=== PATIENT | female | born 1970 | race Caucasian/White ===

== ENCOUNTER 2017-01-19 16:02 | Emergency (ER) | payer OTHER ==
[2017-01-19] MEDS ORDERED: Sodium Chloride 0.9% 1,000 ML IV STA (16:32)
[2017-01-19] MEDS ORDERED: Sodium Chloride 0.9% 10 ML Syringe FLUSH PRN ×2 (16:32→17:46)
[2017-01-19] MEDS ORDERED: Diatrizoate Meglumine/Diatrizoate Sodium 37% 120 ML Bottle PO ONE (17:46)
[2017-01-19] MEDS ORDERED: Iopamidol 612 MG/ML 150 ML Bottle IVPUSH ONE (17:46)
--- NOTE | 2017-01-19 17:51 | EDM.PDOC ---
ED HPI GI/ABDOMINAL - General Chief Complaint: Abdominal Pain Stated Complaint: ABDOMINAL PAIN Time Seen by Provider: 01/19/17 16:24 Source of Information: Reports: Patient History Limitations: Reports: No limitations - History of Present Illness INITIAL COMMENTS - FREE TEXT/NARRATIVE: The patient presents with lower abdominal pain that started about 1 month ago. It is coming and going and she had an episode that started yesterday. She has no nausea and vomiting with it. She will have some diarrhea with it at times but not now. She has no dysuria and no fever or chills. She has no chest pain or shortness of breath. She has had a 40pound intentional weight loss over the past few months. Timing/Duration: Reports: Week(s): (4) Location: other (Lower abdomen) Quality: Reports: stabbing Severity: moderate Context: Denies: sick contact Associated Symptoms (-Female): Reports: diarrhea. Denies: chest pain, nausea/ vomiting - Related Data Allergies/ADRs: Allergies Allergy/AdvReac Type Severity Reaction Status Date / Time acetaminophen Allergy Facial Verified 01/19/17 16:07 [From Darvocet-N] Swelling guaifenesin [From Entex LA] Allergy Facial Verified 01/19/17 16:07 Swelling meclizine Allergy Facial Verified 01/19/17 16:07 Swelling meperidine HCl [From Demerol] Allergy Facial Verified 01/19/17 16:07 Swelling oxycodone HCl [From Percocet] Allergy Facial Verified 01/19/17 16:07 Swelling phenylephrine HCl Allergy Facial Verified 01/19/17 16:07 [From Entex LA] Swelling phenylpropanolamine HCl Allergy Facial Verified 01/19/17 16:07 [From Entex LA] Swelling propoxyphene napsylate Allergy Facial Verified 01/19/17 16:07 [From Darvocet-N] Swelling terfenadine [From Seldane] Allergy Facial Verified 01/19/17 16:07 Swelling Home Meds: Home Meds Calcium Carb/Vitamin D3/Vit K1 [Calcium + Vit D & K Chew] 1 tab PO DAILY [History] Pantoprazole Sodium [Protonix] 40 mg PO DAILY 05/27/14 [History] Sertraline HCl [Sertraline HCl] 200 mg PO DAILY 10/30/15 [History] Albuterol [Take Home: Albuterol 6.7 GM, 1 INH Pack] 1 puff INH Q4H PRN 01/15/16 [History] Cholecalciferol (Vitamin D3) [Vitamin D] 1 tab PO TID 01/15/16 [History] Cyclobenzaprine [Flexeril] 10 mg PO DAILY 01/15/16 [History] traZODone 50 mg PO ACDINNER 01/15/16 [History] Hydroclorathaizide 10 mg PO DAILY 01/25/16 [History] Hydrocodone/Acetaminophen [Hydrocodon-Acetaminophen 5-325] 1 - 2 each PO Q6HR PRN #20 tablet 01/19/17 [Rx] Past Medical History HEENT History: Reports: Impaired vision Cardiovascular History: Reports: Hypertension Respiratory History: Reports: Asthma, Sleep apnea Other Respiratory History: uses cpap at night Gastrointestinal History: Reports: GERD Psychiatric History: Reports: Anxiety, Depression, Other (see below) Other Psychiatric History: trouble sleeping Other Hematologic History: PKU - Past Surgical History Female Surgical History: Reports: Tubal ligation Musculoskeletal Surgical History: Reports: Knee replacement, Other (see below) Other Musculoskeletal Surgeries/Procedures:: ankle surgery, collar bone surgery Social & Family History - Family History Family Medical History: Noncontributory Cardiac: Reports: Heart failure, [place] Neurological: Reports: CVA Endocrine/Metabolic: Reports: Diabetes, type II - Tobacco Use Smoking Status *Q: Former Smoker Years of Tobacco use: 3 Packs/Tins Daily: 1 Second Hand Smoke Exposure: No - Caffeine Use Caffeine Use: Reports: Soda - Alcohol Use Days Per Week of Alcohol Use: 0 - Recreational Drug Use Recreational Drug Use: No ED ROS GENERAL - Review of Systems Review Of Systems: See Below Constitutional: Reports: no symptoms HEENT: Reports: No symptoms Respiratory: Reports: No Symptoms Cardiovascular: Reports: No symptoms Endocrine: Reports: no symptoms GI/Abdominal: Reports: Abdominal pain : Reports: no symptoms Musculoskeletal: Reports: no symptoms ED EXAM, GI/ABD - Physical Exam Exam: See Below Exam Limited By: No limitations General Appearance: alert, no apparent distress Ears: normal external exam Nose: normal inspection Head: atraumatic, normocephalic Neck: normal inspection Respiratory/Chest: no respiratory distress, lungs clear, normal breath sounds Cardiovascular: regular rate, rhythm, no edema, no murmur GI/Abdominal: soft, no organomegaly, no mass, tenderness (Mild to moderate tenderness to the lower abdomen) Course - Vital Signs Last Recorded V/S: Last Vital Signs Temp 97.1 F 01/19/17 16:13 Pulse 84 01/19/17 16:13 Resp 16 01/19/17 16:13 BP 136/92 H 01/19/17 16:13 Pulse Ox 99 01/19/17 16:13 - Orders/Labs/Meds Orders: Active Orders 24 hr Category Date Time Status Peripheral IV Care [RC] . DIRECTED Care 01/19/17 16:32 Active Abdomen Pelvis w Cont [CT] Stat Exams 01/19/17 16:37 Taken Sodium Chloride 0.9% [Saline Flush] Med 01/19/17 16:32 Active 10 ml FLUSH ASDIRECTED PRN Sodium Chloride 0.9% [Saline Flush] Med 01/19/17 17:46 Active 10 ml FLUSH ONETIME PRN Peripheral IV Insertion Adult [OM.PC] Stat Oth 01/19/17 16:32 Ordered Medication Orders Sodium Chloride (Saline Flush) 10 ml FLUSH ASDIRECTED PRN PRN Reason: Keep Vein Open Last Admin: 01/19/17 16:35 Dose: 10 ml Sodium Chloride (Saline Flush) 10 ml FLUSH ONETIME PRN PRN Reason: IV FLUSH Last Admin: 01/19/17 18:16 Dose: 10 ml Labs: Laboratory Tests 01/19/17 01/19/17 01/19/17 Range/Units 16:40 16:40 16:40 WBC 8.70 (3.98-10.04) K/mm3 RBC 4.44 (3.98-5.22) M/mm3 Hgb 14.0 (11.2-15.7) gm/L Hct 40.9 (34.1-44.9) % MCV 92.1 (79.4-94.8) fl MCH 31.5 (25.6-32.2) pg MCHC 34.2 (32.2-35.5) g/dl RDW Std Deviation 41.5 (36.4-46.3) fL Plt Count 294 (182-369) K/mm3 MPV 10.0 (9.4-12.3) fl Neut % (Auto) 58.8 (34.0-71.1) % Lymph % (Auto) 30.8 (19.3-51.7) % [place] % (Auto) 7.4 (4.7-12.5) % Eos % (Auto) 2.5 (0.7-5.8) Baso % (Auto) 0.3 (0.1-1.2) % Neut # (Auto) 5.11 (1.56-6.13) K/mm3 Lymph # (Auto) 2.68 (1.18-3.74) K/mm3 [place] # (Auto) 0.64 H (0.24-0.36) K/mm3 Eos # (Auto) 0.22 (0.04-0.36) K/mm3 Baso # (Auto) 0.03 (0.01-0.08) K/mm3 Sodium 141 (136-145) mEq/L Potassium 3.1 L (3.5-5.1) mEq/L Chloride 103 (98-107) mEq/L Carbon Dioxide 25 (21-32) mEq/L Anion Gap 16.1 H (5-15) BUN 7 (7-18) mg/dL Creatinine 0.8 (0.55-1.02) mg/dL Est Cr Clr Drug Dosing TNP Estimated GFR (MDRD) > 60 (>60) mL/min BUN/Creatinine Ratio 8.8 L (14-18) Glucose 98 (74-106) mg/dL Calcium 8.9 (8.5-10.1) mg/dL Total Bilirubin 0.2 (0.2-1.0) mg/dL AST 13 L (15-37) U/L ALT 28 (14-59) U/L Alkaline Phosphatase 64 (46-116) U/L Total Protein 6.9 (6.4-8.2) g/dl Albumin 3.7 (3.4-5.0) g/dl Globulin 3.2 gm/dL Albumin/Globulin Ratio 1.2 (1-2) Lipase 224 (73-393) U/L HCG, Qual Negative (NEGATIVE) Urine Color (Yellow) Urine Appearance (Clear) Urine pH (5.0-8.0) Ur Specific [place] (1.005-1.030) Urine Protein (Negative) Urine Glucose (UA) (Negative) Urine Ketones (Negative) Urine Occult Blood (Negative) Urine Nitrite (Negative) Urine Bilirubin (Negative) Urine Urobilinogen (0.2-1.0) Ur Leukocyte Esterase (Negative) Urine RBC (0-5) /hpf Urine WBC (0-5) /hpf Ur Squamous Epith Cells (0-5) /hpf Amorphous Sediment (NOT SEEN) /hpf Urine Bacteria (FEW) /hpf Urine Mucus (FEW) /hpf 01/19/17 Range/Units 17:20 WBC (3.98-10.04) K/mm3 RBC (3.98-5.22) M/mm3 Hgb (11.2-15.7) gm/L Hct (34.1-44.9) % MCV (79.4-94.8) fl MCH (25.6-32.2) pg MCHC (32.2-35.5) g/dl RDW Std Deviation (36.4-46.3) fL Plt Count (182-369) K/mm3 MPV (9.4-12.3) fl Neut % (Auto) (34.0-71.1) % Lymph % (Auto) (19.3-51.7) % [place] % (Auto) (4.7-12.5) % Eos % (Auto) (0.7-5.8) Baso % (Auto) (0.1-1.2) % Neut # (Auto) (1.56-6.13) K/mm3 Lymph # (Auto) (1.18-3.74) K/mm3 [place] # (Auto) (0.24-0.36) K/mm3 Eos # (Auto) (0.04-0.36) K/mm3 Baso # (Auto) (0.01-0.08) K/mm3 Sodium (136-145) mEq/L Potassium (3.5-5.1) mEq/L Chloride (98-107) mEq/L Carbon Dioxide (21-32) mEq/L Anion Gap (5-15) BUN (7-18) mg/dL Creatinine (0.55-1.02) mg/dL Est Cr Clr Drug Dosing Estimated GFR (MDRD) (>60) mL/min BUN/Creatinine Ratio (14-18) Glucose (74-106) mg/dL Calcium (8.5-10.1) mg/dL Total Bilirubin (0.2-1.0) mg/dL AST (15-37) U/L ALT (14-59) U/L Alkaline Phosphatase (46-116) U/L Total Protein (6.4-8.2) g/dl Albumin (3.4-5.0) g/dl Globulin gm/dL Albumin/Globulin Ratio (1-2) Lipase (73-393) U/L HCG, Qual (NEGATIVE) Urine Color Light yellow (Yellow) Urine Appearance Clear (Clear) Urine pH 7.0 (5.0-8.0) Ur Specific [place] 1.015 (1.005-1.030) Urine Protein Negative (Negative) Urine Glucose (UA) Negative (Negative) Urine Ketones Negative (Negative) Urine Occult Blood Negative (Negative) Urine Nitrite Negative (Negative) Urine Bilirubin Negative (Negative) Urine Urobilinogen 0.2 (0.2-1.0) Ur Leukocyte Esterase Trace H (Negative) Urine RBC 0-5 (0-5) /hpf Urine WBC 0-5 (0-5) /hpf Ur Squamous Epith Cells 0-5 (0-5) /hpf Amorphous Sediment Few H (NOT SEEN) /hpf Urine Bacteria Few (FEW) /hpf Urine Mucus Not seen (FEW) /hpf Meds: Medications Generic Name Dose Route Start Last Admin Trade Name Fresimi PRN Reason Stop Dose Admin Sodium Chloride 10 ml 01/19/17 16:32 01/19/17 16:35 Saline Flush FLUSH 10 ml ASDIRECTED PRN Administration Keep Vein Open Sodium Chloride 10 ml 01/19/17 17:46 01/19/17 18:16 Saline Flush FLUSH 10 ml ONETIME PRN Administration IV FLUSH Discontinued Medications Generic Name Dose Route Start Last Admin Trade Name Freq PRN Reason Stop Dose Admin Diatrizoate Meglum/Diatrizoate Sod 90 ml 01/19/17 17:46 01/19/17 18:16 Gastrografin 37% PO 01/19/17 17:47 90 ml ONETIME ONE Administration Sodium Chloride 1,000 mls @ 1,000 mls/hr 01/19/17 16:32 01/19/17 16:51 Normal Saline IV 01/19/17 17:31 1,000 mls/hr .BOLUS STA Administration Iopamidol 125 ml 01/19/17 17:46 01/19/17 18:13 Isovue-300 (61%) IVPUSH 01/19/17 17:47 125 ml ONETIME ONE Administration - Re-Assessments/Exams Free Text/Narrative Re-Assessment/Exam: 01/19/17 17:57 I ordered an IV NS 1L bolus, labs, UA and CT of her abdomen and pelvis. She did not want anything for the pain at this time. 01/19/17 19:17 Her CBC and CMP look good. Her HCG is negative. Her UA shows no UTI. Her CT looks good. I will discharge her home. Departure - Departure Time of Disposition: 19:30 Disposition: Home, Self-Care 01 Condition: good Clinical Impression: Abdominal pain Qualifiers: Abdominal location: lower abdomen, unspecified Qualified Code(s): R10.30 - Lower abdominal pain, unspecified Prescriptions: Hydrocodone/Acetaminophen [Hydrocodon-Acetaminophen 5-325] 1 - 2 each PO Q6HR PRN #20 tablet PRN Reason: Pain Referrals: Sanjana Garber MD [Physician] - 1 Week Forms: ED Department Discharge Additional Instructions: Take the hydrocodone for pain. Follow up with Dr Sanjana Garber. Please return if you are worse such as more pain, nausea, vomiting or diarrhea. - My Orders Last 24 Hours: My Active Orders 01/19/17 16:32 Peripheral IV Care [RC] . DIRECTED Sodium Chloride 0.9% [Saline Flush] 10 ml FLUSH ASDIRECTED PRN Peripheral IV Insertion Adult [OM.PC] Stat 01/19/17 16:37 Abdomen Pelvis w Cont [CT] Stat 01/19/17 17:46 Sodium Chloride 0.9% [Saline Flush] 10 ml FLUSH ONETIME PRN - Assessment/Plan Last 24 Hours: My Active Orders 01/19/17 16:32 Peripheral IV Care [RC] . DIRECTED Sodium Chloride 0.9% [Saline Flush] 10 ml FLUSH ASDIRECTED PRN Peripheral IV Insertion Adult [OM.PC] Stat 01/19/17 16:37 Abdomen Pelvis w Cont [CT] Stat 01/19/17 17:46 Sodium Chloride 0.9% [Saline Flush] 10 ml FLUSH ONETIME PRN
[2017-01-19 20:02] VITALS: BP 130/85
--- NOTE | 2017-01-20 05:16 | CT ---
CT abdomen and pelvis Technique: Multiple axial sections were obtained from above the dome of the diaphragm inferiorly through the pubic symphysis. Delayed images were also obtained through the abdomen and pelvis. Comparison: No previous abdominal imaging. Findings: Visualized lung bases shows nothing acute. Liver shows no focal parenchymal abnormality. Spleen appears within normal limits. Adrenal glands show no nodule. Pancreas appears within normal limits. Cyst noted within the mid to lower right kidney measuring 2.5 cm. Aorta shows no aneurysmal dilatation. No retroperitoneal adenopathy or mesenteric abnormalities are seen. No pelvic mass or adenopathy is seen. Appendix is seen which appears normal. Delayed images shows contrast within the ureters and show show no dilatation. Contrast is noted within the bladder. Bone window settings were reviewed which shows scattered disc space narrowing most severe at L5-S1 and with vacuum phenomena. 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 L5-S1 disc also shows vacuum phenomena. Impression: 1. Incidental findings. Nothing acute is seen on CT study of the abdomen and pelvis. Diagnostic code #2
== END 2017-01-19 20:00 | disposition home or self-care (01) ==
LOC: JD.ED 16:02
DX: R10.30 Lower abdominal pain, unspecified (principal); Z88.8 Allergy status to other drugs, medicaments and biological substances; Z88.6 Allergy status to analgesic agent; Z79.899 Other long term (current) drug therapy; I10 Essential (primary) hypertension; J45.909 Unspecified asthma, uncomplicated; G47.30 Sleep apnea, unspecified; K21.9 Gastro-esophageal reflux disease without esophagitis; F32.9 Major depressive disorder, single episode, unspecified; F41.9 Anxiety disorder, unspecified; Z96.659 Presence of unspecified artificial knee joint; Z87.891 Personal history of nicotine dependence
CPT/HCPCS: 36415; 74177; 80053; 81001; 83690; 84703; 85025; 96360; 99284; J7040; J7050; Q9963; Q9967; 99283

== ENCOUNTER 2017-04-15 21:38 | Emergency (ER) | payer OTHER ==
[2017-04-15 21:46] VITALS: BP 155/96
--- NOTE | 2017-04-15 22:10 | EDM.PDOC ---
ED HPI GENERAL MEDICAL PROBLEM - General Chief Complaint: Respiratory Problem Stated Complaint: ASTHMA ISSUES/CHEST PAIN Time Seen by Provider: 04/15/17 21:46 Source of Information: Reports: Patient, RN Notes Reviewed History Limitations: Reports: No Limitations - History of Present Illness INITIAL COMMENTS - FREE TEXT/NARRATIVE: The patient states that she has asthma, and has been feeling short of breath, has had a dry cough, and chest tightness for or than one month. She states that she has not had any wheezing. She has been taking her Ventolin twice a day and another inhaler (whose name she cannot recall) on an as-needed basis, but states that they don't seem to be helping. She had a single dose of albuterol by her nebulizer tonight at 19:30, but states that barely helped, as well. The patient has not had a recent fever. It is noted that the patient is saturating 100% on room air. The patient's PCP is Dr. Ruvalcaba. The patient states that she has never been seen by a cooling room attendant, but has had pulmonary function tests. Chest Pain Score (Numeric/FACES): 7 - Related Data Allergies Allergy/AdvReac Type Severity Reaction Status Date / Time acetaminophen Allergy Facial Verified 01/19/17 16:07 [From Darvocet-N] Swelling guaifenesin [From Entex LA] Allergy Facial Verified 01/19/17 16:07 Swelling meclizine Allergy Facial Verified 01/19/17 16:07 Swelling meperidine HCl [From Demerol] Allergy Facial Verified 01/19/17 16:07 Swelling oxycodone HCl [From Percocet] Allergy Facial Verified 01/19/17 16:07 Swelling phenylephrine HCl Allergy Facial Verified 01/19/17 16:07 [From Entex LA] Swelling phenylpropanolamine HCl Allergy Facial Verified 01/19/17 16:07 [From Entex LA] Swelling propoxyphene napsylate Allergy Facial Verified 01/19/17 16:07 [From Darvocet-N] Swelling terfenadine [From Seldane] Allergy Facial Verified 01/19/17 16:07 Swelling Home Meds: Home Meds Calcium Carb/Vitamin D3/Vit K1 [Calcium + Vit D & K Chew] 1 tab PO DAILY [History] Pantoprazole Sodium [Protonix] 40 mg PO DAILY 05/27/14 [History] Sertraline HCl [Sertraline HCl] 200 mg PO DAILY 08/23/15 [History] Albuterol [Take Home: Albuterol 6.7 GM, 1 INH Pack] 1 puff INH Q4H PRN 01/15/16 [History] Cholecalciferol (Vitamin D3) [Vitamin D] 1 tab PO TID 01/15/16 [History] Cyclobenzaprine [Flexeril] 10 mg PO DAILY 01/15/16 [History] traZODone 50 mg PO ACDINNER 01/15/16 [History] Hydroclorathaizide 10 mg PO DAILY 01/25/16 [History] Hydrocodone/Acetaminophen [Hydrocodon-Acetaminophen 5-325] 1 - 2 each PO Q6HR PRN #20 tablet 01/19/17 [Rx] Albuterol [IJD: Ventolin HFA] 04/15/17 [History] Past Medical History HEENT History: Reports: Impaired Vision Cardiovascular History: Reports: High Cholesterol (untreated), Hypertension Respiratory History: Reports: Asthma, Sleep Apnea (nightly CPAP) Gastrointestinal History: Reports: GERD Musculoskeletal History: Reports: Arthritis Psychiatric History: Reports: Anxiety, Depression Endocrine/Metabolic History: Reports: Obesity/BMI 30+ - Past Surgical History HEENT Surgical History: Reports: Oral Surgery ([place] teeth extraction) Female Surgical History: Reports: Tubal Ligation Musculoskeletal Surgical History: Reports: Arthroscopic Procedure (bilateral knees), ORIF (Left ankle), Shoulder Surgery (right, AC separation), Other (See Below) Social & Family History - Family History Family Medical History: Noncontributory Cardiac: Reports: Heart Failure, [place] Neurological: Reports: CVA Endocrine/Metabolic: Reports: Diabetes, type II - Tobacco Use Smoking Status *Q: Former Smoker Years of Tobacco use: 3 Packs/Tins Daily: 1 Month Tobacco Last Used: Quit 2012 Second Hand Smoke Exposure: No - Caffeine Use Caffeine Use: Reports: Soda - Alcohol Use Alcohol Use History: No Days Per Week of Alcohol Use: 0 - Recreational Drug Use Recreational Drug Use: No - Living Situation & Occupation Living situation: Reports: , with Spouse Occupation: Unemployed ED ROS GENERAL - Review of Systems Review Of Systems: See Below Constitutional: Reports: No Symptoms. Denies: Fever HEENT: Reports: No Symptoms Respiratory: Reports: Shortness of Breath, Cough (dry). Denies: Wheezing, Sputum Cardiovascular: Reports: No Symptoms Endocrine: Reports: No Symptoms GI/Abdominal: Reports: No Symptoms : Reports: No Symptoms Musculoskeletal: Reports: No Symptoms Skin: Reports: No Symptoms Neurological: Reports: No Symptoms Psychiatric: Reports: No Symptoms Hematologic/Lymphatic: Reports: No Symptoms Immunologic: Reports: No Symptoms ED EXAM, GENERAL - Physical Exam Exam: See Below Exam Limited By: No Limitations General Appearance: Alert, WD/WN, No Apparent Distress Eye Exam: Bilateral Eye: Normal Inspection Ears: Normal External Exam, Hearing Grossly Normal Nose: Normal Inspection, No Blood Throat/Mouth: Normal Inspection, Normal Lips, Normal Voice, No Airway Compromise Head: Atraumatic, Normocephalic Neck: Normal Inspection, Full Range of Motion Respiratory/Chest: No Respiratory Distress, Lungs Clear, Normal Breath Sounds, No Accessory Muscle Use. No: Decreased Breath Sounds, Crackles, Rhonchi, Wheezing, Prolonged Expiration Cardiovascular: Normal Peripheral Pulses, Regular Rate, Rhythm, No Gallop, No JVD, No Murmur, No Rub Peripheral Pulses: 4+: Radial (L), Radial (R) GI/Abdominal: Normal Bowel Sounds, Soft, Non-Tender, No Organomegaly, No Distention, No Abnormal Bruit, No Mass, Other (Obese) (Female) Exam: Deferred Rectal (Female) Exam: Deferred Back Exam: Normal Inspection, Full Range of Motion, NT Extremities: Normal Inspection, Normal Range of Motion, No Pedal Edema, Normal Capillary Refill Neurological: Alert, Oriented, Normal Cognition, Normal Reflexes, No Motor/ Sensory Deficits Psychiatric: Normal Affect Skin Exam: Warm, Dry, Intact, Normal Color, No Rash Lymphatic: No Adenopathy EKG INTERPRETATION EKG Date: 04/15/17 Time: 22:55 Rhythm: NSR Rate (Beats/Min): 75 [place]: Normal P-Wave: Present QRS: Normal ST-T: Normal QT: Normal Comparison: No Change (09/07/2016) Course - Vital Signs Last Recorded V/S: Last Vital Signs Temp 36.1 C 04/15/17 21:43 Pulse 93 04/15/17 21:43 Resp 18 04/15/17 21:43 BP 155/96 H 04/15/17 21:43 Pulse Ox 100 06/22/17 21:43 - Orders/Labs/Meds Orders: Active Orders 24 hr Category Date Time Status EKG Documentation Completion [RC] STAT Care 04/15/17 22:02 Active Chest 2V [CR] Stat Exams 04/15/17 22:02 Taken Labs: Laboratory Tests 04/15/17 04/15/17 04/15/17 Range/Units 22:15 22:15 22:15 WBC 7.34 (3.98-10.04) K/mm3 RBC 4.38 (3.98-5.22) M/mm3 Hgb 13.8 (11.2-15.7) gm/L Hct 40.3 (34.1-44.9) % MCV 92.0 (79.4-94.8) fl MCH 31.5 (25.6-32.2) pg MCHC 34.2 (32.2-35.5) g/dl RDW Std Deviation 39.8 (36.4-46.3) fL Plt Count 284 (182-369) K/mm3 MPV 10.0 (9.4-12.3) fl Neutrophils % (Manual) 54 (40-60) % Band Neutrophils % 0 (0-10) % Lymphocytes % (Manual) 36 (20-40) % Atypical Lymphs % 3 % Monocytes % (Manual) 2 (2-10) % Eosinophils % (Manual) 5 (0.7-5.8) % Basophils % (Manual) 0 L (0.1-1.2) Platelet Estimate Adequate Plt Morphology Comment Normal Poikilocytosis 1+ slight Anisocytosis 1+ slight Microcytosis 1+ slight Macrocytosis 1+ slight Tear Drop Cells 1+ slight Stomatocytes 1+ slight [place] Rings RBC Morph Comment Abnormal PT 10.5 (8.0-13.0) SECONDS INR 0.97 APTT 28 (22-36) SECONDS D-Dimer, Quantitative 0.22 (0.19-0.59) mg/L Puncture Site ABG pH (7.35-7.45) ABG pCO2 (35.0-45.0) mmHg ABG pO2 (80.0-100.0) mmHg ABG HCO3 (22.0-26.0) meq/L ABG O2 Saturation (96.0-97.0) % ABG Base Excess (-2-2.0) A-a Gradient mmHg FiO2 (21.00-100.00) % Sodium 138 (136-145) mEq/L Potassium 3.2 L (3.5-5.1) mEq/L Chloride 104 (98-107) mEq/L Carbon Dioxide 27 (21-32) mEq/L Anion Gap 10.2 (5-15) BUN 10 (7-18) mg/dL Creatinine 1.0 (0.55-1.02) mg/dL Est Cr Clr Drug Dosing TNP Estimated GFR (MDRD) 60 (>60) mL/min BUN/Creatinine Ratio 10.0 L (14-18) Glucose 116 H (74-106) mg/dL Calcium 8.9 (8.5-10.1) mg/dL Total Bilirubin 0.2 (0.2-1.0) mg/dL AST 20 (15-37) U/L ALT 34 (14-59) U/L Alkaline Phosphatase 77 (46-116) U/L Troponin I < 0.017 (0.00-0.056) ng/mL B-Natriuretic Peptide (0-100) pg/mL Total Protein 7.0 (6.4-8.2) g/dl Albumin 3.6 (3.4-5.0) g/dl Globulin 3.4 gm/dL Albumin/Globulin Ratio 1.1 (1-2) 04/15/17 04/15/17 Range/Units 22:15 22:28 WBC (3.98-10.04) K/mm3 RBC (3.98-5.22) M/mm3 Hgb (11.2-15.7) gm/L Hct (34.1-44.9) % MCV (79.4-94.8) fl MCH (25.6-32.2) pg MCHC (32.2-35.5) g/dl RDW Std Deviation (36.4-46.3) fL Plt Count (182-369) K/mm3 MPV (9.4-12.3) fl Neutrophils % (Manual) (40-60) % Band Neutrophils % (0-10) % Lymphocytes % (Manual) (20-40) % Atypical Lymphs % % Monocytes % (Manual) (2-10) % Eosinophils % (Manual) (0.7-5.8) % Basophils % (Manual) (0.1-1.2) Platelet Estimate Plt Morphology Comment Poikilocytosis Anisocytosis Microcytosis Macrocytosis Tear Drop Cells Stomatocytes [place] Rings RBC Morph Comment PT (8.0-13.0) SECONDS INR APTT (22-36) SECONDS D-Dimer, Quantitative (0.19-0.59) mg/L Puncture Site Rt brachial ABG pH 7.48 H (7.35-7.45) ABG pCO2 29.4 L (35.0-45.0) mmHg ABG pO2 88.0 (80.0-100.0) mmHg ABG HCO3 21.8 L (22.0-26.0) meq/L ABG O2 Saturation 98.0 H (96.0-97.0) % ABG Base Excess -0.3 (-2-2.0) A-a Gradient 9 mmHg FiO2 21.00 (21.00-100.00) % Sodium (136-145) mEq/L Potassium (3.5-5.1) mEq/L Chloride (98-107) mEq/L Carbon Dioxide (21-32) mEq/L Anion Gap (5-15) BUN (7-18) mg/dL Creatinine (0.55-1.02) mg/dL Est Cr Clr Drug Dosing Estimated GFR (MDRD) (>60) mL/min BUN/Creatinine Ratio (14-18) Glucose (74-106) mg/dL Calcium (8.5-10.1) mg/dL Total Bilirubin (0.2-1.0) mg/dL AST (15-37) U/L ALT (14-59) U/L Alkaline Phosphatase (46-116) U/L Troponin I (0.00-0.056) ng/mL B-Natriuretic Peptide 24 (0-100) pg/mL Total Protein (6.4-8.2) g/dl Albumin (3.4-5.0) g/dl Globulin gm/dL Albumin/Globulin Ratio (1-2) Meds: Medications Discontinued Medications Generic Name Dose Route Start Last Admin Trade Name Freq PRN Reason Stop Dose Admin Ondansetron HCl 4 mg 04/15/17 22:34 04/15/17 22:40 Zofran Odt PO 04/15/17 22:35 4 mg ONETIME ONE Administration - Radiology Interpretation Free Text/Narrative:: Two-view chest radiograph appears to be grossly normal. Cardiac silhouette is within normal limits. No pulmonary vascular congestion. No pleural effusions. No focal infiltrate. No pneumothorax. Formal read per the Radiologist pending. - Re-Assessments/Exams Free Text/Narrative Re-Assessment/Exam: 04/15/17 22:35 Notified by the nurse that the patient vomited while the ABG was being drawn. The patient had no prior complaints of nausea - this is likely due to anxiety. I have ordered Zofran 4 mg ODT. 04/15/17 22:51 The ABG demonstrates an acute on chronic respiratory alkalosis. 04/15/17 23:49 Test results discussed with the patient. The ABG confirms that the patient was hyperventilating, which is usually caused by anxiety, although can be caused by a variety of medical conditions including metabolic acidosis, hypocalcemia, hypoglycemia, liver failure, severe anemia, sepsis, acute coronary event, pneumothorax, pneumonia, dysrhythmia, PE, and CHF. These have been ruled out. I'm recommending the patient discuss her anxiety with Dr. Ruvalcaba, who may want to modify the patient's anxiety treatment. Departure - Departure Time of Disposition: 23:50 Disposition: Home, Self-Care 01 Condition: Good Clinical Impression: Hyperventilation syndrome, Anxiety - Discharge Information Instructions: Hyperventilation Referrals: Angela Person MD [Primary Care Provider] - Forms: ED Department Discharge Additional Instructions: You were seen in the emergency room for shortness of breath, a dry cough, and chest tightness for more than a month. Workup in the ER included blood work, an ABG, an ECG, and a chest x-ray. Your workup showed that you or hyperventilating. Hyperventilation is usually caused by anxiety, although can be caused by a variety of medical conditions including metabolic acidosis, hypocalcemia, hypoglycemia, liver failure, severe anemia, sepsis, acute coronary event, pneumothorax, pneumonia, dysrhythmia, PE, and CHF. These have all been ruled out, indicating that your hyperventilation is due to inadequately treated anxiety. We recommend that you follow-up with Dr. Ruvalcaba to discuss your anxiety treatment. If any other problems, please do not hesitate to return to the ER. - My Orders Last 24 Hours: My Active Orders 04/15/17 22:02 EKG Documentation Completion [RC] STAT Chest 2V [CR] Stat - Assessment/Plan Last 24 Hours: My Active Orders 04/15/17 22:02 EKG Documentation Completion [RC] STAT Chest 2V [CR] Stat
[2017-04-15] MEDS ORDERED: Ondansetron 4 MG Tab.DIS PO ONE (22:34)
--- NOTE | 2017-04-16 09:37 | CR ---
Chest: Two views of the chest were obtained. Comparison: Previous chest x-ray of 09/07/16. Heart size at the upper limits of normal. Lungs are clear. Bony structures are within normal limits for the patient's age. Impression: 1. Heart size at the upper limits of normal. Nothing acute is appreciated on two-view chest x-ray. Diagnostic code #2
== END 2017-04-15 23:55 | disposition home or self-care (01) ==
LOC: JD.ED 21:38
DX: F45.8 Other somatoform disorders (principal); F41.9 Anxiety disorder, unspecified; I10 Essential (primary) hypertension; E78.00 Pure hypercholesterolemia, unspecified; J45.909 Unspecified asthma, uncomplicated; G47.30 Sleep apnea, unspecified; K21.9 Gastro-esophageal reflux disease without esophagitis; F32.9 Major depressive disorder, single episode, unspecified; E66.9 Obesity, unspecified; Z98.51 Tubal ligation status; Z98.890 Other specified postprocedural states; Z87.891 Personal history of nicotine dependence; Z79.899 Other long term (current) drug therapy; Z88.6 Allergy status to analgesic agent; Z88.8 Allergy status to other drugs, medicaments and biological substances
CPT/HCPCS: 36415; 36600; 71020; 80053; 82803; 83880; 84484; 85025; 85379; 85610; 85730; 93005; 99285; A9270; 99283

== ENCOUNTER 2017-06-15 16:44 | Emergency (ER) | payer OTHER ==
[2017-06-15 17:01] VITALS: BP 136/81
--- NOTE | 2017-06-15 17:38 | EDM.PDOC ---
ED HPI GENERAL MEDICAL PROBLEM - General Chief Complaint: Lower Extremity Injury/Pain Stated Complaint: RT HIP PAIN Time Seen by Provider: 06/15/17 17:00 Source of Information: Reports: Patient History Limitations: Reports: No Limitations - History of Present Illness INITIAL COMMENTS - FREE TEXT/NARRATIVE: The patient presents with right hip pain. About 1 month ago she turned and had severe pain in her hip. She went to the walk in clinic and then her provider. They referred her to PT. She was doing okay until today. 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 When she did that, she could not get up because of sever pain in her right hip. The nursing staff used the daja lift to put her in a wheel chair. She presents now with right hip pain. She feels good when she is just laying down. Onset: Sudden Duration: Minutes: Location: Reports: Lower Extremity, Right (Hip) Quality: Reports: Sharp Severity: Severe Improves with: Reports: Immobilization Worsens with: Reports: Movement Context: Reports: Activity (Kneeling down) Associated Symptoms: Reports: No Other Symptoms Right Hip Pain Score (Numeric/FACES): 6 - Related Data Allergies Allergy/AdvReac Type Severity Reaction Status Date / Time acetaminophen Allergy Facial Verified 06/15/17 17:01 [From Darvocet-N] Swelling guaifenesin [From Entex LA] Allergy Facial Verified 06/15/17 17:01 Swelling meclizine Allergy Facial Verified 06/15/17 17:01 Swelling meperidine HCl [From Demerol] Allergy Facial Verified 06/15/17 17:01 Swelling oxycodone HCl [From Percocet] Allergy Facial Verified 06/15/17 17:01 Swelling phenylephrine HCl Allergy Facial Verified 06/15/17 17:01 [From Entex LA] Swelling phenylpropanolamine HCl Allergy Facial Verified 06/15/17 17:01 [From Entex LA] Swelling propoxyphene napsylate Allergy Facial Verified 06/15/17 17:01 [From Darvocet-N] Swelling terfenadine [From Seldane] Allergy Facial Verified 06/15/17 17:01 Swelling Home Meds: Home Meds Calcium Carb/Vitamin D3/Vit K1 [Calcium + Vit D & K Chew] 1 tab PO DAILY [History] Pantoprazole Sodium [Protonix] 40 mg PO DAILY 05/27/14 [History] Sertraline HCl [Sertraline HCl] 200 mg PO DAILY 08/23/15 [History] Albuterol [Take Home: Albuterol 6.7 GM, 1 INH Pack] 1 puff INH Q4H PRN 01/15/16 [History] Cholecalciferol (Vitamin D3) [Vitamin D] 1 tab PO TID 01/15/16 [History] Cyclobenzaprine [Flexeril] 10 mg PO DAILY 01/15/16 [History] traZODone 50 mg PO ACDINNER 01/15/16 [History] Hydroclorathaizide 10 mg PO DAILY 01/25/16 [History] Hydrocodone/Acetaminophen [Hydrocodon-Acetaminophen 5-325] 1 - 2 each PO Q6HR PRN #20 tablet 01/19/17 [Rx] Albuterol [IJD: Ventolin HFA] 04/15/17 [History] Acetaminophen with Codeine [Tylenol with Codeine #3 Tablet] 1 - 2 tab PO Q6HR PRN #30 tablet 06/15/17 [Rx] Past Medical History HEENT History: Reports: Impaired Vision Cardiovascular History: Reports: High Cholesterol (untreated), Hypertension Respiratory History: Reports: Asthma, Sleep Apnea (nightly CPAP) Gastrointestinal History: Reports: GERD Musculoskeletal History: Reports: Arthritis Psychiatric History: Reports: Anxiety, Depression Endocrine/Metabolic History: Reports: Obesity/BMI 30+ Other Hematologic History: PKU - Past Surgical History HEENT Surgical History: Reports: Oral Surgery ([place] teeth extraction) Female Surgical History: Reports: Tubal Ligation Musculoskeletal Surgical History: Reports: Arthroscopic Procedure (bilateral knees), ORIF (Left ankle), Shoulder Surgery (right, AC separation), Other (See Below) Social & Family History - Family History Family Medical History: Noncontributory Cardiac: Reports: Heart Failure, [place] Neurological: Reports: CVA Endocrine/Metabolic: Reports: Diabetes, type II - Tobacco Use Smoking Status *Q: Never Smoker Years of Tobacco use: 3 Packs/Tins Daily: 1 Month Tobacco Last Used: Quit 2012 Second Hand Smoke Exposure: No - Caffeine Use Caffeine Use: Reports: Soda - Alcohol Use Days Per Week of Alcohol Use: 0 - Recreational Drug Use Recreational Drug Use: No - Living Situation & Occupation Living situation: Reports: , with Spouse Occupation: Unemployed Review of Systems - Review of Systems Review Of Systems: Unable To Obtain Constitutional: Reports: No Symptoms Eyes: Reports: No Symptoms Ears: Reports: No Symptoms Nose: Reports: No Symptoms Mouth/Throat: Reports: No Symptoms Respiratory: Reports: No Symptoms Cardiovascular: Reports: No Symptoms GI/Abdominal: Reports: No Symptoms Musculoskeletal: Reports: Other (Right hip pain) ED EXAM, GENERAL - Physical Exam Exam: See Below Exam Limited By: No Limitations General Appearance: Alert, No Apparent Distress Ears: Normal External Exam Nose: Normal Inspection Head: Atraumatic, Normocephalic Neck: Normal Inspection Respiratory/Chest: No Respiratory Distress Extremities: Other (Mild pain upon palpation to the right hip) Course - Vital Signs Last Recorded V/S: Last Vital Signs Temp 97.1 F 06/15/17 16:58 Pulse 95 06/15/17 16:58 Resp 20 06/15/17 16:58 BP 136/81 06/15/17 16:58 Pulse Ox 96 06/15/17 16:58 - Orders/Labs/Meds Orders: Active Orders 24 hr Category Date Time Status Hip Min 2V or 3V w Pelvis Rt [CR] Stat Exams 06/15/17 17:08 Taken - Re-Assessments/Exams Free Text/Narrative Re-Assessment/Exam: 06/15/17 18:12 I ordered an x-ray and they just showed some mild arthritis. Departure - Departure Time of Disposition: 18:15 Disposition: Home, Self-Care 01 Condition: Good Clinical Impression: Right hip pain - Discharge Information Prescriptions: Acetaminophen with Codeine [Tylenol with Codeine #3 Tablet] 1 - 2 tab PO Q6HR PRN #30 tablet PRN Reason: Pain Referrals: Angela Person MD [Primary Care Provider] - 1 Week Forms: ED Department Discharge, ED Return to Work/School Form Additional Instructions: Take the tylenol # 3 as needed for pain. Try ice or heat for the pain. Follow up with Dr Ruvalcaba. Please return if you are worse. - My Orders Last 24 Hours: My Active Orders 06/15/17 17:08 Hip Min 2V or 3V w Pelvis Rt [CR] Stat - Assessment/Plan Last 24 Hours: My Active Orders 06/15/17 17:08 Hip Min 2V or 3V w Pelvis Rt [CR] Stat
--- NOTE | 2017-06-16 16:18 | CR ---
Pelvis and right hip: AP view of the pelvis was obtained as well as AP and frog-leg lateral views of the right hip. Comparison: No previous study. Joint spaces within both hips are maintained. Slight degenerative change is noted within the inferior left sacroiliac joint. No fracture or other abnormality is appreciated. Impression: 1. Mild degenerative change within the left inferior sacroiliac joint. 2. No additional abnormality is seen on AP pelvis or on two-view right hip exam. Diagnostic code #2
== END 2017-06-15 18:45 | disposition home or self-care (01) ==
LOC: JD.ED 16:44
DX: M25.551 Pain in right hip (principal); K21.9 Gastro-esophageal reflux disease without esophagitis; M19.90 Unspecified osteoarthritis, unspecified site; F41.9 Anxiety disorder, unspecified; F32.9 Major depressive disorder, single episode, unspecified; E66.9 Obesity, unspecified; Z98.51 Tubal ligation status; Z88.8 Allergy status to other drugs, medicaments and biological substances; Z79.899 Other long term (current) drug therapy
CPT/HCPCS: 73502-26-RT; 73502-RT; 99283; 99284

== ENCOUNTER 2017-09-15 19:37 | Emergency (ER) | payer OTHER ==
[2017-09-15 19:51] VITALS: BP 132/78
[2017-09-15] MEDS ORDERED: Albuterol/Ipratropium 3.0-0.5 MG/3 ML Neb Soln NEB ONE (20:56)
--- NOTE | 2017-09-15 20:56 | EDM.PDOC ---
ED HPI GENERAL MEDICAL PROBLEM - General Chief Complaint: Chest Pain Stated Complaint: CHEST PAIN Time Seen by Provider: 09/15/17 20:46 - History of Present Illness INITIAL COMMENTS - FREE TEXT/NARRATIVE: 47-year-old female presents to the emergency room with some chest pressure. This started yesterday and is been going on all day today this seems to be worse with exertion and is aggravated by deep breathing. The patient has a long history of asthma. She is using her inhalers as directed however has not increased her albuterol. It sounds like she uses her albuterol 1 times daily. The patient had a preop physical with some abnormalities on her EKG is scheduled to see cardiology this next week. With this chest pressure she has not had any radiating pain into either arm or into her jaw this is not been associated with diaphoresis no nausea or vomiting. Middle Chest Pain Score (Numeric/FACES): 8 - Related Data Allergies Allergy/AdvReac Type Severity Reaction Status Date / Time acetaminophen Allergy Facial Verified 09/15/17 19:51 [From Darvocet-N] Swelling guaifenesin [From Entex LA] Allergy Facial Verified 09/15/17 19:51 Swelling meclizine Allergy Facial Verified 09/15/17 19:51 Swelling meperidine HCl [From Demerol] Allergy Facial Verified 09/15/17 19:51 Swelling oxycodone HCl [From Percocet] Allergy Facial Verified 09/15/17 19:51 Swelling phenylephrine HCl Allergy Facial Verified 09/15/17 19:51 [From Entex LA] Swelling phenylpropanolamine HCl Allergy Facial Verified 09/15/17 19:51 [From Entex LA] Swelling propoxyphene napsylate Allergy Facial Verified 09/15/17 19:51 [From Darvocet-N] Swelling terfenadine [From Seldane] Allergy Facial Verified 09/15/17 19:51 Swelling Home Meds: Home Meds Calcium Carb/Vitamin D3/Vit K1 [Calcium + Vit D & K Chew] 1 tab PO DAILY [History] Pantoprazole Sodium [Protonix] 40 mg PO DAILY 05/27/14 [History] Sertraline HCl [Sertraline HCl] 200 mg PO DAILY 08/23/15 [History] Albuterol [Take Home: Albuterol 6.7 GM, 1 INH Pack] 1 puff INH Q4H PRN 01/15/16 [History] Cholecalciferol (Vitamin D3) [Vitamin D] 1 tab PO TID 01/15/16 [History] Cyclobenzaprine [Flexeril] 10 mg PO DAILY 01/15/16 [History] traZODone 50 mg PO ACDINNER 01/15/16 [History] Hydroclorathaizide 10 mg PO DAILY 01/25/16 [History] Hydrocodone/Acetaminophen [Hydrocodon-Acetaminophen 5-325] 1 - 2 each PO Q6HR PRN #20 tablet 01/19/17 [Rx] Albuterol [IJD: Ventolin HFA] 04/15/17 [History] Acetaminophen with Codeine [Tylenol with Codeine #3 Tablet] 1 - 2 tab PO Q6HR PRN #30 tablet 06/15/17 [Rx] Past Medical History HEENT History: Reports: Impaired Vision Cardiovascular History: Reports: High Cholesterol, Hypertension Respiratory History: Reports: Asthma, Sleep Apnea Gastrointestinal History: Reports: GERD Musculoskeletal History: Reports: Arthritis Psychiatric History: Reports: Anxiety, Depression Endocrine/Metabolic History: Reports: Obesity/BMI 30+ Other Hematologic History: PKU - Past Surgical History HEENT Surgical History: Reports: Oral Surgery Female Surgical History: Reports: Tubal Ligation Musculoskeletal Surgical History: Reports: Arthroscopic Procedure, ORIF, Shoulder Surgery, Other (See Below) Social & Family History - Family History Family Medical History: Noncontributory Cardiac: Reports: Heart Failure, [place] Neurological: Reports: CVA Endocrine/Metabolic: Reports: Diabetes, type II - Tobacco Use Smoking Status *Q: Never Smoker Years of Tobacco use: 3 Packs/Tins Daily: 1 Month Tobacco Last Used: Quit 2012 Second Hand Smoke Exposure: No - Caffeine Use Caffeine Use: Reports: Soda - Alcohol Use Days Per Week of Alcohol Use: 0 - Recreational Drug Use Recreational Drug Use: No - Living Situation & Occupation Living situation: Reports: , with Spouse Occupation: Unemployed ED ROS GENERAL - Review of Systems Review Of Systems: See Below Constitutional: Reports: No Symptoms HEENT: Reports: No Symptoms Respiratory: Reports: Shortness of Breath, Wheezing Cardiovascular: Reports: Chest Pain (Mild chest pressure) Endocrine: Reports: No Symptoms GI/Abdominal: Reports: No Symptoms : Reports: No Symptoms Neurological: Reports: No Symptoms Psychiatric: Reports: No Symptoms ED EXAM, GENERAL - Physical Exam Exam: See Below Exam Limited By: No Limitations General Appearance: Alert, No Apparent Distress Head: Atraumatic, Normocephalic Neck: Normal Inspection, Supple, Non-Tender, Full Range of Motion. No: Lymphadenopathy (L), Lymphadenopathy (R) Respiratory/Chest: No Respiratory Distress, Decreased Breath Sounds, Other ( With deep breathing the patient has some expiratory wheezes no crackles or rhonchi she seems to have diminished respiratory effort) Cardiovascular: Regular Rate, Rhythm, No Edema, No Murmur GI/Abdominal: Normal Bowel Sounds, Soft, Non-Tender Back Exam: Normal Inspection. No: CVA Tenderness (L), CVA Tenderness (R) Extremities: Normal Inspection, No Pedal Edema Neurological: Alert, Oriented, Normal Cognition Course - Vital Signs Last Recorded V/S: Last Vital Signs Temp 36.6 C 09/15/17 19:48 Pulse 90 09/15/17 19:48 Resp 16 09/15/17 19:48 BP 132/78 09/15/17 19:48 Pulse Ox 98 09/15/17 21:28 - Orders/Labs/Meds Orders: Active Orders 24 hr Category Date Time Status EKG Documentation Completion [RC] ASDIRECTED Care 09/15/17 19:55 Active RT Aerosol Therapy [RC] ASDIRECTED Care 09/15/17 20:56 Active Chest 1V Frontal [CR] Stat Exams 09/15/17 20:57 Taken EKG 12 Lead [EK] Stat Ther 09/15/17 19:54 Ordered Labs: Laboratory Tests 09/15/17 09/15/17 09/15/17 Range/Units 20:00 20:00 20:00 WBC 11.80 H (3.98-10.04) K/mm3 RBC 4.41 (3.98-5.22) M/mm3 Hgb 14.2 (11.2-15.7) gm/L Hct 40.4 (34.1-44.9) % MCV 91.6 (79.4-94.8) fl MCH 32.2 (25.6-32.2) pg MCHC 35.1 (32.2-35.5) g/dl RDW Std Deviation 40.5 (36.4-46.3) fL Plt Count 303 (182-369) K/mm3 MPV 10.2 (9.4-12.3) fl Neut % (Auto) Cancelled Lymph % (Auto) Cancelled [place] % (Auto) Cancelled Eos % (Auto) Cancelled Baso % (Auto) Cancelled Neut # (Auto) Cancelled Lymph # (Auto) Cancelled [place] # (Auto) Cancelled Eos # (Auto) Cancelled Baso # (Auto) Cancelled Neutrophils % (Manual) 61 H (40-60) % Band Neutrophils % 0 (0-10) % Lymphocytes % (Manual) 35 (20-40) % Atypical Lymphs % 0 % Monocytes % (Manual) 3 (2-10) % Eosinophils % (Manual) 1 (0.7-5.8) % Basophils % (Manual) 0 L (0.1-1.2) Manual Slide Review Cancelled Platelet Estimate Adequate Plt Morphology Comment Normal RBC Morph Comment Normal PT (8.0-13.0) SECONDS INR D-Dimer, Quantitative < 0.19 L (0.19-0.59) mg/L Sodium 138 (136-145) mEq/L Potassium 3.1 L (3.5-5.1) mEq/L Chloride 101 (98-107) mEq/L Carbon Dioxide 26 (21-32) mEq/L Anion Gap 14.1 (5-15) BUN 11 (7-18) mg/dL Creatinine 1.0 (0.55-1.02) mg/dL Est Cr Clr Drug Dosing 67.63 mL/min Estimated GFR (MDRD) 59 (>60) mL/min BUN/Creatinine Ratio 11.0 L (14-18) Glucose 120 H (74-106) mg/dL Calcium 9.3 (8.5-10.1) mg/dL Total Bilirubin 0.3 (0.2-1.0) mg/dL AST 21 (15-37) U/L ALT 40 (14-59) U/L Alkaline Phosphatase 79 (46-116) U/L Troponin I < 0.017 (0.00-0.056) ng/mL Total Protein 7.2 (6.4-8.2) g/dl Albumin 3.8 (3.4-5.0) g/dl Globulin 3.4 gm/dL Albumin/Globulin Ratio 1.1 (1-2) 09/15/ Range/Units 20:00 WBC (3.98-10.04) K/mm3 RBC (3.98-5.22) M/mm3 Hgb (11.2-15.7) gm/L Hct (34.1-44.9) % MCV (79.4-94.8) fl MCH (25.6-32.2) pg MCHC (32.2-35.5) g/dl RDW Std Deviation (36.4-46.3) fL Plt Count (182-369) K/mm3 MPV (9.4-12.3) fl Neut % (Auto) Lymph % (Auto) [place] % (Auto) Eos % (Auto) Baso % (Auto) Neut # (Auto) Lymph # (Auto) [place] # (Auto) Eos # (Auto) Baso # (Auto) Neutrophils % (Manual) (40-60) % Band Neutrophils % (0-10) % Lymphocytes % (Manual) (20-40) % Atypical Lymphs % % Monocytes % (Manual) (2-10) % Eosinophils % (Manual) (0.7-5.8) % Basophils % (Manual) (0.1-1.2) Manual Slide Review Platelet Estimate Plt Morphology Comment RBC Morph Comment PT 10.4 (8.0-13.0) SECONDS INR 0.96 D-Dimer, Quantitative (0.19-0.59) mg/L Sodium (136-145) mEq/L Potassium (3.5-5.1) mEq/L Chloride (98-107) mEq/L Carbon Dioxide (21-32) mEq/L Anion Gap (5-15) BUN (7-18) mg/dL Creatinine (0.55-1.02) mg/dL Est Cr Clr Drug Dosing mL/min Estimated GFR (MDRD) (>60) mL/min BUN/Creatinine Ratio (14-18) Glucose (74-106) mg/dL Calcium (8.5-10.1) mg/dL Total Bilirubin (0.2-1.0) mg/dL AST (15-37) U/L ALT (14-59) U/L Alkaline Phosphatase (46-116) U/L Troponin I (0.00-0.056) ng/mL Total Protein (6.4-8.2) g/dl Albumin (3.4-5.0) g/dl Globulin gm/dL Albumin/Globulin Ratio (1-2) Meds: Medications Discontinued Medications Generic Name Dose Route Start Last Admin Trade Name Rogelio PRN Reason Stop Dose Admin Albuterol/Ipratropium 3 ml 09/15/17 20:56 09/15/17 21:27 Duoneb 3.0-0.5 Mg/3 Ml NEB 09/15/17 20:57 3 ml ONETIME ONE Administration Aspirin 324 mg 09/15/17 22:17 09/15/17 22:23 Aspirin PO 09/15/17 22:18 324 mg ONETIME ONE Administration Potassium Chloride 40 meq 09/15/17 22:13 09/15/17 22:19 Klor-Con M20 PO 09/15/17 22:14 40 meq ONETIME ONE Administration - Re-Assessments/Exams Free Text/Narrative Re-Assessment/Exam: 09/15/17 22:15 Patient is doing much better after single nebulizer treatment her chest pressure has resolved she is breathing much better labs are nondiagnostic her potassium is a little low chest x-ray cannot exclude cardiomegaly suspect some of this is positional and slightly suboptimal inspiration no acute changes noted 09/15/17 22:44 Patient would like to be discharged at this point we did offer a second troponin but she would still like to go home I did recommend that she start daily aspirin 81 mg daily Departure - Departure Time of Disposition: 22:45 Disposition: Home, Self-Care 01 Clinical Impression: Chest pain, Asthma exacerbation - Discharge Information Referrals: Anastasia Lehman, [employer] CE[employer] DESIGNER [Primary Care Provider] - Forms: ED Department Discharge Additional Instructions: Return to emergency room with any questions problems worsening symptoms. Follow-up with your regular physician early this next week for recheck. Follow up with cardiology as scheduled. Increase your albuterol inhaler 2 puffs every 4 hours while awake. - My Orders Last 24 Hours: My Active Orders 09/15/17 19:54 EKG 12 Lead [EK] Stat 09/15/17 19:55 EKG Documentation Completion [RC] ASDIRECTED 09/15/17 20:56 RT Aerosol Therapy [RC] ASDIRECTED 09/15/17 20:57 Chest 1V Frontal [CR] Stat - Assessment/Plan Last 24 Hours: My Active Orders 09/15/17 19:54 EKG 12 Lead [EK] Stat 09/15/17 19:55 EKG Documentation Completion [RC] ASDIRECTED 09/15/17 20:56 RT Aerosol Therapy [RC] ASDIRECTED 09/15/17 20:57 Chest 1V Frontal [CR] Stat
[2017-09-15] MEDS ORDERED: Potassium Chloride 20 MEQ Tab.ER PO ONE (22:13)
[2017-09-15] MEDS ORDERED: Aspirin 81 MG Tab.Chew PO ONE (22:17)
--- NOTE | 2017-09-17 14:35 | CR ---
Chest: Portable view of the chest was obtained. Comparison: Prior chest x-ray of 04/15/17. Heart size and mediastinum are within normal limits for portable technique. Lungs are clear. Bony structures are grossly intact. Impression: 1. Nothing acute is identified on portable chest x-ray. Diagnostic code #1
== END 2017-09-15 22:59 | disposition home or self-care (01) ==
LOC: JD.ED 19:37
DX: J45.901 Unspecified asthma with (acute) exacerbation (principal); I10 Essential (primary) hypertension; Z88.6 Allergy status to analgesic agent; Z88.5 Allergy status to narcotic agent; Z88.8 Allergy status to other drugs, medicaments and biological substances; Z79.899 Other long term (current) drug therapy
CPT/HCPCS: 36415; 71010; 80053; 84484; 85025; 85379; 85610; 93005; 94640; 99285; A9270; 93010

== ENCOUNTER 2017-11-07 10:38 | Emergency (ER) | payer BC, OTHER ==
[2017-11-07 10:53] VITALS: BP 139/98
--- NOTE | 2017-11-07 11:12 | EDM.PDOC ---
ED HPI GENERAL MEDICAL PROBLEM - General Chief Complaint: Skin Complaint Stated Complaint: CHECK INCISION FROM BACK SURGERY Time Seen by Provider: 11/07/17 10:49 Source of Information: Reports: Patient History Limitations: Reports: No Limitations - History of Present Illness INITIAL COMMENTS - FREE TEXT/NARRATIVE: The patient had back surgery by Dr Dixon October 05. She had the dinora removed 2 weeks later and about a week ago she noticed the lower part of her incision opened up. There is a 1cm area to the lower part of the incision that opened up. There is no drainage. He doctor did do a swab of that area and she does not have the results back. She see Dr Dixon this Wednesday. There is no redness, swelling, pain or drainage. She has no fever or chills. Onset: Gradual Duration: Day(s): Location: Reports: Back Severity: Mild Improves with: Reports: None Worsens with: Reports: None Associated Symptoms: Reports: No Other Symptoms Left Lower Back Pain Score (Numeric/FACES): 6 - Related Data Allergies Allergy/AdvReac Type Severity Reaction Status Date / Time acetaminophen Allergy Facial Verified 11/07/17 10:54 [From Darvocet-N] Swelling guaifenesin [From Entex LA] Allergy Facial Verified 11/07/17 10:54 Swelling meclizine Allergy Facial Verified 11/07/17 10:54 Swelling meperidine HCl [From Demerol] Allergy Facial Verified 11/07/17 10:54 Swelling oxycodone HCl [From Percocet] Allergy Facial Verified 11/07/17 10:54 Swelling phenylephrine HCl Allergy Facial Verified 11/07/17 10:54 [From Entex LA] Swelling phenylpropanolamine HCl Allergy Facial Verified 11/07/17 10:54 [From Entex LA] Swelling propoxyphene napsylate Allergy Facial Verified 11/07/17 10:54 [From Darvocet-N] Swelling terfenadine [From Seldane] Allergy Facial Verified 11/07/17 10:54 Swelling Home Meds: Home Meds Calcium Carb/Vitamin D3/Vit K1 [Calcium + Vit D & K Chew] 1 tab PO DAILY [History] Pantoprazole Sodium [Protonix] 40 mg PO DAILY 05/27/14 [History] Sertraline HCl [Sertraline HCl] 200 mg PO DAILY 08/23/15 [History] Albuterol [Take Home: Albuterol 6.7 GM, 1 INH Pack] 1 puff INH Q4H PRN 01/15/16 [History] Cholecalciferol (Vitamin D3) [Vitamin D] 1 tab PO TID 01/15/16 [History] Cyclobenzaprine [Flexeril] 10 mg PO DAILY 01/15/16 [History] traZODone 50 mg PO ACDINNER 01/15/16 [History] Hydroclorathaizide 10 mg PO DAILY 01/25/16 [History] Albuterol [IJD: Ventolin HFA] 04/15/17 [History] Acetaminophen with Codeine [Tylenol with Codeine #3 Tablet] 1 - 2 tab PO Q6HR PRN #30 tablet 06/15/17 [Rx] Past Medical History HEENT History: Reports: Impaired Vision Cardiovascular History: Reports: High Cholesterol, Hypertension Respiratory History: Reports: Asthma, Sleep Apnea Gastrointestinal History: Reports: GERD Musculoskeletal History: Reports: Arthritis Psychiatric History: Reports: Anxiety, Depression Endocrine/Metabolic History: Reports: Obesity/BMI 30+ Other Hematologic History: PKU - Past Surgical History HEENT Surgical History: Reports: Oral Surgery Female Surgical History: Reports: Tubal Ligation Musculoskeletal Surgical History: Reports: Arthroscopic Procedure, ORIF, Shoulder Surgery, Other (See Below) Social & Family History - Family History Family Medical History: Noncontributory Cardiac: Reports: Heart Failure, [place] Neurological: Reports: CVA Endocrine/Metabolic: Reports: Diabetes, type II - Tobacco Use Smoking Status *Q: Never Smoker Years of Tobacco use: 3 Packs/Tins Daily: 1 Month Tobacco Last Used: Quit 2012 Second Hand Smoke Exposure: No - Caffeine Use Caffeine Use: Reports: Soda - Alcohol Use Days Per Week of Alcohol Use: 0 - Recreational Drug Use Recreational Drug Use: No - Living Situation & Occupation Living situation: Reports: , with Spouse Occupation: Unemployed ED ROS GENERAL - Review of Systems Review Of Systems: See Below Constitutional: Reports: No Symptoms HEENT: Reports: No Symptoms Respiratory: Reports: No Symptoms Cardiovascular: Reports: No Symptoms Endocrine: Reports: No Symptoms GI/Abdominal: Reports: No Symptoms : Reports: No Symptoms Musculoskeletal: Reports: No Symptoms Skin: Reports: Other (Incision opened up) ED EXAM, SKIN/RASH Exam: See Below Exam Limited By: No Limitations General Appearance: Alert, No Apparent Distress Ears: Normal External Exam Nose: Normal Inspection Head: Atraumatic, Normocephalic Neck: Normal Inspection Respiratory/Chest: No Respiratory Distress Back Exam: Other (Low back vertical incision with a small 1cm area to the lower incision that has some dehiscense fo the incision. There is no redness, warmth or drainage from the incision.) Course - Vital Signs Last Recorded V/S: Last Vital Signs Temp 98.4 F 11/07/17 10:46 Pulse 100 11/07/17 10:46 Resp 13 11/07/17 10:46 BP 139/98 H 11/07/17 10:46 Pulse Ox 100 11/07/17 10:46 - Re-Assessments/Exams Free Text/Narrative Re-Assessment/Exam: 11/07/17 11:11 I do not think this is an infection. I did put some steristrips on and I will have her follow up with her doctor. Departure - Departure Time of Disposition: 11:15 Disposition: Home, Self-Care 01 Condition: Good Clinical Impression: Dehiscence of closure of skin Qualifiers: Encounter type: initial encounter Qualified Code(s): T81.31XA - Disruption of external operation (surgical) wound, not elsewhere classified, initial encounter - Discharge Information Referrals: Anastasia Lehman, FANCY STITCHER [Primary Care Provider] - Additional Instructions: Keep the steristrips on the wound until you see your doctor. Please return if you are worse.
== END 2017-11-07 11:38 | disposition home or self-care (01) ==
LOC: JD.ED 10:38
DX: T81.31XA Disruption of external operation (surgical) wound, not elsewhere classified, initial encounter (principal); I10 Essential (primary) hypertension; E78.00 Pure hypercholesterolemia, unspecified; J45.909 Unspecified asthma, uncomplicated; F32.9 Major depressive disorder, single episode, unspecified; Z87.891 Personal history of nicotine dependence; Z79.899 Other long term (current) drug therapy; Z88.6 Allergy status to analgesic agent; Z88.8 Allergy status to other drugs, medicaments and biological substances; Z98.890 Other specified postprocedural states
CPT/HCPCS: 99283

== ENCOUNTER 2017-11-09 14:38 | Emergency (ER) | payer BC ==
[2017-11-09 14:51] VITALS: BP 157/102
--- NOTE | 2017-11-09 14:55 | EDM.PDOCBH ---
ED HPI GENERAL MEDICAL PROBLEM - General Chief Complaint: Behavioral/Psych Stated Complaint: SUICIDAL IDEATIONS Time Seen by Provider: 11/09/17 14:55 Source of Information: Reports: Patient History Limitations: Reports: No Limitations - History of Present Illness INITIAL COMMENTS - FREE TEXT/NARRATIVE: Patient is a 47-year-old female presents ED with suicidal ideations and homicidal thoughts. Patient did attempt to kill herself last night with taking trazodone 50 mg tabs 5 and also 2xTylenol threes. She is feeling depressed. She states her is not supportive and continues to emotionally degrade her. She wants to get patient cannot afford it. Patient recently had back surgery lumbosacral spine it is utilizing crutches to ambulate. This occurred September 2017. She has taken Tylenol number threes for pain. She has plans of going to [facility] crisis bed and has spoken with a case preparer and liner over there. Plan is for the patient to be medically cleared here in the ED and be transferred over to [facility]. Patient is tearful and sad about her situation. She states she did not really want to kill herself but is wanting to get out of her current situation. She has not taken any other medications. Denies any alcohol use or recreational drug use. She has not been treated inpatient for psych issues. - Related Data Allergies Allergy/AdvReac Type Severity Reaction Status Date / Time acetaminophen Allergy Facial Verified 11/09/17 14:51 [From Darvocet-N] Swelling guaifenesin [From Entex LA] Allergy Facial Verified 11/09/17 14:51 Swelling meclizine Allergy Facial Verified 11/09/17 14:51 Swelling meperidine HCl [From Demerol] Allergy Facial Verified 11/09/17 14:51 Swelling oxycodone HCl [From Percocet] Allergy Facial Verified 11/09/17 14:51 Swelling phenylephrine HCl Allergy Facial Verified 11/09/17 14:51 [From Entex LA] Swelling phenylpropanolamine HCl Allergy Facial Verified 11/09/17 14:51 [From Entex LA] Swelling propoxyphene napsylate Allergy Facial Verified 11/09/17 14:51 [From Darvocet-N] Swelling terfenadine [From Seldane] Allergy Facial Verified 11/09/17 14:51 Swelling Home Meds: Home Meds Calcium Carb/Vitamin D3/Vit K1 [Calcium + Vit D & K Chew] 1 tab PO DAILY [History] Pantoprazole Sodium [Protonix] 40 mg PO DAILY 05/27/14 [History] Sertraline HCl [Sertraline HCl] 200 mg PO DAILY 08/23/15 [History] Albuterol [Take Home: Albuterol 6.7 GM, 1 INH Pack] 1 puff INH Q4H PRN 01/15/16 [History] Cholecalciferol (Vitamin D3) [Vitamin D] 1 tab PO TID 01/15/16 [History] Cyclobenzaprine [Flexeril] 10 mg PO DAILY 01/15/16 [History] traZODone 50 mg PO ACDINNER 01/15/16 [History] Acetaminophen with Codeine [Tylenol with Codeine #3 Tablet] 1 - 2 tab PO Q6HR PRN #30 tablet 06/15/17 [Rx] Hydrochlorothiazide 25 mg PO DAILY 11/09/17 [History] Past Medical History HEENT History: Reports: Impaired Vision Cardiovascular History: Reports: High Cholesterol, Hypertension Respiratory History: Reports: Asthma, Sleep Apnea Gastrointestinal History: Reports: GERD Musculoskeletal History: Reports: Arthritis Psychiatric History: Reports: Anxiety, Depression Endocrine/Metabolic History: Reports: Obesity/BMI 30+ Hematologic History: Reports: Other (See Below) Other Hematologic History: PKU - Past Surgical History HEENT Surgical History: Reports: Oral Surgery Female Surgical History: Reports: Tubal Ligation Musculoskeletal Surgical History: Reports: Arthroscopic Procedure, ORIF, Shoulder Surgery, Other (See Below) Social & Family History - Family History Family Medical History: Noncontributory Cardiac: Reports: Heart Failure, [place] Neurological: Reports: CVA Endocrine/Metabolic: Reports: Diabetes, type II - Tobacco Use Smoking Status *Q: Former Smoker Years of Tobacco use: 3 Packs/Tins Daily: 1 Used Tobacco, but Quit: Yes Month Tobacco Last Used: 2006 Second Hand Smoke Exposure: No - Caffeine Use Caffeine Use: Reports: Soda - Alcohol Use Days Per Week of Alcohol Use: 0 - Recreational Drug Use Recreational Drug Use: No - Living Situation & Occupation Living situation: Reports: , with Spouse Occupation: Unemployed ED ROS GENERAL - Review of Systems Review Of Systems: See Below Constitutional: Reports: No Symptoms Respiratory: Reports: No Symptoms Cardiovascular: Reports: No Symptoms GI/Abdominal: Reports: No Symptoms Musculoskeletal: Reports: Back Pain (Low back pain secondary to recent surgery September 2017.) Skin: Reports: Other (Large surgical incision to the low back appears to be in week late stages of healing with no signs of infection.) Psychiatric: Reports: Anxiety, Depression. Denies: Homicidal Ideation, Suicidal Ideation ED EXAM, BEHAVIORAL HEALTH - Physical Exam Exam: See Below Exam Limited By: No Limitations General Appearance: Alert, WD/WN, Anxious Eye Exam: Bilateral Eye: PERRL Ears: Hearing Grossly Normal Nose: Normal Inspection Throat/Mouth: Normal Voice, No Airway Compromise Neck: Normal Inspection, Supple Respiratory/Chest: No Respiratory Distress, Lungs Clear, Normal Breath Sounds, No Accessory Muscle Use, Chest Non-Tender Cardiovascular: Normal Peripheral Pulses, Regular Rate, Rhythm, No Murmur GI/Abdominal: Normal Bowel Sounds, Soft, Non-Tender, No Organomegaly Back Exam: Other (Large surgical incision to the low back from previous back surgery September 2017. Appears being intact in the late stages of healing with no signs of infection present.) Extremities: Normal Inspection, Normal Range of Motion, Non-Tender, No Pedal Edema, Normal Capillary Refill Neurological: Alert, Normal Mood/Affect, CN II-XII Intact, Normal Cognition, No Motor/Sensory Deficits, Oriented x 3 Psychiatric: Alert, Normal Affect, Normal Cognition, Oriented, Depressed Mood, Tearful, Homicidal Thoughts (At times she's had dreams that she stabbed her .). No: Suicidal Plan, Suicidal Thoughts, Auditory Hallucinations, Visual Hallucinations COURSE, BEHAVIORAL HEALTH COMP - Course Vital Signs: Last Vital Signs Temp 97.3 F 11/09/17 14:47 Pulse 96 11/09/17 14:47 Resp 18 11/09/17 14:47 BP 157/102 H 11/09/17 14:47 Pulse Ox 100 11/09/17 14:47 Orders, Labs, Meds: Laboratory Tests 11/09/17 11/09/17 11/09/17 Range/Units 15:05 15:05 15:05 WBC 9.33 (3.98-10.04) K/mm3 RBC 4.31 (3.98-5.22) M/mm3 Hgb 13.5 (11.2-15.7) gm/L Hct 40.2 (34.1-44.9) % MCV 93.3 (79.4-94.8) fl MCH 31.3 (25.6-32.2) pg MCHC 33.6 (32.2-35.5) g/dl RDW Std Deviation 41.8 (36.4-46.3) fL Plt Count 341 (182-369) K/mm3 MPV 9.9 (9.4-12.3) fl Neut % (Auto) 69.3 (34.0-71.1) % Lymph % (Auto) 22.1 (19.3-51.7) % Clay % (Auto) 6.1 (4.7-12.5) % Eos % (Auto) 1.6 (0.7-5.8) Baso % (Auto) 0.5 (0.1-1.2) % Neut # (Auto) 6.46 H (1.56-6.13) K/mm3 Lymph # (Auto) 2.06 (1.18-3.74) K/mm3 Clay # (Auto) 0.57 H (0.24-0.36) K/mm3 Eos # (Auto) 0.15 (0.04-0.36) K/mm3 Baso # (Auto) 0.05 (0.01-0.08) K/mm3 PT 11.0 (8.0-13.0) SECONDS INR 1.01 Sodium 140 (136-145) mEq/L Potassium 3.4 L (3.5-5.1) mEq/L Chloride 105 (98-107) mEq/L Carbon Dioxide 23 (21-32) mEq/L Anion Gap 15.4 H (5-15) BUN 10 (7-18) mg/dL Creatinine 0.9 (0.55-1.02) mg/dL Est Cr Clr Drug Dosing 75.15 mL/min Estimated GFR (MDRD) > 60 (>60) mL/min BUN/Creatinine Ratio 11.1 L (14-18) Glucose 106 (74-106) mg/dL Calcium 9.2 (8.5-10.1) mg/dL Total Bilirubin 0.4 (0.2-1.0) mg/dL AST 16 (15-37) U/L ALT 28 (14-59) U/L Alkaline Phosphatase 80 (46-116) U/L Total Protein 7.5 (6.4-8.2) g/dl Albumin 3.9 (3.4-5.0) g/dl Globulin 3.6 gm/dL Albumin/Globulin Ratio 1.1 (1-2) TSH 3rd Generation 1.130 (0.358-3.74) uIU/mL HCG, Qual (NEGATIVE) Urine Color (Yellow) Urine Appearance (Clear) Urine pH (5.0-8.0) Ur Specific Sigel (1.005-1.030) Urine Protein (Negative) Urine Glucose (UA) (Negative) Urine Ketones (Negative) Urine Occult Blood (Negative) Urine Nitrite (Negative) Urine Bilirubin (Negative) Urine Urobilinogen (0.2-1.0) Ur Leukocyte Esterase (Negative) Urine RBC (0-5) /hpf Urine WBC (0-5) /hpf Ur Epithelial Cells (0-5) /hpf Urine Bacteria (FEW) /hpf Urine Mucus (FEW) /hpf Salicylates (2.8-20) mg/dL Urine Opiates Screen (NEGATIVE) Ur Buprenorphine Scrn (NEGATIVE) Ur Oxycodone Screen (NEGATIVE) Urine Methadone Screen (NEGATIVE) Ur Propoxyphene Screen (NEGATIVE) Acetaminophen 0 L (10-30) ug/mL Ur Barbiturates Screen (NEGATIVE) Ur Tricyclics Screen (NEGATIVE) Ur Phencyclidine Scrn (NEGATIVE) Ur Amphetamine Screen (NEGATIVE) U Methamphetamines Scrn (NEGATIVE) U Benzodiazepines Scrn (NEGATIVE) U Cocaine Metab Screen (NEGATIVE) U Marijuana (THC) Screen (NEGATIVE) Ethyl Alcohol 0.00 (0.00) gm% 11/09/17 11/09/17 11/09/17 Range/Units 15:05 15:05 16:12 WBC (3.98-10.04) K/mm3 RBC (3.98-5.22) M/mm3 Hgb (11.2-15.7) gm/L Hct (34.1-44.9) % MCV (79.4-94.8) fl MCH (25.6-32.2) pg MCHC (32.2-35.5) g/dl RDW Std Deviation (36.4-46.3) fL Plt Count (182-369) K/mm3 MPV (9.4-12.3) fl Neut % (Auto) (34.0-71.1) % Lymph % (Auto) (19.3-51.7) % Clay % (Auto) (4.7-12.5) % Eos % (Auto) (0.7-5.8) Baso % (Auto) (0.1-1.2) % Neut # (Auto) (1.56-6.13) K/mm3 Lymph # (Auto) (1.18-3.74) K/mm3 Clay # (Auto) (0.24-0.36) K/mm3 Eos # (Auto) (0.04-0.36) K/mm3 Baso # (Auto) (0.01-0.08) K/mm3 PT (8.0-13.0) SECONDS INR Sodium (136-145) mEq/L Potassium (3.5-5.1) mEq/L Chloride (98-107) mEq/L Carbon Dioxide (21-32) mEq/L Anion Gap (5-15) BUN (7-18) mg/dL Creatinine (0.55-1.02) mg/dL Est Cr Clr Drug Dosing mL/min Estimated GFR (MDRD) (>60) mL/min BUN/Creatinine Ratio (14-18) Glucose (74-106) mg/dL Calcium (8.5-10.1) mg/dL Total Bilirubin (0.2-1.0) mg/dL AST (15-37) U/L ALT (14-59) U/L Alkaline Phosphatase (46-116) U/L Total Protein (6.4-8.2) g/dl Albumin (3.4-5.0) g/dl Globulin gm/dL Albumin/Globulin Ratio (1-2) TSH 3rd Generation (0.358-3.74) uIU/mL HCG, Qual Negative (NEGATIVE) Urine Color (Yellow) Urine Appearance (Clear) Urine pH (5.0-8.0) Ur Specific Sigel (1.005-1.030) Urine Protein (Negative) Urine Glucose (UA) (Negative) Urine Ketones (Negative) Urine Occult Blood (Negative) Urine Nitrite (Negative) Urine Bilirubin (Negative) Urine Urobilinogen (0.2-1.0) Ur Leukocyte Esterase (Negative) Urine RBC (0-5) /hpf Urine WBC (0-5) /hpf Ur Epithelial Cells (0-5) /hpf Urine Bacteria (FEW) /hpf Urine Mucus (FEW) /hpf Salicylates 3.5 (2.8-20) mg/dL Urine Opiates Screen Presumptive positive H (NEGATIVE) Ur Buprenorphine Scrn Negative (NEGATIVE) Ur Oxycodone Screen Negative (NEGATIVE) Urine Methadone Screen Negative (NEGATIVE) Ur Propoxyphene Screen Negative (NEGATIVE) Acetaminophen (10-30) ug/mL Ur Barbiturates Screen Negative (NEGATIVE) Ur Tricyclics Screen Negative (NEGATIVE) Ur Phencyclidine Scrn Negative (NEGATIVE) Ur Amphetamine Screen Negative (NEGATIVE) U Methamphetamines Scrn Negative (NEGATIVE) U Benzodiazepines Scrn Negative (NEGATIVE) U Cocaine Metab Screen Negative (NEGATIVE) U Marijuana (THC) Screen Negative (NEGATIVE) Ethyl Alcohol (0.00) gm% 11/09/17 Range/Units 16:12 WBC (3.98-10.04) K/mm3 RBC (3.98-5.22) M/mm3 Hgb (11.2-15.7) gm/L Hct (34.1-44.9) % MCV (79.4-94.8) fl MCH (25.6-32.2) pg MCHC (32.2-35.5) g/dl RDW Std Deviation (36.4-46.3) fL Plt Count (182-369) K/mm3 MPV (9.4-12.3) fl Neut % (Auto) (34.0-71.1) % Lymph % (Auto) (19.3-51.7) % Clay % (Auto) (4.7-12.5) % Eos % (Auto) (0.7-5.8) Baso % (Auto) (0.1-1.2) % Neut # (Auto) (1.56-6.13) K/mm3 Lymph # (Auto) (1.18-3.74) K/mm3 Clay # (Auto) (0.24-0.36) K/mm3 Eos # (Auto) (0.04-0.36) K/mm3 Baso # (Auto) (0.01-0.08) K/mm3 PT (8.0-13.0) SECONDS INR Sodium (136-145) mEq/L Potassium (3.5-5.1) mEq/L Chloride (98-107) mEq/L Carbon Dioxide (21-32) mEq/L Anion Gap (5-15) BUN (7-18) mg/dL Creatinine (0.55-1.02) mg/dL Est Cr Clr Drug Dosing mL/min Estimated GFR (MDRD) (>60) mL/min BUN/Creatinine Ratio (14-18) Glucose (74-106) mg/dL Calcium (8.5-10.1) mg/dL Total Bilirubin (0.2-1.0) mg/dL AST (15-37) U/L ALT (14-59) U/L Alkaline Phosphatase (46-116) U/L Total Protein (6.4-8.2) g/dl Albumin (3.4-5.0) g/dl Globulin gm/dL Albumin/Globulin Ratio (1-2) TSH 3rd Generation (0.358-3.74) uIU/mL HCG, Qual (NEGATIVE) Urine Color Yellow (Yellow) Urine Appearance Clear (Clear) Urine pH 7.0 (5.0-8.0) Ur Specific Sigel 1.015 (1.005-1.030) Urine Protein Negative (Negative) Urine Glucose (UA) Negative (Negative) Urine Ketones Negative (Negative) Urine Occult Blood Negative (Negative) Urine Nitrite Negative (Negative) Urine Bilirubin Negative (Negative) Urine Urobilinogen 0.2 (0.2-1.0) Ur Leukocyte Esterase Negative (Negative) Urine RBC Not seen (0-5) /hpf Urine WBC 0-5 (0-5) /hpf Ur Epithelial Cells 0-5 (0-5) /hpf Urine Bacteria Not seen (FEW) /hpf Urine Mucus Not seen (FEW) /hpf Salicylates (2.8-20) mg/dL Urine Opiates Screen (NEGATIVE) Ur Buprenorphine Scrn (NEGATIVE) Ur Oxycodone Screen (NEGATIVE) Urine Methadone Screen (NEGATIVE) Ur Propoxyphene Screen (NEGATIVE) Acetaminophen (10-30) ug/mL Ur Barbiturates Screen (NEGATIVE) Ur Tricyclics Screen (NEGATIVE) Ur Phencyclidine Scrn (NEGATIVE) Ur Amphetamine Screen (NEGATIVE) U Methamphetamines Scrn (NEGATIVE) U Benzodiazepines Scrn (NEGATIVE) U Cocaine Metab Screen (NEGATIVE) U Marijuana (THC) Screen (NEGATIVE) Ethyl Alcohol (0.00) gm% Medications Discontinued Medications Generic Name Dose Route Start Last Admin Trade Name Freq PRN Reason Stop Dose Admin Ibuprofen 600 mg 11/09/17 16:16 11/09/17 16:22 Motrin PO 11/09/17 16:17 600 mg ONETIME ONE Administration Re-Assessment/Re-Exam: Ordered CBC, chem 14, urine drug tox, serum EtOH, hCG, salicylate, acetaminophen , TSH, UA, and EKG. EKG revealed normal sinus rhythm with no acute ST changes. Patient has a headache ordered ibuprofen 600 mg by mouth. Labs reviewed: CBC, coag studies, chemistry panel were all essentially normal. Potassium is only mildly low at 3.4. HCG negative. TSH 1.130. Salicylate 3.5. Acetaminophen 0. Serum EtOH 0.00. Waiting for results of UA and drug screen. Urine drug tox positive for opiates. UA negative for any concerning findings. I have contacted [facility] for admission to the [facility] Crisis. They are unsure that the patient will be able to be admitted to [facility]. They will call me back. [facility] Staff has presented to the E.D. They have spoken with the patient and agree she would benefit from [facility] bed placement. They will go and get patients medications from her home. Return to the E.D. to transport her to the Crisis Bed. Discharge paperwork completed. Departure - Departure Time of Disposition: 18:35 Disposition: DC/Tfer to Other Condition: Good Clinical Impression: Depressive disorder - Discharge Information Referrals: Anastasia Lehman SHAG TRUCK DRIVER [Primary Care Provider] - Forms: ED Department Discharge Additional Instructions: Continue taking all your home medications as prescribed. Return to the ED if you develop any new or worsening symptoms. Medically cleared for admission to the [facility] Crisis Bed.
[2017-11-09 15:55] LABS: ACETAMINOPHEN 0 ug/mL (10-30)
[2017-11-09] MEDS ORDERED: Ibuprofen 600 MG Tab PO ONE (16:16)
== END 2017-11-09 18:55 | disposition other institution (70) ==
LOC: JD.ED 14:38
DX: F32.9 Major depressive disorder, single episode, unspecified (principal); E78.00 Pure hypercholesterolemia, unspecified; I10 Essential (primary) hypertension; Z88.1 Allergy status to other antibiotic agents; Z88.8 Allergy status to other drugs, medicaments and biological substances; Z88.5 Allergy status to narcotic agent; Z79.899 Other long term (current) drug therapy; Z87.891 Personal history of nicotine dependence; Z98.890 Other specified postprocedural states
CPT/HCPCS: 36415; 80053; 80306; 81001; 84443; 84703; 85025; 85610; 93005; 99285; A9270; G0480; 93010; 99284-25

== ENCOUNTER 2018-02-10 14:12 | Emergency (ER) | payer BC ==
[2018-02-10 14:27] VITALS: BP 140/96
--- NOTE | 2018-02-10 14:46 | EDM.PDOC ---
ED HPI GENERAL MEDICAL PROBLEM - General Chief Complaint: Lower Extremity Injury/Pain Stated Complaint: LEFT FOOT INJURY Time Seen by Provider: 02/10/18 14:25 Source of Information: Reports: Patient History Limitations: Reports: No Limitations - History of Present Illness INITIAL COMMENTS - FREE TEXT/NARRATIVE: Patient is a 47-year-old female presents ED complaining of left ankle pain. Patient states while walking in the grass today she slipped and fell further injuring to the left ankle. She does have a history of ankle sprain and has been evaluated by Dr. Reeves approximately 2 weeks ago. She states no fractures were noted on x-ray. She does wear walking boot and is having close follow-up with the orthopedic surgeon. She denies any loss of conscious, neck pain, numbness/tingling to extremities, knee pain, foot pain, or any additional combines. Left Ankle Pain Score (Numeric/FACES): 7 - Related Data Allergies Allergy/AdvReac Type Severity Reaction Status Date / Time acetaminophen Allergy Facial Verified 02/10/18 14:23 [From Darvocet-N] Swelling guaifenesin [From Entex LA] Allergy Facial Verified 02/10/18 14:23 Swelling meclizine Allergy Facial Verified 02/10/18 14:23 Swelling meperidine HCl [From Demerol] Allergy Facial Verified 02/10/18 14:23 Swelling oxycodone HCl [From Percocet] Allergy Facial Verified 02/10/18 14:23 Swelling phenylephrine HCl Allergy Facial Verified 02/10/18 14:23 [From Entex LA] Swelling phenylpropanolamine HCl Allergy Facial Verified 02/10/18 14:23 [From Entex LA] Swelling propoxyphene napsylate Allergy Facial Verified 02/10/18 14:23 [From Darvocet-N] Swelling terfenadine [From Seldane] Allergy Facial Verified 02/10/18 14:23 Swelling Home Meds: Home Meds Calcium Carb/Vitamin D3/Vit K1 [Calcium + Vit D & K Chew] 1 tab PO DAILY [History] Pantoprazole Sodium [Protonix] 40 mg PO DAILY 05/27/14 [History] Sertraline HCl 200 mg PO DAILY 08/23/15 [History] Albuterol [Take Home: Albuterol 6.7 GM, 1 INH Pack] 1 puff INH Q4H PRN 01/15/16 [History] Cholecalciferol (Vitamin D3) [Vitamin D] 1 tab PO TID 01/15/16 [History] Cyclobenzaprine [Flexeril] 10 mg PO DAILY 01/15/16 [History] traZODone 50 mg PO ACDINNER 01/15/16 [History] Acetaminophen with Codeine [Tylenol with Codeine #3 Tablet] 1 - 2 tab PO Q6HR PRN #30 tablet 06/15/17 [Rx] Hydrochlorothiazide 25 mg PO DAILY 11/09/17 [History] Past Medical History HEENT History: Reports: Impaired Vision Cardiovascular History: Reports: High Cholesterol, Hypertension Respiratory History: Reports: Asthma, Sleep Apnea Gastrointestinal History: Reports: GERD Musculoskeletal History: Reports: Arthritis Psychiatric History: Reports: Anxiety, Depression Endocrine/Metabolic History: Reports: Obesity/BMI 30+ Hematologic History: Reports: Other (See Below) Other Hematologic History: PKU - Past Surgical History HEENT Surgical History: Reports: Oral Surgery Female Surgical History: Reports: Tubal Ligation Musculoskeletal Surgical History: Reports: Arthroscopic Procedure, ORIF, Shoulder Surgery, Other (See Below) Social & Family History - Family History Family Medical History: Noncontributory Cardiac: Reports: Heart Failure, CT Neurological: Reports: CVA Endocrine/Metabolic: Reports: Diabetes, type II - Tobacco Use Smoking Status *Q: Never Smoker Years of Tobacco use: 3 Packs/Tins Daily: 1 Used Tobacco, but Quit: Yes Month/Year Tobacco Last Used: 2006 Second Hand Smoke Exposure: No - Caffeine Use Caffeine Use: Reports: Soda - Alcohol Use Days Per Week of Alcohol Use: 0 - Recreational Drug Use Recreational Drug Use: No - Living Situation & Occupation Living situation: Reports: , with Spouse Occupation: Unemployed Review of Systems - Review of Systems Review Of Systems: ROS reveals no pertinent complaints other than HPI. ED EXAM, GENERAL - Physical Exam Exam: See Below Exam Limited By: No Limitations General Appearance: Alert, WD/WN, No Apparent Distress Ears: Hearing Grossly Normal Nose: Normal Inspection Throat/Mouth: Normal Voice, No Airway Compromise Head: Atraumatic, Normocephalic Neck: Normal Inspection, Supple Respiratory/Chest: No Respiratory Distress, No Accessory Muscle Use Cardiovascular: Normal Peripheral Pulses, Regular Rate, Rhythm Peripheral Pulses: 4+: Posterior Tibial (L) Extremities: Other (Left ankle: swelling noted to the medial/lateral malleolus. Decreased range of motion secondary discomfort. Pain with palpation. No pain along the fifth metatarsal and proximal fibula. No discomfort noted to the left knee. Superficial abrasions noted to the right knee.) Neurological: Alert, Oriented, CN II-XII Intact, Normal Cognition, No Motor/ Sensory Deficits Psychiatric: Normal Affect, Normal Mood Skin Exam: Warm, Dry, Intact, Normal Color Course - Vital Signs Last Recorded V/S: Last Vital Signs Temp 98.0 F 02/10/18 14:23 Pulse 91 02/10/18 14:23 Resp 16 02/10/18 14:23 BP 140/96 H 02/10/18 14:23 Pulse Ox 96 02/10/18 14:23 - Orders/Labs/Meds Orders: Active Orders 24 hr Category Date Time Status DME for Discharge [COMM] Stat Oth 02/10/18 14:39 Ordered - Re-Assessments/Exams Free Text/Narrative Re-Assessment/Exam: Ordered x-ray of the left ankle. Patient already has a walking boot. I also ordered crutches. 02/10/18 15:11 X-ray of the left ankle reviewed with Dr. Crow. Agrees no acute bony abnormalities noted. Final interpretation is pending. Discharged instructions as documented. Departure - Departure Time of Disposition: 15:11 Disposition: Home, Self-Care 01 Condition: Good Clinical Impression: Left ankle sprain Qualifiers: Encounter type: initial encounter Involved ligament of ankle: unspecified ligament Qualified Code(s): S93.402A - Sprain of unspecified ligament of left ankle, initial encounter - Discharge Information Instructions: Crutch Use, Adult, [id number], Ankle Sprain Referrals: Anastasia Lehman HORSE WRANGLER [Primary Care Provider] - Forms: ED Department Discharge Additional Instructions: You are to be non weight bearing toe only for balance. Utilize the crutches to ambulate. Continue to utilize the walking boot. Elevate when able to reduce any swelling and pain. Take aleve for pain. Apply ice to the affected 4 times daily, 20 minutes in duration, do not apply ice directly on the skin. Followup with as scheduled. Notify his office today and or tomorrow of recent changes. Return to the E.D. if you develop any new or worsening symptoms. - My Orders Last 24 Hours: My Active Orders 02/10/18 14:39 DME for Discharge [COMM] Stat - Assessment/Plan Last 24 Hours: My Active Orders 02/10/18 14:39 DME for Discharge [COMM] Stat
--- NOTE | 2018-02-10 16:58 | CR ---
Left ankle: Three views of the left ankle were obtained. Plantar spur is seen. Small spur is noted at the attachment of the Achilles tendon to the calcaneus. Slight deformity of the tibiotalar joint is seen which is felt compatible with degenerative change. Slightly asymmetric width of the ankle mortise is seen compatible with cartilage loss. Calcifications are seen along the medial ankle which are dystrophic and due to old injury. No acute fracture or other bony abnormality is seen. Impression: 1. Degenerative change and deformity within the tibiotalar joint. 2. Calcaneal spurs and other incidental finding. 3. Nothing acute is appreciated. Diagnostic code #2
== END 2018-02-10 15:30 | disposition home or self-care (01) ==
LOC: JD.ED 14:12
DX: S93.402A Sprain of unspecified ligament of left ankle, initial encounter (principal); E78.00 Pure hypercholesterolemia, unspecified; I10 Essential (primary) hypertension; Z88.6 Allergy status to analgesic agent; Z88.8 Allergy status to other drugs, medicaments and biological substances; Z88.5 Allergy status to narcotic agent; Z79.899 Other long term (current) drug therapy; Z87.891 Personal history of nicotine dependence; W01.0XXA Fall on same level from slipping, tripping and stumbling without subsequent striking against object, initial encounter
CPT/HCPCS: 73610-26-LT; 73610-LT; 99283

== ENCOUNTER 2018-02-18 15:39 | Emergency (ER) | payer BC ==
[2018-02-18 15:55] VITALS: BP 142/82
--- NOTE | 2018-02-18 16:27 | EDM.PDOC ---
ED HPI GENERAL MEDICAL PROBLEM - General Chief Complaint: General Stated Complaint: HIGH BLOOD PRESSURE Time Seen by Provider: 02/18/18 16:26 Source of Information: Reports: Patient - History of Present Illness INITIAL COMMENTS - FREE TEXT/NARRATIVE: Patient is here for evaluation of blood pressure which has been a bit higher than her goal recently. She states that the past few days she has had systolic blood pressures into the 150s when she checks it at home. Patient states that she has been in a significant amount of pain the past few day She has several teeth that need to be extracted, she is scheduled to have this done with Dr. Feliciano next week. Patient is on Hydrochlorothiazide daily for her blood pressure. Her PCP is Anastasia Lehman. Patient states that when her blood pressure is high she occasionally has a headache but she really has not had this today. She denies any chest pain or dyspnea.Her primary complaint at the moment is her dental pain. Treatments LACQUER COATER: Reports: Other (see below) Other Treatments LACQUER COATER: motrin prn Tooth/Teeth Pain Score (Numeric/FACES): 7 - Related Data Allergies Allergy/AdvReac Type Severity Reaction Status Date / Time acetaminophen Allergy Facial Verified 02/10/18 14:23 [From Darvocet-N] Swelling guaifenesin [From Entex LA] Allergy Facial Verified 02/10/18 14:23 Swelling meclizine Allergy Facial Verified 02/10/18 14:23 Swelling meperidine HCl [From Demerol] Allergy Facial Verified 02/10/18 14:23 Swelling oxycodone HCl [From Percocet] Allergy Facial Verified 02/10/18 14:23 Swelling phenylephrine HCl Allergy Facial Verified 02/10/18 14:23 [From Entex LA] Swelling phenylpropanolamine HCl Allergy Facial Verified 02/10/18 14:23 [From Entex LA] Swelling propoxyphene napsylate Allergy Facial Verified 02/10/18 14:23 [From Darvocet-N] Swelling terfenadine [From Seldane] Allergy Facial Verified 02/10/18 14:23 Swelling Home Meds: Home Meds Calcium Carb/Vitamin D3/Vit K1 [Calcium + Vit D & K Chew] 1 tab PO DAILY [History] Pantoprazole Sodium [Protonix] 40 mg PO DAILY 05/27/14 [History] Sertraline HCl 200 mg PO DAILY 08/23/15 [History] Albuterol [Take Home: Albuterol 6.7 GM, 1 INH Pack] 1 puff INH Q4H PRN 01/15/16 [History] Cholecalciferol (Vitamin D3) [Vitamin D] 1 tab PO TID 01/15/16 [History] Cyclobenzaprine [Flexeril] 10 mg PO DAILY 01/15/16 [History] traZODone 50 mg PO BEDTIME 01/15/16 [History] Hydrochlorothiazide 25 mg PO DAILY 11/09/17 [History] Nabumetone 500 gm PO BID PRN #20 powder 02/18/18 [Rx] Past Medical History HEENT History: Reports: Impaired Vision Cardiovascular History: Reports: High Cholesterol, Hypertension Respiratory History: Reports: Asthma, Sleep Apnea Gastrointestinal History: Reports: GERD Musculoskeletal History: Reports: Arthritis Psychiatric History: Reports: Anxiety, Depression Endocrine/Metabolic History: Reports: Obesity/BMI 30+ Hematologic History: Reports: Other (See Below) Other Hematologic History: PKU - Past Surgical History HEENT Surgical History: Reports: Oral Surgery Female Surgical History: Reports: Tubal Ligation Musculoskeletal Surgical History: Reports: Arthroscopic Procedure, ORIF, Shoulder Surgery, Other (See Below) Social & Family History - Family History Family Medical History: Noncontributory Cardiac: Reports: Heart Failure, [place] Neurological: Reports: CVA Endocrine/Metabolic: Reports: Diabetes, type II - Tobacco Use Smoking Status *Q: Former Smoker Years of Tobacco use: 3 Packs/Tins Daily: 1 Used Tobacco, but Quit: Yes Month/Year Tobacco Last Used: 2005 Second Hand Smoke Exposure: No - Caffeine Use Caffeine Use: Reports: Soda - Alcohol Use Days Per Week of Alcohol Use: 0 - Recreational Drug Use Recreational Drug Use: No - Living Situation & Occupation Living situation: Reports: , with Spouse Occupation: Unemployed ED ROS GENERAL - Review of Systems Review Of Systems: See Below Constitutional: Reports: No Symptoms HEENT: Reports: Dental Pain Respiratory: Reports: No Symptoms Cardiovascular: Reports: No Symptoms GI/Abdominal: Reports: No Symptoms Musculoskeletal: Reports: No Symptoms Skin: Reports: No Symptoms Neurological: Reports: No Symptoms ED EXAM, GENERAL - Physical Exam Exam: See Below Exam Limited By: No Limitations General Appearance: Alert, WD/WN Throat/Mouth: Normal Inspection, Normal Oropharynx, Other (Very poor dentition with several broken teeth. No surrounding gingival erythema or swelling or drainage.) Neck: Normal Inspection, Supple, Non-Tender. No: Lymphadenopathy (L), Lymphadenopathy (R) Respiratory/Chest: No Respiratory Distress, Lungs Clear, Normal Breath Sounds Cardiovascular: Normal Peripheral Pulses, Regular Rate, Rhythm, No Murmur Psychiatric: Normal Affect, Normal Mood Skin Exam: Warm, Dry, Intact Course - Vital Signs Last Recorded V/S: Last Vital Signs Temp 97.0 F 02/18/18 15:54 Pulse 92 02/18/18 15:54 Resp 20 02/18/18 15:54 BP 142/82 H 02/18/18 15:54 Pulse Ox 98 02/18/18 15:54 - Re-Assessments/Exams Free Text/Narrative Re-Assessment/Exam: Patient's blood pressure initially was 142/82. After sitting for just a few moments this did come down to 127/74. Patient is completely assymptomatic. I did discuss with patient that her blood pressure is likely elevated due to her dental pain and that elevated blood pressure is a normal response to pain. At this point would not consider medication adjustment. Patient has a follow- up appointment scheduled next week with her PCP. She does have some dental pain, ibuprofen has been upsetting her stomach. I discussed with patient that we do not prescribe narcotic pain medication for dental pain and patient is completely fine with this. Will give her prescription for nabumetone to be taken twice a day. Also recommend she use topical Orajel. Patient will follow up with her PCP next week as scheduled or return to emergency room if needed. 02/18/18 16:50 Departure - Departure Time of Disposition: 16:52 Disposition: Home, Self-Care 01 Condition: Good Clinical Impression: Pain, dental Hypertension Qualifiers: Hypertension type: essential hypertension Qualified Code(s): I10 - Essential ( primary) hypertension - Discharge Information Prescriptions: Nabumetone 500 gm PO BID PRN #20 powder PRN Reason: Pain Referrals: Anastasia Lehman HEALTH PROGRAM SPECIALIST [Primary Care Provider] - Forms: ED Department Discharge Additional Instructions: You were evaluated in the emergency room for elevated blood pressure. Your blood pressure did come down to completely normal range while you're here today. I believe that your blood pressure was elevated initially due to your pain. Prescription nabumetone was sent to [facility] for your dental pain. You may take this 2x daily for pain. Do not take ibuprofen or aleve with this. You may still take Tylenol. Consider topical Orajel as well. Follow-up with your primary provider next week as scheduled or return to ER if needed.
== END 2018-02-18 17:05 | disposition home or self-care (01) ==
LOC: JD.ED 15:39
DX: K08.89 Other specified disorders of teeth and supporting structures (principal); I10 Essential (primary) hypertension; E78.00 Pure hypercholesterolemia, unspecified; J45.909 Unspecified asthma, uncomplicated; Z88.6 Allergy status to analgesic agent; Z88.5 Allergy status to narcotic agent; Z88.8 Allergy status to other drugs, medicaments and biological substances; Z79.899 Other long term (current) drug therapy; Z87.891 Personal history of nicotine dependence
CPT/HCPCS: 99283

== ENCOUNTER 2018-03-11 22:02 | Emergency (ER) | payer BC ==
[2018-03-11 22:16] VITALS: BP 153/89
[2018-03-11] MEDS ORDERED: Ibuprofen 600 MG Tab PO ONE (22:17)
--- NOTE | 2018-03-11 22:24 | EDM.PDOC ---
ED HPI GENERAL MEDICAL PROBLEM - General Chief Complaint: Headache Stated Complaint: FELL AND HIT HER HEAD AND KNEE Time Seen by Provider: 03/11/18 22:08 Source of Information: Reports: Patient, Other (A friend is with her) History Limitations: Reports: No Limitations - History of Present Illness INITIAL COMMENTS - FREE TEXT/NARRATIVE: This is a 47-year-old female. Apparently she missed a step and slipped and fell landing on her right knee and hitting the right side of her head on a wall. There was no loss of consciousness. There was no nausea and vomiting. She does complain of a headache now and this occurred around 8 PM this evening. She is laughing and smiling and does not appear to be in any acute distress. The friend that is with her states she's been acting normal since this occurred and has been no change in her demeanor. She also caused an abrasion on her right knee but she has been walking without difficulty and just having stinging from the abrasion. Right Temporal Head Pain Score (Numeric/FACES): 8 - Related Data Allergies Allergy/AdvReac Type Severity Reaction Status Date / Time acetaminophen Allergy Facial Verified 03/11/18 22:16 [From Darvocet-N] Swelling guaifenesin [From Entex LA] Allergy Facial Verified 03/11/18 22:16 Swelling meclizine Allergy Facial Verified 03/11/18 22:16 Swelling meperidine HCl [From Demerol] Allergy Facial Verified 03/11/18 22:16 Swelling oxycodone HCl [From Percocet] Allergy Facial Verified 03/11/18 22:16 Swelling phenylephrine HCl Allergy Facial Verified 03/11/18 22:16 [From Entex LA] Swelling phenylpropanolamine HCl Allergy Facial Verified 03/11/18 22:16 [From Entex LA] Swelling propoxyphene napsylate Allergy Facial Verified 03/11/18 22:16 [From Darvocet-N] Swelling terfenadine [From Seldane] Allergy Facial Verified 03/11/18 22:16 Swelling Home Meds: Home Meds Calcium Carb/Vitamin D3/Vit K1 [Calcium + Vit D & K Chew] 1 tab PO DAILY [History] Pantoprazole Sodium [Protonix] 40 mg PO DAILY 05/27/14 [History] Sertraline HCl 200 mg PO DAILY 08/23/15 [History] Albuterol [Take Home: Albuterol 6.7 GM, 1 INH Pack] 1 puff INH Q4H PRN 01/15/16 [History] Cholecalciferol (Vitamin D3) [Vitamin D] 1 tab PO TID 01/15/16 [History] Cyclobenzaprine [Flexeril] 10 mg PO DAILY 01/15/16 [History] traZODone 50 mg PO BEDTIME 01/15/16 [History] Hydrochlorothiazide 25 mg PO DAILY 11/09/17 [History] Nabumetone 500 gm PO BID PRN #20 powder 02/18/18 [Rx] Past Medical History HEENT History: Reports: Impaired Vision Cardiovascular History: Reports: High Cholesterol, Hypertension Respiratory History: Reports: Asthma, Sleep Apnea Gastrointestinal History: Reports: GERD Musculoskeletal History: Reports: Arthritis Psychiatric History: Reports: Anxiety, Depression Endocrine/Metabolic History: Reports: Obesity/BMI 30+ Hematologic History: Reports: Other (See Below) Other Hematologic History: PKU - Past Surgical History HEENT Surgical History: Reports: Oral Surgery Female Surgical History: Reports: Tubal Ligation Musculoskeletal Surgical History: Reports: Arthroscopic Procedure, ORIF, Shoulder Surgery, Other (See Below) Social & Family History - Family History Family Medical History: Noncontributory Cardiac: Reports: Heart Failure, [place] Neurological: Reports: CVA Endocrine/Metabolic: Reports: Diabetes, type II - Caffeine Use Caffeine Use: Reports: Soda - Living Situation & Occupation Living situation: Reports: , with Spouse Occupation: Unemployed ED ROS GENERAL - Review of Systems Review Of Systems: See Below Constitutional: Denies: Fever, Chills HEENT: Denies: Eye Pain Respiratory: Reports: No Symptoms Cardiovascular: Reports: No Symptoms Endocrine: Reports: No Symptoms GI/Abdominal: Reports: No Symptoms : Reports: No Symptoms Musculoskeletal: Reports: Other (As per history of present illness) Skin: Reports: Other (as per history of present illness) Neurological: Reports: Headache. Denies: Confusion, Dizziness, Syncope Psychiatric: Reports: No Symptoms Hematologic/Lymphatic: Reports: No Symptoms ED EXAM, HEAD INJURY - Physical Exam Exam: See Below Exam Limited By: No Limitations General Appearance: Alert, WD/WN, No Apparent Distress Head: Atraumatic, Normocephalic, Other (The right parietal areas where she hit the wall but there is no swelling there is no tenderness is noted hematoma.) Nexus Criteria: No: Posterior, Midline Cervical Tenderness Eyes: Bilateral Eye: Normal Inspection Ears: Normal External Exam, Normal Canal, Normal TMs Nose: Normal Inspection Throat/Mouth: Normal Inspection, Normal Lips, Normal Voice, No Airway Compromise Neck: Non-Tender, Full Range of Motion Respiratory: No Respiratory Distress, Lungs Clear Cardiovascular: Regular Rate, Rhythm, No Murmur Back Exam: Full Range of Motion Extremities: Normal Range of Motion, Other (She has about a 4 x 4 cm abrasion just below her patella on the right knee. Bleeding is controlled. No evidence of infection.) Neurologic: Alert, Normal Mood/Affect, Oriented x 3 Skin: Normal Color, Warm/Dry - Mykel Coma Score Best Eye Response ([place]): (4) Open Spontaneously Best Verbal Response ([place]): (5) Oriented Best Motor Response (Mykel): (6) Obeys Commands Commerce Total: 15 Course - Vital Signs Last Recorded V/S: Last Vital Signs Temp 97.0 F 03/11/18 22:08 Pulse 100 03/11/18 22:08 Resp 16 03/11/18 22:08 BP 153/89 H 03/11/18 22:08 Pulse Ox 98 03/11/18 22:08 - Orders/Labs/Meds Orders: Active Orders 24 hr Category Date Time Status Communication Order [RC] STAT Care 03/11/18 22:18 Ordered Meds: Medications Discontinued Medications Generic Name Dose Route Start Last Admin Trade Name Rogelio PRN Reason Stop Dose Admin Ibuprofen 600 mg 03/11/18 22:17 Motrin PO 03/11/18 22:18 ONETIME ONE Departure - Departure Time of Disposition: 22:23 Disposition: Home, Self-Care 01 Condition: Good Clinical Impression: Abrasion, right knee, initial encounter Contusion of scalp Qualifiers: Encounter type: initial encounter Qualified Code(s): S00.03XA - Contusion of scalp, initial encounter Headache Qualifiers: Headache type: unspecified Headache chronicity pattern: acute headache Intractability: not intractable Qualified Code(s): R51 - Headache - Discharge Information Referrals: Anastasia Lehman GAS STATION OPERATOR [Primary Care Provider] - Additional Instructions: Continue with Motrin as needed for the headache, use ice to the scalp to help with the soreness, watch the abrasion for possible infection, use antibiotic ointment and keep it covered until it develops a scab, follow up with your family doctor next week for recheck - My Orders Last 24 Hours: My Active Orders 03/11/18 22:18 Communication Order [RC] STAT - Assessment/Plan Last 24 Hours: My Active Orders 03/11/18 22:18 Communication Order [RC] STAT
== END 2018-03-11 22:45 | disposition home or self-care (01) ==
LOC: JD.ED 22:02
DX: S00.03XA Contusion of scalp, initial encounter (principal); S80.211A Abrasion, right knee, initial encounter; E78.00 Pure hypercholesterolemia, unspecified; I10 Essential (primary) hypertension; K21.9 Gastro-esophageal reflux disease without esophagitis; Z88.6 Allergy status to analgesic agent; Z88.5 Allergy status to narcotic agent; Z88.8 Allergy status to other drugs, medicaments and biological substances; Z79.899 Other long term (current) drug therapy; W01.118A Fall on same level from slipping, tripping and stumbling with subsequent striking against other sharp object, initial encounter
CPT/HCPCS: 99283; A9270

== ENCOUNTER 2018-04-01 15:04 | Emergency (ER) | payer BC ==
[2018-04-01] MEDS ORDERED: LORazepam 1 MG Tab PO ONE (15:48)
--- NOTE | 2018-04-01 15:56 | EDM.PDOC ---
<Joann Carcamo - Last Filed: 04/01/18 16:15> ED HPI GENERAL MEDICAL PROBLEM - General Chief Complaint: Cardiovascular Problem Stated Complaint: HIGH BLOOD PRESSURE Time Seen by Provider: 04/01/18 15:18 Source of Information: Reports: Patient, Old Records History Limitations: Reports: No Limitations - History of Present Illness INITIAL COMMENTS - FREE TEXT/NARRATIVE: This is a 47 year old woman who comes in today for elevated blood pressure. She was at [facility] for a blood pressure check and they found her BP to be elevated and she was told to come to the ED. BP here is 150/105. She states she did take her HCTZ 25mg this morning. She complains of headache, 6/10 chest pain and left thumb pain x 2 hours. She did also fracture her ankle and is currently in a cast and boot x 3 weeks, but states she is not having any pain in the ankle. She denies any shortness of breath, blurry vision, nausea, or left arm pain. She is extremely anxious in the room yelling "I'm dying!" and does have a history of depression and anxiety. She has no prior cardiac history except for HTN and her grandmother had CAD with bypass per pt. She was a smoker but quit 12 years ago. Left Ankle Pain Score (Numeric/FACES): 5 - Related Data Allergies Allergy/AdvReac Type Severity Reaction Status Date / Time acetaminophen Allergy Facial Verified 03/11/18 22:16 [From Darvocet-N] Swelling guaifenesin [From Entex LA] Allergy Facial Verified 03/11/18 22:16 Swelling meclizine Allergy Facial Verified 03/11/18 22:16 Swelling meperidine HCl [From Demerol] Allergy Facial Verified 03/11/18 22:16 Swelling oxycodone HCl [From Percocet] Allergy Facial Verified 03/11/18 22:16 Swelling phenylephrine HCl Allergy Facial Verified 03/11/18 22:16 [From Entex LA] Swelling phenylpropanolamine HCl Allergy Facial Verified 03/11/18 22:16 [From Entex LA] Swelling propoxyphene napsylate Allergy Facial Verified 03/11/18 22:16 [From Darvocet-N] Swelling terfenadine [From Seldane] Allergy Facial Verified 03/11/18 22:16 Swelling Home Meds: Home Meds Calcium Carb/Vitamin D3/Vit K1 [Calcium + Vit D & K Chew] 1 tab PO DAILY [History] Pantoprazole Sodium [Protonix] 40 mg PO DAILY 05/27/14 [History] Sertraline HCl 200 mg PO DAILY 08/23/15 [History] Albuterol [Take Home: Albuterol 6.7 GM, 1 INH Pack] 1 puff INH Q4H PRN 01/15/16 [History] Cyclobenzaprine [Flexeril] 10 mg PO DAILY 01/15/16 [History] traZODone 50 mg PO BEDTIME 01/15/16 [History] Hydrochlorothiazide 25 mg PO DAILY 11/09/17 [History] Nabumetone 500 gm PO BID PRN #20 powder 02/18/18 [Rx] Past Medical History HEENT History: Reports: Impaired Vision Cardiovascular History: Reports: High Cholesterol, Hypertension Respiratory History: Reports: Asthma, Sleep Apnea Gastrointestinal History: Reports: GERD Musculoskeletal History: Reports: Arthritis Psychiatric History: Reports: Anxiety, Depression Endocrine/Metabolic History: Reports: Obesity/BMI 30+ Hematologic History: Reports: Other (See Below) Other Hematologic History: PKU - Past Surgical History HEENT Surgical History: Reports: Oral Surgery Female Surgical History: Reports: Tubal Ligation Musculoskeletal Surgical History: Reports: Arthroscopic Procedure, ORIF, Shoulder Surgery, Other (See Below) Social & Family History - Family History Family Medical History: Noncontributory Cardiac: Reports: Heart Failure, [place] Neurological: Reports: CVA Endocrine/Metabolic: Reports: Diabetes, type II - Tobacco Use Smoking Status *Q: Former Smoker Used Tobacco, but Quit: Yes Month/Year Tobacco Last Used: 12 yrs ago - Caffeine Use Caffeine Use: Reports: Soda - Recreational Drug Use Recreational Drug Use: No - Living Situation & Occupation Living situation: Reports: , with Spouse Occupation: Unemployed ED ROS GENERAL - Review of Systems Review Of Systems: See Below Constitutional: Reports: No Symptoms. Denies: Fever, Chills, Diaphoresis HEENT: Reports: No Symptoms Respiratory: Reports: No Symptoms. Denies: Shortness of Breath, Pleuritic Chest Pain Cardiovascular: Reports: Chest Pain (04/03), Blood Pressure Problem. Denies: Dyspnea on Exertion Endocrine: Reports: No Symptoms GI/Abdominal: Reports: No Symptoms, Vomiting. Denies: Abdominal Pain, Diarrhea , Nausea : Reports: No Symptoms Musculoskeletal: Reports: Joint Pain (left thumb pain), Other (left ankle fracture 3 weeks old, currently in cast and boot but no pain). Denies: Arm Pain Skin: Reports: No Symptoms Neurological: Reports: No Symptoms Psychiatric: Reports: Anxiety (Yelling "I'm dying"), Depression. Denies: Suicidal Ideation Hematologic/Lymphatic: Reports: No Symptoms Immunologic: Reports: No Symptoms ED EXAM, GENERAL - Physical Exam Exam: See Below Exam Limited By: No Limitations General Appearance: Alert, WD/WN, Anxious, Obese Eye Exam: Bilateral Eye: Normal Inspection, PERRL Ears: Normal External Exam, Hearing Grossly Normal Nose: Normal Inspection, Normal Mucosa, No Blood Throat/Mouth: Normal Inspection, Normal Lips (slightly dry), Normal Oropharynx, Normal Voice, No Airway Compromise. No: Normal Teeth (missing some front teeth) Head: Atraumatic, Normocephalic Neck: Normal Inspection, Supple, Non-Tender, Full Range of Motion Respiratory/Chest: No Respiratory Distress, Lungs Clear, Normal Breath Sounds, No Accessory Muscle Use, Chest Non-Tender Cardiovascular: Normal Peripheral Pulses, No Edema, No Gallop, No JVD, No Murmur , No Rub, Tachycardia (regular rhythm) Peripheral Pulses: 3+: Posterior Tibial (L), Posterior Tibial (R), Dorsalis Pedis (L), Dorsalis Pedis (R) GI/Abdominal: Normal Bowel Sounds, Soft, Non-Tender, No Organomegaly, No Distention, No Abnormal Bruit, No Mass (Female) Exam: Deferred Rectal (Female) Exam: Deferred Back Exam: Normal Inspection, Full Range of Motion, NT Extremities: Normal Inspection, Normal Range of Motion, Non-Tender, Normal Capillary Refill, No Pedal Edema Neurological: Alert, Oriented, CN II-XII Intact (grossly), Normal Cognition, Normal Gait, Normal Reflexes, No Motor/Sensory Deficits Psychiatric: Normal Affect, Normal Mood, Anxious Skin Exam: Warm, Dry, Intact, Normal Color, No Rash Lymphatic: No Adenopathy Course - Vital Signs Last Recorded V/S: Last Vital Signs Temp 97.5 F 04/01/18 15:12 Pulse 76 04/01/18 16:24 Resp 20 04/01/18 15:12 BP 123/74 04/01/18 16:24 Pulse Ox 96 04/01/18 15:12 - Orders/Labs/Meds Orders: Active Orders 24 hr Category Date Time Status EKG Documentation Completion [RC] ASDIRECTED Care 04/01/18 15:56 Active EKG 12 Lead [EK] Stat Ther 04/01/18 15:56 Ordered Meds: Medications Discontinued Medications Generic Name Dose Route Start Last Admin Trade Name Freq PRN Reason Stop Dose Admin Lorazepam 1 mg 04/01/18 15:48 04/01/18 16:11 Ativan PO 04/01/18 15:49 1 mg ONETIME ONE Administration Departure - Departure Disposition: Home, Self-Care 01 Clinical Impression: Anxiety Hypertension Qualifiers: Hypertension type: essential hypertension Qualified Code(s): I10 - Essential ( primary) hypertension Referrals: Anastasia Lehman CASHIER PAYMENTS RECEIVED [Primary Care Provider] - Forms: ED Department Discharge Additional Instructions: Continue current medications as prescribed. Follow-up clinic as planned. <Dionicio Metz - Last Filed: 04/01/18 16:29> Course - Re-Assessments/Exams Free Text/Narrative Re-Assessment/Exam: 04/01/18 16:27 Initial history and he now was done by Joann Juares I agree with H&P as documented. Blood pressure has come down nicely. It would not be appropriate to add medication at this time. Discharge instructions as documented Departure - Departure Time of Disposition: 16:28 Condition: Fair
[2018-04-01 16:53] VITALS: BP 119/78
== END 2018-04-01 16:41 | disposition home or self-care (01) ==
LOC: JD.ED 15:04
DX: I10 Essential (primary) hypertension (principal); F41.9 Anxiety disorder, unspecified; E66.9 Obesity, unspecified; Z88.8 Allergy status to other drugs, medicaments and biological substances; Z79.899 Other long term (current) drug therapy; Z87.891 Personal history of nicotine dependence
CPT/HCPCS: 93005; 99283; A9270

== ENCOUNTER 2018-04-16 18:18 | Emergency (ER) | payer BC ==
[2018-04-16 18:29] VITALS: BP 153/78
--- NOTE | 2018-04-16 18:49 | EDM.PDOC ---
ED HPI GENERAL MEDICAL PROBLEM - General Chief Complaint: Upper Extremity Injury/Pain Stated Complaint: LT THUMB AND WRIST INJURY Time Seen by Provider: 04/16/18 18:32 Source of Information: Reports: Patient History Limitations: Reports: No Limitations - History of Present Illness INITIAL COMMENTS - FREE TEXT/NARRATIVE: The patient presents with left wrist and thumb pain. This has been going on for a few days. She has a history of arthritis. She has a history of fractures with little trauma. She does not remember hurting her wrist. Onset: Gradual Duration: Day(s): Location: Reports: Upper Extremity, Left (Wrist and thumb) Quality: Reports: Sharp Severity: Moderate Improves with: Reports: Immobilization Worsens with: Reports: Movement Context: Reports: Other (No trauma that she knows of) Associated Symptoms: Reports: No Other Symptoms Left Wrist Pain Score (Numeric/FACES): 7 - Related Data Allergies Allergy/AdvReac Type Severity Reaction Status Date / Time acetaminophen Allergy Facial Verified 04/16/18 18:29 [From Darvocet-N] Swelling guaifenesin [From Entex LA] Allergy Facial Verified 04/16/18 18:29 Swelling meclizine Allergy Facial Verified 04/16/18 18:29 Swelling meperidine HCl [From Demerol] Allergy Facial Verified 04/16/18 18:29 Swelling oxycodone HCl [From Percocet] Allergy Facial Verified 04/16/18 18:29 Swelling phenylephrine HCl Allergy Facial Verified 04/16/18 18:29 [From Entex LA] Swelling phenylpropanolamine HCl Allergy Facial Verified 04/16/18 18:29 [From Entex LA] Swelling propoxyphene napsylate Allergy Facial Verified 04/16/18 18:29 [From Darvocet-N] Swelling terfenadine [From Seldane] Allergy Facial Verified 04/16/18 18:29 Swelling Home Meds: Home Meds Calcium Carb/Vitamin D3/Vit K1 [Calcium + Vit D & K Chew] 1 tab PO DAILY [History] Pantoprazole Sodium [Protonix] 40 mg PO DAILY 05/27/14 [History] Sertraline HCl 200 mg PO DAILY 08/23/15 [History] Albuterol [Take Home: Albuterol 6.7 GM, 1 INH Pack] 1 puff INH Q4H PRN 01/15/16 [History] Cyclobenzaprine [Flexeril] 10 mg PO DAILY 01/15/16 [History] traZODone 50 mg PO BEDTIME 01/15/16 [History] Hydrochlorothiazide 25 mg PO DAILY 11/09/17 [History] Nabumetone 500 gm PO BID PRN #20 powder 02/18/18 [Rx] Past Medical History HEENT History: Reports: Impaired Vision Cardiovascular History: Reports: High Cholesterol, Hypertension Respiratory History: Reports: Asthma, Sleep Apnea Gastrointestinal History: Reports: GERD Musculoskeletal History: Reports: Arthritis Psychiatric History: Reports: Anxiety, Depression Endocrine/Metabolic History: Reports: Obesity/BMI 30+ Hematologic History: Reports: Other (See Below) Other Hematologic History: PKU - Past Surgical History HEENT Surgical History: Reports: Oral Surgery Female Surgical History: Reports: Tubal Ligation Musculoskeletal Surgical History: Reports: Arthroscopic Procedure, ORIF, Shoulder Surgery, Other (See Below) Social & Family History - Family History Family Medical History: Noncontributory Cardiac: Reports: Heart Failure, [place] Neurological: Reports: CVA Endocrine/Metabolic: Reports: Diabetes, type II - Caffeine Use Caffeine Use: Reports: Soda - Living Situation & Occupation Living situation: Reports: , with Spouse Occupation: Unemployed Review of Systems - Review of Systems Review Of Systems: See Below Constitutional: Reports: No Symptoms Eyes: Reports: No Symptoms Ears: Reports: No Symptoms Nose: Reports: No Symptoms Mouth/Throat: Reports: No Symptoms Respiratory: Reports: No Symptoms Cardiovascular: Reports: No Symptoms GI/Abdominal: Reports: No Symptoms Genitourinary: Reports: No Symptoms Musculoskeletal: Reports: Other (Left wrist and thumb pain) ED EXAM, GENERAL - Physical Exam Exam: See Below Exam Limited By: No Limitations General Appearance: Alert, No Apparent Distress Ears: Normal External Exam Nose: Normal Inspection Head: Atraumatic, Normocephalic Neck: Normal Inspection Respiratory/Chest: No Respiratory Distress Extremities: Other (Mild pain upon palpation to the left wrist. Good sensation and pulses distally.) Course - Vital Signs Last Recorded V/S: Last Vital Signs Temp 97.2 F 04/16/18 18:26 Pulse 104 H 04/16/18 18:26 Resp 16 04/16/18 18:26 BP 153/78 H 04/16/18 18:26 Pulse Ox 93 L 04/16/18 18:26 - Orders/Labs/Meds Orders: Active Orders 24 hr Category Date Time Status Wrist Comp Min 3V Lt [CR] Stat Exams 04/16/18 18:35 Taken - Re-Assessments/Exams Free Text/Narrative Re-Assessment/Exam: 04/16/18 18:48 X-ray of her wrist looks good except for some arthritis. I will discharge her home with a splint. 04/16/18 19:04 Departure - Departure Time of Disposition: 18:55 Disposition: Home, Self-Care 01 Condition: Good Clinical Impression: Wrist pain, left, Arthritis, Pain of left thumb - Discharge Information Referrals: Anastasia Lehman BLEACH ANALYST [Primary Care Provider] - Shaq Reeves MD [Physician] - 3 Days Forms: ED Department Discharge Additional Instructions: Take your medication as prescribed. Wear the splint for comfort. Follow up with Dr Reeves on Wednesday. - My Orders Last 24 Hours: My Active Orders 04/16/18 18:35 Wrist Comp Min 3V Lt [CR] Stat - Assessment/Plan Last 24 Hours: My Active Orders 04/16/18 18:35 Wrist Comp Min 3V Lt [CR] Stat
--- NOTE | 2018-04-18 07:48 | CR ---
Left wrist: Four views of the left wrist were obtained. Comparison: Previous left wrist study of 01/06/18. Severe degenerative change is noted within the CMC joint of the thumb. Other joint spaces within the left wrist are preserved. No acute fracture, dislocation or other bony abnormality is seen. Impression: 1. 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 2. Left wrist study is otherwise unremarkable. Note: No significant change is seen from previous study. Diagnostic code #2
== END 2018-04-16 19:15 | disposition home or self-care (01) ==
LOC: JD.ED 18:18
DX: M25.532 Pain in left wrist (principal); M79.645 Pain in left finger(s); M19.90 Unspecified osteoarthritis, unspecified site; J45.909 Unspecified asthma, uncomplicated; E78.00 Pure hypercholesterolemia, unspecified; I10 Essential (primary) hypertension; F41.9 Anxiety disorder, unspecified; F32.9 Major depressive disorder, single episode, unspecified; Z88.8 Allergy status to other drugs, medicaments and biological substances; Z79.899 Other long term (current) drug therapy
CPT/HCPCS: 73110-26-LT; 73110-LT; 99283

== ENCOUNTER 2018-04-24 14:17 | Emergency (ER) | payer BC ==
[2018-04-24 14:26] VITALS: BP 146/91
--- NOTE | 2018-04-24 14:46 | EDM.PDOC ---
ED HPI GENERAL MEDICAL PROBLEM - General Chief Complaint: ENT Problem Stated Complaint: EAR PAIN Time Seen by Provider: 04/24/18 14:41 Source of Information: Reports: Patient History Limitations: Reports: No Limitations - History of Present Illness INITIAL COMMENTS - FREE TEXT/NARRATIVE: 47-year-old female presents the ED with right ear discomfort. She feels her hearing is muffled. She states it doesn't really hurt but it gives her a bit of a pressure headache. No known injuries to the ear canal Is not wear hearing aids. She has not been in a swimming pool or [place] as of recently. No nasal congestion to suggest allergies. 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 (see below) (History usual meds.) - Related Data Allergies Allergy/AdvReac Type Severity Reaction Status Date / Time acetaminophen Allergy Facial Verified 04/16/18 18:29 [From Darvocet-N] Swelling guaifenesin [From Entex LA] Allergy Facial Verified 04/16/18 18:29 Swelling meclizine Allergy Facial Verified 04/16/18 18:29 Swelling meperidine HCl [From Demerol] Allergy Facial Verified 04/16/18 18:29 Swelling oxycodone HCl [From Percocet] Allergy Facial Verified 04/16/18 18:29 Swelling phenylephrine HCl Allergy Facial Verified 04/16/18 18:29 [From Entex LA] Swelling phenylpropanolamine HCl Allergy Facial Verified 04/16/18 18:29 [From Entex LA] Swelling propoxyphene napsylate Allergy Facial Verified 04/16/18 18:29 [From Darvocet-N] Swelling terfenadine [From Seldane] Allergy Facial Verified 04/16/18 18:29 Swelling Home Meds: Home Meds Calcium Carb/Vitamin D3/Vit K1 [Calcium + Vit D & K Chew] 1 tab PO DAILY [History] Pantoprazole Sodium [Protonix] 40 mg PO DAILY 05/27/14 [History] Sertraline HCl 200 mg PO DAILY 08/23/15 [History] Albuterol [Take Home: Albuterol 6.7 GM, 1 INH Pack] 1 puff INH Q4H PRN 01/15/16 [History] Cyclobenzaprine [Flexeril] 10 mg PO DAILY 01/15/16 [History] traZODone 50 mg PO BEDTIME 01/15/16 [History] Hydrochlorothiazide 25 mg PO DAILY 11/09/17 [History] Nabumetone 500 gm PO BID PRN #20 powder 02/18/18 [Rx] Acetaminophen with Codeine [Tylenol with Codeine #3 Tablet] 1 tab PO Q6H PRN 11/11 [History] Past Medical History HEENT History: Reports: Impaired Vision Cardiovascular History: Reports: High Cholesterol, Hypertension Respiratory History: Reports: Asthma, Sleep Apnea Gastrointestinal History: Reports: GERD Musculoskeletal History: Reports: Arthritis Psychiatric History: Reports: Anxiety, Depression Endocrine/Metabolic History: Reports: Obesity/BMI 30+ Hematologic History: Reports: Other (See Below) Other Hematologic History: PKU - Past Surgical History HEENT Surgical History: Reports: Oral Surgery Female Surgical History: Reports: Tubal Ligation Musculoskeletal Surgical History: Reports: Arthroscopic Procedure, ORIF, Shoulder Surgery, Other (See Below) Social & Family History - Family History Family Medical History: Noncontributory Cardiac: Reports: Heart Failure, [place] Neurological: Reports: CVA Endocrine/Metabolic: Reports: Diabetes, type II - Tobacco Use Smoking Status *Q: Never Smoker - Caffeine Use Caffeine Use: Reports: Soda - Recreational Drug Use Recreational Drug Use: No - Living Situation & Occupation Living situation: Reports: , with Spouse Occupation: Unemployed ED ROS ENT - Review of Systems Review Of Systems: See Below Constitutional: Reports: Malaise, Fatigue, Other (Patient has chronic pain syndrome due to her arthritis problems.). Denies: Fever, Chills, Weakness HEENT: Reports: Ear Pain, Hearing Loss (Right ear discomfort with muffled hearing hearing loss right ear.). Denies: Rhinitis, Sinus Problem, Throat Pain , Throat Swelling Respiratory: Reports: No Symptoms Cardiovascular: Reports: No Symptoms Endocrine: Reports: Fatigue GI/Abdominal: Reports: No Symptoms (Chronic) Musculoskeletal: Reports: Other (Currently has her left hand and a volar cock- up splint due to arthritis in the wrist. She also is wearing a cast boot brace left leg. She has got a cast off that leg.) Skin: Reports: No Symptoms Neurological: Reports: No Symptoms Psychiatric: Reports: No Symptoms Hematologic/Lymphatic: Reports: No Symptoms ED EXAM, ENT - Physical Exam Exam: See Below Exam Limited By: No Limitations General Appearance: Alert, WD/WN, No Apparent Distress Ears: TM Obscured by Cerumen (The right ear drum is completely covered by thick dark green cerumen. Left TM is normal.) Nose: Normal Inspection, Normal Mucousa Mouth/Throat: Normal Inspection, Normal Gums, Normal Lips Head: Atraumatic, Normocephalic Neck: Normal Inspection, Supple, Non-Tender, Full Range of Motion. No: Lymphadenopathy (L), Lymphadenopathy (R) Course - Vital Signs Last Recorded V/S: Last Vital Signs Temp 35.8 C 04/24/18 14:25 Pulse 95 04/24/18 14:25 Resp 20 04/24/18 14:25 BP 146/91 H 04/24/18 14:25 Pulse Ox 97 04/24/18 14:25 - Orders/Labs/Meds Orders: Active Orders 24 hr Category Date Time Status Ear Irrigation [RC] ASDIRECTED Care 04/24/18 14:41 Active - Radiology Interpretation Free Text/Narrative:: 47-year-old female presents the ED with right ear discomfort and a headache. She states her hearing is very muffled in the right ear for the last for 5 days. Has a bit of ringing in her ears as well. Concerned she might have an infection although she states it doesn't hurt that bad. This more of a pressure discomfort. On inspection her right tympanic membrane is occluded by cerumen. Left is normal. No other findings in the oropharyngeal cavity. Plan will be gentle irrigation of the right tympanic membrane with warm water. - Re-Assessments/Exams Free Text/Narrative Re-Assessment/Exam: 04/24/18 15:17 nurses were able to successfully remove 75-80% of the cerumen from her ear canal. She can hear better now. She will therefore be discharged to home. Advised olive oil or cooking oil one or 2 drops to the ear once weekly to keep it from becoming re-impacted with cerumen. Departure - Departure Time of Disposition: 15:16 Disposition: Home, Self-Care 01 Condition: Fair Clinical Impression: Impacted cerumen of right ear - Discharge Information Instructions: Earwax Buildup, Adult Referrals: Angela Person MD [Primary Care Provider] - Forms: ED Department Discharge Additional Instructions: Evaluation in the emergency him today in regards to multiple tearing with pressure in the right ear. Examination reveals that there is the canal is occluded with cerumen up against the eardrum. Therefore the cerumen was irrigated from the right ear. May use a couple drops of olive oil in the ear once a week to keep it from reoccluding with cerumen impaction. Also avoidance of Q-tips other than to the very opening of the year is advised. If the earwax is pushed past the outer one third it is retained within the ear canal as there is no natural cleaning mechanism. Holding her up under the shower water will also help irrigated and help cerumen come out. - My Orders Last 24 Hours: My Active Orders 04/24/18 14:41 Ear Irrigation [RC] ASDIRECTED - Assessment/Plan Last 24 Hours: My Active Orders 04/24/18 14:41 Ear Irrigation [RC] ASDIRECTED
== END 2018-04-24 15:42 | disposition home or self-care (01) ==
LOC: JD.ED 14:17
DX: H61.21 Impacted cerumen, right ear (principal); E78.00 Pure hypercholesterolemia, unspecified; I10 Essential (primary) hypertension; K21.9 Gastro-esophageal reflux disease without esophagitis; F32.9 Major depressive disorder, single episode, unspecified; Z88.6 Allergy status to analgesic agent; Z88.5 Allergy status to narcotic agent; Z88.8 Allergy status to other drugs, medicaments and biological substances; Z79.899 Other long term (current) drug therapy
CPT/HCPCS: 69210; 99283-25

== ENCOUNTER 2018-05-05 18:14 | Emergency (ER) | payer BC ==
[2018-05-05 18:25] VITALS: BP 136/86
--- NOTE | 2018-05-05 19:51 | EDM.PDOCBH ---
ED HPI GENERAL MEDICAL PROBLEM - General Chief Complaint: Behavioral/Psych Stated Complaint: [facility] Time Seen by Provider: 05/05/18 18:24 Source of Information: Reports: Patient History Limitations: Reports: No Limitations - History of Present Illness INITIAL COMMENTS - FREE TEXT/NARRATIVE: The patient states that she opened her closet today, seeing some pills that she has in there, and briefly considered overdosing on them, although did not actually take any. She states that it was just a fleeting thought, not a real plan, but she is concerned, because she actually did attempt to take her life by overdosing on sleeping pills this past October. She states that she was seen in this emergency department, then went to [facility] for a month. She states that she is feeling depressed because she and her do not get along. She clarified that these are emotional and verbal problems, not physical. The patient saw her PCP, Katt Schneider, at 15:45 this afternoon, and plans were made for the patient to come here, then go to [facility]. The patient's Psychiatrist is Dr. Barth at [facility]. - Related Data Allergies Allergy/AdvReac Type Severity Reaction Status Date / Time acetaminophen Allergy Facial Verified 04/16/18 18:29 [From Darvocet-N] Swelling guaifenesin [From Entex LA] Allergy Facial Verified 04/16/18 18:29 Swelling meclizine Allergy Facial Verified 04/16/18 18:29 Swelling meperidine HCl [From Demerol] Allergy Facial Verified 04/16/18 18:29 Swelling oxycodone HCl [From Percocet] Allergy Facial Verified 04/16/18 18:29 Swelling phenylephrine HCl Allergy Facial Verified 04/16/18 18:29 [From Entex LA] Swelling phenylpropanolamine HCl Allergy Facial Verified 04/16/18 18:29 [From Entex LA] Swelling propoxyphene napsylate Allergy Facial Verified 04/16/18 18:29 [From Darvocet-N] Swelling terfenadine [From Seldane] Allergy Facial Verified 04/16/18 18:29 Swelling Home Meds: Home Meds Calcium Carb/Vitamin D3/Vit K1 [Calcium + Vit D & K Chew] 1 tab PO DAILY [History] Pantoprazole Sodium [Protonix] 40 mg PO DAILY 05/27/14 [History] Sertraline HCl 200 mg PO DAILY 10/30/15 [History] Albuterol [Take Home: Albuterol 6.7 GM, 1 INH Pack] 1 puff INH Q4H PRN 01/15/16 [History] Cyclobenzaprine [Flexeril] 10 mg PO DAILY 01/15/16 [History] traZODone 50 mg PO BEDTIME 01/15/16 [History] Hydrochlorothiazide 25 mg PO DAILY 11/09/17 [History] Nabumetone 500 gm PO BID PRN #20 powder 02/18/18 [Rx] Acetaminophen with Codeine [Tylenol with Codeine #3 Tablet] 1 tab PO Q6H PRN 11/11 [History] Past Medical History HEENT History: Reports: Impaired Vision Cardiovascular History: Reports: High Cholesterol, Hypertension Respiratory History: Reports: Asthma, Sleep Apnea (nightly CPAP 10) Gastrointestinal History: Reports: GERD Musculoskeletal History: Reports: Arthritis, Fracture (left ankle), Other (See Below) (Phenylketonuria?) Psychiatric History: Reports: Anxiety, Depression Endocrine/Metabolic History: Reports: Obesity/BMI 30+ - Past Surgical History HEENT Surgical History: Reports: Oral Surgery (Bangs teeth extraction) Female Surgical History: Reports: Tubal Ligation Musculoskeletal Surgical History: Reports: Arthroscopic Procedure (bilateral knees), ORIF (left ankle), Shoulder Surgery (right AC separation) Social & Family History - Family History Family Medical History: Noncontributory Cardiac: Reports: Heart Failure, [place] Neurological: Reports: CVA Endocrine/Metabolic: Reports: Diabetes, type II - Tobacco Use Smoking Status *Q: Former Smoker Years of Tobacco use: 2 Packs/Tins Daily: 1 Month/Year Tobacco Last Used: Quit 2005 - Caffeine Use Caffeine Use: Reports: None - Alcohol Use Alcohol Use History: No - Recreational Drug Use Recreational Drug Use: No - Living Situation & Occupation Living situation: Reports: , with Spouse Occupation: Unemployed ED ROS GENERAL - Review of Systems Review Of Systems: ROS reveals no pertinent complaints other than HPI. ED EXAM, BEHAVIORAL HEALTH - Physical Exam Exam: See Below Exam Limited By: No Limitations General Appearance: Alert, WD/WN, No Apparent Distress Eye Exam: Bilateral Eye: EOMI, Normal Inspection Ears: Normal External Exam, Hearing Grossly Normal Nose: Normal Inspection, No Blood Throat/Mouth: Normal Inspection, Normal Lips, Normal Voice, No Airway Compromise Head: Atraumatic, Normocephalic Neck: Normal Inspection, Full Range of Motion Respiratory/Chest: No Respiratory Distress, Lungs Clear, Normal Breath Sounds, No Accessory Muscle Use Cardiovascular: Normal Peripheral Pulses, Regular Rate, Rhythm, No Gallop, No JVD, No Murmur, No Rub GI/Abdominal: Normal Bowel Sounds, Soft, Non-Tender, No Organomegaly, No Distention, No Abnormal Bruit, No Mass, Other (Obese) (Female) Exam: Deferred Rectal (Female) Exam: Deferred Back Exam: Normal Inspection, Full Range of Motion, NT Extremities: Normal Inspection, Normal Range of Motion, No Pedal Edema, Normal Capillary Refill Neurological: Alert, Normal Cognition, No Motor/Sensory Deficits, Oriented x 3 Psychiatric: Normal Affect Skin Exam: Warm, Dry, Intact, Normal color, No rash COURSE, BEHAVIORAL HEALTH COMP - Course Vital Signs: Last Vital Signs Temp 35.7 C 05/05/18 18:22 Pulse 96 05/05/18 18:22 Resp 18 05/05/18 18:22 BP 136/86 05/05/18 18:22 Pulse Ox 97 05/05/18 18:22 Medical Clearance: 05/05/18 19:50 The patient states that she had briefly considered overdosing on some pain medication pills that she has at home, but that it was a fleeting thought, and she did not consider it further, and did not actually attempt to harm herself today. She states that her PCP, Katt Schneider, made an arrangement for the patient to go to an [facility] bed, and that an [facility] bed is available. We are going to contact [facility] and see if all of that is true, and if so, if they need any medical workup here. She is hemodynamically stable with a benign physical exam; from my standpoint, she is fit for discharge to [facility] if they are willing to take her. 05/05/18 20:17 Notified that [facility] is here, and they are ready to take the patient as she is. Departure - Departure Time of Disposition: 20:16 Disposition: Home, Self-Care 01 Condition: Good Clinical Impression: Suicidal ideation - Discharge Information *PRESCRIPTION DRUG MONITORING PROGRAM REVIEWED*: Not Applicable *COPY OF PRESCRIPTION DRUG MONITORING REPORT IN PATIENT TRISHA: Not Applicable Instructions: Suicidal Feelings: How to Help Yourself Referrals: Schneider,Katt, TRANSACTION PROCESSOR [Primary Care Provider] - Forms: ED Department Discharge Additional Instructions: You were seen in the emergency room after briefly considering taking an overdose of pain pills this morning. You have been evaluated by [facility], who agree to take you to their facility. If any other problems, please do not hesitate to return to the ER.
== END 2018-05-05 20:22 | disposition home or self-care (01) ==
LOC: JD.ED 18:14
DX: R45.851 Suicidal ideations (principal); E78.00 Pure hypercholesterolemia, unspecified; I10 Essential (primary) hypertension; K21.9 Gastro-esophageal reflux disease without esophagitis; F32.9 Major depressive disorder, single episode, unspecified; F41.9 Anxiety disorder, unspecified; E66.9 Obesity, unspecified; Z88.8 Allergy status to other drugs, medicaments and biological substances; Z79.899 Other long term (current) drug therapy
CPT/HCPCS: 99284; 99285

== ENCOUNTER 2018-05-31 18:37 | Emergency (ER) | payer BC ==
[2018-05-31 18:51] VITALS: BP 148/91
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
[2018-05-31] MEDS ORDERED: traZODone 50 MG Tab PO ONE (21:14)
[2018-05-31] MEDS ORDERED: Cyclobenzaprine 10 MG Tab PO ONE (21:14)
[2018-05-31] MEDS ORDERED: Sertraline 50 MG Tab PO ONE (21:14)
== END 2018-05-31 21:30 | disposition home or self-care (01) ==
LOC: JD.ED 18:37
DX: F19.10 Other psychoactive substance abuse, uncomplicated (principal); I10 Essential (primary) hypertension; E66.9 Obesity, unspecified; Z88.8 Allergy status to other drugs, medicaments and biological substances; Z79.899 Other long term (current) drug therapy
CPT/HCPCS: 36415; 80053; 80306; 81001; 84443; 85025; 99285; A9270-GY; G0480

== ENCOUNTER 2018-06-27 19:56 | Emergency (ER) | payer BC ==
[2018-06-27 20:15] VITALS: BP 148/90
[2018-06-27] MEDS ORDERED: Aspirin 81 MG Tab.Chew PO ONE (20:29)
--- NOTE | 2018-06-27 20:48 | EDM.PDOC ---
ED HPI GENERAL MEDICAL PROBLEM - General Chief Complaint: Chest Pain Stated Complaint: CHEST PAIN Time Seen by Provider: 06/27/18 20:06 Source of Information: Reports: Patient, EMS History Limitations: Reports: No Limitations - History of Present Illness INITIAL COMMENTS - FREE TEXT/NARRATIVE: Patient presents with substernal retrosternal chest pain. Started in the morning around 10:00. Started while at rest. [place] like pressure, some burning. Not associated with any lightheadedness syncope or near-syncope. No diaphoresis. No radiation of the pain. Nothing seemed to make the pain better or worse. It did seem to slow down or at least almost resolved later in the afternoon however tonight just before going to bed it seemed like it was getting worse again. No nausea vomiting or diarrhea. Ate supper without problems. Denies smoking cigarettes. She does have a splint on her left lower extremity although she uses that intermittently. No coughing or cold symptoms no sore throat or runny nose. Patient has a history of elevated cholesterol on medication as well as a history of pressure medication. No family history of heart disease. Patient's a nonsmoker. No PND exertional dyspnea or orthopnea. No lower extremity swelling. Chest Pain Score (Numeric/FACES): 8 - Related Data Allergies Allergy/AdvReac Type Severity Reaction Status Date / Time acetaminophen Allergy Facial Verified 06/27/18 20:06 [From Darvocet-N] Swelling guaifenesin [From Entex LA] Allergy Facial Verified 06/27/18 20:06 Swelling meclizine Allergy Facial Verified 06/27/18 20:06 Swelling meperidine HCl [From Demerol] Allergy Facial Verified 06/27/18 20:06 Swelling oxycodone HCl [From Percocet] Allergy Facial Verified 06/27/18 20:06 Swelling phenylephrine HCl Allergy Facial Verified 06/27/18 20:06 [From Entex LA] Swelling phenylpropanolamine HCl Allergy Facial Verified 06/27/18 20:06 [From Entex LA] Swelling propoxyphene napsylate Allergy Facial Verified 06/27/18 20:06 [From Darvocet-N] Swelling terfenadine [From Seldane] Allergy Facial Verified 06/27/18 20:06 Swelling Home Meds: Home Meds Calcium Carb/Vitamin D3/Vit K1 [Calcium + Vit D & K Chew] 1 tab PO DAILY [History] Pantoprazole Sodium [Protonix] 40 mg PO DAILY 05/27/14 [History] Sertraline HCl 200 mg PO BEDTIME 08/23/15 [History] Albuterol [Take Home: Albuterol 6.7 GM, 1 INH Pack] 1 puff INH Q4H PRN 01/15/16 [History] Cyclobenzaprine [Flexeril] 10 mg PO BEDTIME 01/15/16 [History] traZODone 50 mg PO BEDTIME 01/15/16 [History] hydroCHLOROthiazide [Hydrochlorothiazide] 25 mg PO DAILY 11/09/17 [History] Nabumetone 500 gm PO BID PRN #20 powder 02/18/18 [Rx] Acetaminophen with Codeine [Tylenol with Codeine #3 Tablet] 1 - 2 each PO Q4H PRN #15 tablet 05/28/18 [Rx] Rosuvastatin [Crestor] 1 tab PO DAILY 06/27/18 [History] buPROPion [Wellbutrin] 1 tab PO DAILY 06/27/18 [History] Past Medical History HEENT History: Reports: Impaired Vision Cardiovascular History: Reports: High Cholesterol, Hypertension Respiratory History: Reports: Asthma, Sleep Apnea Gastrointestinal History: Reports: GERD Musculoskeletal History: Reports: Arthritis, Fracture, Other (See Below) Psychiatric History: Reports: Anxiety, Depression Endocrine/Metabolic History: Reports: Obesity/BMI 30+ Hematologic History: Reports: Other (See Below) Other Hematologic History: PKU - Past Surgical History HEENT Surgical History: Reports: Oral Surgery Female Surgical History: Reports: Tubal Ligation Musculoskeletal Surgical History: Reports: Arthroscopic Procedure, ORIF, Shoulder Surgery, Other (See Below) Other Musculoskeletal Surgeries/Procedures:: back fusion Social & Family History - Family History Family Medical History: Noncontributory Cardiac: Reports: Heart Failure, [place] Neurological: Reports: CVA Endocrine/Metabolic: Reports: Diabetes, type II - Tobacco Use Smoking Status *Q: Never Smoker - Caffeine Use Caffeine Use: Reports: None - Recreational Drug Use Recreational Drug Use: No - Living Situation & Occupation Living situation: Reports: , with Spouse Occupation: Unemployed ED ROS GENERAL - Review of Systems Review Of Systems: See Below Constitutional: Denies: Fever, Weakness, Night Sweats, Diaphoresis HEENT: Denies: Vision Change Respiratory: Denies: Shortness of Breath, Cough Cardiovascular: Reports: Chest Pain. Denies: Dyspnea on Exertion, Lightheadedness, Orthopnea, Palpitations, PND, Syncope GI/Abdominal: Denies: Abdominal Pain, Diarrhea, Nausea, Vomiting : Denies: Dysuria, Irregular Menses Musculoskeletal: Denies: Neck Pain, Shoulder Pain Neurological: Denies: Confusion, Dizziness, Headache, Numbness, Paresthesia, Syncope, Tingling, Gait Disturbance Psychiatric: Denies: Anxiety ED EXAM, GENERAL - Physical Exam Exam: See Below Exam Limited By: No Limitations General Appearance: Alert, WD/WN, No Apparent Distress, Other (Smiling and laughing during the history taking) Eye Exam: Bilateral Eye: PERRL Head: Atraumatic Neck: Supple, Non-Tender. No: Carotid Bruit Respiratory/Chest: Lungs Clear, Normal Breath Sounds, Chest Non-Tender Cardiovascular: Normal Peripheral Pulses, Regular Rate, Rhythm, No Edema, No Gallop, No JVD. No: JVD GI/Abdominal: Normal Bowel Sounds, Soft, Non-Tender, No Organomegaly, No Distention, No Mass Extremities: Normal Inspection. No: Pedal Edema, Joann's Sign, Leg Pain Neurological: Alert, Oriented, CN II-XII Intact Psychiatric: Normal Affect, Normal Mood Skin Exam: Warm, Dry EKG INTERPRETATION EKG Date: 06/27/18 Time: 20:46 EKG Interpretation Comments: EKG shows sinus rhythm rate of 87. Volar 151 ms care study 6 ms corrected QT interval is 479 ms. Flattening of the T waves, unspecific, no acute ischemic changes noted. Course - Vital Signs Text/Narrative:: The patient with atypical chest pain, onset at rest, does not seem to be any worse with activity, no associated shortness of breath diaphoresis nausea vomiting radiation of the symptoms or shortness of breath. Heart score is low, no acute EKG findings. She has continuous chest pain greater than 4 hours and therefore we'll screen a troponin to rule out acute coronary syndrome or ME, sent a d-dimer with no risk factors doubt pulmonary embolism or aortic dissection. May be gastrointestinal such as biliary colic asked her enteritis, gastritis or pancreatitis. Patient given aspirin for now. Last Recorded V/S: Last Vital Signs Temp 97.1 F 06/27/18 20:11 Pulse 93 06/27/18 20:11 Resp 16 06/27/18 20:11 BP 148/90 H 06/27/18 20:11 Pulse Ox 98 06/27/18 20:11 - Orders/Labs/Meds Orders: Active Orders 24 hr Category Date Time Status Cardiac Monitoring [RC] . DIRECTED Care 06/27/18 20:08 Active EKG Documentation Completion [RC] STAT Care 06/27/18 20:08 Active Chest 1V Frontal [CR] Stat Exams 06/27/18 20:28 Taken HCG QUALITATIVE,URINE [URCHEM] Stat Lab 06/27/18 21:04 Ordered UA W/MICROSCOPIC [URIN] Stat Lab 06/27/18 21:04 Ordered Labs: Laboratory Tests 06/27/18 06/27/18 06/27/18 Range/Units 20:40 20:40 20:40 WBC 8.78 (3.98-10.04) K/mm3 RBC 4.57 (3.98-5.22) M/mm3 Hgb 14.1 (11.2-15.7) gm/L Hct 41.1 (34.1-44.9) % MCV 89.9 (79.4-94.8) fl MCH 30.9 (25.6-32.2) pg MCHC 34.3 (32.2-35.5) g/dl RDW Std Deviation 39.8 (36.4-46.3) fL Plt Count 298 (182-369) K/mm3 MPV 9.8 (9.4-12.3) fl Neut % (Auto) 58.5 (34.0-71.1) % Lymph % (Auto) 30.0 (19.3-51.7) % [place] % (Auto) 7.7 (4.7-12.5) % Eos % (Auto) 3.1 (0.7-5.8) Baso % (Auto) 0.5 (0.1-1.2) % Neut # (Auto) 5.14 (1.56-6.13) K/mm3 Lymph # (Auto) 2.63 (1.18-3.74) K/mm3 [place] # (Auto) 0.68 H (0.24-0.36) K/mm3 Eos # (Auto) 0.27 (0.04-0.36) K/mm3 Baso # (Auto) 0.04 (0.01-0.08) K/mm3 D-Dimer, Quantitative (0.19-0.50) mg/L Sodium 139 (136-145) mEq/L Potassium 3.6 (3.5-5.1) mEq/L Chloride 102 (98-107) mEq/L Carbon Dioxide 27 (21-32) mEq/L Anion Gap 13.6 (5-15) BUN 10 (7-18) mg/dL Creatinine 1.0 (0.55-1.02) mg/dL Est Cr Clr Drug Dosing 66.90 mL/min Estimated GFR (MDRD) 59 (>60) mL/min BUN/Creatinine Ratio 10.0 L (14-18) Glucose 90 (74-106) mg/dL Calcium 9.0 (8.5-10.1) mg/dL Total Bilirubin 0.3 (0.2-1.0) mg/dL AST 24 (15-37) U/L ALT 31 (14-59) U/L Alkaline Phosphatase 77 (46-116) U/L Troponin I < 0.017 (0.00-0.056) ng/mL NT-Pro-B Natriuret Pep 34 (0-125) pg/mL Total Protein 7.0 (6.4-8.2) g/dl Albumin 3.6 (3.4-5.0) g/dl Globulin 3.4 gm/dL Albumin/Globulin Ratio 1.1 (1-2) Lipase 213 (73-393) U/L Urine Color (Yellow) Urine Appearance (Clear) Urine pH (5.0-8.0) Ur Specific [place] (1.005-1.030) Urine Protein (Negative) Urine Glucose (UA) (Negative) Urine Ketones (Negative) Urine Occult Blood (Negative) Urine Nitrite (Negative) Urine Bilirubin (Negative) Urine Urobilinogen (0.2-1.0) Ur Leukocyte Esterase (Negative) Urine RBC (0-5) /hpf Urine WBC (0-5) /hpf Ur Epithelial Cells (0-5) /hpf Urine Bacteria (FEW) /hpf Urine Mucus (FEW) /hpf Urine HCG, Qual (NEGATIVE) 06/27/18 06/27/18 06/27/18 Range/Units 20:40 21:04 21:04 WBC (3.98-10.04) K/mm3 RBC (3.98-5.22) M/mm3 Hgb (11.2-15.7) gm/L Hct (34.1-44.9) % MCV (79.4-94.8) fl MCH (25.6-32.2) pg MCHC (32.2-35.5) g/dl RDW Std Deviation (36.4-46.3) fL Plt Count (182-369) K/mm3 MPV (9.4-12.3) fl Neut % (Auto) (34.0-71.1) % Lymph % (Auto) (19.3-51.7) % [place] % (Auto) (4.7-12.5) % Eos % (Auto) (0.7-5.8) Baso % (Auto) (0.1-1.2) % Neut # (Auto) (1.56-6.13) K/mm3 Lymph # (Auto) (1.18-3.74) K/mm3 [place] # (Auto) (0.24-0.36) K/mm3 Eos # (Auto) (0.04-0.36) K/mm3 Baso # (Auto) (0.01-0.08) K/mm3 D-Dimer, Quantitative 0.38 (0.19-0.50) mg/L Sodium (136-145) mEq/L Potassium (3.5-5.1) mEq/L Chloride (98-107) mEq/L Carbon Dioxide (21-32) mEq/L Anion Gap (5-15) BUN (7-18) mg/dL Creatinine (0.55-1.02) mg/dL Est Cr Clr Drug Dosing mL/min Estimated GFR (MDRD) (>60) mL/min BUN/Creatinine Ratio (14-18) Glucose (74-106) mg/dL Calcium (8.5-10.1) mg/dL Total Bilirubin (0.2-1.0) mg/dL AST (15-37) U/L ALT (14-59) U/L Alkaline Phosphatase (46-116) U/L Troponin I (0.00-0.056) ng/mL NT-Pro-B Natriuret Pep (0-125) pg/mL Total Protein (6.4-8.2) g/dl Albumin (3.4-5.0) g/dl Globulin gm/dL Albumin/Globulin Ratio (1-2) Lipase (73-393) U/L Urine Color Yellow (Yellow) Urine Appearance Clear (Clear) Urine pH 7.0 (5.0-8.0) Ur Specific [place] 1.010 (1.005-1.030) Urine Protein Negative (Negative) Urine Glucose (UA) Negative (Negative) Urine Ketones Negative (Negative) Urine Occult Blood Negative (Negative) Urine Nitrite Negative (Negative) Urine Bilirubin Negative (Negative) Urine Urobilinogen 0.2 (0.2-1.0) Ur Leukocyte Esterase 1+ H (Negative) Urine RBC 0-5 (0-5) /hpf Urine WBC 0-5 (0-5) /hpf Ur Epithelial Cells 0-5 (0-5) /hpf Urine Bacteria Few (FEW) /hpf Urine Mucus Not seen (FEW) /hpf Urine HCG, Qual Negative (NEGATIVE) Meds: Medications Discontinued Medications Generic Name Dose Route Start Last Admin Trade Name Rogelio PRN Reason Stop Dose Admin Acetaminophen/Codeine Phosphate 1 tab 06/27/18 21:25 06/27/18 21:45 Tylenol With Codeine No.3 300mg/30mg PO 06/27/18 21:26 1 tab ONETIME ONE Administration Aspirin 324 mg 06/27/18 20:29 06/27/18 20:35 Aspirin PO 06/27/18 20:30 324 mg ONETIME ONE Administration - Radiology Interpretation Free Text/Narrative:: Portable chest x-ray shows upper limits of normal cardiac shadow, no acute pleural effusion or infiltrate. No acute findings and compared with her last chest x-ray from June 24 which is unchanged. - Re-Assessments/Exams Free Text/Narrative Re-Assessment/Exam: 06/27/18 21:02 Patient is resting comfortably, her CBC is essentially within normal limits chest x-ray is unremarkable for any acute findings. Patient is taking her aspirin and is very comfortable. Free Text/Narrative Re-Assessment/Exam: 06/27/18 21:20 Workup and evaluation including troponin is negative, heart scores 2, d-dimer is negative doubt pulmonary monos tomorrow or aortic dissection, chest x-rays unremarkable for any acute pneumonia or findings. Negative lipase doubt pancreatitis, normal LFTs and no right upper quadrant pain doubt Sacha colic or acute cholecystitis. She does have some reproducibility to the chest discomfort along her rib costal sternal margin. Given the patient one of her doses of Tylenol with Codeine and plan discharge home follow up and return caution given Departure - Departure Time of Disposition: 21:51 Disposition: Home, Self-Care 01 Condition: Good Clinical Impression: Atypical chest pain Instructions: Nonspecific Chest Pain, [id number] Referrals: Katt Gray MAIL LIST LIBRARIAN [Primary Care Provider] - Forms: ED Department Discharge Additional Instructions: Follow-up with your regular physician this week, return sooner for any recurrent chest pain, shortness of breath, near fainting spell dizziness short of breath or worse. - My Orders Last 24 Hours: My Active Orders 06/27/18 20:08 Cardiac Monitoring [RC] . DIRECTED EKG Documentation Completion [RC] STAT 06/27/18 20:28 Chest 1V Frontal [CR] Stat 06/27/18 21:04 HCG QUALITATIVE,URINE [URCHEM] Stat UA W/MICROSCOPIC [URIN] Stat - Assessment/Plan Last 24 Hours: My Active Orders 06/27/18 20:08 Cardiac Monitoring [RC] . DIRECTED EKG Documentation Completion [RC] STAT 06/27/18 20:28 Chest 1V Frontal [CR] Stat 06/27/18 21:04 HCG QUALITATIVE,URINE [URCHEM] Stat UA W/MICROSCOPIC [URIN] Stat
[2018-06-27] MEDS ORDERED: Acetaminophen/Codeine 300-30 MG Tab PO ONE (21:25)
--- NOTE | 2018-06-28 12:32 | CR ---
Chest: Portable view of the chest was obtained. Comparison: Prior chest x-ray of 05/28/18. Heart is slightly enlarged but accentuated from portable technique. Upper mediastinum is normal. Lungs are clear with no acute parenchymal change. Bony structures are grossly intact. Impression: 1. Nothing acute is seen on portable chest x-ray. Diagnostic code #1
== END 2018-06-27 21:58 | disposition home or self-care (01) ==
LOC: JD.ED 19:56
DX: R07.89 Other chest pain (principal); I10 Essential (primary) hypertension; F41.9 Anxiety disorder, unspecified; F32.9 Major depressive disorder, single episode, unspecified; Z79.899 Other long term (current) drug therapy; Z88.8 Allergy status to other drugs, medicaments and biological substances; Z88.6 Allergy status to analgesic agent
CPT/HCPCS: 36415; 71045; 80053; 81001; 81025; 83690; 83880; 84484; 85025; 85379; 93005; 99285; A9270; 93010; 99284-25

== ENCOUNTER 2018-07-22 14:48 | Emergency (ER) | payer BC ==
[2018-07-22 15:05] VITALS: BP 163/91
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
== END 2018-07-22 17:09 | disposition home or self-care (01) ==
LOC: JD.ED 14:48
DX: F32.9 Major depressive disorder, single episode, unspecified (principal); F41.9 Anxiety disorder, unspecified; I10 Essential (primary) hypertension; E78.00 Pure hypercholesterolemia, unspecified; Z87.891 Personal history of nicotine dependence; Z79.899 Other long term (current) drug therapy; Z88.8 Allergy status to other drugs, medicaments and biological substances; Z88.6 Allergy status to analgesic agent
CPT/HCPCS: 99284

== ENCOUNTER 2018-11-06 13:37 | Emergency (ER) | payer BC ==
[2018-11-06 13:52] VITALS: BP 180/110
[2018-11-06] MEDS ORDERED: Ketorolac 60 MG/2 ML SDV IM ONE (14:28)
--- NOTE | 2018-11-06 15:45 | EDM.PDOC ---
ED HPI GENERAL MEDICAL PROBLEM - General Chief Complaint: Lower Extremity Injury/Pain Stated Complaint: [facility] Time Seen by Provider: 11/06/18 14:00 Source of Information: Reports: Patient History Limitations: Reports: No Limitations - History of Present Illness INITIAL COMMENTS - FREE TEXT/NARRATIVE: 48-year-old female presents for evaluation and treatment of right hip and leg pain post fall. Reportedly the patient slipped on the ice. She is unable to tell me exactly how she fell but it sounds as if she landed on her right side. She is primarily complaining of pain to the right posterior thigh and right hip. Does not sound as if she's had any head trauma. No loss of consciousness. She reports she has been up and ambulating since the fall but is very painful. No obvious deformities noted on exam. Denies any low back pain. No numbness or tingling to the lower limb. right posterior upper thigh Pain Score (Numeric/FACES): 8 - Related Data Allergies Allergy/AdvReac Type Severity Reaction Status Date / Time guaifenesin [From Entex LA] Allergy Facial Verified 11/06/18 13:52 Swelling meclizine Allergy Facial Verified 11/06/18 13:52 Swelling meperidine HCl [From Demerol] Allergy Facial Verified 11/06/18 13:52 Swelling oxycodone HCl [From Percocet] Allergy Facial Verified 11/06/18 13:52 Swelling phenylephrine HCl Allergy Facial Verified 11/06/18 13:52 [From Entex LA] Swelling phenylpropanolamine HCl Allergy Facial Verified 11/06/18 13:52 [From Entex LA] Swelling propoxyphene napsylate Allergy Facial Verified 11/06/18 13:52 [From Darvocet-N] Swelling terfenadine [From Seldane] Allergy Facial Verified 11/06/18 13:52 Swelling Home Meds: Home Meds Calcium Carb/Vitamin D3/Vit K1 [Calcium + Vit D & K Chew] 1 tab PO DAILY [History] Pantoprazole Sodium [Protonix] 40 mg PO DAILY 05/27/14 [History] Cyclobenzaprine [Flexeril] 10 mg PO BEDTIME 01/15/16 [History] traZODone 50 mg PO BEDTIME 01/15/16 [History] hydroCHLOROthiazide [Hydrochlorothiazide] 25 mg PO DAILY 11/09/17 [History] Rosuvastatin [Crestor] 1 tab PO DAILY 06/27/18 [History] buPROPion [Wellbutrin] 1 tab PO DAILY 06/27/18 [History] Benzonatate [Tessalon Perle] 100 mg PO TID PRN #20 capsule 09/25/18 [Rx] Past Medical History HEENT History: Reports: Impaired Vision Cardiovascular History: Reports: High Cholesterol, Hypertension Respiratory History: Reports: Asthma, Sleep Apnea Gastrointestinal History: Reports: GERD Musculoskeletal History: Reports: Arthritis, Fracture, Other (See Below) Psychiatric History: Reports: Anxiety, Depression Endocrine/Metabolic History: Reports: Obesity/BMI 30+ Hematologic History: Reports: Other (See Below) Other Hematologic History: PKU - Past Surgical History HEENT Surgical History: Reports: Oral Surgery Female Surgical History: Reports: Tubal Ligation Musculoskeletal Surgical History: Reports: Arthroscopic Procedure, ORIF, Shoulder Surgery, Other (See Below) Other Musculoskeletal Surgeries/Procedures:: back fusion, foot surgery 07/2018 Social & Family History - Family History Family Medical History: Noncontributory Cardiac: Reports: Heart Failure, [place] Neurological: Reports: CVA Endocrine/Metabolic: Reports: Diabetes, type II - Tobacco Use Smoking Status *Q: Former Smoker Used Tobacco, but Quit: No - Caffeine Use Caffeine Use: Reports: Soda - Recreational Drug Use Recreational Drug Use: No - Living Situation & Occupation Living situation: Reports: , with Spouse Occupation: Unemployed Review of Systems - Review of Systems Review Of Systems: See Below Musculoskeletal: Reports: Leg Pain (right posterior thigh), Joint Pain (right hip). Denies: Back Pain Neurological: Denies: Headache, Numbness, Syncope, Tingling ED EXAM, GENERAL - Physical Exam Exam: See Below Exam Limited By: No Limitations General Appearance: Alert, WD/WN, No Apparent Distress, Obese Throat/Mouth: Normal Inspection, Normal Voice, No Airway Compromise Respiratory/Chest: No Respiratory Distress Cardiovascular: Normal Peripheral Pulses, Regular Rate, Rhythm Peripheral Pulses: 2+: Posterior Tibial (L), Posterior Tibial (R), Dorsalis Pedis (L), Dorsalis Pedis (R) Back Exam: Normal Inspection, Other (scar to the lumbar spine from previous back surgery). No: Vertebral Tenderness Extremities: Normal Inspection (no obvious deformities to the right leg, no external rotation to the right leg, no limb length shortening), Normal Range of Motion (no pain with flexion of the right hip or internal or external rotation of the right hip; able to fully flex and extend lumbar spine), Non-Tender, Normal Capillary Refill Neurological: Alert, Oriented, Normal Cognition, Normal Gait Psychiatric: Normal Affect, Normal Mood Skin Exam: Warm, Dry, Normal Color Course - Vital Signs Last Recorded V/S: Last Vital Signs Temp 97.4 F 11/06/18 13:37 Pulse 95 11/06/18 13:37 Resp 18 11/06/18 13:37 BP 180/110 H 11/06/18 13:37 Pulse Ox 95 11/06/18 13:37 - Orders/Labs/Meds Meds: Medications Discontinued Medications Generic Name Dose Route Start Last Admin Trade Name Rogelio PRN Reason Stop Dose Admin Ketorolac Tromethamine 60 mg 11/06/18 14:28 11/06/18 14:37 Toradol IM 11/06/18 14:29 60 mg ONETIME ONE Administration - Radiology Interpretation Free Text/Narrative:: Lumbar spine: AP and lateral views of the lumbar spine were obtained. Comparison: Previous MRI lumbar spine study of 07/22/17. Trans-pedicle screws are noted as well as intervertebral disc fixation device at L3-L4, L4-L5 and L5-S1. Stable spondylolisthesis is noted at L5-S1. Very minimal scattered endplate osteophytes are seen. Pedicles are intact. No fracture or acute subluxation is seen. Slight degenerative change is noted within the left sacroiliac joint with sclerosis. Impression: 1. Interval surgery from prior MRI. 2. Minimal degenerative change. Nothing acute is appreciated. Pelvis and right hip: AP view of the pelvis was obtained as well as AP and frog- leg lateral views of the right hip. Comparison: Prior right hip and pelvis exam of 06/15/17. Joint spaces within both hips are maintained. Previous lumbar spine surgery is noted which is an interval change from previous exam. Mild degenerative change is noted within the left sacroiliac joint with slight sclerosis which is stable. Nothing acute is appreciated. Impression: 1. Incidental findings. Nothing acute is appreciated. - Re-Assessments/Exams Free Text/Narrative Re-Assessment/Exam: 11/06/18 15:31 Reviewed the xray results with the patient. She feels she would benefit from crutches despite walking in the ER without any significant problem. Pitcher to be soft tissue injury, she may have pulled a hamstring. Recommend symptomatic care. Discharge instructions as documented. Departure - Departure Time of Disposition: 15:39 Disposition: Home, Self-Care 01 Condition: Good Clinical Impression: Leg pain, Fall, Hamstring strain - Discharge Information *PRESCRIPTION DRUG MONITORING PROGRAM REVIEWED*: No *COPY OF PRESCRIPTION DRUG MONITORING REPORT IN PATIENT TRISHA: No Instructions: Pain Without a Known Cause Referrals: Katt Gray NP [Primary Care Provider] - Forms: ED Department Discharge Additional Instructions: [id number] Tylenol or Motrin as needed for pain. Recommend ice or heat to the sore areas for additional pain relief. Crutches as needed for discomfort. Elevate the leg as much as you are able to. Follow-up with your primary care provider if you continue to have symptoms within 2 weeks. Please return to ER if symptoms change or worsen.
--- NOTE | 2018-11-06 16:59 | CR ---
Lumbar spine: AP and lateral views of the lumbar spine were obtained. Comparison: Previous MRI lumbar spine study of 07/22/17. Transpedicle screws are noted as well as intervertebral disc fixation device at L3-L4, L4-L5 and L5-S1. Stable spondylolisthesis is noted at L5-S1. Very minimal scattered endplate osteophytes are seen. Pedicles are intact. No fracture or acute subluxation is seen. Slight degenerative change is noted within the left sacroiliac joint with sclerosis. Impression: 1. Interval surgery from prior MRI. 2. Minimal degenerative change. Nothing acute is appreciated. Diagnostic code #2
--- NOTE | 2018-11-06 16:59 | CR ---
Pelvis and right hip: AP view of the pelvis was obtained as well as AP and frog-leg lateral views of the right hip. Comparison: Prior right hip and pelvis exam of 06/15/17. Joint spaces within both hips are maintained. Previous lumbar spine surgery is noted which is an interval change from previous exam. Mild degenerative change is noted within the left sacroiliac joint with slight sclerosis which is stable. Nothing acute is appreciated. Impression: 1. Incidental findings. Nothing acute is appreciated. Diagnostic code #2
== END 2018-11-06 16:02 | disposition home or self-care (01) ==
LOC: JD.ED 13:37
DX: S76.812A Strain of other specified muscles, fascia and tendons at thigh level, left thigh, initial encounter (principal); E78.00 Pure hypercholesterolemia, unspecified; I10 Essential (primary) hypertension; K21.9 Gastro-esophageal reflux disease without esophagitis; J45.909 Unspecified asthma, uncomplicated; F41.9 Anxiety disorder, unspecified; F32.9 Major depressive disorder, single episode, unspecified; W00.0XXA Fall on same level due to ice and snow, initial encounter; Z88.8 Allergy status to other drugs, medicaments and biological substances; Z87.891 Personal history of nicotine dependence; Z88.5 Allergy status to narcotic agent
CPT/HCPCS: 72100; 73502; 96372; 99284; J1885; 99282

== ENCOUNTER 2018-12-24 15:15 | Emergency (ER) | payer BC, MEDICAID ==
[2018-12-24 15:30] VITALS: BP 117/79
--- NOTE | 2018-12-24 15:32 | EDM.PDOC ---
ED HPI GENERAL MEDICAL PROBLEM - General Chief Complaint: Upper Extremity Injury/Pain Stated Complaint: LT SHOULDER Time Seen by Provider: 12/24/18 15:27 Source of Information: Reports: Patient, RN Notes Reviewed History Limitations: Reports: No Limitations - History of Present Illness INITIAL COMMENTS - FREE TEXT/NARRATIVE: Patient is a 48-year-old female who presents to the ED for left shoulder pain. States that she has a torn rotator cuff and biceps tendon that she is going to have this repaired on December. She states that she is having increased pain in her left shoulder and she tried to call her surgeon's office and they directed her to come to the ER to get a sling. She is to have the surgery done with Dr. Park on of in [place]. She denies any numbness tingling or pain that shoots up and are in her left arm. Most of her pain is limited to the left shoulder, she states lifting her arms above her head aggravates this pain. She would rate her pain today at a 9 out of 10. She states that she has been using Tylenol for the pain but this does not provide much relief. Left Shoulder Pain Score (Numeric/FACES): 9 - Related Data Allergies Allergy/AdvReac Type Severity Reaction Status Date / Time guaifenesin [From Entex LA] Allergy Facial Verified 12/24/18 15:30 Swelling meclizine Allergy Facial Verified 12/24/18 15:30 Swelling meperidine HCl [From Demerol] Allergy Facial Verified 12/24/18 15:30 Swelling oxycodone HCl [From Percocet] Allergy Facial Verified 12/24/18 15:30 Swelling phenylephrine HCl Allergy Facial Verified 12/24/18 15:30 [From Entex LA] Swelling phenylpropanolamine HCl Allergy Facial Verified 12/24/18 15:30 [From Entex LA] Swelling propoxyphene napsylate Allergy Facial Verified 12/24/18 15:30 [From Darvocet-N] Swelling terfenadine [From Seldane] Allergy Facial Verified 12/24/18 15:30 Swelling Home Meds: Home Meds Calcium Carb/Vitamin D3/Vit K1 [Calcium + Vit D & K Chew] 1 tab PO DAILY [History] Pantoprazole Sodium [Protonix] 40 mg PO DAILY 05/27/14 [History] Cyclobenzaprine [Flexeril] 10 mg PO BEDTIME 01/15/16 [History] traZODone 50 mg PO BEDTIME 01/15/16 [History] hydroCHLOROthiazide [Hydrochlorothiazide] 25 mg PO DAILY 11/09/17 [History] Rosuvastatin [Crestor] 1 tab PO DAILY 06/27/18 [History] Past Medical History HEENT History: Reports: Impaired Vision Cardiovascular History: Reports: High Cholesterol, Hypertension Respiratory History: Reports: Asthma, Sleep Apnea Gastrointestinal History: Reports: GERD Musculoskeletal History: Reports: Arthritis, Fracture, Other (See Below) Psychiatric History: Reports: Anxiety, Depression Endocrine/Metabolic History: Reports: Obesity/BMI 30+ Hematologic History: Reports: Other (See Below) Other Hematologic History: PKU - Past Surgical History HEENT Surgical History: Reports: Oral Surgery Female Surgical History: Reports: Tubal Ligation Musculoskeletal Surgical History: Reports: Arthroscopic Procedure, ORIF, Shoulder Surgery, Other (See Below) Other Musculoskeletal Surgeries/Procedures:: back fusion, foot surgery 07/2018 Social & Family History - Family History Family Medical History: Noncontributory Cardiac: Reports: Heart Failure, [place] Neurological: Reports: CVA Endocrine/Metabolic: Reports: Diabetes, type II - Caffeine Use Caffeine Use: Reports: Soda - Living Situation & Occupation Living situation: Reports: , with Spouse Occupation: Unemployed Review of Systems - Review of Systems Review Of Systems: ROS reveals no pertinent complaints other than HPI. Constitutional: Reports: No Symptoms Eyes: Reports: No Symptoms Ears: Reports: No Symptoms Nose: Reports: No Symptoms Mouth/Throat: Reports: No Symptoms Respiratory: Reports: No Symptoms Cardiovascular: Reports: No Symptoms GI/Abdominal: Reports: No Symptoms Genitourinary: Reports: No Symptoms Musculoskeletal: Reports: Shoulder Pain (left). Denies: Arm Pain, Muscle Pain Skin: Reports: No Symptoms Neurological: Denies: Numbness, Tingling Psychiatric: Reports: No Symptoms ED EXAM, GENERAL - Physical Exam Exam: See Below Exam Limited By: No Limitations General Appearance: Alert, WD/WN, No Apparent Distress Eye Exam: Bilateral Eye: Normal Inspection Ears: Normal External Exam Nose: Normal Inspection Throat/Mouth: Normal Inspection, Normal Oropharynx Head: Atraumatic, Normocephalic Neck: Normal Inspection, Supple, Non-Tender, Full Range of Motion Respiratory/Chest: No Respiratory Distress, Lungs Clear, Normal Breath Sounds, No Accessory Muscle Use, Chest Non-Tender Cardiovascular: Normal Peripheral Pulses, Regular Rate, Rhythm, No Murmur GI/Abdominal: Normal Bowel Sounds, Soft, Non-Tender, No Distention Extremities: Normal Inspection, Normal Capillary Refill, Limited Range of Motion (d/t pain of left shoulder). No: Joint Swelling Neurological: Alert, Oriented, Normal Cognition, Normal Reflexes, No Motor/ Sensory Deficits Psychiatric: Normal Affect, Normal Mood Skin Exam: Warm, Dry, Intact, Normal Color, No Rash Course - Vital Signs Last Recorded V/S: Last Vital Signs Temp 96.8 F 12/24/18 15:20 Pulse 72 12/24/18 15:20 Resp 16 12/24/18 15:20 BP 117/79 12/24/18 15:20 Pulse Ox 100 12/24/18 15:20 - Re-Assessments/Exams Free Text/Narrative Re-Assessment/Exam: 12/24/18 15:52 Patient presents to the ED for the evaluation of left shoulder pain. She will be provided with a sling for further pain relief, and was given general recommendations for NSAID therapy for pain relief. She was directed to follow up with her surgeon if she is having increased pain or difficulty using her left arm at all. Departure - Departure Time of Disposition: 15:46 Disposition: Home, Self-Care 01 Condition: Fair Clinical Impression: Shoulder pain, left Qualifiers: Chronicity: chronic Qualified Code(s): M25.512 - Pain in left shoulder - Discharge Information *PRESCRIPTION DRUG MONITORING PROGRAM REVIEWED*: No *COPY OF PRESCRIPTION DRUG MONITORING REPORT IN PATIENT TRISHA: No Instructions: How to Use a Sling, [id number], Shoulder Pain, [id number] Referrals: Katt Gray NP [Primary Care Provider] - Forms: ED Department Discharge Additional Instructions: You have been evaluated in the ED today for your left shoulder pain. You have been provided a sling to further relieve the pain in her shoulder. You may take 600 mg ibuprofen or 500 mg Tylenol every 6 hours as needed, in an alternating fashion for pain relief. You may use ice packs to the area as tolerated. Please return to the ED if her symptoms change or worsen.
== END 2018-12-24 15:54 | disposition home or self-care (01) ==
LOC: JD.ED 15:15
DX: M25.512 Pain in left shoulder (principal); I10 Essential (primary) hypertension; E66.9 Obesity, unspecified; Z98.51 Tubal ligation status; Z88.8 Allergy status to other drugs, medicaments and biological substances; Z79.899 Other long term (current) drug therapy; Z98.1 Arthrodesis status
CPT/HCPCS: 99282; 99283-25

== ENCOUNTER 2019-02-22 15:58 | Emergency (ER) | payer BC, MEDICAID ==
[2019-02-22 16:19] VITALS: BP 121/92
[2019-02-22] MEDS ORDERED: Albuterol 0.083% 2.5 MG/3 ML Neb Soln NEB ONE (16:41)
--- NOTE | 2019-02-22 16:48 | EDM.PDOC ---
ED HPI GENERAL MEDICAL PROBLEM - General Chief Complaint: Asthma Stated Complaint: ASTHMA/ CHEST PAIN Time Seen by Provider: 02/22/19 16:22 Source of Information: Reports: Patient, RN Notes Reviewed History Limitations: Reports: No Limitations - History of Present Illness INITIAL COMMENTS - FREE TEXT/NARRATIVE: Patient is a 48-year-old female who presents to the ED for the evaluation of increasing shortness of breath. Patient states that she does have a history of asthma, and feels as if she is having a flare of her asthma. She states she has some mild chest tightness with a nonproductive cough. The patient states that she uses her albuterol inhaler at night, and her Breo inhaler in the mornings. She states that she did take her albuterol nebulizer around 11:00 AM this morning. She denies any fever/chills, nausea/vomiting/diarrhea, chest pain. She admits to having the increasing shortness of breath, nonproductive cough, and chest tightness at this time. Left Shoulder Pain Score (Numeric/FACES): 6 - Related Data Allergies Allergy/AdvReac Type Severity Reaction Status Date / Time guaifenesin [From Entex LA] Allergy Facial Verified 12/24/18 15:30 Swelling meclizine Allergy Facial Verified 12/24/18 15:30 Swelling meperidine HCl [From Demerol] Allergy Facial Verified 12/24/18 15:30 Swelling oxycodone HCl [From Percocet] Allergy Facial Verified 12/24/18 15:30 Swelling phenylephrine HCl Allergy Facial Verified 12/24/18 15:30 [From Entex LA] Swelling phenylpropanolamine HCl Allergy Facial Verified 12/24/18 15:30 [From Entex LA] Swelling propoxyphene napsylate Allergy Facial Verified 12/24/18 15:30 [From Darvocet-N] Swelling terfenadine [From Seldane] Allergy Facial Verified 12/24/18 15:30 Swelling Home Meds: Home Meds Calcium Carb/Vitamin D3/Vit K1 [Calcium + Vit D & K Chew] 1 tab PO DAILY [History] Pantoprazole Sodium [Protonix] 40 mg PO DAILY 05/27/14 [History] Cyclobenzaprine [Flexeril] 10 mg PO BEDTIME 01/15/16 [History] traZODone 50 mg PO BEDTIME 01/15/16 [History] Rosuvastatin [Crestor] 10 mg PO DAILY 06/27/18 [History] Albuterol Sulfate 1 applic INH ASDIRECTED 02/22/19 [History] Albuterol Sulfate [Proair Hfa] 2 puff INH BEDTIME 02/22/19 [History] Fluticasone/Vilanterol [Breo Ellipta 200-25 Mcg INH] 1 puff INH DAILY 02/22/19 [ History] PARoxetine [Paxil] 20 mg PO DAILY 02/22/19 [History] Past Medical History HEENT History: Reports: Impaired Vision Other HEENT History: wears eyeglasses. Cardiovascular History: Reports: High Cholesterol, Hypertension Respiratory History: Reports: Asthma, Sleep Apnea Gastrointestinal History: Reports: GERD Musculoskeletal History: Reports: Arthritis, Fracture, Other (See Below) Psychiatric History: Reports: Anxiety, Depression Endocrine/Metabolic History: Reports: Obesity/BMI 30+ Hematologic History: Reports: Other (See Below) Other Hematologic History: PKU - Infectious Disease History Infectious Disease History: Reports: Chicken Pox, Measles, Mumps - Past Surgical History HEENT Surgical History: Reports: Oral Surgery Female Surgical History: Reports: Tubal Ligation Musculoskeletal Surgical History: Reports: Arthroscopic Procedure, ORIF, Shoulder Surgery, Other (See Below) Other Musculoskeletal Surgeries/Procedures:: back fusion, foot surgery 07/2018 Social & Family History - Family History Family Medical History: Noncontributory Cardiac: Reports: Heart Failure, [place] Neurological: Reports: CVA Endocrine/Metabolic: Reports: Diabetes, type II - Tobacco Use Smoking Status *Q: Former Smoker Used Tobacco, but Quit: Yes Month/Year Tobacco Last Used: 10 yr - Caffeine Use Caffeine Use: Reports: Soda - Recreational Drug Use Recreational Drug Use: No - Living Situation & Occupation Living situation: Reports: , with Spouse Occupation: Unemployed ED ROS GENERAL - Review of Systems Review Of Systems: See Below Constitutional: Reports: No Symptoms HEENT: Reports: No Symptoms Respiratory: Reports: Shortness of Breath, Cough. Denies: Wheezing, Sputum Cardiovascular: Reports: Chest Pain (chest tightness) Endocrine: Reports: No Symptoms GI/Abdominal: Reports: No Symptoms : Reports: No Symptoms Musculoskeletal: Reports: No Symptoms Skin: Reports: No Symptoms Neurological: Reports: No Symptoms Psychiatric: Reports: No Symptoms Hematologic/Lymphatic: Reports: No Symptoms Immunologic: Denies: Environmental Allergy, Seasonal Allergy, Pollen Allergy ED EXAM, GENERAL - Physical Exam Exam: See Below Exam Limited By: No Limitations General Appearance: Alert, WD/WN, No Apparent Distress Eye Exam: Bilateral Eye: EOMI, Normal Inspection, PERRL Ears: Normal External Exam, Normal Canal, Normal TMs Nose: Normal Inspection Throat/Mouth: Normal Inspection, Normal Lips, Normal Oropharynx, Normal Voice, No Airway Compromise Head: Atraumatic, Normocephalic Neck: Normal Inspection Respiratory/Chest: No Respiratory Distress, Lungs Clear, No Accessory Muscle Use , Chest Non-Tender, Decreased Breath Sounds (diffuse throughout both lung gibbs ). No: Wheezing Cardiovascular: Normal Peripheral Pulses, Regular Rate, Rhythm, No Murmur GI/Abdominal: Normal Bowel Sounds, Soft, Non-Tender, No Distention Extremities: Normal Inspection, Normal Capillary Refill Neurological: Alert, Oriented, Normal Cognition, No Motor/Sensory Deficits Psychiatric: Normal Affect, Normal Mood Skin Exam: Warm, Dry, Intact, Normal Color, No Rash Course - Vital Signs Last Recorded V/S: Last Vital Signs Temp 97.6 F 02/22/19 16:16 Pulse 69 02/22/19 16:16 Resp 20 02/22/19 16:16 BP 121/92 H 02/22/19 16:16 Pulse Ox 95 02/22/19 16:55 - Orders/Labs/Meds Orders: Active Orders 24 hr Category Date Time Status RT Aerosol Therapy [RC] ASDIRECTED Care 02/22/19 16:42 Ordered Chest 2V [CR] Stat Exams 02/22/19 16:40 Ordered Meds: Medications Discontinued Medications Generic Name Dose Route Start Last Admin Trade Name Freq PRN Reason Stop Dose Admin Albuterol 2.5 mg 02/22/19 16:41 02/22/19 16:51 Proventil Neb Soln NEB 02/22/19 16:42 2.5 mg ONETIME ONE Administration - Re-Assessments/Exams Free Text/Narrative Re-Assessment/Exam: 02/22/19 16:47 Patient presents to the ED for the evaluation of increasing shortness of breath. I have ordered an albuterol nebulizer, and a chest x-ray to be obtained for further evaluation and treatment. I did however make it known to the patient that she may take her albuterol nebulizer up to 3 or 4 times daily went she is having trouble breathing like this. She was understanding of this plan. 02/22/19 17:36 Patient's chest x-ray is done, and does not demonstrate any acute sign of any consolidation or otherwise. This appears to be within normal limits, and was reviewed with a previous chest x-ray of the patient done in August. Official radiology read is pending however. Departure - Departure Time of Disposition: 17:42 Disposition: Home, Self-Care 01 Condition: Fair Clinical Impression: Asthma exacerbation Qualifiers: Asthma severity: mild Asthma persistence: unspecified Qualified Code(s): J45.901 - Unspecified asthma with (acute) exacerbation - Discharge Information *PRESCRIPTION DRUG MONITORING PROGRAM REVIEWED*: No *COPY OF PRESCRIPTION DRUG MONITORING REPORT IN PATIENT TRISHA: No Instructions: Asthma, Adult, [id number] Referrals: Katt Gray NP [Primary Care Provider] - Forms: ED Department Discharge Additional Instructions: You have been evaluated in the ED today for your increasing shortness of breath. This is likely due to a mild exacerbation of your asthma. You have been given an albuterol nebulizer in the ED today, your chest x-ray did not demonstrate any other focal abnormalities that would be causing you increase shortness of breath. Such as pneumonia as an example. You may use your albuterol nebulizer every 4 hours as needed for increasing shortness of breath. Recommend that you do so 3-4 times daily until your symptoms subside. Please take your Breo inhaler as previously directed. If your breathing is not better after taking the nebulizers more often, recommend that you follow up with your primary care provider for further evaluation of your asthma symptoms for possible breathing tests such as PFTs for further evaluation of your asthma progression. You may take [id number] ibuprofen, 400-600 mg every 6 hours as needed for general aches and pains due to increased coughing. Please return to the ED if your symptoms should change or worsen. - My Orders Last 24 Hours: My Active Orders 02/22/19 16:40 Chest 2V [CR] Stat 02/22/19 16:42 RT Aerosol Therapy [RC] ASDIRECTED - Assessment/Plan Last 24 Hours: My Active Orders 02/22/19 16:40 Chest 2V [CR] Stat 02/22/19 16:42 RT Aerosol Therapy [RC] ASDIRECTED
--- NOTE | 2019-02-23 06:45 | CR ---
Chest: Two views of the chest were obtained. Comparison: Prior chest x-ray of 09/25/18. Heart size at the upper limits of normal. Upper mediastinum is normal. Lungs are clear. Bony structures are within normal limits for the patient's age. Impression: 1. Nothing acute is seen on two-view chest x-ray. Diagnostic code #2
== END 2019-02-22 18:00 | disposition home or self-care (01) ==
LOC: JD.ED 15:58
DX: J45.901 Unspecified asthma with (acute) exacerbation (principal); E78.00 Pure hypercholesterolemia, unspecified; I10 Essential (primary) hypertension; F41.9 Anxiety disorder, unspecified; F32.9 Major depressive disorder, single episode, unspecified; Z87.891 Personal history of nicotine dependence; Z88.8 Allergy status to other drugs, medicaments and biological substances; Z88.5 Allergy status to narcotic agent; Z79.899 Other long term (current) drug therapy
CPT/HCPCS: 71046; 71046-26; 94640; 99283; 99283-25

== ENCOUNTER 2019-03-23 11:45 | Emergency (ER) | payer BC, MEDICAID ==
[2019-03-23 11:53] VITALS: BP 140/115
--- NOTE | 2019-03-23 13:06 | EDM.PDOC ---
ED HPI GENERAL MEDICAL PROBLEM - General Chief Complaint: Cardiovascular Problem Stated Complaint: CHEST PAIN Time Seen by Provider: 03/23/19 12:00 Source of Information: Reports: Patient History Limitations: Reports: No Limitations - History of Present Illness INITIAL COMMENTS - FREE TEXT/NARRATIVE: 48-year-old female presents for evaluation and treatment of chest palpitations. Patient reports he began yesterday morning. States she was not doing anything in particular states that she sits around a lot and this is what she was doing the chest palpitations started. She states that she has "a little bit" now. She denies any chest pain, shortness of breath, abdominal pain, nausea, vomiting, lightheadedness or dizziness. She reports feeling hot and flushed in the face. States her blood pressure at home was 150/105. She contacted her primary care' s providers office and spoke with their nurse, she is instructed to come to the ER. Reports a family history on her mother side of heart problems, sounds as if they were older when then 55 when they experienced their heart problems. States that she saw director of litigation about a year ago and was told that her heart was great. Patient reports her last menstrual cycle was a little over a month ago. Reports she was supposed to start her menstrual cycle on March 03 but she has not, questions if she is going through menopause. - Related Data Allergies Allergy/AdvReac Type Severity Reaction Status Date / Time guaifenesin [From Entex LA] Allergy Facial Verified 03/23/19 11:54 Swelling latex Allergy Hives Verified 03/23/19 11:54 meclizine Allergy Facial Verified 03/23/19 11:54 Swelling meperidine HCl [From Demerol] Allergy Facial Verified 03/23/19 11:54 Swelling oxycodone HCl [From Percocet] Allergy Facial Verified 03/23/19 11:54 Swelling phenylephrine HCl Allergy Facial Verified 03/23/19 11:54 [From Entex LA] Swelling phenylpropanolamine HCl Allergy Facial Verified 03/23/19 11:54 [From Entex LA] Swelling propoxyphene napsylate Allergy Facial Verified 03/23/19 11:54 [From Darvocet-N] Swelling terfenadine [From Seldane] Allergy Facial Verified 03/23/19 11:54 Swelling Home Meds: Home Meds Calcium Carb/Vitamin D3/Vit K1 [Calcium + Vit D & K Chew] 1 tab PO DAILY [History] Pantoprazole Sodium [Protonix] 40 mg PO DAILY 05/27/14 [History] Cyclobenzaprine [Flexeril] 10 mg PO BEDTIME 01/15/16 [History] traZODone 50 mg PO BEDTIME 01/15/16 [History] Rosuvastatin [Crestor] 10 mg PO DAILY 06/27/18 [History] Albuterol Sulfate 1 applic INH ASDIRECTED 02/22/19 [History] Albuterol Sulfate [Proair Hfa] 2 puff INH BEDTIME 02/22/19 [History] PARoxetine [Paxil] 20 mg PO DAILY 02/22/19 [History] Budesonide/Formoterol Fumarate [Symbicort 80-4.5 Mcg Inhaler] 1 inh INH DAILY [History] Past Medical History HEENT History: Reports: Impaired Vision Other HEENT History: wears eyeglasses. Cardiovascular History: Reports: High Cholesterol, Hypertension Respiratory History: Reports: Asthma, Sleep Apnea Gastrointestinal History: Reports: GERD Musculoskeletal History: Reports: Arthritis, Fracture, Other (See Below) Psychiatric History: Reports: Anxiety, Depression Endocrine/Metabolic History: Reports: Obesity/BMI 30+ Hematologic History: Reports: Other (See Below) Other Hematologic History: PKU - Infectious Disease History Infectious Disease History: Reports: Chicken Pox, Measles, Mumps - Past Surgical History HEENT Surgical History: Reports: Oral Surgery Female Surgical History: Reports: Tubal Ligation Musculoskeletal Surgical History: Reports: Arthroscopic Procedure, ORIF, Shoulder Surgery, Other (See Below) Other Musculoskeletal Surgeries/Procedures:: back fusion, foot surgery 07/2018 Social & Family History - Family History Family Medical History: Noncontributory Cardiac: Reports: Heart Failure, [place] Neurological: Reports: CVA Endocrine/Metabolic: Reports: Diabetes, type II - Tobacco Use Smoking Status *Q: Former Smoker Used Tobacco, but Quit: Yes Month/Year Tobacco Last Used: 10 years ago - Caffeine Use Caffeine Use: Reports: Soda - Recreational Drug Use Recreational Drug Use: No - Living Situation & Occupation Living situation: Reports: , with Spouse Occupation: Unemployed ED ROS GENERAL - Review of Systems Review Of Systems: See Below Constitutional: Reports: Other (reports feeling hot and flushed ). Denies: Fever, Chills Respiratory: Denies: Shortness of Breath, Cough Cardiovascular: Reports: Blood Pressure Problem, Palpitations. Denies: Chest Pain, Lightheadedness GI/Abdominal: Denies: Abdominal Pain, Nausea, Vomiting : Reports: Other (menstrual cycle is 20 days late) Psychiatric: Reports: Anxiety ED EXAM, GENERAL - Physical Exam Exam: See Below Exam Limited By: No Limitations General Appearance: Alert, WD/WN, No Apparent Distress, Obese Respiratory/Chest: No Respiratory Distress, Lungs Clear, Normal Breath Sounds, Chest Non-Tender Cardiovascular: Normal Peripheral Pulses, Regular Rate, Rhythm, No Murmur Neurological: Alert, Oriented, Normal Cognition Psychiatric: Normal Affect, Normal Mood Skin Exam: Warm, Dry, Normal Color EKG INTERPRETATION EKG Date: 03/23/19 Time: 12:06 Rhythm: NSR Rate (Beats/Min): 71 [place]on: Normal P-Wave: Present QRS: Normal ST-T: Normal Comparison: No Change EKG Interpretation Comments: NSR at 71 bpm. T wave inversion inferior and lateral leads. No acute changes appreciated. No major change from 12-18 ekg. Reviewed by myself and Dr. Metz. Course - Vital Signs Last Recorded V/S: Last Vital Signs Temp 97.5 F 03/23/19 11:51 Pulse 75 03/23/19 11:51 Resp 16 03/23/19 11:51 BP 140/115 H 03/23/19 11:51 Pulse Ox 97 03/23/19 11:51 - Orders/Labs/Meds Orders: Active Orders 24 hr Category Date Time Status EKG 12 Lead [EKG Documentation Completion] [RC] STAT Care 03/23/19 12:03 Active Holter Monitor 48 Hours [RC] .PRN Care 03/23/19 14:07 Active Labs: Laboratory Tests 03/23/19 03/23/19 03/23/19 Range/Units 12:45 12:45 12:45 WBC 6.42 (3.98-10.04) K/mm3 RBC 4.56 (3.98-5.22) M/mm3 Hgb 13.9 (11.2-15.7) gm/L Hct 41.3 (34.1-44.9) % MCV 90.6 (79.4-94.8) fl MCH 30.5 (25.6-32.2) pg MCHC 33.7 (32.2-35.5) g/dl RDW Std Deviation 43.8 (36.4-46.3) fL Plt Count 251 (182-369) K/mm3 MPV 10.6 (9.4-12.3) fl Neut % (Auto) 57.4 (34.0-71.1) % Lymph % (Auto) 27.3 (19.3-51.7) % [facility] % (Auto) 8.4 (4.7-12.5) % Eos % (Auto) 6.2 H (0.7-5.8) Baso % (Auto) 0.5 (0.1-1.2) % Neut # (Auto) 3.69 (1.56-6.13) K/mm3 Lymph # (Auto) 1.75 (1.18-3.74) K/mm3 [facility] # (Auto) 0.54 H (0.24-0.36) K/mm3 Eos # (Auto) 0.40 H (0.04-0.36) K/mm3 Baso # (Auto) 0.03 (0.01-0.08) K/mm3 Sodium 141 (136-145) mEq/L Potassium 4.0 (3.5-5.1) mEq/L Chloride 107 (98-107) mEq/L Carbon Dioxide 24 (21-32) mEq/L Anion Gap 14.0 (5-15) BUN 9 (7-18) mg/dL Creatinine 0.9 (0.55-1.02) mg/dL Est Cr Clr Drug Dosing 74.34 mL/min Estimated GFR (MDRD) > 60 (>60) mL/min BUN/Creatinine Ratio 10.0 L (14-18) Glucose 108 H (74-106) mg/dL Calcium 9.2 (8.5-10.1) mg/dL Magnesium 2.1 (1.8-2.4) mg/dl Total Bilirubin 0.5 (0.2-1.0) mg/dL AST 18 (15-37) U/L ALT 26 (14-59) U/L Alkaline Phosphatase 70 (46-116) U/L Troponin I < 0.017 (0.00-0.056) ng/mL Total Protein 6.6 (6.4-8.2) g/dl Albumin 3.6 (3.4-5.0) g/dl Globulin 3.0 gm/dL Albumin/Globulin Ratio 1.2 (1-2) TSH 3rd Generation 1.141 (0.358-3.74) uIU/mL HCG, Qual Negative (NEGATIVE) - Re-Assessments/Exams Free Text/Narrative Re-Assessment/Exam: 03/23/19 14:01 Results reviewed with the patient. Will place on 48 hour holter monitor. Likely anxiety causing symptoms. Patient reports she has several changes coming up. Will discharge home with instructions to follow-up with PCP. Discharge instructions as documented. Departure - Departure Time of Disposition: 14:07 Disposition: Home, Self-Care 01 Condition: Good Clinical Impression: Heart palpitations Instructions: Palpitations, [id number] Referrals: Katt Gray CORSETIER [Primary Care Provider] - Forms: ED Department Discharge Additional Instructions: wear the holter monitor x 48 hours as directed by RT. Follow-up with PCP next week as planned. Rest. Drink plenty of fluids. Please return to the ER should your symptoms change or worsen. - My Orders Last 24 Hours: My Active Orders 03/23/19 12:03 EKG 12 Lead [EKG Documentation Completion] [RC] STAT 03/23/19 14:07 Holter Monitor 48 Hours [RC] .PRN - Assessment/Plan Last 24 Hours: My Active Orders 03/23/19 12:03 EKG 12 Lead [EKG Documentation Completion] [RC] STAT 03/23/19 14:07 Holter Monitor 48 Hours [RC] .PRN
== END 2019-03-23 15:00 | disposition home or self-care (01) ==
LOC: JD.ED 11:45
DX: R00.2 Palpitations (principal); I10 Essential (primary) hypertension; E78.00 Pure hypercholesterolemia, unspecified; K21.9 Gastro-esophageal reflux disease without esophagitis; Z87.891 Personal history of nicotine dependence; Z79.899 Other long term (current) drug therapy; Z91.040 Latex allergy status; Z88.8 Allergy status to other drugs, medicaments and biological substances
CPT/HCPCS: 36415; 80053; 83735; 84443; 84484; 84703; 85025; 93005; 93010; 93225; 93226; 99284; 99285-25

== ENCOUNTER 2019-03-26 20:31 | Emergency (ER) | payer BC, MEDICAID ==
[2019-03-26 21:57] VITALS: BP 116/75
--- NOTE | 2019-03-26 22:50 | EDM.PDOCBH ---
<Dionicio Metz - Last Filed: 03/27/19 01:04> ED HPI GENERAL MEDICAL PROBLEM - General Chief Complaint: Behavioral/Psych Stated Complaint: SUICIDAL THOUGHTS Time Seen by Provider: 03/26/19 22:05 - Related Data Allergies Allergy/AdvReac Type Severity Reaction Status Date / Time guaifenesin [From Entex LA] Allergy Facial Verified 03/23/19 11:54 Swelling latex Allergy Hives Verified 03/23/19 11:54 meclizine Allergy Facial Verified 03/23/19 11:54 Swelling meperidine HCl [From Demerol] Allergy Facial Verified 03/23/19 11:54 Swelling oxycodone HCl [From Percocet] Allergy Facial Verified 03/23/19 11:54 Swelling phenylephrine HCl Allergy Facial Verified 03/23/19 11:54 [From Entex LA] Swelling phenylpropanolamine HCl Allergy Facial Verified 03/23/19 11:54 [From Entex LA] Swelling propoxyphene napsylate Allergy Facial Verified 03/23/19 11:54 [From Darvocet-N] Swelling terfenadine [From Seldane] Allergy Facial Verified 03/23/19 11:54 Swelling Home Meds: Home Meds Calcium Carb/Vitamin D3/Vit K1 [Calcium + Vit D & K Chew] 1 tab PO DAILY [History] Pantoprazole Sodium [Protonix] 40 mg PO DAILY 05/27/14 [History] Cyclobenzaprine [Flexeril] 10 mg PO BEDTIME 01/15/16 [History] traZODone 50 mg PO BEDTIME 01/15/16 [History] Rosuvastatin [Crestor] 10 mg PO DAILY 06/27/18 [History] Albuterol Sulfate 1 applic INH ASDIRECTED 02/22/19 [History] Albuterol Sulfate [Proair Hfa] 2 puff INH BEDTIME 02/22/19 [History] PARoxetine [Paxil] 20 mg PO DAILY 02/22/19 [History] Budesonide/Formoterol Fumarate [Symbicort 80-4.5 Mcg Inhaler] 1 inh INH DAILY [History] COURSE, BEHAVIORAL HEALTH COMP - Course Vital Signs: Last Vital Signs Temp 97.6 F 03/26/19 21:53 Pulse 74 03/26/19 21:53 Resp 20 03/26/19 21:53 BP 116/75 03/26/19 21:53 Pulse Ox 94 L 03/26/19 21:53 Orders, Labs, Meds: Active Orders 24 hr Category Date Time Status EKG 12 Lead [EKG Documentation Completion] [RC] STAT Care 03/26/19 22:57 Active CULTURE URINE [RM] Stat Lab 03/26/19 23:01 Received Laboratory Tests 03/26/19 03/26/19 03/26/19 Range/Units 22:39 22:39 22:55 WBC 9.50 (3.98-10.04) K/mm3 RBC 4.49 (3.98-5.22) M/mm3 Hgb 13.8 (11.2-15.7) gm/L Hct 40.7 (34.1-44.9) % MCV 90.6 (79.4-94.8) fl MCH 30.7 (25.6-32.2) pg MCHC 33.9 (32.2-35.5) g/dl RDW Std Deviation 43.1 (36.4-46.3) fL Plt Count 265 (182-369) K/mm3 MPV 10.7 (9.4-12.3) fl Neutrophils % (Manual) 55 (40-60) % Band Neutrophils % 0 (0-10) % Lymphocytes % (Manual) 37 (20-40) % Atypical Lymphs % 0 % Monocytes % (Manual) 5 (2-10) % Eosinophils % (Manual) 2 (0.7-5.8) % Basophils % (Manual) 0 L (0.1-1.2) Myelocytes % 1 Platelet Estimate Adequate Plt Morphology Comment Normal RBC Morph Comment Normal Sodium (136-145) mEq/L Potassium (3.5-5.1) mEq/L Chloride (98-107) mEq/L Carbon Dioxide (21-32) mEq/L Anion Gap (5-15) BUN (7-18) mg/dL Creatinine (0.55-1.02) mg/dL Est Cr Clr Drug Dosing mL/min Estimated GFR (MDRD) (>60) mL/min BUN/Creatinine Ratio (14-18) Glucose (74-106) mg/dL Calcium (8.5-10.1) mg/dL Total Bilirubin (0.2-1.0) mg/dL AST (15-37) U/L ALT (14-59) U/L Alkaline Phosphatase (46-116) U/L Total Protein (6.4-8.2) g/dl Albumin (3.4-5.0) g/dl Globulin gm/dL Albumin/Globulin Ratio (1-2) TSH 3rd Generation (0.358-3.74) uIU/mL Urine Color (Yellow) Urine Appearance (Clear) Urine pH (5.0-8.0) Ur Specific Siler (1.005-1.030) Urine Protein (Negative) Urine Glucose (UA) (Negative) Urine Ketones (Negative) Urine Occult Blood (Negative) Urine Nitrite (Negative) Urine Bilirubin (Negative) Urine Urobilinogen (0.2-1.0) Ur Leukocyte Esterase (Negative) Urine RBC (0-5) /hpf Urine WBC (0-5) /hpf Ur Epithelial Cells (0-5) /hpf Urine Bacteria (FEW) /hpf Urine Mucus (FEW) /hpf Urine HCG, Qual Negative (NEGATIVE) Salicylates (2.8-20) mg/dL Urine Opiates Screen Negative (FSAIAG=528) Ur Buprenorphine Scrn Negative (CUTOFF=10) Ur Oxycodone Screen Negative (RIV6VM=041) Urine Methadone Screen Negative (SIAWKE=339) Ur Propoxyphene Screen Negative (ZBCSRC=460) Acetaminophen (10-30) ug/mL Ur Barbiturates Screen Negative (OLOYSM=192) Ur Tricyclics Screen Negative (YCOCPL=874) Ur Phencyclidine Scrn Negative (CUTOFF=25) Ur Amphetamine Screen Negative (ZMKVFW=144) U Methamphetamines Scrn Negative (DCAJEO=116) U Benzodiazepines Scrn Negative (HVQZTJ=371) U Cocaine Metab Screen Negative (HLZPJS=009) U Marijuana (THC) Screen Negative (CUTOFF=50) Ethyl Alcohol (0.00) gm% 03/26/19 03/26/19 03/26/19 Range/Units 22:55 22:55 23:01 WBC (3.98-10.04) K/mm3 RBC (3.98-5.22) M/mm3 Hgb (11.2-15.7) gm/L Hct (34.1-44.9) % MCV (79.4-94.8) fl MCH (25.6-32.2) pg MCHC (32.2-35.5) g/dl RDW Std Deviation (36.4-46.3) fL Plt Count (182-369) K/mm3 MPV (9.4-12.3) fl Neutrophils % (Manual) (40-60) % Band Neutrophils % (0-10) % Lymphocytes % (Manual) (20-40) % Atypical Lymphs % % Monocytes % (Manual) (2-10) % Eosinophils % (Manual) (0.7-5.8) % Basophils % (Manual) (0.1-1.2) Myelocytes % Platelet Estimate Plt Morphology Comment RBC Morph Comment Sodium 141 (136-145) mEq/L Potassium 3.9 (3.5-5.1) mEq/L Chloride 104 (98-107) mEq/L Carbon Dioxide 26 (21-32) mEq/L Anion Gap 14.9 (5-15) BUN 10 (7-18) mg/dL Creatinine 0.9 (0.55-1.02) mg/dL Est Cr Clr Drug Dosing 74.34 mL/min Estimated GFR (MDRD) > 60 (>60) mL/min BUN/Creatinine Ratio 11.1 L (14-18) Glucose 98 (74-106) mg/dL Calcium 9.4 (8.5-10.1) mg/dL Total Bilirubin 0.3 (0.2-1.0) mg/dL AST 20 (15-37) U/L ALT 27 (14-59) U/L Alkaline Phosphatase 78 (46-116) U/L Total Protein 6.4 (6.4-8.2) g/dl Albumin 3.7 (3.4-5.0) g/dl Globulin 2.7 gm/dL Albumin/Globulin Ratio 1.4 (1-2) TSH 3rd Generation 2.315 (0.358-3.74) uIU/mL Urine Color Yellow (Yellow) Urine Appearance Clear (Clear) Urine pH 6.0 (5.0-8.0) Ur Specific Siler 1.010 (1.005-1.030) Urine Protein Negative (Negative) Urine Glucose (UA) Negative (Negative) Urine Ketones Negative (Negative) Urine Occult Blood 2+ H (Negative) Urine Nitrite Negative (Negative) Urine Bilirubin Negative (Negative) Urine Urobilinogen 0.2 (0.2-1.0) Ur Leukocyte Esterase 1+ H (Negative) Urine RBC 0-5 (0-5) /hpf Urine WBC 5-10 H (0-5) /hpf Ur Epithelial Cells 0-5 (0-5) /hpf Urine Bacteria Few (FEW) /hpf Urine Mucus Not seen (FEW) /hpf Urine HCG, Qual (NEGATIVE) Salicylates 3.6 (2.8-20) mg/dL Urine Opiates Screen (CKBWEZ=167) Ur Buprenorphine Scrn (CUTOFF=10) Ur Oxycodone Screen (ZSI8OT=117) Urine Methadone Screen (FWZQJM=481) Ur Propoxyphene Screen (QBTEAS=794) Acetaminophen 0 L (10-30) ug/mL Ur Barbiturates Screen (MIRKUE=780) Ur Tricyclics Screen (ZTZDBB=598) Ur Phencyclidine Scrn (CUTOFF=25) Ur Amphetamine Screen (TWYXXU=042) U Methamphetamines Scrn (TCLKYV=170) U Benzodiazepines Scrn (XHFMQP=882) U Cocaine Metab Screen (NKJYCX=608) U Marijuana (THC) Screen (CUTOFF=50) Ethyl Alcohol 0.00 (0.00) gm% Re-Assessment/Re-Exam Time: 01:05 Medical Clearance: 03/27/19 01:06 I have assumed care from GABRIELA Torres after his end of shift. Jael Holley from [facility] has come over to further evaluate patient. She states with further discussion the patient has no real plan to kill herself. This was "attention seeking". She has a safety plan and she does have coping skills which she really did not use this evening. Patient is very agreeable to going home at this time. Departure - Departure Disposition: DC/Tfer to Psych Hosp/Unit [facility] Clinical Impression: Suicidal ideation - Discharge Information Instructions: Suicidal Feelings: How to Help Yourself Referrals: Katt Gray NP [Primary Care Provider] - Forms: ED Department Discharge Additional Instructions: Continue current medications. Use the coping skills and safety plan that you have previously established with [facility]. You are welcome to return to ED at any time if there is further help or treatment necessary. - My Orders Last 24 Hours: My Active Orders 03/26/19 22:57 EKG 12 Lead [EKG Documentation Completion] [RC] STAT 03/26/19 23:01 CULTURE URINE [RM] Stat - Assessment/Plan Last 24 Hours: My Active Orders 03/26/19 22:57 EKG 12 Lead [EKG Documentation Completion] [RC] STAT 03/26/19 23:01 CULTURE URINE [RM] Stat <Gee Domínguez O - Last Filed: 03/27/19 11:32> ED HPI GENERAL MEDICAL PROBLEM - General Source of Information: Reports: Patient History Limitations: Reports: No Limitations - History of Present Illness INITIAL COMMENTS - FREE TEXT/NARRATIVE: Patient is a 48-year-old female presents ED complaining of suicidal ideations. Patient states in January she was refused for social security. This was the third time she was denied. Patient has no job thus has no money. She has approximate $ 1. 95 to her name. She's been feeling depressed about her current situation. She had plans moving out of her current residence and getting her place her on 2 , straight on her psychological health. She feels like there is nothing else to live for. She's been having a difficulty in finding a job to support herself. She had plans of moving to [place] to get a job. Since having these random thoughts of committing suicide she is very scared she will follow-through. Patient states October 2017 she attempted to commit suicide by swallowing pills. She underwent inpatient therapy has been doing quite well up until recently. She denies having any changes to her current medications. Patient states with these random thoughts of suicide she has thought about cutting her wrist. She is unsure if she would follow through with it or not. She denies any drug use, alcohol use, and/or smoking as of recent. She is on Paxil for depression. She sees a counselor at [facility] and is scheduled to see the counselor this coming Wednesday. Patient does not feel she can wait that long. She requests inpatient evaluation. Patient denies any hallucinations and/or homicidal ideations. She has not taken any medications inappropriately. Past Medical History HEENT History: Reports: Impaired Vision Other HEENT History: wears eyeglasses. Cardiovascular History: Reports: High Cholesterol, Hypertension Respiratory History: Reports: Asthma, Sleep Apnea Gastrointestinal History: Reports: GERD Musculoskeletal History: Reports: Arthritis, Fracture, Other (See Below) Psychiatric History: Reports: Anxiety, Depression Endocrine/Metabolic History: Reports: Obesity/BMI 30+ Hematologic History: Reports: Other (See Below) Other Hematologic History: PKU - Infectious Disease History Infectious Disease History: Reports: Chicken Pox, Measles, Mumps - Past Surgical History HEENT Surgical History: Reports: Oral Surgery Female Surgical History: Reports: Tubal Ligation Musculoskeletal Surgical History: Reports: Arthroscopic Procedure, ORIF, Shoulder Surgery, Other (See Below) Other Musculoskeletal Surgeries/Procedures:: back fusion, foot surgery 07/2018 Social & Family History - Family History Family Medical History: Noncontributory Cardiac: Reports: Heart Failure, [place] Neurological: Reports: CVA Endocrine/Metabolic: Reports: Diabetes, type II - Tobacco Use Smoking Status *Q: Former Smoker Used Tobacco, but Quit: Yes Month/Year Tobacco Last Used: 10 yr - Caffeine Use Caffeine Use: Reports: Soda - Recreational Drug Use Recreational Drug Use: No - Living Situation & Occupation Living situation: Reports: , with Spouse Occupation: Unemployed ED ROS GENERAL - Review of Systems Review Of Systems: ROS reveals no pertinent complaints other than HPI. ED EXAM, BEHAVIORAL HEALTH - Physical Exam Exam: See Below Exam Limited By: No Limitations General Appearance: Alert, WD/WN, No Apparent Distress Eye Exam: Bilateral Eye: Normal Inspection, PERRL Ears: Hearing Grossly Normal Nose: Normal Inspection Throat/Mouth: Normal Voice, No Airway Compromise Neck: Normal Inspection, Supple Respiratory/Chest: No Respiratory Distress, Lungs Clear, Normal Breath Sounds, No Accessory Muscle Use Cardiovascular: Normal Peripheral Pulses, Regular Rate, Rhythm, No Murmur Extremities: Normal Inspection Neurological: Alert, Normal Mood/Affect, CN II-XII Intact, Normal Cognition, Normal Gait, No Motor/Sensory Deficits, Oriented x 3 Psychiatric: Alert, Normal Cognition, Oriented, Suicidal Plan, Suicidal Thoughts. No: Auditory Hallucinations COURSE, BEHAVIORAL HEALTH COMP - Course Re-Assessment/Re-Exam: Patient has been having random thoughts of suicide with thoughts of killing herself by cutting her wrist. She has a history of overdosing on pills October 2017 required inpatient treatment. With her current situation she is more depressed and feels like she has nothing to live for. Patient request admission for inpatient therapy since she is in fear that she will follow through with killing herself although she does not have a active plan in place. Will order a CBC, chem 14, urine drug screen, TSH, UA, acetaminophen level, serum EtOH, salicylate level, and hCG. EKG will be obtained as well. [address] Metz. He recommended [facility] with Dental Assistant Teacher speak with the patient in the a.m. to arrange placement. EKG sinus rhythm at a rate of [address] changes noted. NV interval and QTC within normal limits. Nursing staff will be in contact with [facility] Dean Of Student Services to evaluate the patient here in the ED. Dr. Metz will assume care since it is the end of my shift. Departure - Departure Time of Disposition: 23:05 Condition: Good
[2019-03-26 23:42] LABS: ACETAMINOPHEN 0 ug/mL (10-30)
== END 2019-03-27 02:12 ==
LOC: JD.ED 20:31
DX: F32.9 Major depressive disorder, single episode, unspecified (principal); I10 Essential (primary) hypertension; K21.9 Gastro-esophageal reflux disease without esophagitis; M19.90 Unspecified osteoarthritis, unspecified site; F41.9 Anxiety disorder, unspecified; E66.9 Obesity, unspecified; Z91.040 Latex allergy status; Z88.8 Allergy status to other drugs, medicaments and biological substances; Z79.899 Other long term (current) drug therapy; Z98.51 Tubal ligation status; Z98.890 Other specified postprocedural states; Z98.1 Arthrodesis status; Z87.891 Personal history of nicotine dependence
CPT/HCPCS: 36415; 80053; 80306; 81001; 81025; 84443; 85007; 85027; 87086; 87088; 93005; 99285; G0480; 93010; 99283

== ENCOUNTER 2019-04-23 15:10 | Emergency (ER) | payer MEDICAID ==
[2019-04-23 17:08] VITALS: BP 151/89
--- NOTE | 2019-04-23 20:08 | EDM.PDOCBH ---
ED HPI GENERAL MEDICAL PROBLEM - General Chief Complaint: Behavioral/Psych Stated Complaint: MENTAL EVAL, SUICIDAL THOUGHTS Time Seen by Provider: 04/23/19 17:14 Source of Information: Reports: Patient, Police History Limitations: Reports: No Limitations - History of Present Illness INITIAL COMMENTS - FREE TEXT/NARRATIVE: The patient was brought in by [employer] for suicidal ideation. The patient texted one of her friends that she will kill herself tonight. She realized that is wrong after she did it. She is not suicidal now but she is lonely. Her does not get home until 8pm. She has no other complaints. She has no fever, chills, cough, congestion, runny nose, chest pain, shortness of breath, abdominal pain, nausea or vomiting. She has not taken any drugs or used any alcohol. Onset: Gradual Duration: Hour(s): Severity: Moderate Improves with: Reports: None Worsens with: Reports: None Associated Symptoms: Reports: No Other Symptoms - Related Data Allergies Allergy/AdvReac Type Severity Reaction Status Date / Time guaifenesin [From Entex LA] Allergy Facial Verified 04/23/19 17:08 Swelling latex Allergy Hives Verified 04/23/19 17:08 meclizine Allergy Facial Verified 04/23/19 17:08 Swelling meperidine HCl [From Demerol] Allergy Facial Verified 04/23/19 17:08 Swelling oxycodone HCl [From Percocet] Allergy Facial Verified 04/23/19 17:08 Swelling phenylephrine HCl Allergy Facial Verified 04/23/19 17:08 [From Entex LA] Swelling phenylpropanolamine HCl Allergy Facial Verified 04/23/19 17:08 [From Entex LA] Swelling propoxyphene napsylate Allergy Facial Verified 04/23/19 17:08 [From Darvocet-N] Swelling terfenadine [From Seldane] Allergy Facial Verified 04/23/19 17:08 Swelling Home Meds: Home Meds Calcium Carb/Vitamin D3/Vit K1 [Calcium + Vit D & K Chew] 1 tab PO DAILY [History] Pantoprazole Sodium [Protonix] 40 mg PO DAILY 05/27/14 [History] Cyclobenzaprine [Flexeril] 10 mg PO BEDTIME 01/15/16 [History] traZODone 50 mg PO BEDTIME 01/15/16 [History] Rosuvastatin [Crestor] 10 mg PO DAILY 06/27/18 [History] Albuterol Sulfate 1 applic INH ASDIRECTED 02/22/19 [History] Albuterol Sulfate [Proair Hfa] 2 puff INH BEDTIME 02/22/19 [History] PARoxetine [Paxil] 20 mg PO DAILY 02/22/19 [History] Budesonide/Formoterol Fumarate [Symbicort 80-4.5 Mcg Inhaler] 1 inh INH DAILY [History] Past Medical History HEENT History: Reports: Impaired Vision Other HEENT History: wears eyeglasses. Cardiovascular History: Reports: High Cholesterol, Hypertension Respiratory History: Reports: Asthma, Sleep Apnea Gastrointestinal History: Reports: GERD Musculoskeletal History: Reports: Arthritis, Fracture, Other (See Below) Psychiatric History: Reports: Anxiety, Depression Endocrine/Metabolic History: Reports: Obesity/BMI 30+ Hematologic History: Reports: Other (See Below) Other Hematologic History: PKU - Infectious Disease History Infectious Disease History: Reports: Chicken Pox, Measles, Mumps - Past Surgical History HEENT Surgical History: Reports: Oral Surgery Female Surgical History: Reports: Tubal Ligation Musculoskeletal Surgical History: Reports: Arthroscopic Procedure, ORIF, Shoulder Surgery, Other (See Below) Other Musculoskeletal Surgeries/Procedures:: back fusion, foot surgery 07/2018 Social & Family History - Family History Family Medical History: Noncontributory Cardiac: Reports: Heart Failure, [place] Neurological: Reports: CVA Endocrine/Metabolic: Reports: Diabetes, type II - Tobacco Use Smoking Status *Q: Former Smoker Used Tobacco, but Quit: Yes Month/Year Tobacco Last Used: 2007 - Caffeine Use Caffeine Use: Reports: Soda - Recreational Drug Use Recreational Drug Use: No - Living Situation & Occupation Living situation: Reports: , with Spouse Occupation: Unemployed ED ROS GENERAL - Review of Systems Review Of Systems: See Below Constitutional: Reports: No Symptoms HEENT: Reports: No Symptoms Respiratory: Reports: No Symptoms Cardiovascular: Reports: No Symptoms Endocrine: Reports: No Symptoms GI/Abdominal: Reports: No Symptoms : Reports: No Symptoms Musculoskeletal: Reports: No Symptoms ED EXAM, BEHAVIORAL HEALTH - Physical Exam Exam: See Below Exam Limited By: No Limitations General Appearance: Alert, No Apparent Distress Ears: Normal External Exam Nose: Normal Inspection Head: Atraumatic, Normocephalic Neck: Normal Inspection Respiratory/Chest: No Respiratory Distress, Lungs Clear, Normal Breath Sounds Cardiovascular: Regular Rate, Rhythm, No Edema, No Murmur GI/Abdominal: Soft, Non-Tender, No Organomegaly, No Mass Back Exam: Normal Inspection Extremities: Normal Inspection COURSE, BEHAVIORAL HEALTH COMP - Course Vital Signs: Last Vital Signs Temp 97.1 F 04/23/19 17:03 Pulse 65 04/23/19 17:03 Resp 18 04/23/19 17:03 BP 151/89 H 04/23/19 17:03 Pulse Ox 94 L 04/23/19 17:03 Orders, Labs, Meds: Active Orders 24 hr Category Date Time Status Cardiac Monitoring [RC] . DIRECTED Care 04/23/19 17:20 Active Laboratory Tests 04/23/19 04/23/19 04/23/19 Range/Units 17:30 17:30 18:00 WBC 7.74 (3.98-10.04) K/mm3 RBC 4.47 (3.98-5.22) M/mm3 Hgb 14.0 (11.2-15.7) gm/L Hct 40.6 (34.1-44.9) % MCV 90.8 (79.4-94.8) fl MCH 31.3 (25.6-32.2) pg MCHC 34.5 (32.2-35.5) g/dl RDW Std Deviation 42.6 (36.4-46.3) fL Plt Count 321 (182-369) K/mm3 MPV 10.8 (9.4-12.3) fl Neut % (Auto) 60.8 (34.0-71.1) % Lymph % (Auto) 26.7 (19.3-51.7) % [place] % (Auto) 7.4 (4.7-12.5) % Eos % (Auto) 4.4 (0.7-5.8) Baso % (Auto) 0.4 (0.1-1.2) % Neut # (Auto) 4.71 (1.56-6.13) K/mm3 Lymph # (Auto) 2.07 (1.18-3.74) K/mm3 [place] # (Auto) 0.57 H (0.24-0.36) K/mm3 Eos # (Auto) 0.34 (0.04-0.36) K/mm3 Baso # (Auto) 0.03 (0.01-0.08) K/mm3 Sodium 138 (136-145) mEq/L Potassium 4.1 (3.5-5.1) mEq/L Chloride 106 (98-107) mEq/L Carbon Dioxide 23 (21-32) mEq/L Anion Gap 13.1 (5-15) BUN 7 (7-18) mg/dL Creatinine 0.8 (0.55-1.02) mg/dL Est Cr Clr Drug Dosing 83.63 mL/min Estimated GFR (MDRD) > 60 (>60) mL/min BUN/Creatinine Ratio 8.8 L (14-18) Glucose 97 (74-106) mg/dL Calcium 9.1 (8.5-10.1) mg/dL Total Bilirubin 0.4 (0.2-1.0) mg/dL AST 15 (15-37) U/L ALT 22 (14-59) U/L Alkaline Phosphatase 76 (46-116) U/L Total Protein 6.8 (6.4-8.2) g/dl Albumin 3.8 (3.4-5.0) g/dl Globulin 3.0 gm/dL Albumin/Globulin Ratio 1.3 (1-2) TSH 3rd Generation 1.202 (0.358-3.74) uIU/mL Urine Opiates Screen Negative (QPMUEI=454) Ur Buprenorphine Scrn Negative (CUTOFF=10) Ur Oxycodone Screen Negative (SEM5QL=915) Urine Methadone Screen Negative (WOBDQR=357) Ur Propoxyphene Screen Negative (AORPFH=306) Ur Barbiturates Screen Negative (IXKQJT=081) Ur Tricyclics Screen Negative (NKDUCJ=975) Ur Phencyclidine Scrn Negative (CUTOFF=25) Ur Amphetamine Screen Negative (BHBIXH=196) U Methamphetamines Scrn Negative (RPTHPV=548) U Benzodiazepines Scrn Negative (YMDQOI=150) U Cocaine Metab Screen Negative (AMMJQI=198) U Marijuana (THC) Screen Negative (CUTOFF=50) Ethyl Alcohol 0.00 (0.00) gm% Re-Assessment/Re-Exam: I ordered labs and all her labs look good. Her UDS is negative and he alcohol is 0. [facility]. I do not think she is suicidal and I will discharge her home. Departure - Departure Time of Disposition: 20:05 Disposition: Home, Self-Care 01 Condition: Good Clinical Impression: Suicidal ideation Depression Qualifiers: Depression Type: other depression Qualified Code(s): F32.89 - Other specified depressive episodes - Discharge Information *PRESCRIPTION DRUG MONITORING PROGRAM REVIEWED*: Not Applicable *COPY OF PRESCRIPTION DRUG MONITORING REPORT IN PATIENT TRISHA: Not Applicable Referrals: Katt Gray NP [Primary Care Provider] - Additional Instructions: Take your medication as prescribed. Call your counselor in the morning. Please return if you are worse. - My Orders Last 24 Hours: My Active Orders 04/23/19 17:20 Cardiac Monitoring [RC] . DIRECTED - Assessment/Plan Last 24 Hours: My Active Orders 04/23/19 17:20 Cardiac Monitoring [RC] . DIRECTED
== END 2019-04-23 20:25 | disposition home or self-care (01) ==
LOC: JD.ED 15:10
DX: F32.89 Other specified depressive episodes (principal); E78.00 Pure hypercholesterolemia, unspecified; I10 Essential (primary) hypertension; J45.909 Unspecified asthma, uncomplicated; K21.9 Gastro-esophageal reflux disease without esophagitis; F41.9 Anxiety disorder, unspecified; E66.9 Obesity, unspecified; Z68.34 Body mass index [BMI] 34.0-34.9, adult; Z91.040 Latex allergy status; Z88.5 Allergy status to narcotic agent; Z88.8 Allergy status to other drugs, medicaments and biological substances; Z79.899 Other long term (current) drug therapy; Z87.891 Personal history of nicotine dependence
CPT/HCPCS: 36415; 80053; 80306; 84443; 85025; 99284; G0480; 99283

== ENCOUNTER 2019-04-24 13:50 | Emergency (ER) | payer MEDICAID ==
[2019-04-24 15:48] VITALS: BP 174/94
--- NOTE | 2019-04-24 16:50 | EDM.PDOCBH ---
ED HPI GENERAL MEDICAL PROBLEM - General Chief Complaint: Behavioral/Psych Stated Complaint: MEDICAL CLEARANCE FOR VOLUNTARY COMMITTAL Time Seen by Provider: 04/24/19 16:49 Source of Information: Reports: Patient History Limitations: Reports: No Limitations - History of Present Illness INITIAL COMMENTS - FREE TEXT/NARRATIVE: Patient is a 48-year-old female with a long psych history who presents to the ED with suicidal thoughts. Patient has been having intense thoughts of using knives within her metal neutralizer block to cut or stab herself. In addition she's been thinking about the electric burner on her stove that could cause emily and start her on fire. She states the suicidal thoughts are quite intense. She does have a history of previous suicidal attempts and has been seen multiple times in the ED for suicidal ideations. She's had inpatient treatment multiple times. She is receiving care for her psych needs at [facility]. She's also had care at [facility]. Per patient she has been admitted to both [facility] and also [facility]. She denies any visual or auditory hallucinations. She does not want to hurt anybody else. She has not inappropriately taking any of her medications or any other medications. She denies any alcohol or drug use. - Related Data Allergies Allergy/AdvReac Type Severity Reaction Status Date / Time guaifenesin [From Entex LA] Allergy Facial Verified 04/24/19 15:48 Swelling latex Allergy Hives Verified 04/24/19 15:48 meclizine Allergy Facial Verified 04/24/19 15:48 Swelling meperidine HCl [From Demerol] Allergy Facial Verified 04/24/19 15:48 Swelling oxycodone HCl [From Percocet] Allergy Facial Verified 04/24/19 15:48 Swelling phenylephrine HCl Allergy Facial Verified 04/24/19 15:48 [From Entex LA] Swelling phenylpropanolamine HCl Allergy Facial Verified 04/24/19 15:48 [From Entex LA] Swelling propoxyphene napsylate Allergy Facial Verified 04/24/19 15:48 [From Darvocet-N] Swelling terfenadine [From Seldane] Allergy Facial Verified 04/24/19 15:48 Swelling Home Meds: Home Meds Calcium Carb/Vitamin D3/Vit K1 [Calcium + Vit D & K Chew] 1 tab PO DAILY 08/03/ 14 [History] Pantoprazole Sodium [Protonix] 40 mg PO DAILY 05/27/14 [History] Cyclobenzaprine [Flexeril] 10 mg PO BEDTIME 01/15/16 [History] traZODone 50 mg PO BEDTIME 01/15/16 [History] Rosuvastatin [Crestor] 10 mg PO DAILY 06/27/18 [History] Albuterol Sulfate 1 applic INH ASDIRECTED 02/22/19 [History] Albuterol Sulfate [Proair Hfa] 2 puff INH BEDTIME 02/22/19 [History] PARoxetine [Paxil] 20 mg PO DAILY 02/22/19 [History] Budesonide/Formoterol Fumarate [Symbicort 80-4.5 Mcg Inhaler] 1 inh INH DAILY [History] Past Medical History HEENT History: Reports: Impaired Vision Other HEENT History: wears eyeglasses. Cardiovascular History: Reports: High Cholesterol, Hypertension Respiratory History: Reports: Asthma, Sleep Apnea Gastrointestinal History: Reports: GERD Musculoskeletal History: Reports: Arthritis, Fracture, Other (See Below) Psychiatric History: Reports: Anxiety, Depression Endocrine/Metabolic History: Reports: Obesity/BMI 30+ Hematologic History: Reports: Other (See Below) Other Hematologic History: PKU - Infectious Disease History Infectious Disease History: Reports: Chicken Pox, Measles, Mumps - Past Surgical History HEENT Surgical History: Reports: Oral Surgery Female Surgical History: Reports: Tubal Ligation Musculoskeletal Surgical History: Reports: Arthroscopic Procedure, ORIF, Shoulder Surgery, Other (See Below) Other Musculoskeletal Surgeries/Procedures:: back fusion, foot surgery 07/2018 Social & Family History - Family History Family Medical History: Noncontributory Cardiac: Reports: Heart Failure, [place] Neurological: Reports: CVA Endocrine/Metabolic: Reports: Diabetes, type II - Tobacco Use Smoking Status *Q: Former Smoker Used Tobacco, but Quit: Yes Month/Year Tobacco Last Used: 2007 - Caffeine Use Caffeine Use: Reports: Soda - Recreational Drug Use Recreational Drug Use: No - Living Situation & Occupation Living situation: Reports: , with Spouse Occupation: Unemployed ED ROS GENERAL - Review of Systems Review Of Systems: ROS reveals no pertinent complaints other than HPI. ED EXAM, BEHAVIORAL HEALTH - Physical Exam Exam: See Below Exam Limited By: No Limitations General Appearance: Alert, WD/WN, No Apparent Distress Ears: Hearing Grossly Normal Nose: Normal Inspection Throat/Mouth: Normal Voice, No Airway Compromise Head: Atraumatic, Normocephalic Neck: Normal Inspection, Supple, Full Range of Motion Respiratory/Chest: No Respiratory Distress, Lungs Clear, Normal Breath Sounds, No Accessory Muscle Use Cardiovascular: Normal Peripheral Pulses, Regular Rate, Rhythm, No Murmur Extremities: Normal Inspection Neurological: Alert, Normal Mood/Affect, CN II-XII Intact, Normal Cognition, No Motor/Sensory Deficits, Oriented x 3 Psychiatric: Alert, Normal Affect, Normal Cognition, Normal Mood, Oriented Skin Exam: Warm, Dry, Intact, Normal color, No rash COURSE, BEHAVIORAL HEALTH COMP - Course Vital Signs: Last Vital Signs Temp 97.6 F 04/24/19 15:41 Pulse 74 04/24/19 15:41 Resp 16 04/24/19 15:41 BP 174/94 H 04/24/19 15:41 Pulse Ox 97 04/24/19 15:41 Orders, Labs, Meds: Laboratory Tests 04/24/19 04/24/19 04/24/19 Range/Units 17:00 17:00 17:00 WBC 8.51 (3.98-10.04) K/mm3 RBC 4.53 (3.98-5.22) M/mm3 Hgb 14.0 (11.2-15.7) gm/L Hct 41.3 (34.1-44.9) % MCV 91.2 (79.4-94.8) fl MCH 30.9 (25.6-32.2) pg MCHC 33.9 (32.2-35.5) g/dl RDW Std Deviation 41.9 (36.4-46.3) fL Plt Count 299 (182-369) K/mm3 MPV 10.7 (9.4-12.3) fl Neutrophils % (Manual) 56 (40-60) % Band Neutrophils % 0 (0-10) % Lymphocytes % (Manual) 36 (20-40) % Atypical Lymphs % 0 % Monocytes % (Manual) 4 (2-10) % Eosinophils % (Manual) 3 (0.7-5.8) % Basophils % (Manual) 1 (0.1-1.2) Platelet Estimate Adequate Plt Morphology Comment Normal RBC Morph Comment Normal Sodium 140 (136-145) mEq/L Potassium 3.7 (3.5-5.1) mEq/L Chloride 105 (98-107) mEq/L Carbon Dioxide 25 (21-32) mEq/L Anion Gap 13.7 (5-15) BUN 5 L (7-18) mg/dL Creatinine 0.9 (0.55-1.02) mg/dL Est Cr Clr Drug Dosing 74.34 mL/min Estimated GFR (MDRD) > 60 (>60) mL/min BUN/Creatinine Ratio 5.6 L (14-18) Glucose 89 (74-106) mg/dL Calcium 9.3 (8.5-10.1) mg/dL Total Bilirubin 0.4 (0.2-1.0) mg/dL AST 17 (15-37) U/L ALT 24 (14-59) U/L Alkaline Phosphatase 74 (46-116) U/L Total Protein 6.8 (6.4-8.2) g/dl Albumin 3.8 (3.4-5.0) g/dl Globulin 3.0 gm/dL Albumin/Globulin Ratio 1.3 (1-2) TSH 3rd Generation 1.148 (0.358-3.74) uIU/mL Urine Color (Yellow) Urine Appearance (Clear) Urine pH (5.0-8.0) Ur Specific [place] (1.005-1.030) Urine Protein (Negative) Urine Glucose (UA) (Negative) Urine Ketones (Negative) Urine Occult Blood (Negative) Urine Nitrite (Negative) Urine Bilirubin (Negative) Urine Urobilinogen (0.2-1.0) Ur Leukocyte Esterase (Negative) Urine RBC (0-5) /hpf Urine WBC (0-5) /hpf Ur Squamous Epith Cells (0-5) /hpf Urine Bacteria (FEW) /hpf Urine Mucus (FEW) /hpf Urine HCG, Qual (NEGATIVE) Salicylates 3.0 (2.8-20) mg/dL Urine Opiates Screen (SQVVAM=046) Ur Buprenorphine Scrn (CUTOFF=10) Ur Oxycodone Screen (EXR6YE=838) Urine Methadone Screen (MPEECX=493) Ur Propoxyphene Screen (KSVLJK=080) Acetaminophen 0 L (10-30) ug/mL Ur Barbiturates Screen (EAUKIT=217) Ur Tricyclics Screen (XETNGA=251) Ur Phencyclidine Scrn (CUTOFF=25) Ur Amphetamine Screen (XCCWGV=977) U Methamphetamines Scrn (MSLFMI=109) U Benzodiazepines Scrn (QPZETX=871) U Cocaine Metab Screen (YRGZKC=883) U Marijuana (THC) Screen (CUTOFF=50) Ethyl Alcohol 0.00 (0.00) gm% 04/24/19 04/24/19 04/24/19 Range/Units 17:28 17:28 17:28 WBC (3.98-10.04) K/mm3 RBC (3.98-5.22) M/mm3 Hgb (11.2-15.7) gm/L Hct (34.1-44.9) % MCV (79.4-94.8) fl MCH (25.6-32.2) pg MCHC (32.2-35.5) g/dl RDW Std Deviation (36.4-46.3) fL Plt Count (182-369) K/mm3 MPV (9.4-12.3) fl Neutrophils % (Manual) (40-60) % Band Neutrophils % (0-10) % Lymphocytes % (Manual) (20-40) % Atypical Lymphs % % Monocytes % (Manual) (2-10) % Eosinophils % (Manual) (0.7-5.8) % Basophils % (Manual) (0.1-1.2) Platelet Estimate Plt Morphology Comment RBC Morph Comment Sodium (136-145) mEq/L Potassium (3.5-5.1) mEq/L Chloride (98-107) mEq/L Carbon Dioxide (21-32) mEq/L Anion Gap (5-15) BUN (7-18) mg/dL Creatinine (0.55-1.02) mg/dL Est Cr Clr Drug Dosing mL/min Estimated GFR (MDRD) (>60) mL/min BUN/Creatinine Ratio (14-18) Glucose (74-106) mg/dL Calcium (8.5-10.1) mg/dL Total Bilirubin (0.2-1.0) mg/dL AST (15-37) U/L ALT (14-59) U/L Alkaline Phosphatase (46-116) U/L Total Protein (6.4-8.2) g/dl Albumin (3.4-5.0) g/dl Globulin gm/dL Albumin/Globulin Ratio (1-2) TSH 3rd Generation (0.358-3.74) uIU/mL Urine Color Light yellow (Yellow) Urine Appearance Clear (Clear) Urine pH 7.0 (5.0-8.0) Ur Specific [place] 1.010 (1.005-1.030) Urine Protein Negative (Negative) Urine Glucose (UA) Negative (Negative) Urine Ketones Negative (Negative) Urine Occult Blood Negative (Negative) Urine Nitrite Negative (Negative) Urine Bilirubin Negative (Negative) Urine Urobilinogen 0.2 (0.2-1.0) Ur Leukocyte Esterase 1+ H (Negative) Urine RBC 0-5 (0-5) /hpf Urine WBC 5-10 H (0-5) /hpf Ur Squamous Epith Cells 5-10 H (0-5) /hpf Urine Bacteria Not seen (FEW) /hpf Urine Mucus Not seen (FEW) /hpf Urine HCG, Qual Negative (NEGATIVE) Salicylates (2.8-20) mg/dL Urine Opiates Screen Negative (CLBQAL=130) Ur Buprenorphine Scrn Negative (CUTOFF=10) Ur Oxycodone Screen Negative (ZNR0IX=943) Urine Methadone Screen Negative (XNTQTG=045) Ur Propoxyphene Screen Negative (NRXAIN=013) Acetaminophen (10-30) ug/mL Ur Barbiturates Screen Negative (FBISNH=777) Ur Tricyclics Screen Negative (KAMNMH=518) Ur Phencyclidine Scrn Negative (CUTOFF=25) Ur Amphetamine Screen Negative (FNLZOW=477) U Methamphetamines Scrn Negative (EXWCNL=281) U Benzodiazepines Scrn Negative (JEVRPN=189) U Cocaine Metab Screen Negative (GLPCAQ=780) U Marijuana (THC) Screen Negative (CUTOFF=50) Ethyl Alcohol (0.00) gm% Re-Assessment/Re-Exam: Patient is having suicidal thoughts with no definitive plan. She thinks about the knives in her residence and the electric burners on her stove. She believes the thoughts are stronger and needs help. She requests being admitted to [facility]. Labs have been ordered. I spoke with [facility] staff they do not have any vacancies for [facility]. I have asked for Celeste with [employer] speak with the patient. [id number] Celeste with [employer] has spoken with patient. Patient requires placement to inpatient Psych Facility. I will arrange placement. [address] Baum parachute cushion installer Psych Provider at [facility]. He has agreed to admit the patient. I will arrange transportation. [facility]. [facility] has agreed to transport patient. 1957 [facility] has arrived to transfer patient. Departure - Departure Time of Disposition: 17:00 Disposition: DC/Tfer to Psych Hosp/Unit 65 Condition: Good Clinical Impression: Suicidal ideation - Discharge Information Referrals: Katt Gray NP [Primary Care Provider] - Forms: ED Department Discharge
[2019-04-24 17:37] LABS: ACETAMINOPHEN 0 ug/mL (10-30)
== END 2019-04-24 20:15 ==
LOC: JD.ED 13:50
DX: R45.851 Suicidal ideations (principal); I10 Essential (primary) hypertension; E78.00 Pure hypercholesterolemia, unspecified; J45.909 Unspecified asthma, uncomplicated; K21.9 Gastro-esophageal reflux disease without esophagitis; F41.9 Anxiety disorder, unspecified; F32.9 Major depressive disorder, single episode, unspecified; Z87.891 Personal history of nicotine dependence; Z79.899 Other long term (current) drug therapy; Z88.8 Allergy status to other drugs, medicaments and biological substances; Z91.040 Latex allergy status; Z88.6 Allergy status to analgesic agent
CPT/HCPCS: 36415; 80053; 80306; 81001; 81025; 84443; 85007; 85027; 99285; G0480; 99283

== ENCOUNTER 2019-06-03 17:27 | Emergency (ER) | payer MEDICAID ==
[2019-06-03 18:27] VITALS: BP 108/61
[2019-06-03] MEDS ORDERED: Acetaminophen 325 MG Tab PO ONE (19:07)
[2019-06-03] MEDS ORDERED: Ondansetron 4 MG Tab.DIS PO ONE (19:07)
--- NOTE | 2019-06-03 20:59 | EDM.PDOCBH ---
ED HPI GENERAL MEDICAL PROBLEM - General Chief Complaint: Behavioral/Psych Stated Complaint: [facility] Time Seen by Provider: 06/03/19 18:30 Source of Information: Reports: Patient, Old Records History Limitations: Reports: No Limitations - History of Present Illness INITIAL COMMENTS - FREE TEXT/NARRATIVE: 49-year-old female is brought in by ambulance service for suicidal ideation. Patient is well known to the ER and has been seen on numerous times. This is the patient's seventh visit ER in the last few months for psychiatric issues. She has been made to inpatient psych in [place] recently. She states feels that she was discharged to [facility], just released this past Wednesday. Patient reports that she had suicidal thoughts. She describes these as " pictures ". She states she saw a trench and got about going down into it. She reports today she also had a suicidal thoughts. Upon arrival the ER she is denying suicidal thoughts and has no suicidal plan. No homicidal thoughts or plans. Reports trouble sleeping. She also reports a decreased appetite she is supposed to see Dr. Barth on Wednesday. She also sees a counselor. Patient also complains that she feels dehydrated. Patient has had previous suicide attempts in the past, she has attempted to overdose. Patient reports she is currently trying to get into a home in [place] for people with psychiatric issues. Back Pain Score (Numeric/FACES): 7 - Related Data Allergies Allergy/AdvReac Type Severity Reaction Status Date / Time guaifenesin [From Entex LA] Allergy Facial Verified 06/11/19 10:48 Swelling latex Allergy Hives Verified 06/11/19 10:48 meclizine Allergy Facial Verified 06/11/19 10:48 Swelling meperidine HCl [From Demerol] Allergy Facial Verified 06/11/19 10:48 Swelling oxycodone HCl [From Percocet] Allergy Facial Verified 06/11/19 10:48 Swelling phenylephrine HCl Allergy Facial Verified 06/11/19 10:48 [From Entex LA] Swelling phenylpropanolamine HCl Allergy Facial Verified 06/11/19 10:48 [From Entex LA] Swelling propoxyphene napsylate Allergy Facial Verified 06/11/19 10:48 [From Darvocet-N] Swelling terfenadine [From Seldane] Allergy Facial Verified 06/11/19 10:48 Swelling Home Meds: Home Meds traZODone 50 mg PO BEDTIME 01/15/16 [History] Ascorbic Acid [Vitamin C] 500 mg PO DAILY 05/18/19 [History] Metoprolol Succinate [Toprol Xl] 50 mg PO DAILY 05/18/19 [History] Potassium Chloride 10 meq PO DAILY 05/18/19 [History] Rosuvastatin [Crestor] 10 mg PO DAILY 05/18/19 [History] Sucralfate [Carafate] 1 gm PO TID 05/18/19 [History] Venlafaxine [Effexor XR] 300 mg PO DAILY 05/18/19 [History] cloNIDine [Catapres] 0.1 mg PO BID 05/18/19 [History] Albuterol [Proventil Neb Soln] 06/03/19 [History] Aspirin [Halfprin] 81 mg PO DAILY 06/03/19 [History] Cholecalciferol (Vitamin D3) [Vitamin D3] 1,000 intnl unit PO DAILY 06/03/19 [ History] Famotidine 20 mg PO DAILY 06/03/19 [History] Fluticasone/Vilanterol [Breo Ellipta 200-25 MCG Inhalation Kit] 06/03/19 [ History] Montelukast [Singulair] 10 mg PO BEDTIME 06/03/19 [History] traZODone HCl [Trazodone HCl] 25 mg PO DAILY #30 tablet 06/03/19 [Rx] Past Medical History HEENT History: Reports: Impaired Vision Other HEENT History: wears eyeglasses. Cardiovascular History: Reports: High Cholesterol, Hypertension Respiratory History: Reports: Asthma, Sleep Apnea Gastrointestinal History: Reports: GERD Musculoskeletal History: Reports: Arthritis, Fracture, Other (See Below) Neurological History: Reports: Head Trauma, Other (See Below) Other Neuro History: 1992 Psychiatric History: Reports: Anxiety, Depression Endocrine/Metabolic History: Reports: Obesity/BMI 30+ Hematologic History: Reports: Other (See Below) Other Hematologic History: PKU - Infectious Disease History Infectious Disease History: Reports: Chicken Pox, Measles, Mumps - Past Surgical History HEENT Surgical History: Reports: Oral Surgery Female Surgical History: Reports: Tubal Ligation Musculoskeletal Surgical History: Reports: Arthroscopic Procedure, ORIF, Shoulder Surgery, Other (See Below) Other Musculoskeletal Surgeries/Procedures:: back fusion, foot surgery 07/2018 Social & Family History - Family History Family Medical History: Noncontributory Cardiac: Reports: Heart Failure, [place] Neurological: Reports: CVA Endocrine/Metabolic: Reports: Diabetes, type II - Tobacco Use Smoking Status *Q: Never Smoker Second Hand Smoke Exposure: No - Caffeine Use Caffeine Use: Reports: Soda - Recreational Drug Use Recreational Drug Use: No - Living Situation & Occupation Living situation: Reports: , with Spouse Occupation: Unemployed ED ROS GENERAL - Review of Systems Review Of Systems: See Below Psychiatric: Reports: Suicidal Ideation (No Plan; not actively suicidal at this time). Denies: Homicidal Ideation ED EXAM, BEHAVIORAL HEALTH - Physical Exam Exam: See Below Exam Limited By: No Limitations General Appearance: Alert, WD/WN, No Apparent Distress, Obese Respiratory/Chest: No Respiratory Distress Neurological: Alert, Normal Mood/Affect, Normal Cognition Psychiatric: Alert, Normal Affect, Normal Cognition, Normal Mood, Suicidal Thoughts. No: Depressed Mood, Non-Communicative, Poor Eye Contact, Uncooperative, Homicidal Thoughts, Suicidal Plan, Threatening Behavior Skin Exam: Warm, Dry, Normal color COURSE, BEHAVIORAL HEALTH COMP - Course Vital Signs: Last Vital Signs Temp 97.7 F 06/03/19 17:31 Pulse 70 06/03/19 18:26 Resp 18 06/03/19 18:26 BP 108/61 06/03/19 18:26 Pulse Ox 97 06/03/19 18:26 Orders, Labs, Meds: Medications Discontinued Medications Generic Name Dose Route Start Last Admin Trade Name Sathishq PRN Reason Stop Dose Admin Acetaminophen 975 mg 06/03/19 19:07 06/03/19 19:13 Tylenol PO 06/03/19 19:08 975 mg NOW ONE Administration Ondansetron HCl 4 mg 06/03/19 19:07 06/03/19 19:12 Zofran Odt PO 06/03/19 19:08 4 mg ONETIME ONE Administration Re-Assessment/Re-Exam: 20:56 Patient is not actively suicidal at this time. No homicidal ideation. Does not need to go to inpatient psych. Talked with [facility]. She is well known to them as well. The crisis bed is open. However, they have decided she is not a good candidate for the crisis bed. Reportedly they had a discussion with her before the weekend about using coping skills and not coming to the [facility] bed. They will not accept her. Patient's is in the ER. He is very supportive. Akila primarily struggles when he is at work. Will discharge her home today. Discharge instructions as documented. Departure - Departure Time of Disposition: 20:56 Disposition: Home, Self-Care 01 Condition: Fair Clinical Impression: Suicidal ideation Depression Qualifiers: Depression Type: other depression Qualified Code(s): F32.89 - Other specified depressive episodes - Discharge Information *PRESCRIPTION DRUG MONITORING PROGRAM REVIEWED*: No *COPY OF PRESCRIPTION DRUG MONITORING REPORT IN PATIENT TRISHA: No Prescriptions: traZODone HCl [Trazodone HCl] 25 mg PO DAILY #30 tablet Referrals: Katt Gray NP [Primary Care Provider] - Forms: ED Department Discharge Additional Instructions: increase your trazodone to 75mg PO at hour of sleep. follow-up with therapist and Dr. Barth Wednesday as planned. Please return to the ER should your symptoms change or worsen.
== END 2019-06-03 21:11 | disposition home or self-care (01) ==
LOC: SUPCPDRO 17:27 → JD.ED 17:27
DX: F32.89 Other specified depressive episodes (principal); E78.00 Pure hypercholesterolemia, unspecified; I10 Essential (primary) hypertension; J45.909 Unspecified asthma, uncomplicated; K21.9 Gastro-esophageal reflux disease without esophagitis; F41.9 Anxiety disorder, unspecified; F32.9 Major depressive disorder, single episode, unspecified; Z91.040 Latex allergy status; Z88.5 Allergy status to narcotic agent; Z88.8 Allergy status to other drugs, medicaments and biological substances; Z79.899 Other long term (current) drug therapy; Z79.82 Long term (current) use of aspirin
CPT/HCPCS: 99284; A9270

== ENCOUNTER 2019-06-21 16:35 | Emergency (ER) | payer MEDICAID ==
[2019-06-21 17:02] VITALS: BP 134/83
--- NOTE | 2019-06-21 19:41 | EDM.PDOCBH ---
ED HPI GENERAL MEDICAL PROBLEM - General Chief Complaint: Behavioral/Psych Stated Complaint: MENTAL EVAL Time Seen by Provider: 06/21/19 19:40 - History of Present Illness INITIAL COMMENTS - FREE TEXT/NARRATIVE: 49-year-old female presents to the emergency room with suicidal thoughts. She does not have a plan that she envisions having her head cut off that she can't imagine how she would do this. She has been under little bit of stress but really can't identify any particular stressors that are causing this age she just feels down and out and doesn't see much worse to her life she's denying drugs or alcohol. She has no real significant positive influences in her life. - Related Data Allergies Allergy/AdvReac Type Severity Reaction Status Date / Time guaifenesin [From Entex LA] Allergy Facial Verified 06/21/19 17:03 Swelling latex Allergy Hives Verified 06/21/19 17:03 meclizine Allergy Facial Verified 06/21/19 17:03 Swelling meperidine HCl [From Demerol] Allergy Facial Verified 06/21/19 17:03 Swelling oxycodone HCl [From Percocet] Allergy Facial Verified 06/21/19 17:03 Swelling phenylephrine HCl Allergy Facial Verified 06/21/19 17:03 [From Entex LA] Swelling phenylpropanolamine HCl Allergy Facial Verified 06/21/19 17:03 [From Entex LA] Swelling propoxyphene napsylate Allergy Facial Verified 06/21/19 17:03 [From Darvocet-N] Swelling terfenadine [From Seldane] Allergy Facial Verified 06/21/19 17:03 Swelling Home Meds: Home Meds traZODone 50 mg PO BEDTIME 01/15/16 [History] Ascorbic Acid [Vitamin C] 500 mg PO DAILY 05/18/19 [History] Metoprolol Succinate [Toprol Xl] 50 mg PO DAILY 05/18/19 [History] Potassium Chloride 10 meq PO DAILY 05/18/19 [History] Rosuvastatin [Crestor] 10 mg PO DAILY 05/18/19 [History] Sucralfate [Carafate] 1 gm PO TID 05/18/19 [History] Venlafaxine [Effexor XR] 300 mg PO DAILY 05/18/19 [History] cloNIDine [Catapres] 0.1 mg PO BID 05/18/19 [History] Albuterol [Proventil Neb Soln] 06/03/19 [History] Aspirin [Halfprin] 81 mg PO DAILY 06/03/19 [History] Cholecalciferol (Vitamin D3) [Vitamin D3] 1,000 intnl unit PO DAILY 06/03/19 [ History] Famotidine 20 mg PO DAILY 06/03/19 [History] Fluticasone/Vilanterol [Breo Ellipta 200-25 MCG Inhalation Kit] 06/03/19 [ History] Montelukast [Singulair] 10 mg PO BEDTIME 06/03/19 [History] traZODone HCl [Trazodone HCl] 25 mg PO DAILY #30 tablet 06/03/19 [Rx] Past Medical History HEENT History: Reports: Impaired Vision Other HEENT History: wears eyeglasses. Cardiovascular History: Reports: High Cholesterol, Hypertension Respiratory History: Reports: Asthma, Sleep Apnea Gastrointestinal History: Reports: GERD Musculoskeletal History: Reports: Arthritis, Fracture, Other (See Below) Neurological History: Reports: Head Trauma, Other (See Below) Other Neuro History: 1992 Psychiatric History: Reports: Anxiety, Depression Endocrine/Metabolic History: Reports: Obesity/BMI 30+ Hematologic History: Reports: Other (See Below) Other Hematologic History: PKU - Infectious Disease History Infectious Disease History: Reports: Chicken Pox, Measles, Mumps - Past Surgical History HEENT Surgical History: Reports: Oral Surgery Female Surgical History: Reports: Tubal Ligation Musculoskeletal Surgical History: Reports: Arthroscopic Procedure, ORIF, Shoulder Surgery, Other (See Below) Other Musculoskeletal Surgeries/Procedures:: back fusion, foot surgery 07/2018 Social & Family History - Family History Family Medical History: Noncontributory Cardiac: Reports: Heart Failure, [place] Neurological: Reports: CVA Endocrine/Metabolic: Reports: Diabetes, type II - Caffeine Use Caffeine Use: Reports: None - Living Situation & Occupation Living situation: Reports: , with Spouse Occupation: Unemployed ED ROS GENERAL - Review of Systems Review Of Systems: See Below Constitutional: Reports: No Symptoms HEENT: Reports: No Symptoms Respiratory: Reports: No Symptoms, Cough Cardiovascular: Reports: Dyspnea on Exertion Endocrine: Reports: No Symptoms GI/Abdominal: Reports: No Symptoms : Reports: No Symptoms Musculoskeletal: Reports: No Symptoms Skin: Reports: No Symptoms Neurological: Reports: No Symptoms Psychiatric: Reports: Agitation, Anxiety, Depression, Mood Lability, Suicidal Ideation Hematologic/Lymphatic: Reports: No Symptoms Immunologic: Reports: No Symptoms ED EXAM, BEHAVIORAL HEALTH - Physical Exam Exam: See Below Exam Limited By: No Limitations General Appearance: Alert, No Apparent Distress Eye Exam: Bilateral Eye: Normal Fundi, Normal Inspection Ears: Normal External Exam, Normal Canal, Hearing Grossly Normal, Normal TMs Nose: Normal Inspection, Normal Mucosa, No Blood Throat/Mouth: Normal Inspection, Normal Lips, Normal Teeth, Normal Gums, Normal Oropharynx, Normal Voice, No Airway Compromise Head: Atraumatic, Normocephalic Neck: Normal Inspection Respiratory/Chest: No Respiratory Distress, Lungs Clear, Normal Breath Sounds Cardiovascular: Normal Peripheral Pulses, Regular Rate, Rhythm, No Edema, No Murmur GI/Abdominal: Normal Bowel Sounds, Soft, Non-Tender, Other (Obese) Neurological: Alert, Normal Mood/Affect, CN II-XII Intact, Normal Reflexes Psychiatric: Flat Affect, Restless, Inattentive, Withdrawn, Suicidal Thoughts. No: Uncooperative Skin Exam: Warm, Dry, Intact COURSE, BEHAVIORAL HEALTH COMP - Course Vital Signs: Last Vital Signs Temp 36.4 C 06/21/19 16:56 Pulse 64 06/21/19 16:56 Resp 16 06/21/19 16:56 BP 134/83 06/21/19 16:56 Pulse Ox 98 06/21/19 16:56 Orders, Labs, Meds: Active Orders 24 hr Category Date Time Status EKG Documentation Completion [RC] STAT Care 06/21/19 19:50 Active Laboratory Tests 06/21/19 06/21/19 06/21/19 Range/Units 20:10 20:10 20:35 WBC 8.13 (3.98-10.04) K/mm3 RBC 4.47 (3.98-5.22) M/mm3 Hgb 13.9 (11.2-15.7) gm/L Hct 41.1 (34.1-44.9) % MCV 91.9 (79.4-94.8) fl MCH 31.1 (25.6-32.2) pg MCHC 33.8 (32.2-35.5) g/dl RDW Std Deviation 41.2 (36.4-46.3) fL Plt Count 260 (182-369) K/mm3 MPV 10.6 (9.4-12.3) fl Neutrophils % (Manual) 57 (40-60) % Band Neutrophils % 0 (0-10) % Lymphocytes % (Manual) 33 (20-40) % Atypical Lymphs % 0 % Monocytes % (Manual) 7 (2-10) % Eosinophils % (Manual) 3 (0.7-5.8) % Basophils % (Manual) 0 L (0.1-1.2) Platelet Estimate Adequate Plt Morphology Comment Normal RBC Morph Comment Normal Sodium 142 (136-145) mEq/L Potassium 3.8 (3.5-5.1) mEq/L Chloride 109 H (98-107) mEq/L Carbon Dioxide 23 (21-32) mEq/L Anion Gap 13.8 (5-15) BUN 9 (7-18) mg/dL Creatinine 0.9 (0.55-1.02) mg/dL Est Cr Clr Drug Dosing 73.53 mL/min Estimated GFR (MDRD) > 60 (>60) mL/min BUN/Creatinine Ratio 10.0 L (14-18) Glucose 82 (74-106) mg/dL Calcium 8.9 (8.5-10.1) mg/dL Total Bilirubin 0.4 (0.2-1.0) mg/dL AST 24 (15-37) U/L ALT 54 (14-59) U/L Alkaline Phosphatase 79 (46-116) U/L Total Protein 7.2 (6.4-8.2) g/dl Albumin 3.9 (3.4-5.0) g/dl Globulin 3.3 gm/dL Albumin/Globulin Ratio 1.2 (1-2) TSH 3rd Generation 2.022 (0.358-3.74) uIU/mL Urine Color Yellow (Yellow) Urine Appearance Clear (Clear) Urine pH 7.0 (5.0-8.0) Ur Specific [place] 1.020 (1.005-1.030) Urine Protein Negative (Negative) Urine Glucose (UA) Negative (Negative) Urine Ketones Negative (Negative) Urine Occult Blood Negative (Negative) Urine Nitrite Negative (Negative) Urine Bilirubin Negative (Negative) Urine Urobilinogen 0.2 (0.2-1.0) Ur Leukocyte Esterase 1+ H (Negative) Urine RBC 0-5 (0-5) /hpf Urine WBC 0-5 (0-5) /hpf Ur Epithelial Cells 0-5 (0-5) /hpf Urine Bacteria Rare (FEW) /hpf Urine Mucus Few (FEW) /hpf Urine HCG, Qual (NEGATIVE) Urine Opiates Screen (TRMTSJ=319) Ur Buprenorphine Scrn (CUTOFF=10) Ur Oxycodone Screen (FUW4XY=535) Urine Methadone Screen (KOQNSS=553) Ur Propoxyphene Screen (XBVTYV=817) Ur Barbiturates Screen (FSQWXW=758) Ur Tricyclics Screen (LNFOQJ=404) Ur Phencyclidine Scrn (CUTOFF=25) Ur Amphetamine Screen (WLXVVO=929) U Methamphetamines Scrn (PVMKLK=014) U Benzodiazepines Scrn (XGYFSD=678) U Cocaine Metab Screen (OZOSMP=007) U Marijuana (THC) Screen (CUTOFF=50) Ethyl Alcohol 0.00 (0.00) gm% 06/21/19 06/21/19 Range/Units 20:35 20:35 WBC (3.98-10.04) K/mm3 RBC (3.98-5.22) M/mm3 Hgb (11.2-15.7) gm/L Hct (34.1-44.9) % MCV (79.4-94.8) fl MCH (25.6-32.2) pg MCHC (32.2-35.5) g/dl RDW Std Deviation (36.4-46.3) fL Plt Count (182-369) K/mm3 MPV (9.4-12.3) fl Neutrophils % (Manual) (40-60) % Band Neutrophils % (0-10) % Lymphocytes % (Manual) (20-40) % Atypical Lymphs % % Monocytes % (Manual) (2-10) % Eosinophils % (Manual) (0.7-5.8) % Basophils % (Manual) (0.1-1.2) Platelet Estimate Plt Morphology Comment RBC Morph Comment Sodium (136-145) mEq/L Potassium (3.5-5.1) mEq/L Chloride (98-107) mEq/L Carbon Dioxide (21-32) mEq/L Anion Gap (5-15) BUN (7-18) mg/dL Creatinine (0.55-1.02) mg/dL Est Cr Clr Drug Dosing mL/min Estimated GFR (MDRD) (>60) mL/min BUN/Creatinine Ratio (14-18) Glucose (74-106) mg/dL Calcium (8.5-10.1) mg/dL Total Bilirubin (0.2-1.0) mg/dL AST (15-37) U/L ALT (14-59) U/L Alkaline Phosphatase (46-116) U/L Total Protein (6.4-8.2) g/dl Albumin (3.4-5.0) g/dl Globulin gm/dL Albumin/Globulin Ratio (1-2) TSH 3rd Generation (0.358-3.74) uIU/mL Urine Color (Yellow) Urine Appearance (Clear) Urine pH (5.0-8.0) Ur Specific [place] (1.005-1.030) Urine Protein (Negative) Urine Glucose (UA) (Negative) Urine Ketones (Negative) Urine Occult Blood (Negative) Urine Nitrite (Negative) Urine Bilirubin (Negative) Urine Urobilinogen (0.2-1.0) Ur Leukocyte Esterase (Negative) Urine RBC (0-5) /hpf Urine WBC (0-5) /hpf Ur Epithelial Cells (0-5) /hpf Urine Bacteria (FEW) /hpf Urine Mucus (FEW) /hpf Urine HCG, Qual Negative (NEGATIVE) Urine Opiates Screen Negative (RTVTKL=624) Ur Buprenorphine Scrn Negative (CUTOFF=10) Ur Oxycodone Screen Negative (WOX4IX=670) Urine Methadone Screen Negative (DHTFBT=874) Ur Propoxyphene Screen Negative (ZNCFXB=376) Ur Barbiturates Screen Negative (RDLMDT=064) Ur Tricyclics Screen Negative (JMOWPD=269) Ur Phencyclidine Scrn Negative (CUTOFF=25) Ur Amphetamine Screen Negative (JFNDVS=312) U Methamphetamines Scrn Negative (DTSFJV=969) U Benzodiazepines Scrn Negative (FZPJYE=712) U Cocaine Metab Screen Negative (HSOORB=423) U Marijuana (THC) Screen Negative (CUTOFF=50) Ethyl Alcohol (0.00) gm% Medical Clearance: 06/21/19 22:[address] Baum at [facility] in [place] who is kind enough to accept the patient the patient is willing to go on her own and [facility] is willing to transfer her. Departure - Departure Time of Disposition: 22:28 Disposition: DC/Tfer to Psych Hosp/Unit 65 Condition: Good Clinical Impression: Suicidal thoughts Depression Qualifiers: Depression Type: other depression Qualified Code(s): F32.89 - Other specified depressive episodes - Discharge Information Referrals: Katt Gray NP [Primary Care Provider] - Forms: ED Department Discharge - My Orders Last 24 Hours: My Active Orders 06/21/19 19:50 EKG Documentation Completion [[facility]] STAT - Assessment/Plan Last 24 Hours: My Active Orders 06/21/19 19:50 EKG Documentation Completion [[facility]] STAT
== END 2019-06-21 23:10 ==
LOC: JD.ED 16:35
DX: F32.89 Other specified depressive episodes (principal); I10 Essential (primary) hypertension; E78.00 Pure hypercholesterolemia, unspecified; K21.9 Gastro-esophageal reflux disease without esophagitis; F41.9 Anxiety disorder, unspecified; F32.9 Major depressive disorder, single episode, unspecified; Z79.82 Long term (current) use of aspirin; Z79.899 Other long term (current) drug therapy; Z91.040 Latex allergy status; Z88.8 Allergy status to other drugs, medicaments and biological substances; Z88.5 Allergy status to narcotic agent; Z88.6 Allergy status to analgesic agent
CPT/HCPCS: 36415; 80053; 80306; 81001; 81025; 84443; 85007; 85027; 93005; 99285; G0480

== ENCOUNTER 2019-07-15 16:57 | Emergency (ER) | payer MEDICAID ==
[2019-07-15 17:09] VITALS: BP 138/83; PULSE 72
--- NOTE | 2019-07-15 18:50 | EDM.PDOCBH ---
ED HPI GENERAL MEDICAL PROBLEM - General Chief Complaint: Behavioral/Psych Stated Complaint: [facility] Time Seen by Provider: 07/15/19 18:31 Source of Information: Reports: Patient History Limitations: Reports: No Limitations - History of Present Illness INITIAL COMMENTS - FREE TEXT/NARRATIVE: The patient states that she made 6 cuts to each of her forearms, along with scratches across her upper abdomen, all with a serrated knife, while at home, around 15:00. She states that this was a suicide attempt. 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 She stated that she figures she is going to from brain damage anyway, so why not kill herself. The patient states that she has attempted suicide once in the past, by overdose , this past October. She states that she has been psychiatrically hospitalized 3 times, most recently in late May, for depression. The patient then went on , to indicate that that is just this year, and that she has likely attempted suicide and been psychiatrically hospitalized numerous times in the past. The patient's PCP is Katt Gray NP. Her Psychiatrist is Dr. Kim Barth. Her counselor is Romina Pro. Incisional Pain Score (Numeric/FACES): 4 - Related Data Allergies Allergy/AdvReac Type Severity Reaction Status Date / Time guaifenesin [From Entex LA] Allergy Facial Verified 07/15/19 17:02 Swelling latex Allergy Hives Verified 07/15/19 17:02 meclizine Allergy Facial Verified 07/15/19 17:02 Swelling meperidine HCl [From Demerol] Allergy Facial Verified 07/15/19 17:02 Swelling oxycodone HCl [From Percocet] Allergy Facial Verified 07/15/19 17:02 Swelling phenylephrine HCl Allergy Facial Verified 07/15/19 17:02 [From Entex LA] Swelling phenylpropanolamine HCl Allergy Facial Verified 07/15/19 17:02 [From Entex LA] Swelling propoxyphene napsylate Allergy Facial Verified 07/15/19 17:02 [From Darvocet-N] Swelling terfenadine [From Seldane] Allergy Facial Verified 07/15/19 17:02 Swelling Home Meds: Home Meds traZODone 50 mg PO BEDTIME 01/15/16 [History] Ascorbic Acid [Vitamin C] 500 mg PO DAILY 05/18/19 [History] Metoprolol Succinate [Toprol Xl] 50 mg PO DAILY 05/18/19 [History] Potassium Chloride 10 meq PO DAILY 05/18/19 [History] Rosuvastatin [Crestor] 10 mg PO DAILY 05/18/19 [History] Sucralfate [Carafate] 1 gm PO TID 05/18/19 [History] Venlafaxine [Effexor XR] 300 mg PO DAILY 05/18/19 [History] cloNIDine [Catapres] 0.1 mg PO BID 05/18/19 [History] Albuterol [Proventil Neb Soln] 06/03/19 [History] Aspirin [Halfprin] 81 mg PO DAILY 06/03/19 [History] Cholecalciferol (Vitamin D3) [Vitamin D3] 1,000 intnl unit PO DAILY 06/03/19 [ History] Famotidine 20 mg PO DAILY 06/03/19 [History] Fluticasone/Vilanterol [Breo Ellipta 200-25 MCG Inhalation Kit] 06/03/19 [ History] Montelukast [Singulair] 10 mg PO BEDTIME 06/03/19 [History] traZODone HCl [Trazodone HCl] 25 mg PO DAILY #30 tablet 06/03/19 [Rx] Past Medical History HEENT History: Reports: Impaired Vision Other HEENT History: wears eyeglasses. Cardiovascular History: Reports: High Cholesterol, Hypertension Respiratory History: Reports: Asthma, Sleep Apnea (nightly CPAP 10) Gastrointestinal History: Reports: GERD Musculoskeletal History: Reports: Arthritis, Fracture (left ankle) Psychiatric History: Reports: Anxiety, Depression, Other (See Below) ( Borderline personality disorder) Endocrine/Metabolic History: Reports: Obesity/BMI 30+ - Infectious Disease History Infectious Disease History: Reports: Chicken Pox, Measles, Mumps - Past Surgical History HEENT Surgical History: Reports: Oral Surgery (wisdom teeth extraction) Female Surgical History: Reports: Tubal Ligation (bilateral) Neurological Surgical History: Reports: Lumbar Spine (fusion) Musculoskeletal Surgical History: Reports: Arthroscopic Knee (bilateral), ORIF ( left ankle), Shoulder Surgery (right A-C separation repair, arthroscopic) Social & Family History - Family History Family Medical History: Noncontributory Cardiac: Reports: Heart Failure, [place] Neurological: Reports: CVA Endocrine/Metabolic: Reports: Diabetes, type II - Tobacco Use Smoking Status *Q: Former Smoker Years of Tobacco use: 2 Packs/Tins Daily: 1 Month/Year Tobacco Last Used: Quit 2005 - Caffeine Use Caffeine Use: Reports: None - Alcohol Use Alcohol Use History: No - Recreational Drug Use Recreational Drug Use: No - Living Situation & Occupation Living situation: Reports: , with Spouse Occupation: Unemployed ED ROS GENERAL - Review of Systems Review Of Systems: ROS reveals no pertinent complaints other than HPI. ED EXAM, BEHAVIORAL HEALTH - Physical Exam Exam: See Below Exam Limited By: No Limitations General Appearance: Alert, WD/WN, No Apparent Distress Eye Exam: Bilateral Eye: EOMI, Normal Inspection Ears: Normal External Exam, Hearing Grossly Normal Nose: Normal Inspection Throat/Mouth: Normal Inspection, Normal Lips, Normal Voice, No Airway Compromise Head: Atraumatic, Normocephalic Neck: Normal Inspection, Full Range of Motion Respiratory/Chest: No Respiratory Distress, Lungs Clear, Normal Breath Sounds, No Accessory Muscle Use Cardiovascular: Normal Peripheral Pulses, Regular Rate, Rhythm, No Gallop, No JVD, No Murmur, No Rub GI/Abdominal: Normal Bowel Sounds, Soft, Non-Tender, No Organomegaly, No Distention, No Abnormal Bruit, No Mass, Other (There is an approximately 1.5 to 2 cm wide band, 38 cm in length, of erythema running across the patient's upper abdomen, that appears to be inflicted by scratching herself. The skin is not broken.) (Female) Exam: Deferred Rectal (Female) Exam: Deferred Back Exam: Normal Inspection, Full Range of Motion, NT Extremities: Normal Range of Motion, Normal Capillary Refill, Other (There are 6 superficial lacerations to each of the arms, all running tangential to the axis of the arm. All have some associated dried blood, but none are actively bleeding, and none require suturing. The length of the superficial lacerations on her left forearm, proximal to distal is 4 cm, 8.5 cm, 5.5 cm, 7.5 cm, 4 cm, and 5 cm. The length of the superficial lacerations on her right forearm, proximal to distal is 4 cm, 4 cm, 4 cm, 4 cm, 3 cm, and 3 cm.) Neurological: Alert, Normal Cognition, No Motor/Sensory Deficits, Oriented x 3 Psychiatric: Normal Affect Skin Exam: Warm, Dry, Normal color, No rash EKG INTERPRETATION EKG Date: 07/15/19 Time: 18:50 Rhythm: NSR Rate (Beats/Min): 62 [place]: Normal P-Wave: Present QRS: Normal (Late transition) ST-T: Normal QT: Normal Comparison: No Change (06/21/2019) COURSE, BEHAVIORAL HEALTH COMP - Course Vital Signs: Last Vital Signs Temp 36.3 C 07/15/19 17:02 Pulse 72 07/15/19 17:02 Resp 17 07/15/19 17:02 BP 138/83 07/15/19 17:02 Pulse Ox 98 07/15/19 17:02 Orders, Labs, Meds: Active Orders 24 hr Category Date Time Status EKG Documentation Completion [RC] STAT Care 07/15/19 18:37 Active Laboratory Tests 07/15/19 07/15/19 07/15/19 Range/Units 18:26 18:26 18:40 WBC 10.34 H (3.98-10.04) K/mm3 RBC 4.39 (3.98-5.22) M/mm3 Hgb 13.8 (11.2-15.7) gm/dl Hct 40.8 (34.1-44.9) % MCV 92.9 (79.4-94.8) fl MCH 31.4 (25.6-32.2) pg MCHC 33.8 (32.2-35.5) g/dl RDW Std Deviation 41.9 (36.4-46.3) fL Plt Count 247 (182-369) K/mm3 MPV 10.9 (9.4-12.3) fl Neut % (Auto) 65.7 (34.0-71.1) % Lymph % (Auto) 25.0 (19.3-51.7) % [place] % (Auto) 6.6 (4.7-12.5) % Eos % (Auto) 1.9 (0.7-5.8) Baso % (Auto) 0.4 (0.1-1.2) % Neut # (Auto) 6.80 H (1.56-6.13) K/mm3 Lymph # (Auto) 2.58 (1.18-3.74) K/mm3 [place] # (Auto) 0.68 H (0.24-0.36) K/mm3 Eos # (Auto) 0.20 (0.04-0.36) K/mm3 Baso # (Auto) 0.04 (0.01-0.08) K/mm3 Sodium (136-145) mEq/L Potassium (3.5-5.1) mEq/L Chloride (98-107) mEq/L Carbon Dioxide (21-32) mEq/L Anion Gap (5-15) BUN (7-18) mg/dL Creatinine (0.55-1.02) mg/dL Est Cr Clr Drug Dosing mL/min Estimated GFR (MDRD) (>60) mL/min BUN/Creatinine Ratio (14-18) Glucose (74-106) mg/dL Calcium (8.5-10.1) mg/dL Total Bilirubin (0.2-1.0) mg/dL AST (15-37) U/L ALT (14-59) U/L Alkaline Phosphatase (46-116) U/L Total Protein (6.4-8.2) g/dl Albumin (3.4-5.0) g/dl Globulin gm/dL Albumin/Globulin Ratio (1-2) TSH 3rd Generation (0.358-3.74) uIU/mL Urine HCG, Qual Negative (NEGATIVE) Salicylates (2.8-20) mg/dL Urine Opiates Screen Negative (MUCFJI=038) Ur Buprenorphine Scrn Negative (CUTOFF=10) Ur Oxycodone Screen Negative (IWQ3MR=820) Urine Methadone Screen Negative (MTSZAE=951) Ur Propoxyphene Screen Negative (CYZHEC=203) Acetaminophen (10-30) ug/mL Ur Barbiturates Screen Negative (UAPXRE=116) Ur Tricyclics Screen Negative (PPPUYG=922) Ur Phencyclidine Scrn Negative (CUTOFF=25) Ur Amphetamine Screen Negative (JRKUCU=687) U Methamphetamines Scrn Negative (IWUDUH=854) U Benzodiazepines Scrn Negative (MBPFNT=333) U Cocaine Metab Screen Negative (ERZUWL=437) U Marijuana (THC) Screen Negative (CUTOFF=50) Ethyl Alcohol (0.00) gm% 07/15/19 07/15/19 Range/Units 18:40 18:40 WBC (3.98-10.04) K/mm3 RBC (3.98-5.22) M/mm3 Hgb (11.2-15.7) gm/dl Hct (34.1-44.9) % MCV (79.4-94.8) fl MCH (25.6-32.2) pg MCHC (32.2-35.5) g/dl RDW Std Deviation (36.4-46.3) fL Plt Count (182-369) K/mm3 MPV (9.4-12.3) fl Neut % (Auto) (34.0-71.1) % Lymph % (Auto) (19.3-51.7) % [place] % (Auto) (4.7-12.5) % Eos % (Auto) (0.7-5.8) Baso % (Auto) (0.1-1.2) % Neut # (Auto) (1.56-6.13) K/mm3 Lymph # (Auto) (1.18-3.74) K/mm3 [place] # (Auto) (0.24-0.36) K/mm3 Eos # (Auto) (0.04-0.36) K/mm3 Baso # (Auto) (0.01-0.08) K/mm3 Sodium 142 (136-145) mEq/L Potassium 3.7 (3.5-5.1) mEq/L Chloride 110 H (98-107) mEq/L Carbon Dioxide 20 L (21-32) mEq/L Anion Gap 15.7 H (5-15) BUN 8 (7-18) mg/dL Creatinine 0.9 (0.55-1.02) mg/dL Est Cr Clr Drug Dosing 73.53 mL/min Estimated GFR (MDRD) > 60 (>60) mL/min BUN/Creatinine Ratio 8.9 L (14-18) Glucose 86 (74-106) mg/dL Calcium 9.0 (8.5-10.1) mg/dL Total Bilirubin 0.3 (0.2-1.0) mg/dL AST 17 (15-37) U/L ALT 27 (14-59) U/L Alkaline Phosphatase 75 (46-116) U/L Total Protein 7.0 (6.4-8.2) g/dl Albumin 3.8 (3.4-5.0) g/dl Globulin 3.2 gm/dL Albumin/Globulin Ratio 1.2 (1-2) TSH 3rd Generation 1.080 (0.358-3.74) uIU/mL Urine HCG, Qual (NEGATIVE) Salicylates 3.1 (2.8-20) mg/dL Urine Opiates Screen (PJALEO=826) Ur Buprenorphine Scrn (CUTOFF=10) Ur Oxycodone Screen (EZM1EW=944) Urine Methadone Screen (HAHPGQ=720) Ur Propoxyphene Screen (ZITDEU=477) Acetaminophen 0 L (10-30) ug/mL Ur Barbiturates Screen (CNQMRZ=577) Ur Tricyclics Screen (LENRNS=005) Ur Phencyclidine Scrn (CUTOFF=25) Ur Amphetamine Screen (VSVXXN=885) U Methamphetamines Scrn (ILTAZE=980) U Benzodiazepines Scrn (AAUXFX=920) U Cocaine Metab Screen (TIIUXB=364) U Marijuana (THC) Screen (CUTOFF=50) Ethyl Alcohol 0.00 (0.00) gm% Medical Clearance: 07/15/19 18:49 The patient states that her actions this afternoon were due to a suicide attempt. None of her wounds are limb or life threatening, however, the patient has attempted suicide in the past, therefore I think she needs to be psychiatrically hospitalized. I have ordered a standard psychiatric medical clearance panel, and when that has resulted, we will start looking for a psychiatric bed. 07/15/19 20:05 The patient's CBC is remarkable for WBC count slightly elevated at 10.34, but is otherwise unremarkable. Her CMP is remarkable for a chloride slightly elevated 110, and a bicarbonate slightly depressed at 20, but is otherwise unremarkable. Her TSH is within normal limits at 1.080. Her acetaminophen level is 0. Her salicylate level is within normal limits at 3.1. Her EtOH level is 0. Her urine drug screen is completely negative. Her urine test is negative. We will endeavor to find a psychiatric bed. 07/15/19 21:[address] Hawkins, Psychiatrist at [facility], at 21:08. He states that he is very familiar with the patient, and that she was just discharged from their facility about one week ago. He states that she has borderline personality disorder, but she does not have phenylketonuria (I have updated her PMHx). He accepted the patient for admission to their psychiatric unit, provided the patient does not come by private vehicle. 07/15/19 23:05 Notified by Kathia ROD that the patient has attempted to leave, therefore the police were notified. The patient will spend the night in senior living prior to being transported to [place] in the morning. Departure - Departure Time of Disposition: 21:15 Disposition: DC/Tfer to Psych Hosp/Unit 65 Condition: Good Clinical Impression: Suicide attempt - Discharge Information *PRESCRIPTION DRUG MONITORING PROGRAM REVIEWED*: Not Applicable *COPY OF PRESCRIPTION DRUG MONITORING REPORT IN PATIENT TRISHA: Not Applicable Referrals: Katt Gray NP [Primary Care Provider] - Free,Kim Figueredo MD [Ordering Only Provider] - Forms: ED Department Discharge - My Orders Last 24 Hours: My Active Orders 07/15/19 18:37 EKG Documentation Completion [RC] STAT - Assessment/Plan Last 24 Hours: My Active Orders 07/15/19 18:37 EKG Documentation Completion [RC] STAT
[2019-07-15 19:16] LABS: ACETAMINOPHEN 0 ug/mL (10-30)
== END 2019-07-15 23:21 ==
LOC: JD.ED 16:57
DX: T14.91XA Suicide attempt, initial encounter (principal); S51.812A Laceration without foreign body of left forearm, initial encounter; S51.811A Laceration without foreign body of right forearm, initial encounter; E66.9 Obesity, unspecified; F41.9 Anxiety disorder, unspecified; F32.9 Major depressive disorder, single episode, unspecified; K21.9 Gastro-esophageal reflux disease without esophagitis; I10 Essential (primary) hypertension; E78.00 Pure hypercholesterolemia, unspecified; J45.909 Unspecified asthma, uncomplicated; Z79.899 Other long term (current) drug therapy; Z79.82 Long term (current) use of aspirin; Z79.51 Long term (current) use of inhaled steroids; Z98.51 Tubal ligation status; Z87.891 Personal history of nicotine dependence; Z88.8 Allergy status to other drugs, medicaments and biological substances; Z68.30 Body mass index [BMI] 30.0-30.9, adult; Z91.040 Latex allergy status; X78.1XXA Intentional self-harm by knife, initial encounter; Y92.009 Unspecified place in unspecified non-institutional (private) residence as the place of occurrence of the external cause
CPT/HCPCS: 36415; 80053; 80306; 81025; 84443; 85025; 93005; 99285-25; G0480

== ENCOUNTER 2019-08-14 16:12 | Emergency (ER) | payer MEDICAID ==
[2019-08-14 16:30] VITALS: BP 132/89; PULSE 82
--- NOTE | 2019-08-14 18:00 | EDM.PDOC ---
ED HPI GENERAL MEDICAL PROBLEM - General Chief Complaint: Chest Pain Stated Complaint: CHEST PAIN,DIZZY Time Seen by Provider: 08/14/19 16:28 Source of Information: Reports: Patient History Limitations: Reports: No Limitations - History of Present Illness INITIAL COMMENTS - FREE TEXT/NARRATIVE: The patient presents for chest pain and dizziness. She tells me that she is being worked up from a neurologist for possibly PKU. She gets dizziness from it and it was worse today. She fell into her table. She also had chest pain today. She will get chest pain at times. She has no shortness of breath, abdominal pain, nausea or vomiting. Onset: Gradual Duration: Hour(s): Location: Reports: Chest Quality: Reports: Sharp Severity: Mild Improves with: Reports: None Worsens with: Reports: None Associated Symptoms: Reports: Chest Pain. Denies: Cough, Fever/Chills, Headaches, Nausea/Vomiting, Shortness of Breath Chest Pain Score (Numeric/FACES): 7 - Related Data Allergies Allergy/AdvReac Type Severity Reaction Status Date / Time guaifenesin [From Entex LA] Allergy Facial Verified 08/14/19 16:30 Swelling latex Allergy Hives Verified 08/14/19 16:30 meclizine Allergy Facial Verified 08/14/19 16:30 Swelling meperidine HCl [From Demerol] Allergy Facial Verified 08/14/19 16:30 Swelling oxycodone HCl [From Percocet] Allergy Facial Verified 08/14/19 16:30 Swelling phenylephrine HCl Allergy Facial Verified 08/14/19 16:30 [From Entex LA] Swelling phenylpropanolamine HCl Allergy Facial Verified 08/14/19 16:30 [From Entex LA] Swelling propoxyphene napsylate Allergy Facial Verified 08/14/19 16:30 [From Darvocet-N] Swelling terfenadine [From Seldane] Allergy Facial Verified 08/14/19 16:30 Swelling Home Meds: Home Meds traZODone 50 mg PO BEDTIME 01/15/16 [History] Ascorbic Acid [Vitamin C] 500 mg PO DAILY 05/18/19 [History] Metoprolol Succinate [Toprol Xl] 50 mg PO DAILY 05/18/19 [History] Potassium Chloride 10 meq PO DAILY 05/18/19 [History] Rosuvastatin [Crestor] 10 mg PO DAILY 05/18/19 [History] Sucralfate [Carafate] 1 gm PO TID 05/18/19 [History] Venlafaxine [Effexor XR] 300 mg PO DAILY 05/18/19 [History] cloNIDine [Catapres] 0.1 mg PO BID 05/18/19 [History] Albuterol [Proventil Neb Soln] 06/03/19 [History] Aspirin [Halfprin] 81 mg PO DAILY 06/03/19 [History] Cholecalciferol (Vitamin D3) [Vitamin D3] 1,000 intnl unit PO DAILY 06/03/19 [ History] Famotidine 20 mg PO DAILY 06/03/19 [History] Fluticasone/Vilanterol [Breo Ellipta 200-25 MCG Inhalation Kit] 06/03/19 [ History] Montelukast [Singulair] 10 mg PO BEDTIME 06/03/19 [History] traZODone HCl [Trazodone HCl] 25 mg PO DAILY #30 tablet 06/03/19 [Rx] Past Medical History HEENT History: Reports: Impaired Vision Other HEENT History: wears eyeglasses. Cardiovascular History: Reports: High Cholesterol, Hypertension Respiratory History: Reports: Asthma, Sleep Apnea Gastrointestinal History: Reports: GERD Musculoskeletal History: Reports: Arthritis, Fracture Neurological History: Reports: Head Trauma, Other (See Below) Other Neuro History: 1992 Psychiatric History: Reports: Anxiety, Depression, Other (See Below) Endocrine/Metabolic History: Reports: Obesity/BMI 30+ Hematologic History: Reports: Other (See Below) Other Hematologic History: PKU - Infectious Disease History Infectious Disease History: Reports: Chicken Pox, Measles, Mumps - Past Surgical History HEENT Surgical History: Reports: Oral Surgery Female Surgical History: Reports: Tubal Ligation Neurological Surgical History: Reports: Lumbar Spine Musculoskeletal Surgical History: Reports: Arthroscopic Knee, ORIF, Shoulder Surgery Social & Family History - Family History Family Medical History: Noncontributory Cardiac: Reports: Heart Failure, [place] Neurological: Reports: CVA Endocrine/Metabolic: Reports: Diabetes, type II - Tobacco Use Smoking Status *Q: Never Smoker - Caffeine Use Caffeine Use: Reports: None - Living Situation & Occupation Living situation: Reports: , with Spouse Occupation: Unemployed ED ROS GENERAL - Review of Systems Review Of Systems: See Below Constitutional: Reports: No Symptoms HEENT: Reports: No Symptoms Respiratory: Reports: No Symptoms Cardiovascular: Reports: Chest Pain Endocrine: Reports: No Symptoms GI/Abdominal: Reports: No Symptoms : Reports: No Symptoms Musculoskeletal: Reports: No Symptoms Skin: Reports: No Symptoms Neurological: Reports: Dizziness ED EXAM, GENERAL - Physical Exam Exam: See Below Exam Limited By: No Limitations General Appearance: Alert, No Apparent Distress Ears: Normal External Exam Nose: Normal Inspection Head: Atraumatic, Normocephalic Neck: Normal Inspection, Supple, Non-Tender Respiratory/Chest: No Respiratory Distress, Lungs Clear, Normal Breath Sounds Cardiovascular: Regular Rate, Rhythm, No Edema, No Murmur GI/Abdominal: Soft, Non-Tender, No Organomegaly, No Mass Back Exam: Normal Inspection Extremities: Normal Inspection EKG INTERPRETATION EKG Date: 08/14/19 Time: 16:20 Rhythm: NSR Rate (Beats/Min): 69 [place]: Normal P-Wave: Present QRS: Normal ST-T: Normal QT: Normal Course - Vital Signs Last Recorded V/S: Last Vital Signs Temp 97.8 F 08/14/19 16:27 Pulse 82 08/14/19 16:27 Resp 16 08/14/19 16:27 BP 132/89 08/14/19 16:27 Pulse Ox 96 08/14/19 16:27 - Orders/Labs/Meds Orders: Active Orders 24 hr Category Date Time Status Cardiac Monitoring [RC] . DIRECTED Care 08/14/19 17:05 Active COMPREHENSIVE METABOLIC PN,CMP [CHEM] Stat Lab 08/14/19 17:15 Received TROPONIN I [CHEM] Stat Lab 08/14/19 17:15 Received Labs: Laboratory Tests 08/14/19 Range/Units 17:15 WBC 7.64 (3.98-10.04) K/mm3 RBC 4.35 (3.98-5.22) M/mm3 Hgb 13.6 (11.2-15.7) gm/dl Hct 40.7 (34.1-44.9) % MCV 93.6 (79.4-94.8) fl MCH 31.3 (25.6-32.2) pg MCHC 33.4 (32.2-35.5) g/dl RDW Std Deviation 41.5 (36.4-46.3) fL Plt Count 235 (182-369) K/mm3 MPV 11.0 (9.4-12.3) fl Neut % (Auto) 61.6 (34.0-71.1) % Lymph % (Auto) 29.3 (19.3-51.7) % [place] % (Auto) 6.0 (4.7-12.5) % Eos % (Auto) 2.4 (0.7-5.8) Baso % (Auto) 0.4 (0.1-1.2) % Neut # (Auto) 4.71 (1.56-6.13) K/mm3 Lymph # (Auto) 2.24 (1.18-3.74) K/mm3 [place] # (Auto) 0.46 H (0.24-0.36) K/mm3 Eos # (Auto) 0.18 (0.04-0.36) K/mm3 Baso # (Auto) 0.03 (0.01-0.08) K/mm3 Meds: Medications Discontinued Medications Generic Name Dose Route Start Last Admin Trade Name Rogelio PRN Reason Stop Dose Admin Meclizine HCl 25 mg 08/14/19 17:05 08/14/19 17:09 Antivert PO 08/14/19 17:06 25 mg ONETIME ONE Administration Meclizine HCl Confirm 08/14/19 17:08 08/14/19 17:18 Antivert Administered 08/14/19 17:09 Not Given Dose 25 mg .ROUTE .STK-MED ONE - Re-Assessments/Exams Free Text/Narrative Re-Assessment/Exam: 08/14/19 17:58 I ordered an EKG, labs and antivert. Her EKG shows a NSR with no acute changes. She is allergic to antivert. She had no allergic symptoms. Her labs look good. I will discharge her home. Departure - Departure Time of Disposition: 18:00 Disposition: Home, Self-Care 01 Condition: Good Clinical Impression: Atypical chest pain, Dizziness Referrals: Alissa Thomas MD [Primary Care Provider] - 1 Week Additional Instructions: Take your medication as prescribed. Slowly get up from a sitting to standing position. - My Orders Last 24 Hours: My Active Orders 08/14/19 17:05 Cardiac Monitoring [RC] . DIRECTED 08/14/19 17:15 COMPREHENSIVE METABOLIC PN,CMP [CHEM] Stat TROPONIN I [CHEM] Stat - Assessment/Plan Last 24 Hours: My Active Orders 08/14/19 17:05 Cardiac Monitoring [RC] . DIRECTED 08/14/19 17:15 COMPREHENSIVE METABOLIC PN,CMP [CHEM] Stat TROPONIN I [CHEM] Stat
== END 2019-08-14 18:00 | disposition home or self-care (01) ==
LOC: JD.ED 16:12
DX: R07.89 Other chest pain (principal); R42 Dizziness and giddiness; E78.00 Pure hypercholesterolemia, unspecified; I10 Essential (primary) hypertension; J45.909 Unspecified asthma, uncomplicated; F41.9 Anxiety disorder, unspecified; F32.9 Major depressive disorder, single episode, unspecified; K21.9 Gastro-esophageal reflux disease without esophagitis; E66.9 Obesity, unspecified; Z68.36 Body mass index [BMI] 36.0-36.9, adult; Z88.8 Allergy status to other drugs, medicaments and biological substances; Z91.040 Latex allergy status; Z88.5 Allergy status to narcotic agent; Z79.899 Other long term (current) drug therapy; Z79.82 Long term (current) use of aspirin; Z79.51 Long term (current) use of inhaled steroids
CPT/HCPCS: 36415; 80053; 84484; 85025; 99284; A9270; 93010

== ENCOUNTER 2019-08-15 19:16 | Emergency (ER) | payer MEDICAID ==
[2019-08-15 19:22] VITALS: BP 122/69; PULSE 64
--- NOTE | 2019-08-15 20:41 | EDM.PDOC ---
ED HPI GENERAL MEDICAL PROBLEM - General Chief Complaint: Abdominal Pain Stated Complaint: [facility] Time Seen by Provider: 08/15/19 20:14 Source of Information: Reports: Patient, Family () History Limitations: Reports: No Limitations - History of Present Illness INITIAL COMMENTS - FREE TEXT/NARRATIVE: Mrs. Koenig is a 49 year old woman with a past medical history significant for asthma, obstructive sleep apnea, GERD, anxiety, depression, and borderline personality disorder, who presents to the ED stating that she developed left- sided abdominal pain around 12:30 this afternoon. The pain is sharp and achy in character. It is made worse with breathing, but not with other movements. She states she has had a slight cough, but no recent fever, chills, sore throat, nausea, vomiting, constipation, diarrhea, or urinary symptoms. The patient did not take any [id number] home remedies prior to coming to the ED. Review of prior medical records finds that the patient was seen in this ED yesterday, 08/14/2019 with a complaint of chest pain and dizziness. Her vital signs were stable, and her exam was unremarkable. An ECG and a CBC were normal. She was discharged home. The patient now states that her current images are different than those from yesterday. The patient's PCP is Katt Gray NP. The patient states that she last saw Ms. Gray more than 3 months ago. Her Psychiatrist is Dr. Kim Barth. Her counselor is Leanne?Doug Pro. Her Neurologist is Dr. Raffy Phillip. Left Abdomen Pain Score (Numeric/FACES): 8 - Related Data Allergies Allergy/AdvReac Type Severity Reaction Status Date / Time guaifenesin [From Entex LA] Allergy Facial Verified 08/15/19 19:22 Swelling latex Allergy Hives Verified 08/15/19 19:22 meclizine Allergy Facial Verified 08/15/19 19:22 Swelling meperidine HCl [From Demerol] Allergy Facial Verified 08/15/19 19:22 Swelling oxycodone HCl [From Percocet] Allergy Facial Verified 08/15/19 19:22 Swelling phenylephrine HCl Allergy Facial Verified 08/15/19 19:22 [From Entex LA] Swelling phenylpropanolamine HCl Allergy Facial Verified 08/15/19 19:22 [From Entex LA] Swelling propoxyphene napsylate Allergy Facial Verified 08/15/19 19:22 [From Darvocet-N] Swelling terfenadine [From Seldane] Allergy Facial Verified 08/15/19 19:22 Swelling Home Meds: Home Meds traZODone 50 mg PO BEDTIME 01/15/16 [History] Ascorbic Acid [Vitamin C] 500 mg PO DAILY 05/18/19 [History] Metoprolol Succinate [Toprol Xl] 50 mg PO DAILY 05/18/19 [History] Potassium Chloride 10 meq PO DAILY 05/18/19 [History] Rosuvastatin [Crestor] 10 mg PO DAILY 05/18/19 [History] Sucralfate [Carafate] 1 gm PO TID 05/18/19 [History] Venlafaxine [Effexor XR] 300 mg PO DAILY 05/18/19 [History] cloNIDine [Catapres] 0.1 mg PO BID 05/18/19 [History] Albuterol [Proventil Neb Soln] 1 inh INH ASDIRECTED 06/03/19 [History] Aspirin [Halfprin] 81 mg PO DAILY 06/03/19 [History] Cholecalciferol (Vitamin D3) [Vitamin D3] 1,000 intnl unit PO DAILY 06/03/19 [ History] Famotidine 20 mg PO DAILY 06/03/19 [History] Fluticasone/Vilanterol [Breo Ellipta 200-25 MCG Inhalation Kit] 1 inh INH ASDIRECTED 06/03/19 [History] Montelukast [Singulair] 10 mg PO BEDTIME 06/03/19 [History] traZODone HCl [Trazodone HCl] 25 mg PO DAILY #30 tablet 06/03/19 [Rx] Past Medical History HEENT History: Reports: Impaired Vision Other HEENT History: wears eyeglasses. Cardiovascular History: Reports: High Cholesterol, Hypertension Respiratory History: Reports: Asthma, Sleep Apnea (nightly CPAP 10) Gastrointestinal History: Reports: GERD Musculoskeletal History: Reports: Arthritis, Fracture (left ankle) Psychiatric History: Reports: Anxiety, Depression, Other (See Below) ( Borderline personality disorder) Endocrine/Metabolic History: Reports: Obesity/BMI 30+ - Infectious Disease History Infectious Disease History: Reports: Chicken Pox, Measles, Mumps - Past Surgical History HEENT Surgical History: Reports: Oral Surgery (wisdom teeth extraction) Female Surgical History: Reports: Tubal Ligation Neurological Surgical History: Reports: Lumbar Spine (fusion) Musculoskeletal Surgical History: Reports: Arthroscopic Knee (bilateral), ORIF ( left ankle), Shoulder Surgery (right A-C separation repair, arthroscopic) Social & Family History - Family History Family Medical History: Noncontributory Cardiac: Reports: Heart Failure, [place] Neurological: Reports: CVA Endocrine/Metabolic: Reports: Diabetes, type II - Tobacco Use Smoking Status *Q: Former Smoker Years of Tobacco use: 2 Packs/Tins Daily: 1 Month/Year Tobacco Last Used: Quit 2005 - Caffeine Use Caffeine Use: Reports: Soda - Alcohol Use Alcohol Use History: No - Recreational Drug Use Recreational Drug Use: No - Living Situation & Occupation Living situation: Reports: , with Spouse Occupation: Unemployed ED ROS GENERAL - Review of Systems Review Of Systems: ROS reveals no pertinent complaints other than HPI. ED EXAM, GI/ABD - Physical Exam Exam: See Below Exam Limited By: No Limitations General Appearance: Alert, WD/WN, No Apparent Distress (moved about the exam room easily and then climbed up on the gurney with no difficulty or suggestion of pain) Eyes: Bilateral: Normal Appearance, EOMI Ears: Normal External Exam, Hearing Grossly Normal Nose: Normal Inspection Throat/Mouth: Normal Inspection, Normal Lips, Normal Voice, No Airway Compromise Head: Atraumatic, Normocephalic Neck: Normal Inspection, Full Range of Motion Respiratory/Chest: No Respiratory Distress, Lungs Clear, Normal Breath Sounds, No Accessory Muscle Use Cardiovascular: Normal Peripheral Pulses, Regular Rate, Rhythm, No Gallop, No JVD, No Murmur, No Rub GI/Abdominal Exam: Normal Bowel Sounds, Soft, Non-Tender (including to the left side, where the patient reported that she had pain), No Organomegaly, No Distention, No Abnormal Bruit, No Mass (Female) Exam: Deferred Rectal (Female) Exam: Deferred Back Exam: Normal Inspection, Full Range of Motion. No: CVA Tenderness (L), CVA Tenderness (R) Extremities: Normal Inspection, Normal Range of Motion, No Pedal Edema, Normal Capillary Refill Neurological: Alert, Oriented, Normal Cognition, No Motor/Sensory Deficits Psychiatric: Normal Affect Skin Exam: Warm, Dry, Intact, Normal Color, No Rash Course - Vital Signs Last Recorded V/S: Last Vital Signs Temp 36.1 C 08/15/19 19:19 Pulse 64 08/15/19 19:19 Resp 16 08/15/19 19:19 BP 122/69 08/15/19 19:19 Pulse Ox 99 08/15/19 19:19 - Re-Assessments/Exams Free Text/Narrative Re-Assessment/Exam: 08/15/19 20:42 I am not sure that the patient is actually experiencing any left-sided abdominal pain - she had virtually no reaction to my examination. She appears to be very comfortable, and crawled onto the gurney without any difficulty. Her abdomen is completely soft, nontender, with normoactive bowel sounds. Nevertheless, because of her complaint that her pain is made worse with breathing, I suggested that it may be musculoskeletal in etiology, and suggested that we start her on Norflex. The patient told me that she is already on Flexeril, and I explained that Norflex would likely work better than Flexeril as a muscle relaxant. The patient agreed to be started on Norflex, but when I told her that I would prescribe about a week's worth, she asked why I wouldn't prescribe it for 30 days or longer. She explained that when she starts on a medication, she intends to take it indefinitely. I asked her why she thought she would need a muscle relaxant indefinitely, and she was unable to answer that question. She did not want to start on Norflex, however, unless I was willing to prescribe at least 30 days, which I was not. I therefore suggested that she follow-up with her PCP to discuss the issue, and the patient agreed with that. 08/15/19 21:01 Notified by Yogesh ROD that the patient left the ED without waiting for her discharge instructions. Departure - Departure Time of Disposition: 20:45 Disposition: Home, Self-Care 01 Condition: Good Clinical Impression: Abdominal muscle pain - Discharge Information *PRESCRIPTION DRUG MONITORING PROGRAM REVIEWED*: Not Applicable *COPY OF PRESCRIPTION DRUG MONITORING REPORT IN PATIENT TRISHA: Not Applicable Instructions: Muscle Pain, Adult Referrals: Katt Gray NP [Ordering Only Provider] - Tab,Kim Figueredo MD [Ordering Only Provider] - Raffy Phillip MD [Ordering Only Provider] - Forms: ED Department Discharge Additional Instructions: You were seen in the emergency room for left-sided abdominal pain, made worse with breathing. Based on your history and physical examination, your pain is most likely due to a muscle strain. An offer to switch her to the muscle relaxant Norflex was made, but declined. We recommend that you follow-up with your PCP, Katt Gray NP, to discuss the issue further. If any other problems, please do not hesitate to return to the ER.
== END 2019-08-15 21:04 | disposition home or self-care (01) ==
LOC: JD.ED 19:16
DX: R10.9 Unspecified abdominal pain (principal); E78.00 Pure hypercholesterolemia, unspecified; I10 Essential (primary) hypertension; J45.909 Unspecified asthma, uncomplicated; G47.30 Sleep apnea, unspecified; F41.9 Anxiety disorder, unspecified; F32.9 Major depressive disorder, single episode, unspecified; K21.9 Gastro-esophageal reflux disease without esophagitis; E66.9 Obesity, unspecified; Z68.41 Body mass index [BMI] 40.0-44.9, adult; Z88.5 Allergy status to narcotic agent; Z88.8 Allergy status to other drugs, medicaments and biological substances; Z91.040 Latex allergy status; Z79.899 Other long term (current) drug therapy; Z79.82 Long term (current) use of aspirin; Z79.51 Long term (current) use of inhaled steroids; Z87.891 Personal history of nicotine dependence
CPT/HCPCS: 99282; 99284

== ENCOUNTER 2019-12-05 14:12 | Emergency (ER) | payer BC ==
[2019-12-05 15:36] VITALS: BP 125/91; PULSE 63
== END 2019-12-05 16:10 | disposition left against medical advice (07) ==
LOC: JD.ED 14:12
DX: Z53.21 Procedure and treatment not carried out due to patient leaving prior to being seen by health care provider (principal)

== ENCOUNTER 2019-12-05 20:07 | Emergency (ER) | payer BC ==
[2019-12-05 20:38] VITALS: BP 136/91; PULSE 69
--- NOTE | 2019-12-05 20:54 | EDM.PDOCBH ---
ED HPI GENERAL MEDICAL PROBLEM - General Chief Complaint: Behavioral/Psych Stated Complaint: SELF HARM Time Seen by Provider: 12/05/19 20:54 Source of Information: Reports: Patient History Limitations: Reports: No Limitations - History of Present Illness INITIAL COMMENTS - FREE TEXT/NARRATIVE: 49-year-old female presents to the ED with complaints of compulsions to bang her head against the wall. This just started today. She indicates she is under great deal of stress and is feeling somewhat anxious. She has never had this type of behavior before. Today she is behind her head against the wall 6 times in 6 different events usually in a bathroom cubicle where she cannot be seen. This comes from pent-up anger and rage. She has not exhibited any obsessive- compulsive behaviors in the past. There's been no recent changes in her medications. She is currently on trazodone 100 mg at bedtime to help sleep which is working well for her. She states her dose of Effexor was increased from 150-200 mg daily about 3-4 months ago. She just spoke with Dr. Barth --her psychiatrist earlier this afternoon by telemedicine. He did not mention the head-banging episodes with her. She indicates that her is not providing her any support whatsoever. Patient denies feeling suicidal or having any suicidal ideation. He states he just feels volatile and angry inside. She is exhibiting compulsive sort of behavior. She does have some bruising and slight swelling to her right forehead but no headache. Onset: Today Onset Date: 12/05/19 Duration: Hour(s):, Intermittent Location: Reports: Head (Intermittent forehead banging against the wall 6 today ) Quality: Reports: Ache Severity: Mild Improves with: Reports: None Worsens with: Reports: None Context: Reports: Other (Feels that this is anger and rage just coming out in her body.). 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: Other (see below) (None.) - Related Data Allergies Allergy/AdvReac Type Severity Reaction Status Date / Time guaifenesin [From Entex LA] Allergy Facial Verified 12/05/19 15:36 Swelling latex Allergy Hives Verified 12/05/19 15:36 meclizine Allergy Facial Verified 12/05/19 15:36 Swelling meperidine HCl [From Demerol] Allergy Facial Verified 12/05/19 15:36 Swelling oxycodone HCl [From Percocet] Allergy Facial Verified 12/05/19 15:36 Swelling phenylephrine HCl Allergy Facial Verified 12/05/19 15:36 [From Entex LA] Swelling phenylpropanolamine HCl Allergy Facial Verified 12/05/19 15:36 [From Entex LA] Swelling propoxyphene napsylate Allergy Facial Verified 12/05/19 15:36 [From Darvocet-N] Swelling terfenadine [From Seldane] Allergy Facial Verified 12/05/19 15:36 Swelling Home Meds: Home Meds traZODone 50 mg PO BEDTIME 01/15/16 [History] Ascorbic Acid [Vitamin C] 500 mg PO DAILY 05/18/19 [History] Metoprolol Succinate [Toprol Xl] 50 mg PO DAILY 05/18/19 [History] Potassium Chloride 10 meq PO DAILY 05/18/19 [History] Rosuvastatin [Crestor] 10 mg PO DAILY 05/18/19 [History] Sucralfate [Carafate] 1 gm PO TID 05/18/19 [History] Venlafaxine [Effexor XR] 300 mg PO DAILY 05/18/19 [History] cloNIDine [Catapres] 0.1 mg PO BID 05/18/19 [History] Albuterol [Proventil Neb Soln] 1 inh INH ASDIRECTED 06/03/19 [History] Aspirin [Halfprin] 81 mg PO DAILY 06/03/19 [History] Cholecalciferol (Vitamin D3) [Vitamin D3] 1,000 intnl unit PO DAILY 06/03/19 [ History] Famotidine 20 mg PO DAILY 06/03/19 [History] Fluticasone/Vilanterol [Breo Ellipta 200-25 MCG Inhalation Kit] 1 inh INH ASDIRECTED 06/03/19 [History] Montelukast [Singulair] 10 mg PO BEDTIME 06/03/19 [History] traZODone HCl [Trazodone HCl] 25 mg PO DAILY #30 tablet 06/03/19 [Rx] LORazepam [Ativan] 1 mg PO Q8H PRN #12 tablet 12/05/19 [Rx] Past Medical History HEENT History: Reports: Impaired Vision Other HEENT History: wears eyeglasses. Cardiovascular History: Reports: High Cholesterol, Hypertension Respiratory History: Reports: Asthma, Sleep Apnea Gastrointestinal History: Reports: GERD Musculoskeletal History: Reports: Arthritis, Fracture Neurological History: Reports: Head Trauma, Other (See Below) Other Neuro History: 1992 Psychiatric History: Reports: Anxiety, Depression, Other (See Below) Endocrine/Metabolic History: Reports: Obesity/BMI 30+ Hematologic History: Reports: Other (See Below) Other Hematologic History: PKU - Infectious Disease History Infectious Disease History: Reports: Chicken Pox, Measles, Mumps - Past Surgical History HEENT Surgical History: Reports: Oral Surgery Female Surgical History: Reports: Tubal Ligation Neurological Surgical History: Reports: Lumbar Spine Musculoskeletal Surgical History: Reports: Arthroscopic Knee, ORIF, Shoulder Surgery Social & Family History - Family History Family Medical History: Noncontributory Cardiac: Reports: Heart Failure, [place] Neurological: Reports: CVA Endocrine/Metabolic: Reports: Diabetes, type II - Tobacco Use Smoking Status *Q: Current Some Day Smoker Years of Tobacco use: 5 Packs/Tins Daily: 0.5 - Caffeine Use Caffeine Use: Reports: Soda - Recreational Drug Use Recreational Drug Use: No - Living Situation & Occupation Living situation: Reports: , with Spouse Occupation: Unemployed ED ROS GENERAL - Review of Systems Review Of Systems: See Below Constitutional: Reports: No Symptoms HEENT: Reports: Other (Patient has slight swelling of the superior aspect of her mid forehead and little bit to the right side adjacent to the hairline with mild early bruising appearing. There is no significant hematoma. There are no open wounds or abrasions .) Respiratory: Reports: No Symptoms Cardiovascular: Reports: No Symptoms Endocrine: Reports: No Symptoms GI/Abdominal: Reports: No Symptoms : Reports: No Symptoms Musculoskeletal: Reports: No Symptoms Skin: Reports: No Symptoms Neurological: Reports: No Symptoms Psychiatric: Reports: No Symptoms Hematologic/Lymphatic: Reports: No Symptoms Immunologic: Reports: No Symptoms ED EXAM, BEHAVIORAL HEALTH - Physical Exam Exam: See Below Exam Limited By: No Limitations General Appearance: Alert, WD/WN, Mild Distress, Other (Vital signs are all normal other than a mildly elevated blood pressure 136/91.) Eye Exam: Bilateral Eye: Normal Inspection, Periorbital Changes Head: Other (She does have evidence of mild contusion to the midline into the right of the midline of her upper forehead adjacent to the hairline. There is slight bruising be becoming evident as well.) Neck: Normal Inspection ( No significant hematoma), Supple, Non-Tender, Full Range of Motion Respiratory/Chest: No Respiratory Distress, Lungs Clear, Normal Breath Sounds Cardiovascular: Normal Peripheral Pulses, Regular Rate, Rhythm, No Edema, No Gallop, No Murmur, No Rub COURSE, BEHAVIORAL HEALTH COMP - Course Vital Signs: Last Vital Signs Temp 36.1 C 12/05/19 20:32 Pulse 69 12/05/19 20:32 Resp 16 12/05/19 20:32 BP 136/91 H 12/05/19 20:32 Pulse Ox 98 12/05/19 20:32 Orders, Labs, Meds: Medications Discontinued Medications Generic Name Dose Route Start Last Admin Trade Name Rogelio PRN Reason Stop Dose Admin Lorazepam 1 mg 12/05/19 21:09 12/05/19 21:16 Ativan PO 12/05/19 21:10 1 mg ONETIME ONE Administration Re-Assessment/Re-Exam: Caio presents to the ED with compulsive thoughts of banging her head against the wall. This just started yesterday. She states she's done at about 6 times in the last 24 hours. She's done mostly out of sight from other people. Feels anger inside and frustration. Not admonish where this is coming from. She is frustrated with her . He is on trazodone 100 mg at bedtime to help sleep and is on Effexor for she believes 200 mg daily for depression. She has never had any obsessive-compulsive behaviors before. She doesn't have any other thoughts of hurting herself or suicidal ideation. I did speak with her at length and I really don't have much to offer. I'm going to give her Ativan 1 mg to be taken on a when necessary basis every 8 hours when she has these feelings. If the feelings persist then I advised her to follow-up with Dr. barth her psychiatrist. She in fact did speak with her earlier today by telemedicine but did not bring up the subject. She was advised if symptoms persist more than 7-10 days to give her psychiatrist to call. Departure - Departure Time of Disposition: 21:10 Disposition: Home, Self-Care 01 Condition: Fair Clinical Impression: Obsessive-compulsive behavior - Discharge Information *PRESCRIPTION DRUG MONITORING PROGRAM REVIEWED*: Not Applicable *COPY OF PRESCRIPTION DRUG MONITORING REPORT IN PATIENT TRISHA: Not Applicable Prescriptions: LORazepam [Ativan] 1 mg PO Q8H PRN #12 tablet PRN Reason: relief of anger Referrals: Alissa Thomas MD [Primary Care Provider] - Forms: ED Department Discharge Additional Instructions: Evaluation in the emergency room in regards to development of compulsion disorders in regards to feeling a strong need to bang her head against the wall. Out of a deep sense of frustration and inner anger. You're currently on trazodone 100 mg at bedtime to help sleep and also as an antidepressant. You are also on Effexor you believe 200 mg daily for depression. At this current time I would suggest trying Ativan 1 mg on an as-needed basis when you feel that intense urge to bang her head against the wall to try and get some relief. May take 1 every 8 hours as needed . However if compulsive symptoms continue longer than 10 days then you would need to return to the ED or consult your psychiatrist in regards to possible medication changes to bring this compulsive disorder under control. Of note he take one of these tablets she should not be driving a motor vehicle as it can cause you to be quite tired. You are given 1 tablet to the emergency room tonight to take when you get home. Sepsis Event Note - Evaluation Sepsis Screening Result: No Definite Risk - Focused Exam Vital Signs: Vital Signs Temp Pulse Resp BP Pulse Ox 12/05/19 20:32 36.1 C 69 16 136/91 H 98 Date Exam was Performed: 12/05/19 Time Exam was Performed: 22:24
[2019-12-05] MEDS ORDERED: LORazepam 1 MG Tab PO ONE (21:09)
== END 2019-12-05 21:21 | disposition home or self-care (01) ==
LOC: JD.ED 20:07
DX: R46.81 Obsessive-compulsive behavior (principal); S00.83XA Contusion of other part of head, initial encounter; I10 Essential (primary) hypertension; E78.00 Pure hypercholesterolemia, unspecified; J45.909 Unspecified asthma, uncomplicated; K21.9 Gastro-esophageal reflux disease without esophagitis; E66.9 Obesity, unspecified; Z68.41 Body mass index [BMI] 40.0-44.9, adult; Z79.899 Other long term (current) drug therapy; Z88.8 Allergy status to other drugs, medicaments and biological substances; Z91.040 Latex allergy status; Z88.6 Allergy status to analgesic agent; W22.8XXA Striking against or struck by other objects, initial encounter
CPT/HCPCS: 99284; A9270

== ENCOUNTER 2019-12-07 14:50 | Emergency (ER) | payer BC ==
[2019-12-07 15:07] VITALS: BP 139/87; PULSE 76
--- NOTE | 2019-12-07 16:20 | EDM.PDOCBH ---
ED HPI GENERAL MEDICAL PROBLEM - General Chief Complaint: Behavioral/Psych Stated Complaint: SUICIDAL Time Seen by Provider: 12/07/19 15:50 Source of Information: Reports: Patient History Limitations: Reports: No Limitations - History of Present Illness INITIAL COMMENTS - FREE TEXT/NARRATIVE: Patient is a 49-year-old female who presents with complaints of hitting her head against the wall. This is been going on since Wednesday. She reports that she hit her head against a wall 6 times on Wednesday and that she has done it once today. She is under increased stress and that she has a lot of rage and this helps her relieve the stress. Her dropped her off at the ER and she states she wants to be transferred to [facility] in [place]. Patient states prior to coming to the ER she saw stopped at her counselor Dr. Pro's office and that she told her to come to the ER. She has no history of obsessive-compulsive disorder. She does see Dr. Barth at [facility] the last time she saw her was on Wednesday. She did not mention these complaints to Dr. Schmidt. She also saw her primary care provider, Alissa Thomas, on Wednesday and did not mention this to her either. Patient was previously seen in our ER 2 days ago with the same complaint. She was sent home with Ativan to use as needed to help with her anxiety. She said she has not been using this because she does not like the way it makes her legs feel. She is not having any suicidal or homicidal thoughts. - Related Data Allergies Allergy/AdvReac Type Severity Reaction Status Date / Time guaifenesin [From Entex LA] Allergy Facial Verified 12/05/19 15:36 Swelling latex Allergy Hives Verified 12/05/19 15:36 meclizine Allergy Facial Verified 12/05/19 15:36 Swelling meperidine HCl [From Demerol] Allergy Facial Verified 12/05/19 15:36 Swelling oxycodone HCl [From Percocet] Allergy Facial Verified 12/05/19 15:36 Swelling phenylephrine HCl Allergy Facial Verified 12/05/19 15:36 [From Entex LA] Swelling phenylpropanolamine HCl Allergy Facial Verified 12/05/19 15:36 [From Entex LA] Swelling propoxyphene napsylate Allergy Facial Verified 12/05/19 15:36 [From Darvocet-N] Swelling terfenadine [From Seldane] Allergy Facial Verified 12/05/19 15:36 Swelling Home Meds: Home Meds traZODone 50 mg PO BEDTIME 01/15/16 [History] Ascorbic Acid [Vitamin C] 500 mg PO DAILY 05/18/19 [History] Metoprolol Succinate [Toprol Xl] 50 mg PO DAILY 05/18/19 [History] Potassium Chloride 10 meq PO DAILY 05/18/19 [History] Rosuvastatin [Crestor] 10 mg PO DAILY 05/18/19 [History] Sucralfate [Carafate] 1 gm PO TID 05/18/19 [History] Venlafaxine [Effexor XR] 300 mg PO DAILY 05/18/19 [History] cloNIDine [Catapres] 0.1 mg PO BID 05/18/19 [History] Albuterol [Proventil Neb Soln] 1 inh INH ASDIRECTED 06/03/19 [History] Aspirin [Halfprin] 81 mg PO DAILY 06/03/19 [History] Cholecalciferol (Vitamin D3) [Vitamin D3] 1,000 intnl unit PO DAILY 06/03/19 [ History] Famotidine 20 mg PO DAILY 06/03/19 [History] Fluticasone/Vilanterol [Breo Ellipta 200-25 MCG Inhalation Kit] 1 inh INH ASDIRECTED 06/03/19 [History] Montelukast [Singulair] 10 mg PO BEDTIME 06/03/19 [History] traZODone HCl [Trazodone HCl] 25 mg PO DAILY #30 tablet 06/03/19 [Rx] LORazepam [Ativan] 1 mg PO Q8H PRN #12 tablet 12/05/19 [Rx] Past Medical History HEENT History: Reports: Impaired Vision Other HEENT History: wears eyeglasses. Cardiovascular History: Reports: High Cholesterol, Hypertension Respiratory History: Reports: Asthma, Sleep Apnea Gastrointestinal History: Reports: GERD Musculoskeletal History: Reports: Arthritis, Fracture Neurological History: Reports: Head Trauma, Other (See Below) Other Neuro History: 1992 Psychiatric History: Reports: Anxiety, Depression, Other (See Below) Endocrine/Metabolic History: Reports: Obesity/BMI 30+ Hematologic History: Reports: Other (See Below) Other Hematologic History: PKU - Infectious Disease History Infectious Disease History: Reports: Chicken Pox, Measles, Mumps - Past Surgical History HEENT Surgical History: Reports: Oral Surgery Female Surgical History: Reports: Tubal Ligation Neurological Surgical History: Reports: Lumbar Spine Musculoskeletal Surgical History: Reports: Arthroscopic Knee, ORIF, Shoulder Surgery Social & Family History - Family History Family Medical History: Noncontributory Cardiac: Reports: Heart Failure, [place] Neurological: Reports: CVA Endocrine/Metabolic: Reports: Diabetes, type II - Tobacco Use Smoking Status *Q: Current Some Day Smoker Years of Tobacco use: 5 Packs/Tins Daily: 0.5 - Caffeine Use Caffeine Use: Reports: None - Recreational Drug Use Recreational Drug Use: No - Living Situation & Occupation Living situation: Reports: , with Spouse Occupation: Unemployed ED ROS GENERAL - Review of Systems Review Of Systems: See Below Constitutional: Reports: No Symptoms HEENT: Reports: No Symptoms Respiratory: Reports: No Symptoms Cardiovascular: Reports: No Symptoms Endocrine: Reports: No Symptoms GI/Abdominal: Reports: No Symptoms : Reports: No Symptoms Musculoskeletal: Reports: No Symptoms Skin: Reports: No Symptoms Neurological: Denies: Dizziness, Headache, Numbness, Tingling Psychiatric: Reports: Agitation, Anxiety. Denies: Confusion, Hallucinations, Homicidal Ideation, Suicidal Ideation Hematologic/Lymphatic: Reports: No Symptoms Immunologic: Reports: No Symptoms ED EXAM, BEHAVIORAL HEALTH - Physical Exam Exam: See Below Exam Limited By: No Limitations General Appearance: Alert, WD/WN, No Apparent Distress Head: Other (Abrasion to mid upper forehead) Respiratory/Chest: No Respiratory Distress, Lungs Clear, Normal Breath Sounds, No Accessory Muscle Use, Chest Non-Tender Cardiovascular: Normal Peripheral Pulses, Regular Rate, Rhythm, No Edema, No Gallop, No JVD, No Murmur, No Rub Neurological: Alert, Normal Mood/Affect, CN II-XII Intact, Normal Cognition, Normal Gait, Normal Reflexes, No Motor/Sensory Deficits, Oriented x 3 Psychiatric: Alert, Normal Affect, Normal Cognition, Normal Mood, Oriented. No : Depressed Mood, Flat Affect, Tearful, Agitated, Homicidal Thoughts, Suicidal Plan, Suicidal Thoughts Skin Exam: Warm, Dry, Intact, Normal color, No rash COURSE, BEHAVIORAL HEALTH COMP - Course Vital Signs: Last Vital Signs Temp 97.0 F 12/07/19 15:02 Pulse 76 12/07/19 15:02 Resp 16 12/07/19 15:02 BP 139/87 12/07/19 15:02 Pulse Ox 100 12/07/19 15:02 Re-Assessment/Re-Exam: After discussion with the patient, she is not suicidal or homicidal. She states that she hits her head against the wall because it makes her feel better. She wants to be transferred to [facility]. She does not have a ride states that the ambulance will take her. I discussed with her that the ambulance will not transport unless she is on a court ordered psychiatric hold which would not be appropriate at this time. I offered to call and speak with [facility] Human services. Called and spoke with Karol who advised me the patient would not be a candidate for the crisis bed at this time because she is not a harm to herself or others. Patient states that she plans to go to [place] and go to the ER. Advised I will call [facility] to see if they will accept her for a transfer but that she would have to go by private vehicle. Patient called her and he said that he will take her to [place]. I am waiting for callback from [facility] at this time. 12/07/[id number] Henderson at [facility]. She does not feel that the patient requires admission to a psychiatric facility at this time. She is not suicidal or homicidal. She also states that they have limited beds available in the bed they do have would not be for aggressive patients. I updated the patient of this. She was advised that if she chooses to go to [place], she would have to go through the ER and that it would be up to the providers discretion what they would do. She is aware that they do not have open psychiatric bed so is a definite possibility that she would be discharged to follow-up with her psychiatrist. Recommended that she follow-up with [facility] in the morning at their open intake. She states "[facility] a [facility] ". She would not wait for her discharge papers stated she had to get going because her was waiting. It is my impression that she is likely going to the [facility] ER in [place]. Departure - Departure Time of Disposition: 16:53 Disposition: Home, Self-Care 01 Condition: Fair Clinical Impression: Obsessive-compulsive behavior - Discharge Information *PRESCRIPTION DRUG MONITORING PROGRAM REVIEWED*: No *COPY OF PRESCRIPTION DRUG MONITORING REPORT IN PATIENT TRISHA: No Referrals: Alissa Thomas MD [Primary Care Provider] - Forms: ED Department Discharge Sepsis Event Note - Evaluation Sepsis Screening Result: No Definite Risk - Focused Exam Vital Signs: Vital Signs Temp Pulse Resp BP Pulse Ox 12/07/19 15:02 97.0 F 76 16 139/87 100 Date Exam was Performed: 12/07/19 Time Exam was Performed: 17:22
== END 2019-12-07 17:00 | disposition home or self-care (01) ==
LOC: JD.ED 14:50
DX: R46.81 Obsessive-compulsive behavior (principal); S00.81XA Abrasion of other part of head, initial encounter; E78.00 Pure hypercholesterolemia, unspecified; I10 Essential (primary) hypertension; F41.9 Anxiety disorder, unspecified; F32.9 Major depressive disorder, single episode, unspecified; J45.909 Unspecified asthma, uncomplicated; K21.9 Gastro-esophageal reflux disease without esophagitis; M19.90 Unspecified osteoarthritis, unspecified site; E66.9 Obesity, unspecified; Z68.41 Body mass index [BMI] 40.0-44.9, adult; Z88.8 Allergy status to other drugs, medicaments and biological substances; Z91.040 Latex allergy status; Z88.5 Allergy status to narcotic agent; Z79.899 Other long term (current) drug therapy; Z79.82 Long term (current) use of aspirin; W22.8XXA Striking against or struck by other objects, initial encounter
CPT/HCPCS: 99283

== ENCOUNTER 2019-12-29 14:43 | Emergency (ER) | payer BC ==
[2019-12-29 15:26] VITALS: BP 135/85; PULSE 63
--- NOTE | 2019-12-29 15:57 | EDM.PDOCBH ---
ED HPI GENERAL MEDICAL PROBLEM - General Chief Complaint: Behavioral/Psych Stated Complaint: HEARING VOICES AND BAD THOUGHTS Time Seen by Provider: 12/29/19 15:35 Source of Information: Reports: Patient History Limitations: Reports: No Limitations - History of Present Illness INITIAL COMMENTS - FREE TEXT/NARRATIVE: Patient is a 49-year-old female who presents to the ER today with complaints of hearing voices which are telling her to "do bad things ". When asked specifically what these voices are telling to do, she states that yesterday the voices were telling her to cut an "X" on her chest with a knife. Today she has had voices telling her to "do cutting "on her arms with these knives. She states that if she continues to hear these voices she feels that she will likely act on these thoughts. Patient was recently hospitalized at [facility] from 07 December through 19 December. She states she was started on Depakote during that hospitalization. Patient feels that she was discharged too soon and that she did not "get enough time in a group ". Patient states that she lost her privileges while she was hospitalized because she was banging her head against the wall. She states she only got 1 day of group and feels that she should have had at least 4. Patient psychiatrist is Dr. Barth at [facility]. States she had an appointment with her on Wednesday and that there were no changes made to her medications. Her next appointment with her is not until February. Patient states that she called her primary care provider , Alissa Thomas, prior to coming to the ER and was told that she "needs to go straight to the ER ". - Related Data Allergies Allergy/AdvReac Type Severity Reaction Status Date / Time guaifenesin [From Entex LA] Allergy Facial Verified 12/29/19 16:09 Swelling latex Allergy Hives Verified 12/29/19 16:09 meclizine Allergy Facial Verified 12/29/19 16:09 Swelling meperidine HCl [From Demerol] Allergy Facial Verified 12/29/19 16:09 Swelling oxycodone HCl [From Percocet] Allergy Facial Verified 12/29/19 16:09 Swelling phenylephrine HCl Allergy Facial Verified 12/29/19 16:09 [From Entex LA] Swelling phenylpropanolamine HCl Allergy Facial Verified 12/29/19 16:09 [From Entex LA] Swelling propoxyphene napsylate Allergy Facial Verified 12/29/19 16:09 [From Darvocet-N] Swelling terfenadine [From Seldane] Allergy Facial Verified 12/29/19 16:09 Swelling Home Meds: Home Meds traZODone 50 mg PO BEDTIME 01/15/16 [History] Ascorbic Acid [Vitamin C] 500 mg PO DAILY 05/18/19 [History] Metoprolol Succinate [Toprol Xl] 50 mg PO DAILY 05/18/19 [History] Potassium Chloride 10 meq PO DAILY 05/18/19 [History] Rosuvastatin [Crestor] 10 mg PO DAILY 05/18/19 [History] Sucralfate [Carafate] 1 gm PO TID 05/18/19 [History] Venlafaxine [Effexor XR] 300 mg PO DAILY 05/18/19 [History] cloNIDine [Catapres] 0.1 mg PO BID 05/18/19 [History] Albuterol [Proventil Neb Soln] 1 inh INH ASDIRECTED 06/03/19 [History] Aspirin [Halfprin] 81 mg PO DAILY 06/03/19 [History] Cholecalciferol (Vitamin D3) [Vitamin D3] 1,000 intnl unit PO DAILY 06/03/19 [ History] Famotidine 20 mg PO DAILY 06/03/19 [History] Fluticasone/Vilanterol [Breo Ellipta 200-25 MCG Inhalation Kit] 1 inh INH ASDIRECTED 06/03/19 [History] Montelukast [Singulair] 10 mg PO BEDTIME 06/03/19 [History] traZODone HCl [Trazodone HCl] 25 mg PO DAILY #30 tablet 06/03/19 [Rx] LORazepam [Ativan] 1 mg PO Q8H PRN #12 tablet 12/05/19 [Rx] Past Medical History HEENT History: Reports: Impaired Vision Other HEENT History: wears eyeglasses. Cardiovascular History: Reports: High Cholesterol, Hypertension Respiratory History: Reports: Asthma, Sleep Apnea Gastrointestinal History: Reports: GERD Musculoskeletal History: Reports: Arthritis, Fracture Neurological History: Reports: Head Trauma, Other (See Below) Other Neuro History: 1992 Psychiatric History: Reports: Anxiety, Depression, Other (See Below) Endocrine/Metabolic History: Reports: Obesity/BMI 30+ Hematologic History: Reports: Other (See Below) Other Hematologic History: PKU - Infectious Disease History Infectious Disease History: Reports: Chicken Pox, Measles, Mumps - Past Surgical History HEENT Surgical History: Reports: Oral Surgery Female Surgical History: Reports: Tubal Ligation Neurological Surgical History: Reports: Lumbar Spine Musculoskeletal Surgical History: Reports: Arthroscopic Knee, ORIF, Shoulder Surgery Social & Family History - Family History Family Medical History: Noncontributory Cardiac: Reports: Heart Failure, [place] Neurological: Reports: CVA Endocrine/Metabolic: Reports: Diabetes, type II - Tobacco Use Smoking Status *Q: Never Smoker - Caffeine Use Caffeine Use: Reports: None - Recreational Drug Use Recreational Drug Use: No - Living Situation & Occupation Living situation: Reports: , with Spouse Occupation: Unemployed ED ROS GENERAL - Review of Systems Review Of Systems: See Below Constitutional: Reports: No Symptoms HEENT: Reports: No Symptoms Respiratory: Reports: No Symptoms Cardiovascular: Reports: No Symptoms Endocrine: Reports: No Symptoms GI/Abdominal: Reports: No Symptoms : Reports: No Symptoms Musculoskeletal: Reports: No Symptoms Skin: Reports: No Symptoms Neurological: Reports: No Symptoms. Denies: Confusion, Dizziness, Headache, Trouble Speaking Psychiatric: Reports: Depression, Hallucinations (Auditory). Denies: Agitation , Confusion, Homicidal Ideation, Suicidal Ideation Hematologic/Lymphatic: Reports: No Symptoms Immunologic: Reports: No Symptoms ED EXAM, BEHAVIORAL HEALTH - Physical Exam Exam: See Below Exam Limited By: No Limitations General Appearance: Alert, WD/WN, No Apparent Distress Respiratory/Chest: No Respiratory Distress, Lungs Clear, Normal Breath Sounds, No Accessory Muscle Use, Chest Non-Tender Cardiovascular: Normal Peripheral Pulses, Regular Rate, Rhythm, No Edema, No Gallop, No JVD, No Murmur, No Rub Neurological: Alert, Normal Mood/Affect, CN II-XII Intact, Normal Cognition, Normal Gait, Normal Reflexes, No Motor/Sensory Deficits, Oriented x 3 Psychiatric: Alert, Normal Affect, Normal Cognition, Normal Mood, Oriented, Auditory Hallucinations. No: Depressed Mood, Flat Affect, Restless, Agitated, Homicidal Thoughts, Suicidal Plan, Suicidal Thoughts Skin Exam: Warm, Dry, Intact, Normal color, No rash COURSE, BEHAVIORAL HEALTH COMP - Course Vital Signs: Last Vital Signs Temp 97.6 F 12/29/19 15:23 Pulse 63 12/29/19 15:23 Resp 18 12/29/19 15:23 BP 135/85 12/29/19 15:23 Pulse Ox 98 12/29/19 15:23 Orders, Labs, Meds: Active Orders 24 hr Category Date Time Status EKG Documentation Completion [RC] STAT Care 12/29/19 15:50 Active Laboratory Tests 12/29/19 12/29/19 12/29/19 Range/Units 16:05 16:05 16:05 WBC 8.69 (3.98-10.04) K/mm3 RBC 4.12 (3.98-5.22) M/mm3 Hgb 12.9 (11.2-15.7) gm/dl Hct 39.4 (34.1-44.9) % MCV 95.6 H (79.4-94.8) fl MCH 31.3 (25.6-32.2) pg MCHC 32.7 (32.2-35.5) g/dl RDW Std Deviation 42.7 (36.4-46.3) fL Plt Count 238 (182-369) K/mm3 MPV 11.2 (9.4-12.3) fl Neutrophils % (Manual) 59 (40-60) % Band Neutrophils % 0 (0-10) % Lymphocytes % (Manual) 22 (20-40) % Atypical Lymphs % 4 % Monocytes % (Manual) 9 (2-10) % Eosinophils % (Manual) 4 (0.7-5.8) % Basophils % (Manual) 2 H (0.1-1.2) Platelet Estimate Adequate RBC Morph Comment Normal Sodium 143 (136-145) mEq/L Potassium 3.6 (3.5-5.1) mEq/L Chloride 109 H (98-107) mEq/L Carbon Dioxide 21 (21-32) mEq/L Anion Gap 16.6 H (5-15) BUN 9 (7-18) mg/dL Creatinine 0.8 (0.55-1.02) mg/dL Est Cr Clr Drug Dosing 82.72 mL/min Estimated GFR (MDRD) > 60 (>60) mL/min BUN/Creatinine Ratio 11.3 L (14-18) Glucose 97 (74-106) mg/dL Calcium 8.7 (8.5-10.1) mg/dL Total Bilirubin 0.2 (0.2-1.0) mg/dL AST 13 L (15-37) U/L ALT 33 (14-59) U/L Alkaline Phosphatase 69 (46-116) U/L Total Protein 6.8 (6.4-8.2) g/dl Albumin 3.5 (3.4-5.0) g/dl Globulin 3.3 gm/dL Albumin/Globulin Ratio 1.1 (1-2) TSH 3rd Generation 1.172 (0.358-3.74) uIU/mL Urine HCG, Qual (NEGATIVE) Salicylates 2.6 L (2.8-20) mg/dL Urine Opiates Screen (KGPVMM=654) Ur Buprenorphine Scrn (CUTOFF=10) Ur Oxycodone Screen (YHM3KK=606) Urine Methadone Screen (DIQTCH=469) Ur Propoxyphene Screen (YMMJXN=228) Acetaminophen 0 L (10-30) ug/mL Ur Barbiturates Screen (JBWCLT=588) Ur Tricyclics Screen (UGTSJZ=961) Ur Phencyclidine Scrn (CUTOFF=25) Ur Amphetamine Screen (FOFJQG=748) U Methamphetamines Scrn (VTYCUD=180) U Benzodiazepines Scrn (DGRSJY=070) U Cocaine Metab Screen (KTPUDF=994) U Marijuana (THC) Screen (CUTOFF=50) Ethyl Alcohol 0.00 (0.00) gm% 12/29/19 12/29/19 Range/Units 16:17 16:17 WBC (3.98-10.04) K/mm3 RBC (3.98-5.22) M/mm3 Hgb (11.2-15.7) gm/dl Hct (34.1-44.9) % MCV (79.4-94.8) fl MCH (25.6-32.2) pg MCHC (32.2-35.5) g/dl RDW Std Deviation (36.4-46.3) fL Plt Count (182-369) K/mm3 MPV (9.4-12.3) fl Neutrophils % (Manual) (40-60) % Band Neutrophils % (0-10) % Lymphocytes % (Manual) (20-40) % Atypical Lymphs % % Monocytes % (Manual) (2-10) % Eosinophils % (Manual) (0.7-5.8) % Basophils % (Manual) (0.1-1.2) Platelet Estimate RBC Morph Comment Sodium (136-145) mEq/L Potassium (3.5-5.1) mEq/L Chloride (98-107) mEq/L Carbon Dioxide (21-32) mEq/L Anion Gap (5-15) BUN (7-18) mg/dL Creatinine (0.55-1.02) mg/dL Est Cr Clr Drug Dosing mL/min Estimated GFR (MDRD) (>60) mL/min BUN/Creatinine Ratio (14-18) Glucose (74-106) mg/dL Calcium (8.5-10.1) mg/dL Total Bilirubin (0.2-1.0) mg/dL AST (15-37) U/L ALT (14-59) U/L Alkaline Phosphatase (46-116) U/L Total Protein (6.4-8.2) g/dl Albumin (3.4-5.0) g/dl Globulin gm/dL Albumin/Globulin Ratio (1-2) TSH 3rd Generation (0.358-3.74) uIU/mL Urine HCG, Qual Negative (NEGATIVE) Salicylates (2.8-20) mg/dL Urine Opiates Screen Negative (WSFNPT=415) Ur Buprenorphine Scrn Negative (CUTOFF=10) Ur Oxycodone Screen Negative (DPG2AD=100) Urine Methadone Screen Negative (NZCHRY=179) Ur Propoxyphene Screen Negative (PMXPHS=096) Acetaminophen (10-30) ug/mL Ur Barbiturates Screen Negative (FEYIJA=543) Ur Tricyclics Screen Negative (VLOXFY=383) Ur Phencyclidine Scrn Negative (CUTOFF=25) Ur Amphetamine Screen Negative (PKBPMZ=233) U Methamphetamines Scrn Negative (TXTGOC=019) U Benzodiazepines Scrn Negative (SBVFYO=937) U Cocaine Metab Screen Negative (ARCFGX=131) U Marijuana (THC) Screen Negative (CUTOFF=50) Ethyl Alcohol (0.00) gm% Re-Assessment/Re-Exam: Patient's hematology and EKG were grossly unremarkable. Drug screen was negative. I did call and speak with Dr. Kruse, the on-call psychiatrist at [facility]. After discussing the patient's situation and his review of her previous hospitalization, he feels that she is likely malingering and that admitting her for inpatient psychiatric hospitalization may actually be detrimental as opposed to beneficial for her. He recommended that she follow- up as an outpatient with Dr. Barth and her community based counselor. Discussed this with the patient. She requested that I speak with [facility] to discuss that she could go to the crisis bed for the weekend. I did call [facility] and spoke to the on-call [employer] worker helper. She verbalized that the patient is not appropriate for the crisis bed services as she has home support and numerous outpatient resources available to her. She also has a long history with [facility] and they do not feel she is appropriate for the crisis bed. They recommended that if she has any concerns over the weekend, she may call the crisis line which she does have access to. Discussed this with the patient. [facility] [place] [facility] see if they would be willing to admit her based on the voices she is hearing. Called and spoke with the on-call psychiatrist, Dr. Correa. He stated that Dr. Kruse is familiar with her history more so than he is and that if he feels she is not appropriate for admission to psychiatry, he would have to agree with him. He was not willing to accept the patient for admission. This was discussed with the patient. I did advise her that if her symptoms should worsen over the weekend she may call the [facility] emergency number, return to our emergency department, or if she has transportation she may also present to the [facility] ER if that is ultimately where she would like to be seen. Pt left the ER after this conversation, prior to her discharge being completed. Departure - Departure Time of Disposition: 18:35 Disposition: Home, Self-Care 01 Condition: Fair Clinical Impression: Hallucinations - Discharge Information Referrals: Alissa Thomas MD [Primary Care Provider] - Forms: ED Department Discharge Sepsis Event Note - Evaluation Sepsis Screening Result: No Definite Risk - Focused Exam Vital Signs: Vital Signs Temp Pulse Resp BP Pulse Ox 12/29/19 15:23 97.6 F 63 18 135/85 98 Date Exam was Performed: 12/29/19 Time Exam was Performed: 22:42 - My Orders Last 24 Hours: My Active Orders 12/29/19 15:50 EKG Documentation Completion [RC] STAT - Assessment/Plan Last 24 Hours: My Active Orders 12/29/19 15:50 EKG Documentation Completion [RC] STAT
[2019-12-29 16:55] LABS: ACETAMINOPHEN 0 ug/mL (10-30)
== END 2019-12-29 18:35 | disposition home or self-care (01) ==
LOC: JD.ED 14:43
DX: R44.3 Hallucinations, unspecified (principal); E78.00 Pure hypercholesterolemia, unspecified; I10 Essential (primary) hypertension; J45.909 Unspecified asthma, uncomplicated; K21.9 Gastro-esophageal reflux disease without esophagitis; F32.9 Major depressive disorder, single episode, unspecified; F41.9 Anxiety disorder, unspecified; E66.9 Obesity, unspecified; Z79.82 Long term (current) use of aspirin; Z88.8 Allergy status to other drugs, medicaments and biological substances; Z91.040 Latex allergy status; Z88.5 Allergy status to narcotic agent; Z79.899 Other long term (current) drug therapy
CPT/HCPCS: 36415; 80053; 80306; 80307; 81025; 84443; 85007; 85027; 93005; 99285-25

== ENCOUNTER 2020-01-01 14:32 | Emergency (ER) | payer BC ==
--- NOTE | 2020-01-01 18:30 | EDM.PDOCBH ---
ED HPI GENERAL MEDICAL PROBLEM - General Chief Complaint: Behavioral/Psych Stated Complaint: SUICIDAL IDEATIONS/VOICES Time Seen by Provider: 01/01/20 17:36 Source of Information: Reports: Patient History Limitations: Reports: No Limitations - History of Present Illness INITIAL COMMENTS - FREE TEXT/NARRATIVE: Patient is a 49-year-old female who presents with complaints of hearing voices that are telling her to harm herself. She was seen in this emergency department on December 28 with a similar complaint. A complete psychiatric work-up was completed at that time. Numerous phone calls were made to psychiatric facilities in [place] as well as [facility] and patient was declined admission to all of these facilities. Patient states that these are the same voices that she was hearing earlier in the weekend, however "they are worse ". Patient has had numerous psychiatric hospitalizations. The psychiatrist at [facility] in [place] who is familiar with the patient declined admission to the inpatient psychiatric as he feels that she is malingering and admitting her to the psychiatric borges would actually be detrimental as opposed to beneficial. Patient was advised to follow-up in the outpatient setting and to take use of the resources that are available to her. The patient refuses to work with [facility]. States "I do not like them "and that they "do not help her ". She denies having suicidal thoughts or a plan. States that the voices are telling her to cut herself so she used a butter knife to cut herself on her arm and chest. - Related Data Allergies Allergy/AdvReac Type Severity Reaction Status Date / Time guaifenesin [From Entex LA] Allergy Facial Verified 01/01/20 15:03 Swelling latex Allergy Hives Verified 01/01/20 15:03 meclizine Allergy Facial Verified 01/01/20 15:03 Swelling meperidine HCl [From Demerol] Allergy Facial Verified 01/01/20 15:03 Swelling oxycodone HCl [From Percocet] Allergy Facial Verified 01/01/20 15:03 Swelling phenylephrine HCl Allergy Facial Verified 01/01/20 15:03 [From Entex LA] Swelling phenylpropanolamine HCl Allergy Facial Verified 01/01/20 15:03 [From Entex LA] Swelling propoxyphene napsylate Allergy Facial Verified 01/01/20 15:03 [From Darvocet-N] Swelling terfenadine [From Seldane] Allergy Facial Verified 01/01/20 15:03 Swelling Home Meds: Home Meds traZODone 50 mg PO BEDTIME 01/15/16 [History] Ascorbic Acid [Vitamin C] 500 mg PO DAILY 05/18/19 [History] Metoprolol Succinate [Toprol Xl] 50 mg PO DAILY 05/18/19 [History] Potassium Chloride 10 meq PO DAILY 05/18/19 [History] Rosuvastatin [Crestor] 10 mg PO DAILY 05/18/19 [History] Sucralfate [Carafate] 1 gm PO TID 05/18/19 [History] Venlafaxine [Effexor XR] 300 mg PO DAILY 05/18/19 [History] cloNIDine [Catapres] 0.1 mg PO BID 05/18/19 [History] Albuterol [Proventil Neb Soln] 1 inh INH ASDIRECTED 06/03/19 [History] Aspirin [Halfprin] 81 mg PO DAILY 06/03/19 [History] Cholecalciferol (Vitamin D3) [Vitamin D3] 1,000 intnl unit PO DAILY 06/03/19 [ History] Famotidine 20 mg PO DAILY 06/03/19 [History] Fluticasone/Vilanterol [Breo Ellipta 200-25 MCG Inhalation Kit] 1 inh INH ASDIRECTED 06/03/19 [History] Montelukast [Singulair] 10 mg PO BEDTIME 06/03/19 [History] traZODone HCl [Trazodone HCl] 25 mg PO DAILY #30 tablet 06/03/19 [Rx] LORazepam [Ativan] 1 mg PO Q8H PRN #12 tablet 12/05/19 [Rx] Past Medical History HEENT History: Reports: Impaired Vision Other HEENT History: wears eyeglasses. Cardiovascular History: Reports: High Cholesterol, Hypertension Respiratory History: Reports: Asthma, Sleep Apnea Gastrointestinal History: Reports: GERD Musculoskeletal History: Reports: Arthritis, Fracture Neurological History: Reports: Head Trauma, Other (See Below) Other Neuro History: 1992 Psychiatric History: Reports: Anxiety, Depression, Other (See Below) Endocrine/Metabolic History: Reports: Obesity/BMI 30+ Hematologic History: Reports: Other (See Below) Other Hematologic History: PKU - Infectious Disease History Infectious Disease History: Reports: Chicken Pox, Measles, Mumps - Past Surgical History HEENT Surgical History: Reports: Oral Surgery Female Surgical History: Reports: Tubal Ligation Neurological Surgical History: Reports: Lumbar Spine Musculoskeletal Surgical History: Reports: Arthroscopic Knee, ORIF, Shoulder Surgery Social & Family History - Family History Family Medical History: Noncontributory Cardiac: Reports: Heart Failure, [place] Neurological: Reports: CVA Endocrine/Metabolic: Reports: Diabetes, type II - Tobacco Use Smoking Status *Q: Never Smoker Second Hand Smoke Exposure: No - Caffeine Use Caffeine Use: Reports: None - Recreational Drug Use Recreational Drug Use: No - Living Situation & Occupation Living situation: Reports: , with Spouse Occupation: Unemployed ED ROS GENERAL - Review of Systems Review Of Systems: Comprehensive ROS is negative, except as noted in HPI. Constitutional: Reports: No Symptoms HEENT: Reports: No Symptoms Respiratory: Reports: No Symptoms Cardiovascular: Reports: No Symptoms Endocrine: Reports: No Symptoms GI/Abdominal: Reports: No Symptoms : Reports: No Symptoms Musculoskeletal: Reports: No Symptoms Skin: Reports: No Symptoms Neurological: Reports: No Symptoms. Denies: Confusion, Dizziness, Headache Psychiatric: Reports: Hallucinations, Other (Thoughts of cutting herself or hitting her head against the wall.). Denies: Suicidal Ideation Hematologic/Lymphatic: Reports: No Symptoms Immunologic: Reports: No Symptoms ED EXAM, BEHAVIORAL HEALTH - Physical Exam Exam: See Below Exam Limited By: No Limitations General Appearance: Alert, WD/WN, No Apparent Distress Respiratory/Chest: No Respiratory Distress, Lungs Clear, Normal Breath Sounds, No Accessory Muscle Use, Chest Non-Tender Cardiovascular: Normal Peripheral Pulses, Regular Rate, Rhythm, No Edema, No Gallop, No JVD, No Murmur, No Rub Neurological: Alert, Normal Mood/Affect, CN II-XII Intact, Normal Cognition, Normal Gait, Normal Reflexes, No Motor/Sensory Deficits, Oriented x 3 Psychiatric: Alert, Normal Affect, Normal Cognition, Normal Mood, Oriented, Auditory Hallucinations, Threatening Behavior. No: Agitated, Suicidal Plan, Suicidal Thoughts Skin Exam: Warm, Dry, Normal color, No rash, Other (Superficial scratches to chest and upper abdomen.) COURSE, BEHAVIORAL HEALTH COMP - Course Vital Signs: Last Vital Signs Temp 98 F 01/01/20 15:01 Pulse 65 01/01/20 15:01 Resp 16 01/01/20 15:01 BP 135/90 01/01/20 15:01 Pulse Ox 100 01/01/20 15:01 Re-Assessment/Re-Exam: industrial workers, Celeste, was called and she visited with the patient. Celeste reports back that when she spoke with [facility], they had not accepted the patient for admission and are not at this time willing to accept her for admission. She also spoke with the [facility] on-call who feels she is not appropriate for the crisis bed, however they are willing to work with her on an outpatient patient basis. They did express that the patient has been refusing to take her medications that were prescribed by Ezekiel previously and is not attending groups as recommended. Celeste also tried to contact [facility] in [place] and [facility] in [facility], however they are full. She reports that the patient when she went to update the patient of the status, she stated that she was going to leave. Patient left the emergency department before the provider could return to the room. Departure - Departure Time of Disposition: 18:19 Disposition: El[facility] 07 Condition: Fair Clinical Impression: Auditory hallucinations - Discharge Information *PRESCRIPTION DRUG MONITORING PROGRAM REVIEWED*: No *COPY OF PRESCRIPTION DRUG MONITORING REPORT IN PATIENT TRISHA: No Referrals: Alissa Thomas MD [Primary Care Provider] - Forms: ED Department Discharge Sepsis Event Note - Evaluation Sepsis Screening Result: No Definite Risk - Focused Exam Vital Signs: Vital Signs Temp Pulse Resp BP Pulse Ox 01/01/20 15:01 98 F 65 16 135/90 100 Date Exam was Performed: 01/01/20 Time Exam was Performed: 20:11
== END 2020-01-01 18:15 | disposition left against medical advice (07) ==
LOC: JD.ED 14:32
CPT/HCPCS: 99283; 99284

== ENCOUNTER 2020-01-03 12:41 | Emergency (ER) | payer BC ==
[2020-01-03 13:30] VITALS: BP 126/83; PULSE 80
--- NOTE | 2020-01-03 14:56 | EDM.PDOCBH ---
ED HPI GENERAL MEDICAL PROBLEM - General Chief Complaint: Behavioral/Psych Stated Complaint: MENTAL EVALUATION Time Seen by Provider: 01/03/20 14:26 Source of Information: Reports: Patient, Old Records, RN Notes Reviewed History Limitations: Reports: No Limitations - History of Present Illness INITIAL COMMENTS - FREE TEXT/NARRATIVE: Patient is a 49-year-old female who presents to the ED for ongoing suicidal ideations. Patient has been having these for quite some time, and is well- known to this ER for-like complaints. She states that she is still hearing voices that are telling her to end her life or harm herself. She did actively try to do so today, and she states that she was cutting her abdomen and chest with a butter knife she states that her has taken away the sharper knives and she does not have access to these, this is why she was trying to do so with a butter knife. She is also hitting her head against the wall more frequently. She did call her therapist for evaluation of her complaints, and her therapist called the police to have her brought to the ER for a mental health evaluation. She was most recently seen in this ER a few days ago, and was thought to be malingering, and no psych facility wanted to admit her for placement. She most recently had an inpatient psychiatric admission in [facility] in [place] from December 07 to December 19. She believes that this was not long enough at that time. She has seen her psychiatrist between then, and her next appointment is not until February to see Dr. Barth. She states she is not sleeping well, but she is eating okay. She is not complaining of any other sick -like symptoms. Chest Pain Score (Numeric/FACES): 7 - Related Data Allergies Allergy/AdvReac Type Severity Reaction Status Date / Time guaifenesin [From Entex LA] Allergy Facial Verified 01/03/20 13:31 Swelling latex Allergy Hives Verified 01/03/20 13:31 meclizine Allergy Facial Verified 01/03/20 13:31 Swelling meperidine HCl [From Demerol] Allergy Facial Verified 01/03/20 13:31 Swelling oxycodone HCl [From Percocet] Allergy Facial Verified 01/03/20 13:31 Swelling phenylephrine HCl Allergy Facial Verified 01/03/20 13:31 [From Entex LA] Swelling phenylpropanolamine HCl Allergy Facial Verified 01/03/20 13:31 [From Entex LA] Swelling propoxyphene napsylate Allergy Facial Verified 01/03/20 13:31 [From Darvocet-N] Swelling terfenadine [From Seldane] Allergy Facial Verified 01/03/20 13:31 Swelling Home Meds: Home Meds traZODone 50 mg PO BEDTIME 01/15/16 [History] Metoprolol Succinate [Toprol Xl] 50 mg PO DAILY 05/18/19 [History] Potassium Chloride 10 meq PO DAILY 05/18/19 [History] Rosuvastatin [Crestor] 10 mg PO DAILY 05/18/19 [History] Sucralfate [Carafate] 1 gm PO TID 05/18/19 [History] Venlafaxine [Effexor XR] 300 mg PO DAILY 05/18/19 [History] cloNIDine [Catapres] 0.1 mg PO BID 05/18/19 [History] Albuterol [Proventil Neb Soln] 1 vial INH Q4H 06/03/19 [History] Aspirin [Halfprin] 81 mg PO DAILY 06/03/19 [History] Cholecalciferol (Vitamin D3) [Vitamin D3] 1,000 unit PO DAILY 06/03/19 [History] Montelukast [Singulair] 10 mg PO BEDTIME 06/03/19 [History] traZODone HCl [Trazodone HCl] 25 mg PO DAILY #30 tablet 06/03/19 [Rx] LORazepam [Ativan] 1 mg PO Q8H PRN #12 tablet 12/05/19 [Rx] Albuterol Sulfate [Proventil Hfa] 2 puff IH Q4H PRN 01/03/20 [History] Calcium Carbonate/Vitamin D3 [Calcium 500-Vit D3 200 Caplet] 1 tab PO BID [History] Divalproex Sodium [Depakote ER] 250 mg PO BEDTIME 01/03/20 [History] Pantoprazole Sodium [Protonix] 40 mg PO DAILY 01/03/20 [History] Past Medical History HEENT History: Reports: Impaired Vision Other HEENT History: wears eyeglasses. Cardiovascular History: Reports: High Cholesterol, Hypertension Respiratory History: Reports: Asthma, Sleep Apnea Gastrointestinal History: Reports: GERD Musculoskeletal History: Reports: Arthritis, Fracture Neurological History: Reports: Head Trauma, Other (See Below) Other Neuro History: 1992 Psychiatric History: Reports: Anxiety, Depression, Psych Hospitalization(s), Suicide Attempt, Suicidal Ideation Endocrine/Metabolic History: Reports: Obesity/BMI 30+ Hematologic History: Reports: Other (See Below) Other Hematologic History: PKU - Infectious Disease History Infectious Disease History: Reports: Chicken Pox, Measles, Mumps - Past Surgical History HEENT Surgical History: Reports: Oral Surgery Female Surgical History: Reports: Tubal Ligation Neurological Surgical History: Reports: Lumbar Spine Musculoskeletal Surgical History: Reports: Arthroscopic Knee, ORIF, Shoulder Surgery Social & Family History - Family History Family Medical History: Noncontributory Cardiac: Reports: Heart Failure, [place] Neurological: Reports: CVA Endocrine/Metabolic: Reports: Diabetes, type II - Tobacco Use Smoking Status *Q: Current Every Day Smoker Years of Tobacco use: 20 Packs/Tins Daily: 0.5 - Caffeine Use Caffeine Use: Reports: Coffee - Recreational Drug Use Recreational Drug Use: No - Living Situation & Occupation Living situation: Reports: , with Spouse Occupation: Unemployed ED ROS GENERAL - Review of Systems Review Of Systems: See Below Constitutional: Denies: Fever, Chills Respiratory: Denies: Shortness of Breath Cardiovascular: Denies: Chest Pain GI/Abdominal: Denies: Abdominal Pain, Constipation, Diarrhea, Nausea, Vomiting Skin: Reports: Erythema (multiple linear erythematous [place] on abdomen) Psychiatric: Reports: Suicidal Ideation (hearing voices that tell her to harm herself, tried cutting her abdomen/chest with butterknife.). Denies: Hallucinations, Homicidal Ideation ED EXAM, BEHAVIORAL HEALTH - Physical Exam Exam: See Below Exam Limited By: No Limitations General Appearance: Alert, WD/WN, No Apparent Distress Eye Exam: Bilateral Eye: EOMI, Normal Inspection, PERRL Ears: Normal External Exam Nose: Normal Inspection Throat/Mouth: Normal Inspection, Normal Lips, Normal Teeth, Normal Gums, Normal Oropharynx, Normal Voice, No Airway Compromise Head: Normocephalic, Other (scab on mid forehead near hairline, no bruising noted.) Respiratory/Chest: No Respiratory Distress, Lungs Clear, Normal Breath Sounds, No Accessory Muscle Use, Chest Non-Tender Cardiovascular: Normal Peripheral Pulses, Regular Rate, Rhythm, No Murmur GI/Abdominal: Normal Bowel Sounds, Soft, Non-Tender, No Distention, No Mass Extremities: Normal Inspection, Normal Capillary Refill Neurological: Alert, CN II-XII Intact (grossly) Psychiatric: Alert, Oriented, Depressed Mood, Flat Affect, Poor Eye Contact, Suicidal Thoughts (cutting abdomen/chest with butterknife), Auditory Hallucinations (hearing voices that are telling her to harm/kill herself). No: Homicidal Thoughts, Adventist Delusions, Threatening Behavior Skin Exam: Warm, Dry, Intact, Normal color, Erythema (several linear superficial erythematous to abdomen), Signs of self injury (superficial linear erythematous lines on abdomen, no active bleeding.) EKG INTERPRETATION EKG Date: 01/03/20 Time: 15:02 Rhythm: NSR Rate (Beats/Min): 62 Hitchcock: Normal P-Wave: Present QRS: Normal ST-T: Normal QT: Normal Comparison: NA - No Prior EKG EKG Interpretation Comments: No acute ischemic change noted. No QT prolongation noted. Reviewed by myself and Dr. Metz. COURSE, BEHAVIORAL HEALTH COMP - Course Vital Signs: Last Vital Signs Temp 97.3 F 01/03/20 13:28 Pulse 80 01/03/20 13:28 Resp 16 01/03/20 13:28 BP 126/83 01/03/20 13:28 Pulse Ox 97 01/03/20 13:28 Orders, Labs, Meds: Active Orders 24 hr Category Date Time Status EKG Documentation Completion [RC] STAT Care 01/03/20 14:47 Active Laboratory Tests 01/03/20 01/03/20 01/03/20 Range/Units 14:16 14:16 14:55 WBC 8.83 (3.98-10.04) K/mm3 RBC 4.09 (3.98-5.22) M/mm3 Hgb 12.8 (11.2-15.7) gm/dl Hct 38.9 (34.1-44.9) % MCV 95.1 H (79.4-94.8) fl MCH 31.3 (25.6-32.2) pg MCHC 32.9 (32.2-35.5) g/dl RDW Std Deviation 41.9 (36.4-46.3) fL Plt Count 227 (182-369) K/mm3 MPV 10.7 (9.4-12.3) fl Neutrophils % (Manual) 65 H (40-60) % Band Neutrophils % 0 (0-10) % Lymphocytes % (Manual) 25 (20-40) % Atypical Lymphs % 0 % Monocytes % (Manual) 6 (2-10) % Eosinophils % (Manual) 1 (0.7-5.8) % Basophils % (Manual) 3 H (0.1-1.2) Platelet Estimate Adequate Plt Morphology Comment Normal RBC Morph Comment Normal Sodium (136-145) mEq/L Potassium (3.5-5.1) mEq/L Chloride (98-107) mEq/L Carbon Dioxide (21-32) mEq/L Anion Gap (5-15) BUN (7-18) mg/dL Creatinine (0.55-1.02) mg/dL Est Cr Clr Drug Dosing Estimated GFR (MDRD) (>60) mL/min BUN/Creatinine Ratio (14-18) Glucose (74-106) mg/dL Calcium (8.5-10.1) mg/dL Total Bilirubin (0.2-1.0) mg/dL AST (15-37) U/L ALT (14-59) U/L Alkaline Phosphatase (46-116) U/L Total Protein (6.4-8.2) g/dl Albumin (3.4-5.0) g/dl Globulin gm/dL Albumin/Globulin Ratio (1-2) TSH 3rd Generation (0.358-3.74) uIU/mL Urine HCG, Qual Negative (NEGATIVE) Salicylates (2.8-20) mg/dL Urine Opiates Screen Negative (YMKSNP=247) Ur Buprenorphine Scrn Negative (CUTOFF=10) Ur Oxycodone Screen Negative (PQN0ZW=474) Urine Methadone Screen Negative (AWYVQY=086) Ur Propoxyphene Screen Negative (TMFOZB=153) Acetaminophen (10-30) ug/mL Ur Barbiturates Screen Negative (WYTJEE=028) Ur Tricyclics Screen Negative (KAVNFZ=674) Ur Phencyclidine Scrn Negative (CUTOFF=25) Ur Amphetamine Screen Negative (CLVXNP=206) U Methamphetamines Scrn Negative (ZVAXYH=828) U Benzodiazepines Scrn Negative (QPEIXI=189) U Cocaine Metab Screen Negative (INMJUL=163) U Marijuana (THC) Screen Negative (CUTOFF=50) Ethyl Alcohol (0.00) gm% 01/03/20 01/03/20 Range/Units 14:55 14:55 WBC (3.98-10.04) K/mm3 RBC (3.98-5.22) M/mm3 Hgb (11.2-15.7) gm/dl Hct (34.1-44.9) % MCV (79.4-94.8) fl MCH (25.6-32.2) pg MCHC (32.2-35.5) g/dl RDW Std Deviation (36.4-46.3) fL Plt Count (182-369) K/mm3 MPV (9.4-12.3) fl Neutrophils % (Manual) (40-60) % Band Neutrophils % (0-10) % Lymphocytes % (Manual) (20-40) % Atypical Lymphs % % Monocytes % (Manual) (2-10) % Eosinophils % (Manual) (0.7-5.8) % Basophils % (Manual) (0.1-1.2) Platelet Estimate Plt Morphology Comment RBC Morph Comment Sodium 141 (136-145) mEq/L Potassium 3.6 (3.5-5.1) mEq/L Chloride 108 H (98-107) mEq/L Carbon Dioxide 21 (21-32) mEq/L Anion Gap 15.6 H (5-15) BUN 10 (7-18) mg/dL Creatinine 0.9 (0.55-1.02) mg/dL Est Cr Clr Drug Dosing TNP Estimated GFR (MDRD) > 60 (>60) mL/min BUN/Creatinine Ratio 11.1 L (14-18) Glucose 107 H (74-106) mg/dL Calcium 8.7 (8.5-10.1) mg/dL Total Bilirubin 0.3 (0.2-1.0) mg/dL AST 13 L (15-37) U/L ALT 23 (14-59) U/L Alkaline Phosphatase 66 (46-116) U/L Total Protein 6.6 (6.4-8.2) g/dl Albumin 3.5 (3.4-5.0) g/dl Globulin 3.1 gm/dL Albumin/Globulin Ratio 1.1 (1-2) TSH 3rd Generation 1.069 (0.358-3.74) uIU/mL Urine HCG, Qual (NEGATIVE) Salicylates 2.9 (2.8-20) mg/dL Urine Opiates Screen (JAMFMD=459) Ur Buprenorphine Scrn (CUTOFF=10) Ur Oxycodone Screen (KDG1MA=946) Urine Methadone Screen (QSLTLO=224) Ur Propoxyphene Screen (EUPJJG=059) Acetaminophen 0 L (10-30) ug/mL Ur Barbiturates Screen (EJRMSN=219) Ur Tricyclics Screen (ZJMGOL=781) Ur Phencyclidine Scrn (CUTOFF=25) Ur Amphetamine Screen (WLXFBN=184) U Methamphetamines Scrn (RORHHB=845) U Benzodiazepines Scrn (OLNDAT=765) U Cocaine Metab Screen (ZBILZF=236) U Marijuana (THC) Screen (CUTOFF=50) Ethyl Alcohol 0.00 (0.00) gm% Discharge vs Psych Eval/Treatment:: 01/03/20 15:06 Patient presents to the ED for evaluation of her suicidal ideations and thoughts. She has been trying to harm her self with a butter knife, in an attempt to end her life. I will do labs to medically clear her at this time. I did receive paperwork on behalf of the patient from a mental health counselor. I will also be contacting Celeste, our social problems specialist road monkey for help with placement of this patient. We will try [facility] in [place] first as this is where the patient will ultimately like to go, and then possibly [place] if needed. Patient was tried to have placement at [facility] a few days ago, and they denied her as they thought she was malingering at this time. 01/03/20 15:48 Labs have started to result, and demonstrate no focal abnormalities. Urine drug screen is negative. TSH is still pending however this was normal a few days ago so I highly doubt that there is going to be any abnormalities. I have been in contact with [facility] in [place] for possible placement, they were wanting to review the commitment paperwork. Departure - Departure Time of Disposition: 16:22 Disposition: DC/Tfer to Acute Hospital 02 Condition: Fair Clinical Impression: Suicidal behavior with attempted self-injury - Discharge Information *PRESCRIPTION DRUG MONITORING PROGRAM REVIEWED*: No *COPY OF PRESCRIPTION DRUG MONITORING REPORT IN PATIENT TRISHA: No Referrals: Alissa Thomas MD [Primary Care Provider] - Forms: ED Department Discharge Sepsis Event Note - Evaluation Sepsis Screening Result: No Definite Risk - Focused Exam Vital Signs: Vital Signs Temp Pulse Resp BP Pulse Ox 01/03/20 13:28 97.3 F 80 16 126/83 97 Date Exam was Performed: 01/03/20 Time Exam was Performed: 16:22 - My Orders Last 24 Hours: My Active Orders 01/03/20 14:47 EKG Documentation Completion [RC] STAT - Assessment/Plan Last 24 Hours: My Active Orders 01/03/20 14:47 EKG Documentation Completion [RC] STAT
[2020-01-03 15:33] LABS: ACETAMINOPHEN 0 ug/mL (10-30)
[2020-01-03] MEDS ORDERED: Sucralfate 1 GM Tab PO ONE (17:01)
== END 2020-01-03 17:50 ==
LOC: JD.ED 12:41
DX: S31.119A Laceration without foreign body of abdominal wall, unspecified quadrant without penetration into peritoneal cavity, initial encounter (principal); S21.119A Laceration without foreign body of unspecified front wall of thorax without penetration into thoracic cavity, initial encounter; E78.00 Pure hypercholesterolemia, unspecified; I10 Essential (primary) hypertension; J45.909 Unspecified asthma, uncomplicated; K21.9 Gastro-esophageal reflux disease without esophagitis; F41.9 Anxiety disorder, unspecified; F32.9 Major depressive disorder, single episode, unspecified; E66.9 Obesity, unspecified; F17.210 Nicotine dependence, cigarettes, uncomplicated; Z91.040 Latex allergy status; Z88.8 Allergy status to other drugs, medicaments and biological substances; Z88.5 Allergy status to narcotic agent; Z79.899 Other long term (current) drug therapy; Z79.82 Long term (current) use of aspirin; X78.1XXA Intentional self-harm by knife, initial encounter
CPT/HCPCS: 36415; 80053; 80306; 80307; 81025; 84443; 85007; 85027; 93005; 99285; A9270; 93010; 99284

== ENCOUNTER 2020-02-19 13:59 | Emergency (ER) | payer BC ==
[2020-02-19 14:23] VITALS: BP 129/77; PULSE 89
--- NOTE | 2020-02-19 15:22 | EDM.PDOCBH ---
<MalissaJose Poonam - Last Filed: 02/19/20 17:54> ED HPI GENERAL MEDICAL PROBLEM - General Chief Complaint: Behavioral/Psych Stated Complaint: SUICIDAL IDEATIONS Time Seen by Provider: 02/19/20 15:22 - History of Present Illness INITIAL COMMENTS - FREE TEXT/NARRATIVE: 49-year-old female presents with mental health complaint. The patient has been cutting herself this started last night. She is not sure why she has been cutting herself she is hearing voices and does not understand the significance of this. She does not know if she wants to hurt her self or why she is cutting herself. Patient does not have a suicidal plan. Apparently the patient talked to Romina, her therapist at [facility] [place], who said she needs to come in here. Patient has no other complaints at this time. - Related Data Allergies Allergy/AdvReac Type Severity Reaction Status Date / Time guaifenesin [From Entex LA] Allergy Facial Verified 02/19/20 14:22 Swelling latex Allergy Hives Verified 02/19/20 14:22 meclizine Allergy Facial Verified 02/19/20 14:22 Swelling meperidine HCl [From Demerol] Allergy Facial Verified 02/19/20 14:22 Swelling oxycodone HCl [From Percocet] Allergy Facial Verified 02/19/20 14:22 Swelling phenylephrine HCl Allergy Facial Verified 02/19/20 14:22 [From Entex LA] Swelling phenylpropanolamine HCl Allergy Facial Verified 02/19/20 14:22 [From Entex LA] Swelling propoxyphene napsylate Allergy Facial Verified 02/19/20 14:22 [From Darvocet-N] Swelling terfenadine [From Seldane] Allergy Facial Verified 02/19/20 14:22 Swelling Home Meds: Home Meds traZODone 50 mg PO BEDTIME 01/15/16 [History] Metoprolol Succinate [Toprol Xl] 50 mg PO DAILY 05/18/19 [History] Potassium Chloride 10 meq PO DAILY 05/18/19 [History] Rosuvastatin [Crestor] 10 mg PO DAILY 05/18/19 [History] Sucralfate [Carafate] 1 gm PO TID 05/18/19 [History] Venlafaxine [Effexor XR] 300 mg PO DAILY 05/18/19 [History] cloNIDine [Catapres] 0.1 mg PO BID 05/18/19 [History] Albuterol [Proventil Neb Soln] 1 vial INH Q4H 06/03/19 [History] Aspirin [Halfprin] 81 mg PO DAILY 06/03/19 [History] Cholecalciferol (Vitamin D3) [Vitamin D3] 1,000 unit PO DAILY 06/03/19 [History] Montelukast [Singulair] 10 mg PO BEDTIME 06/03/19 [History] traZODone HCl [Trazodone HCl] 25 mg PO DAILY #30 tablet 06/03/19 [Rx] LORazepam [Ativan] 1 mg PO Q8H PRN #12 tablet 12/05/19 [Rx] Albuterol Sulfate [Proventil Hfa] 2 puff IH Q4H PRN 01/03/20 [History] Calcium Carbonate/Vitamin D3 [Calcium 500-Vit D3 200 Caplet] 1 tab PO BID [History] Divalproex Sodium [Depakote ER] 250 mg PO BEDTIME 01/03/20 [History] Pantoprazole Sodium [Protonix] 40 mg PO DAILY 01/03/20 [History] Past Medical History HEENT History: Reports: Impaired Vision Other HEENT History: wears eyeglasses. Cardiovascular History: Reports: High Cholesterol, Hypertension Respiratory History: Reports: Asthma, Sleep Apnea Gastrointestinal History: Reports: GERD Musculoskeletal History: Reports: Arthritis, Fracture Neurological History: Reports: Head Trauma, Other (See Below) Other Neuro History: 1992 Psychiatric History: Reports: Anxiety, Depression, Psych Hospitalization(s), Suicide Attempt, Suicidal Ideation Endocrine/Metabolic History: Reports: Obesity/BMI 30+ Hematologic History: Reports: Other (See Below) Other Hematologic History: PKU - Infectious Disease History Infectious Disease History: Reports: Chicken Pox, Measles, Mumps - Past Surgical History HEENT Surgical History: Reports: Oral Surgery Female Surgical History: Reports: Tubal Ligation Neurological Surgical History: Reports: Lumbar Spine Musculoskeletal Surgical History: Reports: Arthroscopic Knee, ORIF, Shoulder Surgery Social & Family History - Family History Family Medical History: Noncontributory Cardiac: Reports: Heart Failure, [place] Neurological: Reports: CVA Endocrine/Metabolic: Reports: Diabetes, type II - Tobacco Use Smoking Status *Q: Current Some Day Smoker Years of Tobacco use: 9 Packs/Tins Daily: 0.1 - Caffeine Use Caffeine Use: Reports: None - Recreational Drug Use Recreational Drug Use: No - Living Situation & Occupation Living situation: Reports: , with Spouse Occupation: Unemployed ED ROS GENERAL - Review of Systems Review Of Systems: See Below Constitutional: Reports: No Symptoms HEENT: Reports: No Symptoms Respiratory: Reports: No Symptoms Cardiovascular: Reports: No Symptoms Endocrine: Reports: No Symptoms GI/Abdominal: Reports: No Symptoms : Reports: No Symptoms Musculoskeletal: Reports: No Symptoms Skin: Reports: No Symptoms Neurological: Reports: No Symptoms Psychiatric: Reports: No Symptoms ED EXAM, BEHAVIORAL HEALTH - Physical Exam Exam: See Below Exam Limited By: No Limitations General Appearance: Alert, No Apparent Distress Eye Exam: Bilateral Eye: EOMI, Normal Inspection, PERRL Ears: Normal External Exam, Normal Canal, Hearing Grossly Normal, Normal TMs Nose: Normal Inspection, Normal Mucosa, No Blood Throat/Mouth: Normal Inspection, Normal Lips, Normal Gums, Normal Oropharynx, Normal Voice, No Airway Compromise, Other (She has some discoloration of the back of her tongue mostly white this does not appear to be thrush.) Head: Atraumatic, Normocephalic Neck: Normal Inspection, Supple, Non-Tender, Full Range of Motion. No: Lymphadenopathy (L), Lymphadenopathy (R) Respiratory/Chest: No Respiratory Distress, Lungs Clear, Normal Breath Sounds Cardiovascular: Regular Rate, Rhythm, No Edema, No Murmur GI/Abdominal: Normal Bowel Sounds, Soft, Non-Tender, Other (Answers cutting [place] very superficial multiple bilateral in the same locations) Back Exam: Normal Inspection. No: CVA Tenderness (L), CVA Tenderness (R) Extremities: Normal Inspection, Normal Range of Motion, Non-Tender COURSE, BEHAVIORAL HEALTH COMP - Course Vital Signs: Last Vital Signs Temp 97.6 F 02/19/20 14:19 Pulse 89 02/19/20 14:19 Resp 16 02/19/20 14:19 BP 129/77 02/19/20 14:19 Pulse Ox 96 02/19/20 14:19 Orders, Labs, Meds: Active Orders 24 hr Category Date Time Status CULTURE URINE [RM] Stat Lab 02/19/20 17:57 Received Laboratory Tests 02/19/20 02/19/20 02/19/20 Range/Units 16:27 16:27 17:57 WBC 10.14 H (3.98-10.04) K/mm3 RBC 4.30 (3.98-5.22) M/mm3 Hgb 13.6 (11.2-15.7) gm/dl Hct 41.6 (34.1-44.9) % MCV 96.7 H (79.4-94.8) fl MCH 31.6 (25.6-32.2) pg MCHC 32.7 (32.2-35.5) g/dl RDW Std Deviation 45.4 (36.4-46.3) fL Plt Count 256 (182-369) K/mm3 MPV 10.3 (9.4-12.3) fl Neut % (Auto) 67.1 (34.0-71.1) % Lymph % (Auto) 23.8 (19.3-51.7) % Thayer % (Auto) 6.2 (4.7-12.5) % Eos % (Auto) 2.2 (0.7-5.8) Baso % (Auto) 0.4 (0.1-1.2) % Neut # (Auto) 6.81 H (1.56-6.13) K/mm3 Lymph # (Auto) 2.41 (1.18-3.74) K/mm3 Thayer # (Auto) 0.63 H (0.24-0.36) K/mm3 Eos # (Auto) 0.22 (0.04-0.36) K/mm3 Baso # (Auto) 0.04 (0.01-0.08) K/mm3 Manual Slide Review Normal smear Sodium 141 (136-145) mEq/L Potassium 4.1 (3.5-5.1) mEq/L Chloride 105 (98-107) mEq/L Carbon Dioxide 27 (21-32) mEq/L Anion Gap 13.1 (5-15) BUN 8 (7-18) mg/dL Creatinine 0.8 (0.55-1.02) mg/dL Est Cr Clr Drug Dosing 82.72 mL/min Estimated GFR (MDRD) > 60 (>60) mL/min BUN/Creatinine Ratio 10.0 L (14-18) Glucose 89 (74-106) mg/dL Calcium 9.4 (8.5-10.1) mg/dL Total Bilirubin 0.5 (0.2-1.0) mg/dL AST 16 (15-37) U/L ALT 25 (14-59) U/L Alkaline Phosphatase 74 (46-116) U/L Total Protein 7.1 (6.4-8.2) g/dl Albumin 3.6 (3.4-5.0) g/dl Globulin 3.5 gm/dL Albumin/Globulin Ratio 1.0 (1-2) TSH 3rd Generation 0.813 (0.358-3.74) uIU/mL Urine Color Light yellow (Yellow) Urine Appearance Slt cloudy H (Clear) Urine pH 7.0 (5.0-8.0) Ur Specific [place] 1.025 (1.005-1.030) Urine Protein Negative (Negative) Urine Glucose (UA) Negative (Negative) Urine Ketones Negative (Negative) Urine Occult Blood Negative (Negative) Urine Nitrite Negative (Negative) Urine Bilirubin Negative (Negative) Urine Urobilinogen 0.2 (0.2-1.0) Ur Leukocyte Esterase 1+ H (Negative) Urine RBC 0-5 (0-5) /hpf Urine WBC 10-20 H (0-5) /hpf Ur Squamous Epith Cells 5-10 H (0-5) /hpf Urine Bacteria Many H (FEW) /hpf Urine Mucus Not seen (FEW) /hpf Urine Opiates Screen (KFVYQR=960) Ur Buprenorphine Scrn (CUTOFF=10) Ur Oxycodone Screen (DDM5DA=287) Urine Methadone Screen (XXUMUN=644) Ur Propoxyphene Screen (SESEAY=481) Ur Barbiturates Screen (VYGTCM=256) Ur Tricyclics Screen (HKHDUY=159) Ur Phencyclidine Scrn (CUTOFF=25) Ur Amphetamine Screen (MIFMHP=186) U Methamphetamines Scrn (CNYJKO=211) U Benzodiazepines Scrn (SXMCCB=870) U Cocaine Metab Screen (CPWJDS=778) U Marijuana (THC) Screen (CUTOFF=50) Ethyl Alcohol 0.00 (0.00) gm% 02/19/20 Range/Units 17:57 WBC (3.98-10.04) K/mm3 RBC (3.98-5.22) M/mm3 Hgb (11.2-15.7) gm/dl Hct (34.1-44.9) % MCV (79.4-94.8) fl MCH (25.6-32.2) pg MCHC (32.2-35.5) g/dl RDW Std Deviation (36.4-46.3) fL Plt Count (182-369) K/mm3 MPV (9.4-12.3) fl Neut % (Auto) (34.0-71.1) % Lymph % (Auto) (19.3-51.7) % Thayer % (Auto) (4.7-12.5) % Eos % (Auto) (0.7-5.8) Baso % (Auto) (0.1-1.2) % Neut # (Auto) (1.56-6.13) K/mm3 Lymph # (Auto) (1.18-3.74) K/mm3 [place]ayer # (Auto) (0.24-0.36) K/mm3 Eos # (Auto) (0.04-0.36) K/mm3 Baso # (Auto) (0.01-0.08) K/mm3 Manual Slide Review Sodium (136-145) mEq/L Potassium (3.5-5.1) mEq/L Chloride (98-107) mEq/L Carbon Dioxide (21-32) mEq/L Anion Gap (5-15) BUN (7-18) mg/dL Creatinine (0.55-1.02) mg/dL Est Cr Clr Drug Dosing mL/min Estimated GFR (MDRD) (>60) mL/min BUN/Creatinine Ratio (14-18) Glucose (74-106) mg/dL Calcium (8.5-10.1) mg/dL Total Bilirubin (0.2-1.0) mg/dL AST (15-37) U/L ALT (14-59) U/L Alkaline Phosphatase (46-116) U/L Total Protein (6.4-8.2) g/dl Albumin (3.4-5.0) g/dl Globulin gm/dL Albumin/Globulin Ratio (1-2) TSH 3rd Generation (0.358-3.74) uIU/mL Urine Color (Yellow) Urine Appearance (Clear) Urine pH (5.0-8.0) Ur Specific [place] (1.005-1.030) Urine Protein (Negative) Urine Glucose (UA) (Negative) Urine Ketones (Negative) Urine Occult Blood (Negative) Urine Nitrite (Negative) Urine Bilirubin (Negative) Urine Urobilinogen (0.2-1.0) Ur Leukocyte Esterase (Negative) Urine RBC (0-5) /hpf Urine WBC (0-5) /hpf Ur Squamous Epith Cells (0-5) /hpf Urine Bacteria (FEW) /hpf Urine Mucus (FEW) /hpf Urine Opiates Screen Negative (MOULGM=697) Ur Buprenorphine Scrn Negative (CUTOFF=10) Ur Oxycodone Screen Negative (ZHJ8MD=693) Urine Methadone Screen Negative (DGZYKE=282) Ur Propoxyphene Screen Negative (CEJCXL=281) Ur Barbiturates Screen Negative (SGMNXS=363) Ur Tricyclics Screen Negative (FOISDX=154) Ur Phencyclidine Scrn Presumptive positive H (CUTOFF=25) Ur Amphetamine Screen Negative (YHXGBT=789) U Methamphetamines Scrn Negative (LOONQR=692) U Benzodiazepines Scrn Negative (ZEUJZE=138) U Cocaine Metab Screen Negative (RMSYTM=573) U Marijuana (THC) Screen Negative (CUTOFF=50) Ethyl Alcohol (0.00) gm% Medical Clearance: 02/19/20 17:54 At this time I am still waiting for her urine and urine drug screen Departure - Departure Disposition: DC/Tfer to Acute Hospital 02 Clinical Impression: Suicidal ideation, Auditory hallucinations - Discharge Information Referrals: Alissa Thomas MD [Primary Care Provider] - Forms: ED Department Discharge Sepsis Event Note - Evaluation Sepsis Screening Result: No Definite Risk - Focused Exam Vital Signs: Vital Signs Temp Pulse Resp BP Pulse Ox 02/19/20 14:19 97.6 F 89 16 129/77 96 Date Exam was Performed: 02/19/20 Time Exam was Performed: 17:54 <Carrie Del Angel - Last Filed: 02/19/20 21:00> COURSE, BEHAVIORAL HEALTH COMP - Course Medical Clearance: 02/19/20 19:16 Called Ezekiel See on behalf of Dr. Leonardo and spoke with Dr. Key Ricardo. She accepted that patient for transfer as a direct admission to the psychiatric floor. Commitment paperwork completed and signed by Dr. Leonardo. We are awaiting a call back from [facility] regarding transport. 02/19/20 20:56 [facility] notified nursing staff that they will arrive to tranport patient at [id number]. one-call was updated on estimated departure time. Departure - Departure Time of Disposition: 19:16 Condition: Good Sepsis Event Note - Focused Exam Date Exam was Performed: 02/19/20 Time Exam was Performed: 20:58
== END 2020-02-19 22:15 ==
LOC: JD.ED 13:59
DX: R45.851 Suicidal ideations (principal); R44.0 Auditory hallucinations; I10 Essential (primary) hypertension; J45.909 Unspecified asthma, uncomplicated; K21.9 Gastro-esophageal reflux disease without esophagitis; F41.9 Anxiety disorder, unspecified; F32.9 Major depressive disorder, single episode, unspecified; E78.00 Pure hypercholesterolemia, unspecified; E66.9 Obesity, unspecified; F17.210 Nicotine dependence, cigarettes, uncomplicated; Z88.8 Allergy status to other drugs, medicaments and biological substances; Z91.040 Latex allergy status; Z88.5 Allergy status to narcotic agent; Z79.899 Other long term (current) drug therapy; Z79.82 Long term (current) use of aspirin; Z68.37 Body mass index [BMI] 37.0-37.9, adult
CPT/HCPCS: 36415; 80053; 80306; 80307; 81001; 84443; 85025; 87086; 99283; 99285

== ENCOUNTER 2020-03-11 15:16 | Emergency (ER) | payer BC ==
[2020-03-11] MEDS ORDERED: Sodium Chloride 0.9% 10 ML Syringe FLUSH PRN ×2 (15:52→16:55)
[2020-03-11 15:58] VITALS: BP 129/98; PULSE 80
--- NOTE | 2020-03-11 16:15 | EDM.PDOC ---
ED HPI GENERAL MEDICAL PROBLEM - General Chief Complaint: Cardiovascular Problem Stated Complaint: HIGH BLOOD PRESSURE Time Seen by Provider: 03/11/20 15:49 Source of Information: Reports: Patient History Limitations: Reports: No Limitations - History of Present Illness INITIAL COMMENTS - FREE TEXT/NARRATIVE: Patient is a 49-year-old female who presents to the ER with complaints of a high blood pressure, chest discomfort, shortness of breath. She states that she was at the dentist and they checked her blood pressure and it was found to be 215/107 with a wrist device. She reported to the triage nurse that she developed "a little bit "of chest discomfort in the waiting room, however she tells me that this discomfort was present at the dentist office. When asked to describe it, she states that it is "just a little bit "and points over the left mid chest. She denies any nausea, vomiting, or diaphoresis. Chest Pain Score (Numeric/FACES): 2 - Related Data Allergies Allergy/AdvReac Type Severity Reaction Status Date / Time guaifenesin [From Entex LA] Allergy Facial Verified 03/11/20 15:58 Swelling latex Allergy Hives Verified 03/11/20 15:58 meclizine Allergy Facial Verified 03/11/20 15:58 Swelling meperidine HCl [From Demerol] Allergy Facial Verified 03/11/20 15:58 Swelling oxycodone HCl [From Percocet] Allergy Facial Verified 03/11/20 15:58 Swelling phenylephrine HCl Allergy Facial Verified 03/11/20 15:58 [From Entex LA] Swelling phenylpropanolamine HCl Allergy Facial Verified 03/11/20 15:58 [From Entex LA] Swelling propoxyphene napsylate Allergy Facial Verified 03/11/20 15:58 [From Darvocet-N] Swelling terfenadine [From Seldane] Allergy Facial Verified 03/11/20 15:58 Swelling Home Meds: Home Meds traZODone 50 mg PO BEDTIME 01/15/16 [History] Metoprolol Succinate [Toprol Xl] 50 mg PO DAILY 05/18/19 [History] Potassium Chloride 10 meq PO DAILY 05/18/19 [History] Rosuvastatin [Crestor] 10 mg PO DAILY 05/18/19 [History] Sucralfate [Carafate] 1 gm PO TID 05/18/19 [History] Venlafaxine [Effexor XR] 300 mg PO DAILY 05/18/19 [History] cloNIDine [Catapres] 0.1 mg PO BID 05/18/19 [History] Albuterol [Proventil Neb Soln] 1 vial INH Q4H 06/03/19 [History] Aspirin [Halfprin] 81 mg PO DAILY 06/03/19 [History] Cholecalciferol (Vitamin D3) [Vitamin D3] 1,000 unit PO DAILY 06/03/19 [History] Montelukast [Singulair] 10 mg PO BEDTIME 06/03/19 [History] traZODone HCl [Trazodone HCl] 25 mg PO DAILY #30 tablet 06/03/19 [Rx] LORazepam [Ativan] 1 mg PO Q8H PRN #12 tablet 12/05/19 [Rx] Albuterol Sulfate [Proventil Hfa] 2 puff IH Q4H PRN 01/03/20 [History] Calcium Carbonate/Vitamin D3 [Calcium 500-Vit D3 200 Caplet] 1 tab PO BID [History] Divalproex Sodium [Depakote ER] 250 mg PO BEDTIME 01/03/20 [History] Pantoprazole Sodium [Protonix] 40 mg PO DAILY 01/03/20 [History] Rivaroxaban [Xarelto] 15 mg PO BID #41 tab 03/11/20 [Rx] Past Medical History HEENT History: Reports: Impaired Vision Other HEENT History: wears eyeglasses. Cardiovascular History: Reports: High Cholesterol, Hypertension Respiratory History: Reports: Asthma, Sleep Apnea Gastrointestinal History: Reports: GERD Musculoskeletal History: Reports: Arthritis, Fracture Neurological History: Reports: Head Trauma, Other (See Below) Other Neuro History: 1992 Psychiatric History: Reports: Anxiety, Depression, Psych Hospitalization(s), Suicide Attempt, Suicidal Ideation Endocrine/Metabolic History: Reports: Obesity/BMI 30+ Hematologic History: Reports: Other (See Below) Other Hematologic History: PKU - Infectious Disease History Infectious Disease History: Reports: Chicken Pox, Measles, Mumps - Past Surgical History HEENT Surgical History: Reports: Oral Surgery Female Surgical History: Reports: Tubal Ligation Neurological Surgical History: Reports: Lumbar Spine Musculoskeletal Surgical History: Reports: Arthroscopic Knee, ORIF, Shoulder Surgery Social & Family History - Family History Family Medical History: Noncontributory Cardiac: Reports: Heart Failure, [place] Neurological: Reports: CVA Endocrine/Metabolic: Reports: Diabetes, type II - Caffeine Use Caffeine Use: Reports: None - Living Situation & Occupation Living situation: Reports: , with Spouse Occupation: Unemployed ED ROS GENERAL - Review of Systems Review Of Systems: See Below Constitutional: Reports: No Symptoms. Denies: Fever, Chills HEENT: Reports: No Symptoms Respiratory: Reports: Shortness of Breath. Denies: Wheezing, Cough Cardiovascular: Reports: Chest Pain. Denies: Dyspnea on Exertion, Lightheadedness, Palpitations Endocrine: Reports: No Symptoms GI/Abdominal: Reports: No Symptoms. Denies: Abdominal Pain, Nausea, Vomiting : Reports: No Symptoms Musculoskeletal: Reports: No Symptoms Skin: Reports: No Symptoms Neurological: Reports: No Symptoms Psychiatric: Reports: No Symptoms Hematologic/Lymphatic: Reports: No Symptoms Immunologic: Reports: No Symptoms ED EXAM, GENERAL - Physical Exam Exam: See Below Exam Limited By: No Limitations General Appearance: Alert, WD/WN, No Apparent Distress Respiratory/Chest: No Respiratory Distress, Lungs Clear, Normal Breath Sounds, No Accessory Muscle Use, Chest Non-Tender Cardiovascular: Normal Peripheral Pulses, Regular Rate, Rhythm, No Edema, No Gallop, No JVD, No Murmur, No Rub GI/Abdominal: Normal Bowel Sounds, Soft, Non-Tender, No Organomegaly, No Distention, No Abnormal Bruit, No Mass Extremities: Other (Cast to the left wrist.) Neurological: Alert, Oriented, CN II-XII Intact, Normal Cognition, Normal Gait, Normal Reflexes, No Motor/Sensory Deficits Psychiatric: Normal Affect, Normal Mood Skin Exam: Warm, Dry, Intact, Normal Color, No Rash EKG INTERPRETATION EKG Date: 03/11/20 Time: 16:00 Rhythm: NSR Rate (Beats/Min): 71 [place]: Normal P-Wave: Present QRS: Normal ST-T: Normal QT: Normal Course - Vital Signs Last Recorded V/S: Last Vital Signs Temp 97.4 F 03/11/20 15:56 Pulse 80 03/11/20 15:56 Resp 16 03/11/20 15:56 BP 129/98 H 03/11/20 15:56 Pulse Ox 95 03/11/20 15:56 - Orders/Labs/Meds Orders: Active Orders 24 hr Category Date Time Status EKG Documentation Completion [RC] STAT Care 03/11/20 15:52 Active Peripheral IV Care [RC] . DIRECTED Care 03/11/20 15:52 Active Chest 2V [CR] Stat Exams 03/11/20 15:58 Taken Chest PE [Ang Chest] [CT] Stat Exams 03/11/20 16:48 Taken Peripheral IV Insertion Adult [OM.PC] Stat Oth 03/11/20 15:52 Ordered Labs: Laboratory Tests 03/11/20 03/11/20 03/11/20 Range/Units 16:00 16:00 16:00 WBC 8.40 (3.98-10.04) K/mm3 RBC 4.27 (3.98-5.22) M/mm3 Hgb 13.6 (11.2-15.7) gm/dl Hct 41.4 (34.1-44.9) % MCV 97.0 H (79.4-94.8) fl MCH 31.9 (25.6-32.2) pg MCHC 32.9 (32.2-35.5) g/dl RDW Std Deviation 43.7 (36.4-46.3) fL Plt Count 266 (182-369) K/mm3 MPV 9.8 (9.4-12.3) fl Neut % (Auto) 61.6 (34.0-71.1) % Lymph % (Auto) 27.6 (19.3-51.7) % [place] % (Auto) 7.4 (4.7-12.5) % Eos % (Auto) 2.9 (0.7-5.8) Baso % (Auto) 0.4 (0.1-1.2) % Neut # (Auto) 5.18 (1.56-6.13) K/mm3 Lymph # (Auto) 2.32 (1.18-3.74) K/mm3 [place] # (Auto) 0.62 H (0.24-0.36) K/mm3 Eos # (Auto) 0.24 (0.04-0.36) K/mm3 Baso # (Auto) 0.03 (0.01-0.08) K/mm3 Manual Slide Review Normal smear D-Dimer, Quantitative 3.67 H (0.19-0.50) mg/L Sodium 141 (136-145) mEq/L Potassium 4.2 (3.5-5.1) mEq/L Chloride 104 (98-107) mEq/L Carbon Dioxide 26 (21-32) mEq/L Anion Gap 15.2 H (5-15) BUN 8 (7-18) mg/dL Creatinine 0.8 (0.55-1.02) mg/dL Est Cr Clr Drug Dosing 82.72 mL/min Estimated GFR (MDRD) > 60 (>60) mL/min BUN/Creatinine Ratio 10.0 L (14-18) Glucose 83 (74-106) mg/dL Calcium 8.7 (8.5-10.1) mg/dL Total Bilirubin 0.4 (0.2-1.0) mg/dL AST 18 (15-37) U/L ALT 29 (14-59) U/L Alkaline Phosphatase 67 (46-116) U/L Troponin I < 0.017 (0.00-0.056) ng/mL Total Protein 7.1 (6.4-8.2) g/dl Albumin 3.7 (3.4-5.0) g/dl Globulin 3.4 gm/dL Albumin/Globulin Ratio 1.1 (1-2) 05/18/20 Range/Units 18:15 WBC (3.98-10.04) K/mm3 RBC (3.98-5.22) M/mm3 Hgb (11.2-15.7) gm/dl Hct (34.1-44.9) % MCV (79.4-94.8) fl MCH (25.6-32.2) pg MCHC (32.2-35.5) g/dl RDW Std Deviation (36.4-46.3) fL Plt Count (182-369) K/mm3 MPV (9.4-12.3) fl Neut % (Auto) (34.0-71.1) % Lymph % (Auto) (19.3-51.7) % [place] % (Auto) (4.7-12.5) % Eos % (Auto) (0.7-5.8) Baso % (Auto) (0.1-1.2) % Neut # (Auto) (1.56-6.13) K/mm3 Lymph # (Auto) (1.18-3.74) K/mm3 [place] # (Auto) (0.24-0.36) K/mm3 Eos # (Auto) (0.04-0.36) K/mm3 Baso # (Auto) (0.01-0.08) K/mm3 Manual Slide Review D-Dimer, Quantitative (0.19-0.50) mg/L Sodium (136-145) mEq/L Potassium (3.5-5.1) mEq/L Chloride (98-107) mEq/L Carbon Dioxide (21-32) mEq/L Anion Gap (5-15) BUN (7-18) mg/dL Creatinine (0.55-1.02) mg/dL Est Cr Clr Drug Dosing mL/min Estimated GFR (MDRD) (>60) mL/min BUN/Creatinine Ratio (14-18) Glucose (74-106) mg/dL Calcium (8.5-10.1) mg/dL Total Bilirubin (0.2-1.0) mg/dL AST (15-37) U/L ALT (14-59) U/L Alkaline Phosphatase (46-116) U/L Troponin I < 0.017 (0.00-0.056) ng/mL Total Protein (6.4-8.2) g/dl Albumin (3.4-5.0) g/dl Globulin gm/dL Albumin/Globulin Ratio (1-2) Meds: Medications Discontinued Medications Generic Name Dose Route Start Last Admin Trade Name Freq PRN Reason Stop Dose Admin Sodium Chloride 45 mls @ 40 mls/hr 03/11/20 17:00 03/11/20 17:20 Normal Saline IV 40 mls/hr ASDIRECTED HUBERT Administration Iopamidol 100 ml 03/11/20 16:55 03/11/20 17:20 Isovue-370 (76%) IVPUSH 03/11/20 16:56 100 ml ONETIME ONE Administration Rivaroxaban 15 mg 03/11/20 18:26 03/11/20 18:39 Xarelto PO 03/11/20 18:27 15 mg ONETIME ONE Administration Sodium Chloride 10 ml 03/11/20 15:52 03/11/20 17:51 Saline Flush FLUSH 10 ml ASDIRECTED PRN Administration Keep Vein Open Sodium Chloride 10 ml 03/11/20 16:55 03/11/20 17:20 Saline Flush FLUSH 10 ml ONETIME PRN Administration Keep Vein Open - Re-Assessments/Exams Free Text/Narrative Re-Assessment/Exam: 03/11/20 17:02 Hematology was significant for d-dimer elevated at 3.67 but was otherwise unremarkable. Patient denies any pain or swelling in her extremities. I have ordered a CT Angio of the chest to rule out PE. 03/11/20 18:27 CT angio was significant for at least 2 or 3 small pulmonary emboli noted within the lower lobe branches of the left pulmonary artery. There is no right ventricular strain noted. Patient has been oxygenating 95 to 98% on room air. She is not tachycardic. I will repeat a troponin and if this is normal, we will discharge her home with a prescription for Xarelto and to follow-up with primary care provider. 03/11/20 1851 Repeat troponin was negative. We will discharge her home with a prescription for 3-weeks of Xarelto and instructions to follow-up with her primary care provider for further management and prescription for daily medication. Discharge instructions as documented. Departure - Departure Time of Disposition: 18:51 Disposition: Home, Self-Care 01 Condition: Good Clinical Impression: Pulmonary embolus, left Prescriptions: Rivaroxaban [Xarelto] 15 mg PO BID #41 tab Instructions: Pulmonary Embolism Referrals: Alissa Thomas MD [Primary Care Provider] - Forms: ED Department Discharge Additional Instructions: You were seen in the emergency department today for an elevated blood pressure, as well as chest discomfort. While in the emergency department, your blood pressures were normal. Your work-up included blood work, an EKG, chest x-ray, and a CT angiogram of your chest. Your cardiac enzymes were found to be normal. The EKG of your heart was normal. Your cardiac enzymes were normal, indicating that you did not have a heart attack. Your chest CT did show 2-3 small blood clots in your left lower lung. This may be the cause of your chest discomfort. You have been started on Xarelto, which is a blood thinner. It is essential that you take this medication as prescribed. Recommend that you call tomorrow morning to set up a follow-up appointment with your primary care provider, Alissa Thomas. You received your first dose of Xarelto in the emergency department tonight. You will start taking it twice daily for 3 weeks tomorrow morning. After this time, you will need a separate prescription for a once daily dose that can be provided by your primary care provider. You should stop taking your daily aspirin while you are taking the Xarelto. If you should experience any worsening symptoms of chest pain or shortness of breath, please return to the emergency department. Sepsis Event Note - Evaluation Sepsis Screening Result: No Definite Risk - Focused Exam Vital Signs: Vital Signs Temp Pulse Resp BP Pulse Ox 03/11/20 15:56 97.4 F 80 16 129/98 H 95 Date Exam was Performed: 03/11/20 Time Exam was Performed: 20:57 - My Orders Last 24 Hours: My Active Orders 03/11/20 15:52 EKG Documentation Completion [RC] STAT Peripheral IV Care [RC] . DIRECTED Peripheral IV Insertion Adult [OM.PC] Stat 03/11/20 15:58 Chest 2V [CR] Stat 03/11/20 16:48 Chest PE [Ang Chest] [CT] Stat - Assessment/Plan Last 24 Hours: My Active Orders 03/11/20 15:52 EKG Documentation Completion [RC] STAT Peripheral IV Care [RC] . DIRECTED Peripheral IV Insertion Adult [OM.PC] Stat 03/11/20 15:58 Chest 2V [CR] Stat 03/11/20 16:48 Chest PE [Ang Chest] [CT] Stat
[2020-03-11] MEDS ORDERED: Iopamidol 755 MG/ML 50 ML Bottle IVPUSH ONE (16:55)
[2020-03-11] MEDS ORDERED: Iopamidol 755 Mg/ML 100 ML Bottle IVPUSH ONE (16:55)
[2020-03-11] MEDS ORDERED: Sodium Chloride 0.9% 45 ML IV SCH (17:00)
[2020-03-11] MEDS ORDERED: Rivaroxaban 15 MG Tab PO ONE (18:26)
--- NOTE | 2020-03-12 09:12 | CR ---
Chest: 2 views of the chest were obtained. Comparison: Prior chest x-ray of 06/11/19. Heart size and mediastinum are normal. Lungs are clear with no acute parenchymal change. Bony structures appear within normal limits. Impression: 1. Nothing acute is appreciated on 2 view chest x-ray. Diagnostic code #1 This report was dictated in MDT
--- NOTE | 2020-03-12 09:14 | CT ---
CT chest Technique: Multiple axial sections through the chest were obtained. Intravenous contrast was utilized. Pulmonary arteries are suboptimally opacified. Findings: 2 or 3 minimal filling defects within the left lower pulmonary artery are identified. Uncertain if this is artifact or due to minimal pulmonary emboli. No larger pulmonary emboli within the main or segmental branches are seen. Mediastinum and hilar regions are unremarkable. Aorta shows no aneurysm. No pericardial thickening is seen. Visualized upper abdominal structures are within normal limits. Small hiatal hernia is seen. Lung window settings were reviewed. Lungs show no acute parenchymal change. Bone window settings were reviewed which shows old bilateral rib fractures. Impression: 1. 2 or 3 small filling defects within the left lower pulmonary artery. Uncertain if this is artifact or due to minimal pulmonary emboli. Follow-up study could be considered in the a.m. to see if these persists or if study becomes negative. 2. Other findings believed to be incidental and nonacute as noted above. 3. Suboptimal study as noted above. Diagnostic code #3 This report was dictated in MDT I agree with preliminary report from jody, finalized on 03/11/20, 6:51 PM Central Daylight Time
== END 2020-03-11 19:09 | disposition home or self-care (01) ==
LOC: JD.ED 15:16
DX: I26.99 Other pulmonary embolism without acute cor pulmonale (principal); E78.00 Pure hypercholesterolemia, unspecified; I10 Essential (primary) hypertension; J45.909 Unspecified asthma, uncomplicated; K21.9 Gastro-esophageal reflux disease without esophagitis; F41.9 Anxiety disorder, unspecified; F32.9 Major depressive disorder, single episode, unspecified; M19.90 Unspecified osteoarthritis, unspecified site; E66.9 Obesity, unspecified; Z68.38 Body mass index [BMI] 38.0-38.9, adult; Z91.040 Latex allergy status; Z88.8 Allergy status to other drugs, medicaments and biological substances; Z88.5 Allergy status to narcotic agent; Z79.82 Long term (current) use of aspirin
CPT/HCPCS: 36415; 71046; 71275; 80053; 84484; 85025; 85379; 93005; 99285; A9270; J7050; Q9967; 93010; 99284

== ENCOUNTER 2020-03-14 09:10 | Emergency (ER) | payer BC ==
[2020-03-14 09:42] VITALS: BP 129/80; PULSE 96
--- NOTE | 2020-03-14 11:08 | EDM.PDOC ---
ED HPI GENERAL MEDICAL PROBLEM - General Chief Complaint: Respiratory Problem Stated Complaint: BLOODCLOT/STOMACH PAIN Time Seen by Provider: 03/14/20 09:53 Source of Information: Reports: Patient History Limitations: Reports: No Limitations - History of Present Illness INITIAL COMMENTS - FREE TEXT/NARRATIVE: The patient presents with left sided chest pain and shortness of breath. She was recently diagnosed with a PE. She is on xarelto. She has no fever, chills , or cough. She has no abdominal pain, nausea or vomiting. Onset: Gradual Duration: Day(s): Location: Reports: Chest Quality: Reports: Sharp Severity: Moderate Improves with: Reports: None Worsens with: Reports: None Associated Symptoms: Reports: Chest Pain, Shortness of Breath. Denies: Cough, Fever/Chills, Headaches, Nausea/Vomiting Left Chest Pain Score (Numeric/FACES): 5 - Related Data Allergies Allergy/AdvReac Type Severity Reaction Status Date / Time guaifenesin [From Entex LA] Allergy Facial Verified 03/14/20 09:42 Swelling latex Allergy Hives Verified 03/14/20 09:42 meclizine Allergy Facial Verified 03/14/20 09:42 Swelling meperidine HCl [From Demerol] Allergy Facial Verified 03/14/20 09:42 Swelling oxycodone HCl [From Percocet] Allergy Facial Verified 03/14/20 09:42 Swelling phenylephrine HCl Allergy Facial Verified 03/14/20 09:42 [From Entex LA] Swelling phenylpropanolamine HCl Allergy Facial Verified 03/14/20 09:42 [From Entex LA] Swelling propoxyphene napsylate Allergy Facial Verified 03/14/20 09:42 [From Darvocet-N] Swelling terfenadine [From Seldane] Allergy Facial Verified 03/14/20 09:42 Swelling Home Meds: Home Meds traZODone 50 mg PO BEDTIME 01/15/16 [History] Metoprolol Succinate [Toprol Xl] 50 mg PO DAILY 05/18/19 [History] Potassium Chloride 10 meq PO DAILY 05/18/19 [History] Rosuvastatin [Crestor] 10 mg PO DAILY 05/18/19 [History] Sucralfate [Carafate] 1 gm PO TID 05/18/19 [History] Venlafaxine [Effexor XR] 300 mg PO DAILY 05/18/19 [History] cloNIDine [Catapres] 0.1 mg PO BID 05/18/19 [History] Albuterol [Proventil Neb Soln] 1 vial INH Q4H 06/03/19 [History] Aspirin [Halfprin] 81 mg PO DAILY 06/03/19 [History] Cholecalciferol (Vitamin D3) [Vitamin D3] 1,000 unit PO DAILY 06/03/19 [History] Montelukast [Singulair] 10 mg PO BEDTIME 06/03/19 [History] traZODone HCl [Trazodone HCl] 25 mg PO DAILY #30 tablet 06/03/19 [Rx] LORazepam [Ativan] 1 mg PO Q8H PRN #12 tablet 12/05/19 [Rx] Albuterol Sulfate [Proventil Hfa] 2 puff IH Q4H PRN 01/03/20 [History] Calcium Carbonate/Vitamin D3 [Calcium 500-Vit D3 200 Caplet] 1 tab PO BID [History] Divalproex Sodium [Depakote ER] 250 mg PO BEDTIME 01/03/20 [History] Pantoprazole Sodium [Protonix] 40 mg PO DAILY 01/03/20 [History] Rivaroxaban [Xarelto] 15 mg PO BID #41 tab 03/11/20 [Rx] Hydrocodone/Acetaminophen [Hydrocodone-Acetamin 5-325 mg] 1 - 2 each PO Q6HR PRN #10 tablet 03/14/20 [Rx] Past Medical History HEENT History: Reports: Impaired Vision Other HEENT History: wears eyeglasses. Cardiovascular History: Reports: High Cholesterol, Hypertension Respiratory History: Reports: Asthma, PE, Sleep Apnea Gastrointestinal History: Reports: GERD Musculoskeletal History: Reports: Arthritis, Fracture Neurological History: Reports: Head Trauma, Other (See Below) Other Neuro History: 1992 Psychiatric History: Reports: Anxiety, Depression, Psych Hospitalization(s), Suicide Attempt, Suicidal Ideation Endocrine/Metabolic History: Reports: Obesity/BMI 30+ Hematologic History: Reports: Other (See Below) Other Hematologic History: PKU - Infectious Disease History Infectious Disease History: Reports: Chicken Pox, Measles, Mumps - Past Surgical History HEENT Surgical History: Reports: Oral Surgery Female Surgical History: Reports: Tubal Ligation Neurological Surgical History: Reports: Lumbar Spine Musculoskeletal Surgical History: Reports: Arthroscopic Knee, ORIF, Shoulder Surgery Social & Family History - Family History Family Medical History: Noncontributory Cardiac: Reports: Heart Failure, [place] Neurological: Reports: CVA Endocrine/Metabolic: Reports: Diabetes, type II - Tobacco Use Smoking Status *Q: Former Smoker Used Tobacco, but Quit: Yes Month/Year Tobacco Last Used: February 2020 - Caffeine Use Caffeine Use: Reports: None - Recreational Drug Use Recreational Drug Use: No - Living Situation & Occupation Living situation: Reports: , with Spouse Occupation: Unemployed ED ROS GENERAL - Review of Systems Review Of Systems: See Below Constitutional: Reports: No Symptoms HEENT: Reports: No Symptoms Respiratory: Reports: Shortness of Breath. Denies: Cough Cardiovascular: Reports: Chest Pain Endocrine: Reports: No Symptoms GI/Abdominal: Reports: No Symptoms : Reports: No Symptoms Musculoskeletal: Reports: No Symptoms ED EXAM, GENERAL - Physical Exam Exam: See Below Exam Limited By: No Limitations General Appearance: Alert, No Apparent Distress Ears: Normal External Exam Nose: Normal Inspection Head: Atraumatic, Normocephalic Neck: Normal Inspection Respiratory/Chest: No Respiratory Distress, Lungs Clear, Normal Breath Sounds Cardiovascular: Regular Rate, Rhythm, No Edema, No Murmur GI/Abdominal: Soft, Non-Tender, No Organomegaly, No Mass Back Exam: Normal Inspection Extremities: Normal Inspection Course - Vital Signs Last Recorded V/S: Last Vital Signs Temp 97.0 F 03/14/20 09:39 Pulse 96 03/14/20 09:39 Resp 18 03/14/20 09:39 BP 129/80 03/14/20 09:39 Pulse Ox 96 03/14/20 09:39 - Orders/Labs/Meds Orders: Active Orders 24 hr Category Date Time Status CXR [Chest 2V] [CR] Stat Exams 03/14/20 10:23 Taken - Re-Assessments/Exams Free Text/Narrative Re-Assessment/Exam: 03/14/20 11:06 I ordered a CXR and it looked good. I will discharge her home and give her a little something for pain. Departure - Departure Time of Disposition: 11:10 Disposition: Home, Self-Care 01 Condition: Good Clinical Impression: Pulmonary embolus, left Dyspnea Qualifiers: Dyspnea type: dyspnea on exertion Qualified Code(s): R06.00 - Dyspnea, unspecified - Discharge Information *PRESCRIPTION DRUG MONITORING PROGRAM REVIEWED*: Not Applicable *COPY OF PRESCRIPTION DRUG MONITORING REPORT IN PATIENT TRISHA: Not Applicable Prescriptions: Hydrocodone/Acetaminophen [Hydrocodone-Acetamin 5-325 mg] 1 - 2 each PO Q6HR PRN #10 tablet PRN Reason: Pain Referrals: Alissa Thomas MD [Primary Care Provider] - 1 Week Additional Instructions: Take your medication as prescribed. Take tylenol for the pain. If that does not help, try the hydrocodone. Please return if you are worse. Sepsis Event Note - Evaluation Sepsis Screening Result: No Definite Risk - Focused Exam Vital Signs: Vital Signs Temp Pulse Resp BP Pulse Ox 03/14/20 09:39 97.0 F 96 18 129/80 96 Date Exam was Performed: 03/14/20 Time Exam was Performed: 11:03 - My Orders Last 24 Hours: My Active Orders 03/14/20 10:23 CXR [Chest 2V] [CR] Stat - Assessment/Plan Last 24 Hours: My Active Orders 03/14/20 10:23 CXR [Chest 2V] [CR] Stat
--- NOTE | 2020-03-14 11:38 | CR ---
Chest: 2 views of the chest were obtained. Comparison: Prior chest CT study of 03/11/20 and chest x-ray also of 03/11/20. Heart size and mediastinum are normal. Lungs are clear with no acute parenchymal change. Bony structures are unremarkable. Impression: 1. Nothing acute is seen on 2 view chest x-ray. Diagnostic code #1 This report was dictated in MDT
== END 2020-03-14 11:30 | disposition home or self-care (01) ==
LOC: JD.ED 09:10
DX: I26.99 Other pulmonary embolism without acute cor pulmonale (principal); E78.00 Pure hypercholesterolemia, unspecified; I10 Essential (primary) hypertension; J45.909 Unspecified asthma, uncomplicated; K21.9 Gastro-esophageal reflux disease without esophagitis; E66.9 Obesity, unspecified; Z68.38 Body mass index [BMI] 38.0-38.9, adult; F41.9 Anxiety disorder, unspecified; F32.9 Major depressive disorder, single episode, unspecified; Z91.040 Latex allergy status; Z88.8 Allergy status to other drugs, medicaments and biological substances; Z88.5 Allergy status to narcotic agent; Z79.82 Long term (current) use of aspirin; Z79.899 Other long term (current) drug therapy; Z79.01 Long term (current) use of anticoagulants; M19.90 Unspecified osteoarthritis, unspecified site; Z87.891 Personal history of nicotine dependence; Z86.711 Personal history of pulmonary embolism
CPT/HCPCS: 71046; 71046-26; 99284-25

== ENCOUNTER 2020-04-29 16:40 | Emergency (ER) | payer BC ==
[2020-04-29 17:39] VITALS: BP 121/80; PULSE 81
--- NOTE | 2020-04-29 17:48 | EDM.PDOCBH ---
ED HPI GENERAL MEDICAL PROBLEM - General Chief Complaint: Behavioral/Psych Stated Complaint: SUICIDAL IDEATIONS Time Seen by Provider: 04/29/20 17:40 Source of Information: Reports: Patient History Limitations: Reports: No Limitations - History of Present Illness INITIAL COMMENTS - FREE TEXT/NARRATIVE: The patient is an unfortunate 49-year-old femaleWho presents the [facility] today with complaint of suicidal ideation. The patient reports that she having suicidal thoughts for the past 2 days she went to the [facility] today and spoke with a counselor there who put her on a safety plan and sent her home the patient reports that she wants to go to [facility] and that she is actively suicidal the patient reports that she attempted to cut herself with a knife and she has multiple linear abrasions to her abdomen she reports that if she goes home to her apartment that she feels like she will cut herself in another place. Has a history of suicide attempts in the past and reports that she has had suicide attempts where she is taken her pills in the past patient denies any pain at this time she is not having any auditory or visual hallucinations - Related Data Allergies Allergy/AdvReac Type Severity Reaction Status Date / Time guaifenesin [From Entex LA] Allergy Facial Verified 04/29/20 17:39 Swelling latex Allergy Hives Verified 04/29/20 17:39 meclizine Allergy Facial Verified 04/29/20 17:39 Swelling meperidine HCl [From Demerol] Allergy Facial Verified 04/29/20 17:39 Swelling oxycodone HCl [From Percocet] Allergy Facial Verified 04/29/20 17:39 Swelling phenylephrine HCl Allergy Facial Verified 04/29/20 17:39 [From Entex LA] Swelling phenylpropanolamine HCl Allergy Facial Verified 04/29/20 17:39 [From Entex LA] Swelling propoxyphene napsylate Allergy Facial Verified 04/29/20 17:39 [From Darvocet-N] Swelling terfenadine [From Seldane] Allergy Facial Verified 04/29/20 17:39 Swelling Home Meds: Home Meds traZODone 50 mg PO BEDTIME 01/15/16 [History] Metoprolol Succinate [Toprol Xl] 50 mg PO DAILY 05/18/19 [History] Potassium Chloride 10 meq PO DAILY 05/18/19 [History] Rosuvastatin [Crestor] 10 mg PO DAILY 05/18/19 [History] Sucralfate [Carafate] 1 gm PO TID 05/18/19 [History] Venlafaxine [Effexor XR] 300 mg PO DAILY 05/18/19 [History] cloNIDine [Catapres] 0.1 mg PO BID 05/18/19 [History] Albuterol [Proventil Neb Soln] 1 vial INH Q4H 06/03/19 [History] Aspirin [Halfprin] 81 mg PO DAILY 06/03/19 [History] Cholecalciferol (Vitamin D3) [Vitamin D3] 1,000 unit PO DAILY 06/03/19 [History] Montelukast [Singulair] 10 mg PO BEDTIME 06/03/19 [History] traZODone HCl [Trazodone HCl] 25 mg PO DAILY #30 tablet 06/03/19 [Rx] LORazepam [Ativan] 1 mg PO Q8H PRN #12 tablet 12/05/19 [Rx] Albuterol Sulfate [Proventil Hfa] 2 puff IH Q4H PRN 01/03/20 [History] Calcium Carbonate/Vitamin D3 [Calcium 500-Vit D3 200 Caplet] 1 tab PO BID 01/03/20 [History] Divalproex Sodium [Depakote ER] 250 mg PO BEDTIME 01/03/20 [History] Pantoprazole Sodium [Protonix] 40 mg PO DAILY 01/03/20 [History] Rivaroxaban [Xarelto] 15 mg PO BID #41 tab 03/11/20 [Rx] Hydrocodone/Acetaminophen [Hydrocodone-Acetamin 5-325 mg] 1 - 2 each PO Q6HR PRN #10 tablet 03/14/20 [Rx] Past Medical History HEENT History: Reports: Impaired Vision Other HEENT History: wears eyeglasses. Cardiovascular History: Reports: High Cholesterol, Hypertension Respiratory History: Reports: Asthma, PE, Sleep Apnea Gastrointestinal History: Reports: GERD Musculoskeletal History: Reports: Arthritis, Fracture Neurological History: Reports: Head Trauma, Other (See Below) Other Neuro History: 1992 Psychiatric History: Reports: Anxiety, Depression, Psych Hospitalization(s), Suicide Attempt, Suicidal Ideation Endocrine/Metabolic History: Reports: Obesity/BMI 30+ Hematologic History: Reports: Other (See Below) Other Hematologic History: PKU - Infectious Disease History Infectious Disease History: Reports: Chicken Pox, Measles, Mumps - Past Surgical History HEENT Surgical History: Reports: Oral Surgery Female Surgical History: Reports: Tubal Ligation Neurological Surgical History: Reports: Lumbar Spine Musculoskeletal Surgical History: Reports: Arthroscopic Knee, ORIF, Shoulder Surgery Social & Family History - Family History Family Medical History: Noncontributory Cardiac: Reports: Heart Failure, SD Neurological: Reports: CVA Endocrine/Metabolic: Reports: Diabetes, type II - Caffeine Use Caffeine Use: Reports: None - Living Situation & Occupation Living situation: Reports: , with Spouse Occupation: Unemployed ED ROS GENERAL - Review of Systems Review Of Systems: See Below Constitutional: Denies: Fever, Chills Psychiatric: Reports: Suicidal Ideation. Denies: Hallucinations, Homicidal Ideation, Mood Lability ED EXAM, BEHAVIORAL HEALTH - Physical Exam Exam: See Below Exam Limited By: No Limitations General Appearance: Alert, WD/WN, Obese Ears: Normal External Exam, Normal Canal, Hearing Grossly Normal, Normal TMs Nose: Normal Inspection, Normal Mucosa, No Blood Head: Atraumatic, Normocephalic Neck: Normal Inspection, Supple, Non-Tender, Full Range of Motion Respiratory/Chest: No Respiratory Distress, Lungs Clear, Normal Breath Sounds, No Accessory Muscle Use, Chest Non-Tender Cardiovascular: Normal Peripheral Pulses, Regular Rate, Rhythm, No Edema, No Gallop, No JVD, No Murmur, No Rub GI/Abdominal: Normal Bowel Sounds, Soft, Non-Tender, No Organomegaly, No Distention, No Abnormal Bruit, No Mass, Other (Has multiple superficial lateral lying linear abrasions across her upper abdomen) Back Exam: Normal Inspection, Full Range of Motion, NT Extremities: Normal Inspection, Normal Range of Motion, Non-Tender, Normal Capil amrik Refill, No Pedal Edema Neurological: Alert, Normal Mood/Affect, CN II-XII Intact, Normal Cognition, Normal Gait, Normal Reflexes, No Motor/Sensory Deficits, Oriented x 3 Psychiatric: Alert, Normal Cognition, Normal Mood, Oriented, Flat Affect, Suicidal Thoughts Skin Exam: Warm, Dry COURSE, BEHAVIORAL HEALTH COMP - Course Vital Signs: Last Vital Signs Temp 97.6 F 04/29/20 17:33 Pulse 81 04/29/20 17:33 Resp 16 04/29/20 17:33 BP 121/80 04/29/20 17:33 Pulse Ox 96 04/29/20 17:33 Orders, Labs, Meds: Active Orders 24 hr Category Date Time Status CULTURE URINE [RM] Stat Lab 04/29/20 17:55 Received Laboratory Tests 04/29/20 04/29/20 04/29/20 Range/Units 17:55 17:55 18:00 WBC 9.97 (3.98-10.04) K/mm3 RBC 4.58 (3.98-5.22) M/mm3 Hgb 14.6 (11.2-15.7) gm/dl Hct 43.9 (34.1-44.9) % MCV 95.9 H (79.4-94.8) fl MCH 31.9 (25.6-32.2) pg MCHC 33.3 (32.2-35.5) g/dl RDW Std Deviation 42.3 (36.4-46.3) fL Plt Count 289 (182-369) K/mm3 MPV 9.9 (9.4-12.3) fl Neut % (Auto) 60.5 (34.0-71.1) % Lymph % (Auto) 29.8 (19.3-51.7) % [place] % (Auto) 7.3 (4.7-12.5) % Eos % (Auto) 1.6 (0.7-5.8) Baso % (Auto) 0.5 (0.1-1.2) % Neut # (Auto) 6.03 (1.56-6.13) K/mm3 Lymph # (Auto) 2.97 (1.18-3.74) K/mm3 [place] # (Auto) 0.73 H (0.24-0.36) K/mm3 Eos # (Auto) 0.16 (0.04-0.36) K/mm3 Baso # (Auto) 0.05 (0.01-0.08) K/mm3 Sodium (136-145) mEq/L Potassium (3.5-5.1) mEq/L Chloride (98-107) mEq/L Carbon Dioxide (21-32) mEq/L Anion Gap (5-15) BUN (7-18) mg/dL Creatinine (0.55-1.02) mg/dL Est Cr Clr Drug Dosing Estimated GFR (MDRD) (>60) mL/min BUN/Creatinine Ratio (14-18) Glucose (74-106) mg/dL Calcium (8.5-10.1) mg/dL Total Bilirubin (0.2-1.0) mg/dL AST (15-37) U/L ALT (14-59) U/L Alkaline Phosphatase (46-116) U/L Total Protein (6.4-8.2) g/dl Albumin (3.4-5.0) g/dl Globulin gm/dL Albumin/Globulin Ratio (1-2) TSH 3rd Generation (0.358-3.74) uIU/mL HCG, Qual (NEGATIVE) Urine Color Light yellow (Yellow) Urine Appearance Clear (Clear) Urine pH 7.0 (5.0-8.0) Ur Specific [place] 1.015 (1.005-1.030) Urine Protein Negative (Negative) Urine Glucose (UA) Negative (Negative) Urine Ketones Negative (Negative) Urine Occult Blood Negative (Negative) Urine Nitrite Negative (Negative) Urine Bilirubin Negative (Negative) Urine Urobilinogen 0.2 (0.2-1.0) Ur Leukocyte Esterase 1+ H (Negative) Urine RBC Not seen (0-5) /hpf Urine WBC 5-10 H (0-5) /hpf Ur Squamous Epith Cells 0-5 (0-5) /hpf Urine Bacteria Few (FEW) /hpf Urine Mucus Not seen (FEW) /hpf Urine Yeast (Budding) Rare H (NOT SEEN) Salicylates (2.8-20) mg/dL Urine Opiates Screen Negative (VZPLRB=893) Ur Buprenorphine Scrn Negative (CUTOFF=10) Ur Oxycodone Screen Negative (JLJ1OQ=898) Urine Methadone Screen Negative (CXXZWT=622) Ur Propoxyphene Screen Negative (KXYCVH=157) Acetaminophen (10-30) ug/mL Ur Barbiturates Screen Negative (REOKKV=657) Ur Tricyclics Screen Negative (JWTVLU=694) Ur Phencyclidine Scrn Negative (CUTOFF=25) Ur Amphetamine Screen Negative (ZSRZYG=268) U Methamphetamines Scrn Negative (YGLSFD=928) U Benzodiazepines Scrn Negative (NRIUYH=322) U Cocaine Metab Screen Negative (WJHNPH=841) U Marijuana (THC) Screen Negative (CUTOFF=50) Ethyl Alcohol (0.00) gm% 04/29/20 04/29/20 04/29/20 Range/Units 18:00 18:00 18:00 WBC (3.98-10.04) K/mm3 RBC (3.98-5.22) M/mm3 Hgb (11.2-15.7) gm/dl Hct (34.1-44.9) % MCV (79.4-94.8) fl MCH (25.6-32.2) pg MCHC (32.2-35.5) g/dl RDW Std Deviation (36.4-46.3) fL Plt Count (182-369) K/mm3 MPV (9.4-12.3) fl Neut % (Auto) (34.0-71.1) % Lymph % (Auto) (19.3-51.7) % [place] % (Auto) (4.7-12.5) % Eos % (Auto) (0.7-5.8) Baso % (Auto) (0.1-1.2) % Neut # (Auto) (1.56-6.13) K/mm3 Lymph # (Auto) (1.18-3.74) K/mm3 [place] # (Auto) (0.24-0.36) K/mm3 Eos # (Auto) (0.04-0.36) K/mm3 Baso # (Auto) (0.01-0.08) K/mm3 Sodium 140 (136-145) mEq/L Potassium 4.1 (3.5-5.1) mEq/L Chloride 103 (98-107) mEq/L Carbon Dioxide 28 (21-32) mEq/L Anion Gap 13.1 (5-15) BUN 8 (7-18) mg/dL Creatinine 0.8 (0.55-1.02) mg/dL Est Cr Clr Drug Dosing TNP Estimated GFR (MDRD) > 60 (>60) mL/min BUN/Creatinine Ratio 10.0 L (14-18) Glucose 79 (74-106) mg/dL Calcium 9.0 (8.5-10.1) mg/dL Total Bilirubin 0.4 (0.2-1.0) mg/dL AST 22 (15-37) U/L ALT 37 (14-59) U/L Alkaline Phosphatase 69 (46-116) U/L Total Protein 7.6 (6.4-8.2) g/dl Albumin 3.8 (3.4-5.0) g/dl Globulin 3.8 gm/dL Albumin/Globulin Ratio 1.0 (1-2) TSH 3rd Generation 1.419 (0.358-3.74) uIU/mL HCG, Qual Negative (NEGATIVE) Urine Color (Yellow) Urine Appearance (Clear) Urine pH (5.0-8.0) Ur Specific [place] (1.005-1.030) Urine Protein (Negative) Urine Glucose (UA) (Negative) Urine Ketones (Negative) Urine Occult Blood (Negative) Urine Nitrite (Negative) Urine Bilirubin (Negative) Urine Urobilinogen (0.2-1.0) Ur Leukocyte Esterase (Negative) Urine RBC (0-5) /hpf Urine WBC (0-5) /hpf Ur Squamous Epith Cells (0-5) /hpf Urine Bacteria (FEW) /hpf Urine Mucus (FEW) /hpf Urine Yeast (Budding) (NOT SEEN) Salicylates 3.6 (2.8-20) mg/dL Urine Opiates Screen (DFVVDX=263) Ur Buprenorphine Scrn (CUTOFF=10) Ur Oxycodone Screen (CAO7TM=240) Urine Methadone Screen (CZICCL=077) Ur Propoxyphene Screen (XWNGOP=862) Acetaminophen 0 L (10-30) ug/mL Ur Barbiturates Screen (PMFTZL=414) Ur Tricyclics Screen (TVQGMG=036) Ur Phencyclidine Scrn (CUTOFF=25) Ur Amphetamine Screen (VYKTLS=952) U Methamphetamines Scrn (RNSIAN=766) U Benzodiazepines Scrn (CHTYSS=272) U Cocaine Metab Screen (AHHHQD=165) U Marijuana (THC) Screen (CUTOFF=50) Ethyl Alcohol 0.00 (0.00) gm% Re-Assessment/Re-Exam: The patient eloped and did not notify myself or nursing Departure - Departure Time of Disposition: 19:32 Disposition: Eloped 07 Clinical Impression: Depressive disorder - Discharge Information Referrals: Alissa Thomas MD [Primary Care Provider] - Forms: ED Department Discharge Sepsis Event Note (ED) - Evaluation Sepsis Screening Result: No Definite Risk - Focused Exam Vital Signs: Vital Signs Temp Pulse Resp BP Pulse Ox 04/29/20 17:33 97.6 F 81 16 121/80 96 - My Orders Last 24 Hours: My Active Orders 07/06/20 17:55 CULTURE URINE [RM] Stat - Assessment/Plan Last 24 Hours: My Active Orders 04/29/20 17:55 CULTURE URINE [] Stat
[2020-04-29 18:49] LABS: ACETAMINOPHEN 0 ug/mL (10-30)
== END 2020-04-29 19:30 | disposition left against medical advice (07) ==
LOC: JD.ED 16:40
DX: F32.9 Major depressive disorder, single episode, unspecified (principal); I10 Essential (primary) hypertension; E78.00 Pure hypercholesterolemia, unspecified; J45.909 Unspecified asthma, uncomplicated; K21.9 Gastro-esophageal reflux disease without esophagitis; M19.90 Unspecified osteoarthritis, unspecified site; F41.9 Anxiety disorder, unspecified; E66.9 Obesity, unspecified; Z88.8 Allergy status to other drugs, medicaments and biological substances; Z91.040 Latex allergy status; Z88.5 Allergy status to narcotic agent; Z79.82 Long term (current) use of aspirin; Z79.899 Other long term (current) drug therapy; Z79.01 Long term (current) use of anticoagulants
CPT/HCPCS: 36415; 80053; 80306; 80307; 81001; 84443; 84703; 85025; 87086; 99282; 99284

== ENCOUNTER 2020-05-01 17:54 | Emergency (ER) | payer BC ==
[2020-05-01 18:01] VITALS: BP 157/84; PULSE 82
[2020-05-01 19:36] LABS: ACETAMINOPHEN 0 ug/mL (10-30)
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
== END 2020-05-02 08:19 | disposition home or self-care (01) ==
LOC: JD.ED 17:54
DX: Z76.5 Malingerer [conscious simulation] (principal); Z20.828 Contact with and (suspected) exposure to other viral communicable diseases; F17.210 Nicotine dependence, cigarettes, uncomplicated; E66.9 Obesity, unspecified; K21.9 Gastro-esophageal reflux disease without esophagitis; E78.00 Pure hypercholesterolemia, unspecified; I10 Essential (primary) hypertension; J45.909 Unspecified asthma, uncomplicated; F41.9 Anxiety disorder, unspecified; F32.9 Major depressive disorder, single episode, unspecified; Z91.040 Latex allergy status; Z88.5 Allergy status to narcotic agent; Z88.8 Allergy status to other drugs, medicaments and biological substances; Z86.711 Personal history of pulmonary embolism; Z79.82 Long term (current) use of aspirin; Z68.37 Body mass index [BMI] 37.0-37.9, adult
CPT/HCPCS: 36415; 80053; 80306; 80307; 81001; 81025; 84443; 85025; 99282; 99285; U0002

== ENCOUNTER 2020-05-02 15:16 | Emergency (ER) | payer BC ==
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
[2020-05-02 18:03] LABS: ACETAMINOPHEN 0 ug/mL (10-30)
[2020-05-02] MEDS ORDERED: Acetaminophen 325 MG Tab PO ONE (18:52)
[2020-05-03 07:41] VITALS: BP 111/76; PULSE 69
[2020-05-03] MEDS ORDERED: Metoprolol Succinate 50 MG Tab.ER PO ONE (08:00)
[2020-05-03] MEDS ORDERED: Venlafaxine 75 MG Cap.ER PO ONE (08:00)
[2020-05-03] MEDS ORDERED: Rivaroxaban 10 MG Tab PO ONE (08:00)
== END 2020-05-03 13:45 ==
LOC: JD.ED 15:16
DX: R45.851 Suicidal ideations (principal); R44.0 Auditory hallucinations; I10 Essential (primary) hypertension; E78.00 Pure hypercholesterolemia, unspecified; J45.909 Unspecified asthma, uncomplicated; K21.9 Gastro-esophageal reflux disease without esophagitis; F41.9 Anxiety disorder, unspecified; F32.9 Major depressive disorder, single episode, unspecified; E66.9 Obesity, unspecified; Z68.37 Body mass index [BMI] 37.0-37.9, adult; F17.210 Nicotine dependence, cigarettes, uncomplicated; Z91.040 Latex allergy status; Z88.5 Allergy status to narcotic agent; Z88.8 Allergy status to other drugs, medicaments and biological substances; Z79.899 Other long term (current) drug therapy; Z79.82 Long term (current) use of aspirin
CPT/HCPCS: 36415; 80053; 80306; 80307; 81025; 84443; 85007; 85027; 93005; 99285; A9270; 93010

== ENCOUNTER 2020-07-07 12:31 | Emergency (ER) | payer BC ==
[2020-07-07] MEDS ORDERED: Sodium Chloride 0.9% 10 ML Syringe FLUSH PRN ×2 (12:38→13:56)
[2020-07-07 12:39] VITALS: BP 133/94
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
[2020-07-07] MEDS ORDERED: Iopamidol 755 Mg/ML 100 ML Bottle IVPUSH ONE (13:56)
[2020-07-07] MEDS ORDERED: Sodium Chloride 0.9% 100 ML IV SCH (14:00)
--- NOTE | 2020-07-07 14:26 | CT ---
CT chest Technique: Multiple axial sections through the chest were obtained. Intravenous contrast was utilized. Comparison: Prior chest x-ray performed earlier on the same day (1:14 PM) and prior chest CT study of 03/11/20. Limitations: Less than optimal opacification of the pulmonary arteries for evaluation of pulmonary embolism. Findings: No findings of pulmonary embolism within the main or segmental branches. Smaller subsegmental pulmonary emboli could be missed. Previous pulmonary emboli are not definitely appreciated on current study. Thoracic aorta shows no aneurysm or dissection. No pericardial thickening is seen. Mediastinum and hilar regions show no adenopathy. Visualized upper abdominal structures shows nothing acute. Hazy groundglass appearance is noted within both lungs. These findings can be seen with early viral pneumonia as well as hypoventilatory change possibly from patient body habitus. Impression: 1. Less than optimal pulmonary artery opacification. No findings of pulmonary embolism within the main or segmental branches. Smaller subsegmental pulmonary emboli could be missed. 2. Previous pulmonary emboli not seen on current study. 3. Hazy groundglass appearance within both lungs. Please see above for further discussion. Diagnostic code #3 This report was dictated in MDT
[2020-07-07] MEDS ORDERED: Rivaroxaban 10 MG Tab PO ONE (14:43)
[2020-07-07 15:23] VITALS: PULSE 70
--- NOTE | 2020-07-07 19:53 | CR ---
Chest: 2 views of the chest were obtained. Comparison: Prior chest x-ray of 03/14/20. Heart size at the upper limits of normal. Upper mediastinum is normal. Lungs are clear with no acute parenchymal change. Bony structures appear within normal limits for the patient's age. Impression: 1. Heart size at the upper limits of normal. 2. Nothing acute is appreciated on 2 view chest x-ray. Diagnostic code #2 This report was dictated in MDT
== END 2020-07-07 15:23 | disposition home or self-care (01) ==
LOC: JD.ED 12:31
DX: R07.9 Chest pain, unspecified (principal); R79.1 Abnormal coagulation profile; E78.00 Pure hypercholesterolemia, unspecified; I10 Essential (primary) hypertension; J45.909 Unspecified asthma, uncomplicated; K21.9 Gastro-esophageal reflux disease without esophagitis; M19.90 Unspecified osteoarthritis, unspecified site; E66.9 Obesity, unspecified; F17.210 Nicotine dependence, cigarettes, uncomplicated; Z68.38 Body mass index [BMI] 38.0-38.9, adult; Z88.8 Allergy status to other drugs, medicaments and biological substances; Z91.040 Latex allergy status; Z88.5 Allergy status to narcotic agent; Z79.82 Long term (current) use of aspirin; Z79.899 Other long term (current) drug therapy; Z86.711 Personal history of pulmonary embolism; Z79.01 Long term (current) use of anticoagulants
CPT/HCPCS: 36415; 71046; 71275; 80053; 83735; 83880; 84484; 85025; 85379; 85610; 85730; 93005; 96360; 99285; A9270; J7050; Q9967; 93010; 99284

== ENCOUNTER 2020-08-15 13:10 | Emergency (ER) | payer BC ==
[2020-08-15 14:35] LABS: ACETAMINOPHEN 0 ug/mL (10-30)
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
[2020-08-15 18:21] VITALS: BP 121/76; PULSE 78
== END 2020-08-15 18:15 | disposition home or self-care (01) ==
LOC: JD.ED 13:10
DX: F32.9 Major depressive disorder, single episode, unspecified (principal); E78.00 Pure hypercholesterolemia, unspecified; I10 Essential (primary) hypertension; J45.909 Unspecified asthma, uncomplicated; K21.9 Gastro-esophageal reflux disease without esophagitis; M19.90 Unspecified osteoarthritis, unspecified site; F41.9 Anxiety disorder, unspecified; E66.9 Obesity, unspecified; Z88.8 Allergy status to other drugs, medicaments and biological substances; Z91.040 Latex allergy status; Z88.5 Allergy status to narcotic agent; Z79.82 Long term (current) use of aspirin; Z86.718 Personal history of other venous thrombosis and embolism
CPT/HCPCS: 36415; 80053; 80306; 80307; 84443; 85025; 99283; 99285

== ENCOUNTER 2020-08-20 15:08 | Emergency (ER) | payer BC ==
[2020-08-20 15:17] VITALS: BP 150/87; PULSE 89
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
[2020-08-20] MEDS ORDERED: Acetaminophen 325 MG Tab PO ONE (17:37)
== END 2020-08-20 19:37 | disposition home or self-care (01) ==
LOC: JD.ED 15:08
DX: F31.32 Bipolar disorder, current episode depressed, moderate (principal); E78.00 Pure hypercholesterolemia, unspecified; I10 Essential (primary) hypertension; J45.909 Unspecified asthma, uncomplicated; K21.9 Gastro-esophageal reflux disease without esophagitis; M19.90 Unspecified osteoarthritis, unspecified site; F41.9 Anxiety disorder, unspecified; E66.9 Obesity, unspecified; F17.210 Nicotine dependence, cigarettes, uncomplicated; Z20.828 Contact with and (suspected) exposure to other viral communicable diseases; Z88.8 Allergy status to other drugs, medicaments and biological substances; Z91.040 Latex allergy status; Z88.5 Allergy status to narcotic agent; Z79.82 Long term (current) use of aspirin; Z79.899 Other long term (current) drug therapy; Z79.01 Long term (current) use of anticoagulants; Z86.711 Personal history of pulmonary embolism
CPT/HCPCS: 36415; 80053; 80306; 80307; 81001; 85025; 86140; 87086; 87635; 99285; A9270; 87088; 87181; 87184; 99284; U0002

== ENCOUNTER 2020-10-15 13:54 | Emergency (ER) | payer BC ==
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
--- NOTE | 2020-10-15 15:00 | CR ---
Chest: Portable view of the chest was obtained. Comparison: Prior chest x-ray of 07/07/20. Findings: Heart size and mediastinum are within normal limits for portable technique. Lungs appear to be clear with no acute parenchymal change. Bony structures show nothing acute. Impression: 1. Nothing acute is appreciated on portable chest x-ray. Diagnostic code #1
[2020-10-15 16:40] VITALS: BP 102/80; PULSE 72
== END 2020-10-15 16:24 | disposition home or self-care (01) ==
LOC: JD.ED 13:54
DX: R07.89 Other chest pain (principal); E78.00 Pure hypercholesterolemia, unspecified; I10 Essential (primary) hypertension; J45.909 Unspecified asthma, uncomplicated; F41.9 Anxiety disorder, unspecified; F32.9 Major depressive disorder, single episode, unspecified; K21.9 Gastro-esophageal reflux disease without esophagitis; E66.9 Obesity, unspecified; Z68.37 Body mass index [BMI] 37.0-37.9, adult; Z88.8 Allergy status to other drugs, medicaments and biological substances; Z91.040 Latex allergy status; Z88.5 Allergy status to narcotic agent; Z79.899 Other long term (current) drug therapy; Z86.711 Personal history of pulmonary embolism; Z79.01 Long term (current) use of anticoagulants; F17.210 Nicotine dependence, cigarettes, uncomplicated
CPT/HCPCS: 36415; 71045; 71045-26; 80053; 84484; 85025; 93005; 99285-25

== ENCOUNTER 2020-10-29 14:42 | Emergency (ER) | payer BC ==
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
[2020-10-29 15:33] VITALS: BP 136/101; PULSE 78
[2020-10-29 16:50] LABS: ACETAMINOPHEN 0 ug/mL (10-30)
== END 2020-10-29 17:30 | disposition home or self-care (01) ==
LOC: JD.ED 14:42
DX: S30.811A Abrasion of abdominal wall, initial encounter (principal); S60.519A Abrasion of unspecified hand, initial encounter; E78.00 Pure hypercholesterolemia, unspecified; I10 Essential (primary) hypertension; J45.909 Unspecified asthma, uncomplicated; Z86.711 Personal history of pulmonary embolism; K21.9 Gastro-esophageal reflux disease without esophagitis; F32.9 Major depressive disorder, single episode, unspecified; E66.9 Obesity, unspecified; Z76.5 Malingerer [conscious simulation]; Z88.8 Allergy status to other drugs, medicaments and biological substances; Z91.040 Latex allergy status; Z88.5 Allergy status to narcotic agent; Z79.899 Other long term (current) drug therapy; Z79.01 Long term (current) use of anticoagulants; W26.0XXA Contact with knife, initial encounter
CPT/HCPCS: 36415; 80053; 80143; 80179; 80306; 80307; 84443; 85007; 85027; 99282; 99285

== ENCOUNTER 2020-11-06 09:20 | Emergency (ER) | payer BC ==
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
[2020-11-06 13:30] VITALS: BP 114/64; PULSE 70
== END 2020-11-06 13:25 | disposition home or self-care (01) ==
LOC: JD.ED 09:20
DX: S30.811A Abrasion of abdominal wall, initial encounter (principal); F32.9 Major depressive disorder, single episode, unspecified; E78.00 Pure hypercholesterolemia, unspecified; I10 Essential (primary) hypertension; J45.909 Unspecified asthma, uncomplicated; K21.9 Gastro-esophageal reflux disease without esophagitis; E66.9 Obesity, unspecified; Z68.37 Body mass index [BMI] 37.0-37.9, adult; Z88.8 Allergy status to other drugs, medicaments and biological substances; Z91.040 Latex allergy status; Z88.5 Allergy status to narcotic agent; Z79.899 Other long term (current) drug therapy; Z72.0 Tobacco use; X78.9XXA Intentional self-harm by unspecified sharp object, initial encounter
CPT/HCPCS: 36415; 80053; 80179; 80306; 85025; 99283; 99285

== ENCOUNTER 2021-07-16 08:55 | Day surgery (SDC) | payer BC ==
[~2021-07-16 08:55] MED LIST: Lactated Ringers 1,000 ML IV SCH; Lidocaine 1%/Sod Bicarbonate in NS 8.4% 1 ML Syringe IDERM PRN; Sodium Chloride 0.9% 10 ML Syringe FLUSH PRN
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
[2021-07-16] MEDS ORDERED: Ondansetron 4 MG/2 ML SDV ONE (10:11)
[2021-07-16] MEDS ORDERED: Midazolam 1 MG/ML 2 ML SDV ONE (10:12)
[2021-07-16] MEDS ORDERED: Propofol 200 MG/20 ML SDV ONE ×3 (10:12→11:12)
[2021-07-16] MEDS ORDERED: fentaNYL 100 MCG/2 ML SDV ONE (10:12)
[2021-07-16] MEDS ORDERED: Ondansetron 4 MG/2 ML SDV IVPUSH PRN (10:37)
[2021-07-16] MEDS ORDERED: diphenhydrAMINE 50 MG/ML SDV IVPUSH PRN (10:37)
[2021-07-16] MEDS ORDERED: Lactated Ringers 1,000 ML ONE (10:44)
--- NOTE | 2021-07-16 11:45 | PCM48HPAN ---
Post Anesthesia Note - EVALUATION WITHIN 48HRS OF ANESTHETIC Vital Signs in Normal Range: Yes Patient Participated in Evaluation: Yes Respiratory Function Stable: Yes Airway Patent: Yes Cardiovascular Function Stable: Yes Hydration Status Stable: Yes Pain Control Satisfactory: Yes Nausea and Vomiting Control Satisfactory: Yes Mental Status Recovered: Yes Vital Signs: Last Vital Signs Temp 36.8 C 07/16/21 09:00 Pulse 98 07/16/21 09:00 Resp 18 07/16/21 09:00 BP 106/51 L 07/16/21 09:00 Pulse Ox 95 07/16/21 09:00
--- NOTE | 2021-07-16 11:49 | PCM.OPNOTE ---
- General Post-Op/Procedure Note Date of Surgery/Procedure: 07/16/21 Operative Procedure(s): partial colonoscopy Findings: 1. Poor prep 2. Abnormal mucosa in the transverse and proximal colon 3. Mild melanosis coli 4. colon polyps 5. Diverticulosis Primary Surgeon: Marcelina Muse Anesthesia Provider: Dina Iraheta Pathology: 1. Transverse colon biopsies 2. Transverse colon polyps x2 3. Descending colon polyp 4. Sigmoid colon polyps x2 5. rectal polyp x4 Fluid Replacement, Intraop: 1,000 Complications: none apparent Condition: Good
--- NOTE | 2021-07-16 11:52 | PCM.PRNOTE ---
- Free Text/Narrative Note: Operative Report Date of Surgery/Procedure: July 16, 2021 Operative Procedure: Colonoscopy to transverse colon with biopsy and polypectomy Pre Op Diagnosis: Family history of colon cancer, constipation Post-Op Diagnosis: same Surgeon: Marcelina Muse Anesthesia Technique: MAC Anesthesia Provider: Dina Iraheta CRNA IV Fluid Replacement, Intraop: 1000cc Output, Urine Amount: none EBL : 0 cc Findings: 1. Poor prep 2. Abnormal mucosa in the transverse and proximal colon 3. Mild melanosis coli 4. colon polyps 5. Diverticulosis Specimens: 1. Transverse colon biopsies 2. Transverse colon polyps x2 3. Descending colon polyp 4. Sigmoid colon polyps x2 5. rectal polyp x4 Indication: The patient is a 51 year-old lady who presented to the outpatient clinic requesting colorectal cancer screening. The patient has a family history of colon cancer. She also has a history of constipation. We discussed the procedure of a screening colonoscopy including the polypectomy and biopsy. Risks of bleeding and perforation were discussed, the patient understood and wished to proceed. Written and consent was obtained Description of the procedure: The patient was brought to the endoscopy suite and placed in the left lateral decubitus position. Appropriate monitors were applied. The patient was given MAC anesthesia. An anorectal examination was performed, revealing no significant abnormalities. The scope was placed into the rectum and advanced to transverse colon with difficulty requiring application of external pressure, change in patient position to supine, and withdrawal and re-insertion of the scope. The patient had poor bowel prep, making the advancement more difficult. Abnormal, white appearing adherent matter was noted on the transverse colon with an increased rough texture, and this was biopsied with a cold biopsy forceps. Additionally, mild melanosis coli was noted on the transverse and descending colon mucosa. Mild diverticulosis was noted in the descending and sigmoid colon. In the transverse colon, two 3mm semi-sessile polyps were removed with a cold biopsy forceps. In the descending and sigmoid colon, three flat 3-4mm polyps were removed with the cold biopsy forceps. Three flat and semi-sessile polyps measuring 2-3mm were removed with a cold biopsy forceps. A 5mm semi-sessile polyp was removed from the rectum with a cold biopsy forceps. In the rectum, the scope was retroflexed and no abnormalities were noted, except for some hemorrhoidal tissue. The scope was placed back in the lumen and the excess air was aspirated. The patient tolerated the procedure well. Complications: none apparent Condition: Good, transported to PACU in stable condition Marcelina Muse MD General Surgery
[2021-07-16 12:57] VITALS: BP 122/64; PULSE 91
== END 2021-07-16 12:51 | disposition home or self-care (01) ==
LOC: JD.SDS 08:55
PROVIDERS: ATTEND Surgery
DX: D12.3 Benign neoplasm of transverse colon (principal); D12.4 Benign neoplasm of descending colon; K63.5 Polyp of colon; K62.1 Rectal polyp; K59.00 Constipation, unspecified; K63.89 Other specified diseases of intestine; K57.30 Diverticulosis of large intestine without perforation or abscess without bleeding; K64.9 Unspecified hemorrhoids; F17.210 Nicotine dependence, cigarettes, uncomplicated; I10 Essential (primary) hypertension; G47.30 Sleep apnea, unspecified; K21.9 Gastro-esophageal reflux disease without esophagitis; E66.9 Obesity, unspecified; Z68.42 Body mass index [BMI] 45.0-49.9, adult; Z80.0 Family history of malignant neoplasm of digestive organs; Z88.8 Allergy status to other drugs, medicaments and biological substances; Z88.5 Allergy status to narcotic agent; Z91.040 Latex allergy status; E78.00 Pure hypercholesterolemia, unspecified; Z98.890 Other specified postprocedural states
CPT/HCPCS: 45380; J2250; J2405; J2704; J3010; J7120; 00812

== ENCOUNTER 2022-01-14 07:44 | Day surgery (SDC) | payer MEDICARE, OTHER ==
[~2022-01-14 07:44] MED LIST changes: +Sodium Chloride 0.9% 10 ML Syringe FLUSH SCH
[2022-01-14] MEDS ORDERED: Propofol 200 MG/20 ML SDV ONE ×3 (10:04→13:00)
[2022-01-14] MEDS ORDERED: Midazolam 1 MG/ML 2 ML SDV ONE ×2 (10:09→12:42)
[2022-01-14] MEDS ORDERED: fentaNYL 100 MCG/2 ML SDV ONE (10:09)
[2022-01-14] MEDS ORDERED: Ondansetron 4 MG/2 ML SDV ONE (12:32)
[2022-01-14 14:27] VITALS: BP 111/74; PULSE 77
== END 2022-01-14 14:26 | disposition home or self-care (01) ==
LOC: JD.SDS 07:44
PROVIDERS: ATTEND Surgery
DX: Z12.11 Encounter for screening for malignant neoplasm of colon (principal); K57.30 Diverticulosis of large intestine without perforation or abscess without bleeding; K22.89 Other specified disease of esophagus; D12.3 Benign neoplasm of transverse colon; K29.50 Unspecified chronic gastritis without bleeding; K31.89 Other diseases of stomach and duodenum; K20.90 Esophagitis, unspecified without bleeding; K63.89 Other specified diseases of intestine; K64.9 Unspecified hemorrhoids; I10 Essential (primary) hypertension; E78.2 Mixed hyperlipidemia; J45.30 Mild persistent asthma, uncomplicated; F41.9 Anxiety disorder, unspecified; F17.210 Nicotine dependence, cigarettes, uncomplicated; E66.01 Morbid (severe) obesity due to excess calories; G47.33 Obstructive sleep apnea (adult) (pediatric); F17.200 Nicotine dependence, unspecified, uncomplicated; I78.1 Nevus, non-neoplastic; Z98.890 Other specified postprocedural states; Z79.899 Other long term (current) drug therapy; Z68.42 Body mass index [BMI] 45.0-49.9, adult; Z91.040 Latex allergy status; Z88.8 Allergy status to other drugs, medicaments and biological substances; Z88.5 Allergy status to narcotic agent
CPT/HCPCS: 43239; 45380; J2250; J2405; J2704; J3010; J7120; 00813

== ENCOUNTER 2022-07-21 18:09 | Emergency (ER) | payer MEDICARE, OTHER ==
[2022-07-21 18:43] VITALS: BP 168/75; PULSE 76
== END 2022-07-21 19:10 | disposition left against medical advice (07) ==
LOC: JD.ED 18:09
DX: Z53.21 Procedure and treatment not carried out due to patient leaving prior to being seen by health care provider (principal)

== ENCOUNTER 2024-05-17 15:52 | Emergency (ER) | payer MEDICARE, OTHER ==
[2024-05-17 16:02] VITALS: BP 148/95; PULSE 89
[2024-05-17 16:26] LABS: BASOPHILS ABSOLUTE AUTO 0.1 K/mm3 (0.0-0.2); EOSINOPHILS ABSOLUTE AUTO 0.4 K/mm3 (0.0-0.4); EOSINOPHILS PERCENT AUTO 4.9 % (0.0-6.0); HEMATOCRIT 41.6 % (37.0-47.0); IMMATURE GRAN ABSOLUTE AUTO 0.02 K/mm3 (0.00-0.05); IMMATURE GRAN PERCENT AUTO 0.3 % (0.0-0.4); LYMPHOCYTES PERCENT AUTO 37.8 % (24.0-44.0); MEAN CORPUSCULAR HEMOGLOBIN 32.3 pg (28.0-32.0); MEAN CORPUSCULAR HGB CONC 33.7 g/dl (32.0-36.0); MEAN CORPUSCULAR VOLUME 95.9 fl (83.0-99.0); MEAN PLATELET VOLUME 10.5 fl (9.4-12.3); MONOCYTES ABSOLUTE AUTO 0.6 K/mm3 (0.0-0.8); MONOCYTES PERCENT AUTO 7.5 % (0.0-8.0); NEUTROPHILS ABSOLUTE AUTO 3.9 K/mm3 (1.8-7.7); NEUTROPHILS PERCENT AUTO 48.5 % (41.0-71.0); PLATELET COUNT,PLT 230 K/mm3 (150-400); RED BLOOD CELL COUNT 4.34 M/mm3 (4.10-5.30)
[2024-05-17 16:43] LABS: BARBITURATE SCREEN,URINE NEGATIVE (CUTOFF=200); BENZODIAZEPINES SCREEN,URINE NEGATIVE (CUTOFF=150); BUPRENORPHINE SCREEN,URINE NEGATIVE (CUTOFF=10); METHADONE SCREEN, URINE NEGATIVE (CUTOFF=200); METHAMPHETAMINES SCREEN, URINE NEGATIVE (CUTOFF=500); OXYCODONE SCREEN,URINE NEGATIVE (CUT0FF=100); THC SCREEN,URINE 20 NG/ML NEGATIVE (CUTOFF=50)
[2024-05-17 16:51] LABS: AMPHETAMINES SCREEN, URINE NEGATIVE (CUTOFF=500)
[2024-05-17 17:12] LABS: ALBUMIN 3.5 g/dl (3.4-5.0); ANION GAP 14.9 (5-15); BILIRUBIN TOTAL 0.3 mg/dL (0.2-1.0); BUN/CREATININE RATIO 3.8 (14-18); CALCIUM 9.5 mg/dL (8.5-10.1); CREATININE 0.8 mg/dL (0.55-1.02); EST CRCL DRUG DOSING (CG) 76.13 mL/min; POTASSIUM,K 3.9 mEq/L (3.5-5.1); TSH 1.677 uIU/mL (0.358-3.74)
== END 2024-05-17 18:40 ==
LOC: JD.ED 15:52
DX: R45.851 Suicidal ideations (principal); E78.00 Pure hypercholesterolemia, unspecified; I10 Essential (primary) hypertension; J45.909 Unspecified asthma, uncomplicated; K21.9 Gastro-esophageal reflux disease without esophagitis; E66.9 Obesity, unspecified; Z79.899 Other long term (current) drug therapy; Z91.040 Latex allergy status; Z88.8 Allergy status to other drugs, medicaments and biological substances; Z88.5 Allergy status to narcotic agent
CPT/HCPCS: 36415; 80053; 80143; 80179; 80306; 80307; 84443; 85025; 99285

== ENCOUNTER 2024-06-01 15:08 | Emergency (ER) | payer MEDICARE, OTHER ==
[2024-06-01 15:51] LABS: BASOPHILS ABSOLUTE AUTO 0.1 K/mm3 (0.0-0.2); BASOPHILS PERCENT AUTO 0.8 % (0.0-1.0); EOSINOPHILS ABSOLUTE AUTO 0.4 K/mm3 (0.0-0.4); HEMATOCRIT 40.7 % (37.0-47.0); HEMOGLOBIN 13.7 gm/dl (12.0-16.0); IMMATURE GRAN ABSOLUTE AUTO 0.02 K/mm3 (0.00-0.05); IMMATURE GRAN PERCENT AUTO 0.2 % (0.0-0.4); LYMPHOCYTES ABSOLUTE AUTO 2.8 K/mm3 (1.0-4.8); LYMPHOCYTES PERCENT AUTO 34.3 % (24.0-44.0); MEAN CORPUSCULAR HEMOGLOBIN 32.3 pg (28.0-32.0); MEAN CORPUSCULAR HGB CONC 33.7 g/dl (32.0-36.0); MEAN PLATELET VOLUME 10.7 fl (9.4-12.3); MONOCYTES ABSOLUTE AUTO 0.7 K/mm3 (0.0-0.8); MONOCYTES PERCENT AUTO 7.9 % (0.0-8.0); NEUTROPHILS ABSOLUTE AUTO 4.3 K/mm3 (1.8-7.7); NEUTROPHILS PERCENT AUTO 51.8 % (41.0-71.0); PLATELET COUNT,PLT 233 K/mm3 (150-400); RED BLOOD CELL COUNT 4.24 M/mm3 (4.10-5.30); WHITE BLOOD CELL COUNT,WBC 8.27 K/mm3 (3.9-11.3)
[2024-06-01 16:27] LABS: ALBUMIN 3.4 g/dl (3.4-5.0); BILIRUBIN TOTAL 0.3 mg/dL (0.2-1.0); CALCIUM 9.4 mg/dL (8.5-10.1); CREATININE 0.8 mg/dL (0.55-1.02); EST CRCL DRUG DOSING (CG) 76.72 mL/min; PROTEIN TOTAL,TP 6.8 g/dl (6.4-8.2); TSH 1.657 uIU/mL (0.358-3.74)
[2024-06-01 18:00] LABS: BARBITURATE SCREEN,URINE NEGATIVE (CUTOFF=200); BENZODIAZEPINES SCREEN,URINE NEGATIVE (CUTOFF=150); BUPRENORPHINE SCREEN,URINE NEGATIVE (CUTOFF=10); METHADONE SCREEN, URINE NEGATIVE (CUTOFF=200); METHAMPHETAMINES SCREEN, URINE NEGATIVE (CUTOFF=500); OXYCODONE SCREEN,URINE NEGATIVE (CUT0FF=100); THC SCREEN,URINE 20 NG/ML NEGATIVE (CUTOFF=50)
[2024-06-01 18:01] LABS: AMPHETAMINES SCREEN, URINE NEGATIVE (CUTOFF=500)
[2024-06-01 19:43] VITALS: BP 138/96; PULSE 71
== END 2024-06-01 18:30 | disposition home or self-care (01) ==
LOC: JD.ED 15:08
DX: R45.851 Suicidal ideations (principal); I10 Essential (primary) hypertension; K21.9 Gastro-esophageal reflux disease without esophagitis; E78.00 Pure hypercholesterolemia, unspecified; E66.9 Obesity, unspecified; Z88.8 Allergy status to other drugs, medicaments and biological substances; Z91.040 Latex allergy status; Z79.899 Other long term (current) drug therapy; Z68.42 Body mass index [BMI] 45.0-49.9, adult
CPT/HCPCS: 36415; 80053; 80143; 80179; 80306; 80307; 84443; 85025; 93005; 99285

== ENCOUNTER 2024-06-08 13:57 | Emergency (ER) | payer MEDICARE, OTHER ==
[2024-06-08 14:45] LABS: BASOPHILS ABSOLUTE AUTO 0.1 K/mm3 (0.0-0.2); BASOPHILS PERCENT AUTO 0.9 % (0.0-1.0); EOSINOPHILS ABSOLUTE AUTO 0.2 K/mm3 (0.0-0.4); EOSINOPHILS PERCENT AUTO 2.1 % (0.0-6.0); HEMATOCRIT 40.4 % (37.0-47.0); HEMOGLOBIN 13.7 gm/dl (12.0-16.0); IMMATURE GRAN ABSOLUTE AUTO 0.03 K/mm3 (0.00-0.05); IMMATURE GRAN PERCENT AUTO 0.3 % (0.0-0.4); LYMPHOCYTES ABSOLUTE AUTO 2.5 K/mm3 (1.0-4.8); LYMPHOCYTES PERCENT AUTO 27.2 % (24.0-44.0); MEAN CORPUSCULAR HEMOGLOBIN 32.1 pg (28.0-32.0); MEAN CORPUSCULAR HGB CONC 33.9 g/dl (32.0-36.0); MEAN CORPUSCULAR VOLUME 94.6 fl (83.0-99.0); MEAN PLATELET VOLUME 10.5 fl (9.4-12.3); MONOCYTES ABSOLUTE AUTO 0.6 K/mm3 (0.0-0.8); MONOCYTES PERCENT AUTO 6.4 % (0.0-8.0); NEUTROPHILS ABSOLUTE AUTO 5.8 K/mm3 (1.8-7.7); NEUTROPHILS PERCENT AUTO 63.1 % (41.0-71.0); PLATELET COUNT,PLT 229 K/mm3 (150-400); RED BLOOD CELL COUNT 4.27 M/mm3 (4.10-5.30); WHITE BLOOD CELL COUNT,WBC 9.13 K/mm3 (3.9-11.3)
[2024-06-08 15:13] LABS: ALBUMIN 3.4 g/dl (3.4-5.0); ANION GAP 12.9 (5-15); BILIRUBIN TOTAL 0.3 mg/dL (0.2-1.0); BUN/CREATININE RATIO 2.2 (14-18); CALCIUM 8.8 mg/dL (8.5-10.1); CREATININE 0.9 mg/dL (0.55-1.02); EST CRCL DRUG DOSING (CG) 66.9 mL/min; POTASSIUM,K 3.9 mEq/L (3.5-5.1); PROTEIN TOTAL,TP 6.8 g/dl (6.4-8.2); TSH 1.421 uIU/mL (0.358-3.74)
[2024-06-08 15:51] LABS: BARBITURATE SCREEN,URINE NEGATIVE (CUTOFF=200); BENZODIAZEPINES SCREEN,URINE NEGATIVE (CUTOFF=150); BUPRENORPHINE SCREEN,URINE NEGATIVE (CUTOFF=10); METHADONE SCREEN, URINE NEGATIVE (CUTOFF=200); METHAMPHETAMINES SCREEN, URINE NEGATIVE (CUTOFF=500); OXYCODONE SCREEN,URINE NEGATIVE (CUT0FF=100); THC SCREEN,URINE 20 NG/ML NEGATIVE (CUTOFF=50)
[2024-06-08 16:00] LABS: AMPHETAMINES SCREEN, URINE NEGATIVE (CUTOFF=500)
[2024-06-08 16:04] LABS: CORONAVIRUS COVID-19 NAA NEGATIVE (NEGATIVE); INFLUENZA A NAA NEGATIVE (NEGATIVE); RESPIRATORY SYNCYTIAL VIR NAA NEGATIVE (NEGATIVE)
[2024-06-08 20:08] VITALS: BP 135/85; PULSE 88
== END 2024-06-08 19:50 ==
LOC: JD.ED 13:57
DX: F32.A Depression, unspecified (principal); I10 Essential (primary) hypertension; E78.00 Pure hypercholesterolemia, unspecified; K21.9 Gastro-esophageal reflux disease without esophagitis; E66.9 Obesity, unspecified; F17.210 Nicotine dependence, cigarettes, uncomplicated; Z79.899 Other long term (current) drug therapy; Z88.8 Allergy status to other drugs, medicaments and biological substances; Z91.040 Latex allergy status; Z88.5 Allergy status to narcotic agent; Z88.6 Allergy status to analgesic agent; Z68.42 Body mass index [BMI] 45.0-49.9, adult
CPT/HCPCS: 0241U; 36415; 80053; 80143; 80179; 80306; 80307; 84443; 85025; 99285